=== PATIENT | female | born 1995 | race Caucasian/White ===

== ENCOUNTER 2020-10-26 10:22 | Emergency (ER) | payer BC, SELFPAY ==
[2020-10-26 10:40] VITALS: BP 150/84; PULSE 119; RESP 16; TEMP 36.9; O2SAT 97; BMI 28.9
[2020-10-26 10:49] VITALS: BP 125/99; PULSE 109; O2SAT 98
--- NOTE | 2020-10-26 10:58 | ED_ITS ---
Documented by User: LASHADNA Bella 10/26/20 13:21 HPI - Psych General: Chief Complaint: Psychiatric Symptoms Stated Complaint: mental eval Time Seen by Provider: 10/26/20 10:51 Source: patient Mode of arrival: ambulatory Limitations: no limitations History of Present Illness: HPI Narrative: Patient is a 25-year-old female who presents to ED today stating her mother requested she come here for mental health evaluation. Patient tells me she has diagnoses of PTSD, anxiety, and bipolar with psychotic features. She is taking clonazepam, abilify, and trazodone daily but does feel like she would benefit from these being adjusted. Patient during her exam does appear manic. Her speech is pressured. She often jumps from topic to topic. Her mood/emotions are labile. She talks about how she is best friends with the LACTATION NURSE of a large company and recently got into a lot of money . She speaks of various other grandiose delusions. MD complaint: other (psychosis) History of same: Yes Associated symptoms: Deny auditory hallucinations, visual hallucinations, depression, homicidal ideation or suicidal ideation Treatments prior to arrival: none Review of Systems Const: Denies: fever(s) or chills Card: Denies: chest pain, palpitations, lightheadedness or syncope Resp: Denies: dyspnea GI: Denies: abdominal pain, nausea, vomiting or diarrhea Skin/Breast: Denies: rash Neuro: Denies: headache(s) Psych: Reports: anxiety and panic attacks; Denies: depression, visual hallucinations, auditory hallucinations, suicidal ideation or homicidal ideation Physical Exam Const: COMMON NORMALS: no acute distress, average body habitus, patient oriented x3, no limitations, healthy appearing, alert and well nourished ORIENTATION/CONSCIOUSNESS: Yes awake, Yes oriented to person, Yes oriented to place and Yes oriented to time Neuro: JANNET COMA SCALE: document GCS findings Jannet coma scale eye opening: Spontaneous Jannet coma scale verbal response: Orientated Jannet coma scale motor response: Obey commands [place] coma scale total score: 15 COMMON NORMALS: patient oriented x3 SENSORIUM/ORIENTATION: Yes alert, Yes oriented to person, Yes oriented to place and Yes oriented to time Psych: ACTIVITY/MOTOR BEHAVIOR: Yes appropriate eye contact SPEECH: Yes excessive, Yes rapid and Yes Pressured speech present MOOD & AFFECT: Yes Labile affect present THOUGHT PROCESS: Tangential thought process present ATTENTION/CONCENTRATION: Yes attention grossly intact and Yes concentration grossly intact INSIGHT: Poor insight present (Psych) JUDGEMENT: Fair judgement present (Psych) OTHER: upon initial exam she immediately asks me my credentials and several questions regarding hospital and administration; he paces around room inspecting it stating she is a trauma EMS Course Consultations: Consultation #1: Dr. Pope-initially recommends patient be placed on a 96 hour hold and admitted to NPU however after speaking with Dr. Johns he agreed to come and assess patient in ED; following his assessment he is okay allowing the patient to leave. Vital Signs: Vital signs: Vital Signs Temperature 98.5 F 10/26/20 10:40 Pulse Rate 116 H 10/26/20 13:09 Respiratory Rate 16 10/26/20 10:40 Blood Pressure 136/92 10/26/20 13:09 Pulse Oximetry 99 10/26/20 13:09 MDM - Psych MDM Narrative: Medical decision making narrative: Patient is a 25-year-old female with acute psychosis/aneta. I had initially spoken to Dr. Pope who requested he see patient in ED but he recommended 96-hour hold and admitted to NPU. I spoke to Dr. Johns who signed initial hold paperwork and assessed patient. He felt like based on his assessment she did not meet 96-hour hold criteria so spoke to Dr. Pope who then agreed to come see patient in ED. Based on his assessment he does feel patient is stable for discharge with medication changes. 96 hour hold will be rescinded. Please refer to Dr. Pope's specific note in regards to his examination. Lab Data: Labs: Lab Results 10/26/20 Range/Units 11:45 Urine Opiates Scre en Negative (Negative) ng/mL Ur Barbiturates Sc reen Negative (Negative) ng/mL Ur Phencyclidine S crn Negative (Negative) ng/mL Ur Amphetamines Sc reen Negative (Negative) ng/mL U Benzodiazepines Scrn Negative (Negative) ng/mL Urine Cocaine Scre en Negative (Negative) ng/mL U Marijuana (THC) Screen Positive H (Negative) ng/mL Discharge Plan Discharge Patient Disposition: Home Clinical Impression: Bipolar I disorder with aneta Condition: Stable Prescriptions: New Abilify 5 mg tablet 5 mg PO .QHS Qty: 30 RF: 0 clonazepam 1 mg tablet 1 mg PO QAM Qty: 30 RF: 0 trazodone 50 mg tablet 75 mg PO .QHS Qty: 45 RF: 0 Discontinued trazodone 50 mg Tablet 50 mg PO BEDTIME RF: 0 No Action One A Day Vitamin Tablet 1 tab PO DAILY RF: 0 clonazepam 0.5 mg Tablet 0.5 mg PO BID RF: 0 Abilify 5 mg Tablet 5 mg PO DAILY RF: 0 Discharge Orders: Discharge ED (Routine); Ordered 10/26/20 Ordered By: Christal Connor Activity Restrictions/Additional Instructions: As we discussed based on your assessment with Dr. Pope we are adding 5 mg of Abilify to take in the evening in addition to the abilify you take mid-day. We are adding 1 mg clonazepam to take in the morning. We are increasing your trazodone to 75 mg in the evening. You need to return to the emergency department for any thoughts of self harming behavior or harming others, hallucinations, delusions, or any other concerns you may have. Coding Level of Care Code ED Patient Care Manager for Chg Fwd Exam Expanded Problem Focused Documented by User: Devonte Johns MD 10/26/20 18:45 HPI - Psych General: Chief Complaint: Psychiatric Symptoms Stated Complaint: mental eval Time Seen by Provider: 10/26/20 10:51 Course Vital Signs: Vital signs: Vital Signs Temperature 98.5 F 10/26/20 10:40 Pulse Rate 116 H 10/26/20 13:09 Respiratory Rate 16 10/26/20 10:40 Blood Pressure 136/92 10/26/20 13:09 Pulse Oximetry 99 10/26/20 13:09 MDM - Psych MDM Narrative: Medical decision making narrative: Dr Johns: I have spoken with MLP and patient. Patient notes that she's had trouble sleeping and it is affecting her mental health. She has good insight during my interview. She knows her meds and even has suggestions for change. She is connected to therapy and psychiatry. Patient is not imminent threat to self or others. She seems to be hypomanic. I did not find any evidence of psychosis during my interview. I consulted with Dr Pope, psychiatrist, who has seen and evaluated the patient. He reports patient can be given a trial with med changes (as noted in chart) and if doing better can avoid hospitalization; if not improving then will need to return and be evaluated for admission. Lab Data: Labs: Lab Results 10/26/20 Range/Units 11:45 Urine Opiates Scre en Negative (Negative) ng/mL Ur Barbiturates Sc reen Negative (Negative) ng/mL Ur Phencyclidine S crn Negative (Negative) ng/mL Ur Amphetamines Sc reen Negative (Negative) ng/mL U Benzodiazepines Scrn Negative (Negative) ng/mL Urine Cocaine Scre en Negative (Negative) ng/mL U Marijuana (THC) Screen Positive H (Negative) ng/mL Discharge Plan Discharge Patient Disposition: Home Clinical Impression: Bipolar I disorder with aneta Condition: Stable Prescriptions: New Abilify 5 mg tablet 5 mg PO .QHS Qty: 30 RF: 0 clonazepam 1 mg tablet 1 mg PO QAM Qty: 30 RF: 0 trazodone 50 mg tablet 75 mg PO .QHS Qty: 45 RF: 0 Discontinued trazodone 50 mg Tablet 50 mg PO BEDTIME RF: 0 No Action One A Day Vitamin Tablet 1 tab PO DAILY RF: 0 clonazepam 0.5 mg Tablet 0.5 mg PO BID RF: 0 Abilify 5 mg Tablet 5 mg PO DAILY RF: 0 Discharge Orders: Discharge ED (Routine); Ordered 10/26/20 Ordered By: Christal Connor Activity Restrictions/Additional Instructions: As we discussed based on your assessment with Dr. Pope we are adding 5 mg of Abilify to take in the evening in addition to the abilify you take mid-day. We are adding 1 mg clonazepam to take in the morning. We are increasing your tr azodone to 75 mg in the evening. You need to return to the emergency department for any thoughts of self harming behavior or harming others, hallucinations, delusions, or any other concerns you may have. Coding Level of Care Code ED Patient Care Manager for Dana Fwd Exam Expanded Problem Focused
[2020-10-26 11:39] VITALS: BP 125/99; PULSE 108; O2SAT 97
[2020-10-26 12:36] LABS: Amphetamines Screen Urine Negative (Negative); Barbiturates Screen Urine Negative (Negative); Benzodiazepines Screen Urine Negative (Negative); Cocaine Screen Urine Negative (Negative); Opiate Screen Urine Negative (Negative); PCP Screen Urine Negative (Negative); THC Screen Urine Positive (Negative)
[2020-10-26 13:07] VITALS: BP 136/92; PULSE 116; O2SAT 100
[2020-10-26 13:09] VITALS: BP 136/92; PULSE 116; O2SAT 99
--- NOTE | 2020-10-26 13:09 | P.CONIM_ITS ---
Providers/Reason for Consult Consulting Physican/Specialty*: Ebenezer Pope MD / psychiatry Reason for Consult*: Hypomania, needs med adjustments Psych Consult HPI History of Present Illness Sherri Cobian is a 25 year old female with a history of bipolar disorder and recent admission to the [facility] psych unit who presented here with hypomanic symptoms requesting a med adjustment. I discussed the case with both the PA Christal Connor, and the ED physician Devonte Johns. The ED note states: Patient is a 25-year-old female who presents to ED today stating her mother requested she come here for mental health evaluation. Patient tells me she has diagnoses of PTSD, anxiety, and bipolar with psychotic features. She is taking clonazepam, abilify, and trazodone daily but does feel like she would benefit from these being adjusted. Patient during her exam does appear manic. Her speech is pressured. She often jumps from topic to topic. Her mood/emotions are labile. 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 She speaks of various other grandiose delusions. Patient said her mood has been a little 50, and describes some labile affects. She says it is harder to sleep. She has some rapid thinking and speaking. Mild grandiosity. No risky behavior. She denies auditory visual hallucinations. She denies suicidal and homicidal ideation. She denies using alcohol. She says she smoked a little marijuana and has been smoking 1-1/2 to 2 packs of cigarettes per day. She came to stay in [place] with her mother and stepfather, after her hospital stay, as a way to recuperate. She says she sees a therapist named Gabe Gomez and has an appointment with him in 2 days. Her psychiatric appointment is not for 2 weeks, but she will call them and ask to be seen sooner. Patient says she takes Abilify 15 mg at midday for mood stabilization. She takes trazodone 50 mg at bedtime for insomnia. She takes Klonopin 0.5 mg twice daily for anxiety. I discussed increasing her dose of each of them a bit to address mood instability, insomnia, and anxiety. She agrees to this plan. Mental Status Exam MSE Comments: I met with the patient in her ED room, and she was dressed neatly in street close and appropriately groomed. She was cooperative but spirited and made good eye contact. She had mild psychomotor agitation. Speech was a little rapid but easily interruptible. She slowed herself down at times by deliberately taking a deep breath. She was alert and oriented to person, place, time, and situation. Attention, concentration, and memory were adequate for the exam. Mood is mildly euphoric and affect is somewhat labile?pleasant at times, euphoric at times, and tearful a couple of times. She never lost control of her emotions. Thought process was logical and goal-directed without flight of ideas. Thought content: She denies auditory and visual hallucinations. There are no delusions or paranoia noted. She denies suicidal and homicidal ideation. Insight and judgment are fair. She understands that she is having some moods that are outside her normal range and that she needs medication adjustment. Impulse control is fair as well. Vitals/I&O/Wt Last Vital Signs Temp 98.5 F 10/26/20 10:40 Pulse 116 H 10/26/20 13:07 Resp 16 10/26/20 10:40 BP 136/92 10/26/20 13:07 Pulse Ox 100 10/26/20 13:07 Weight last 48 hrs Weight 76.385 kg A&P Assessment and plan (1) Bipolar I disorder with aneta: * Recommend increasing Abilify by 5 mg daily. She takes 15 mg at midday, and this can make her somewhat sleepy. So it is better to give the additional 5 mg at bedtime. * Also recommend increasing trazodone to 75 mg at bedtime to address insomnia. If the antidepressant exacerbates aneta, the patient says she will return to the ED. * I recommended to the patient that she call her psychiatrist to see if her appointment can be moved to a sooner date. She is supposed to see him in 2 weeks, but it is better if she sees him sometime this week. She will tell him that we adjusted her medications here. Status: Acute (2) PTSD (post-traumatic stress disorder): * Recommend increasing Klonopin to 1 mg in the morning and 0.5 mg at bedtime to address anxiety in the daytime. Status: Acute Additional A&P Information The patient has a mild exacerbation of her manic state. She has no urges to harm her self or others. She is still able to care for herself. Her insight is preserved. She knows that she can return here if her symptoms worsen. She stays with her mother and stepfather, and they are keeping an eye out on her as well. Recommendations were reviewed with Dr. Johns and Ms. Connor and they are in agreement with this plan. Attestations NPU Medical Necessity Statement*: See ED provider note for medical necessity justification. Coding Level of Care Code Acute Compressor Station Operator for Dana Moralesd Diagnoses Bipolar I disorder with aneta F31.10 PTSD (post-traumatic stress disorder) F43.10
== END 2020-10-26 13:12 | disposition home or self-care (01) ==
PROVIDERS: Emergency Provider Physician Assistant
DX: F31.9 Bipolar disorder, unspecified (principal)
CPT/HCPCS: 80306; 99283

== ENCOUNTER 2020-11-01 11:10 | Emergency (ER) | payer BC, SELFPAY ==
[2020-11-01 11:52] VITALS: BP 117/76; PULSE 112; RESP 16; TEMP 36.8; O2SAT 97; BMI 27.4
--- NOTE | 2020-11-01 12:03 | ED_ITS ---
HPI - Anxiety General: Chief Complaint: Anxiety Stated Complaint: Anxiety, Mental Health Time Seen by Provider: 11/01/20 11:57 History of Present Illness: HPI narrative: Patient states she just wants to be clear that she can go back home to [place]. States she feels fine. She states that her mom is overbearing and and being involved in her care when she should not be. Patient states she is taking her medications and realized that it would take a while for increased dose to make a huge difference. Patient says she is not suicidal or homicidal. Says she feels fine realizes that she has bipolar and anxiety and she has a psychiatrist she still sees in [place] and she wants to go see them. MD complaint: other (As above) Onset (ago): year(s) Associated symptoms: Deny chest pain, chills, fever(s), headache(s), nausea or vomiting Review of Systems Const: Denies: fever(s), chills or body aches Eyes: Denies: change in vision or blurry vision ENMT: Denies: throat pain or nasal congestion Card: Denies: chest pain or dyspnea on exertion Resp: Denies: dyspnea, productive cough or non-productive cough GI: Denies: abdominal pain, nausea or vomiting Musc: Denies: extremity pain Skin/Breast: Denies: rash Neuro: Denies: headache(s) Psych: Reports: anxiety and mood swings; Denies: depression, panic attacks, hopelessness, irritability, difficulty concentrating, visual hallucinations, auditory hallucinations, tactile hallucinations, suicidal ideation or homicidal ideation Santo/Lymph: Denies: easy bruising [facility] ED Female Reproductive History: Date of last menstrual period: 11/05/19 Physical Exam Const: COMMON NORMALS: no acute distress GENERAL APPEARANCE: cooperative Resp: COMMON NORMALS: normal respiratory effort Psych: COMMON NORMALS: mental status grossly normal, Normal thought process present and cooperative ATTITUDE: Yes calm ACTIVITY/MOTOR BEHAVIOR: Yes appropriate eye contact SPEECH: Yes rapid THOUGHT PROCESS: Normal thought process present THOUGHT CONTENT: Yes Normal thought content present ATTENTION/CONCENTRATION: Yes attention grossly intact MEMORY/COGNITION: Yes memory grossly intact INSIGHT: Good insight present (Psych) JUDGEMENT: Good judgement present (Psych) Course Vital Signs: Vital signs: Vital Signs Temperature 98.3 F 11/01/20 11:52 Pulse Rate 112 H 11/01/20 11:52 Respiratory Rate 16 11/01/20 11:52 Blood Pressure 117/76 11/01/20 11:52 Pulse Oximetry 97 11/01/20 11:52 MDM - Anxiety MDM Narrative: Medical decision making narrative: Patient with anxiety and bipolar disorder. Patient did not want mother involved with care. Patient has not signed a release for mother to no information. Mother was informed. Patient that she can follow-up with primary care provider and [place]. Patient said she is aware that it takes a bit for the medication to work and she is doing fine and did not want to be here but she came here said her mom know that she was okay. Discharge Plan Discharge Patient Disposition: Home Clinical Impression: PTSD (post-traumatic stress disorder) Condition: Stable Prescriptions: No Action One A Day Vitamin Tablet 1 tab PO DAILY RF: 0 clonazepam 0.5 mg Tablet 0.5 mg PO BID RF: 0 Abilify 5 mg Tablet 5 mg PO DAILY RF: 0 Abilify 5 mg tablet 5 mg PO .QHS Qty: 30 RF: 0 clonazepam 1 mg tablet 1 mg PO QAM Qty: 30 RF: 0 trazodone 50 mg tablet 75 mg PO .QHS Qty: 45 RF: 0 Discharge Orders: Discharge ED (Routine); Ordered 11/01/20 Ordered By: Ajit Martin Discharge Diet: Usual diet Discharge Activity: Resume usual activity Activity Restrictions/Additional Instructions: Patient is follow-up psychiatry in [place]. Patient stay on present medications. Can return here if worsening symptoms. Coding Level of Care Code ED Crop Quantitative Geneticist for Dana Fwalba Exam Expanded Problem Focused
== END 2020-11-01 13:00 | disposition home or self-care (01) ==
PROVIDERS: Emergency Provider Nurse Practitioner Family
DX: F43.10 Post-traumatic stress disorder, unspecified (principal)
CPT/HCPCS: 99281

== ENCOUNTER 2020-11-19 12:14 | Inpatient (IN) | payer BC, SELFPAY ==
[2020-11-19 12:29] VITALS: BP 131/89; PULSE 110; RESP 22; TEMP 36.8; O2SAT 98; BMI 27.6
[2020-11-19 14:26] VITALS: BP 128/85; PULSE 106; RESP 18; O2SAT 98
--- NOTE | 2020-11-19 14:35 | ED_ITS ---
HPI - Psych General: Chief Complaint: Psychiatric Symptoms Stated Complaint: MHE: SENT BY [facility] EM[facility]GENCY [facility]PART[facility] Time Seen by Provider: 11/19/20 14:35 History of Present Illness: HPI Narrative: Ms. Cobian is a 25-year-old lady with significant past medical history of bipolar presents to the emergency department due to concern of her medications. She reports a longstanding history of difficulties with mental health and challenges regarding finding the appropriate balance of medications. Over the past few months she has had increased episodes of paranoia. She primarily feels like people are watching her though she denies visual hallucinations or auditory hallucinations associated with this. She was previously seen and had trazodone increased however symptoms have continued to worsen. She offer some insight into poor/dangerous decisions however often has explanations for her symptoms. Collateral information provided by family is that last night she left without telling anybody and was missing for about 4 hours. She was subsequently found in the lives with her dog across the highway. Overall the course of symptoms has been worsening. The intensity is moderate to severe. She otherwise denies medical complaints. Review of Systems General: Reports: 10 or more systems reviewed and unremarkable except in HPI and below PFSH ED PFSH: Medical History (Updated 11/20/20 @ 16:00 by Ebenezer Pope MD) Bipolar disorder, curr episode mixed, severe, w/o psychotic features Female Reproductive History: Date of last menstrual period: 11/05/19 Physical Exam Narrative: EXAM NARRATIVE: GENERAL/CONSTITUTIONAL - well-appearing. No acute distress. Eyes - PERRL, no conjunctival injection ENMT - Atraumatic external nose and ears. Moist mucous membranes NECK - supple. trachea midline CARDIOVASCULAR - regular rate and rhythm. Peripheral pulses 2+ and equal RESPIRATORY -clear to auscultation bilaterally. No retractions or accessory muscle use. ABDOMEN/GI - Nontender. Nondistended. MSK - Extremities without obvious deformity or tenderness to palpation SKIN - Warm, Dry NEURO - alert and appropriately oriented. Moves all extremities equally. PSYCH - anxious. Moderate insight. Course ED course: - Patient was seen and evaluated by me at bedside - Patient placed on cardiac monitors, IV access obtained - Initial evaluation notable for no acute distress, nontoxic appearance. - Labs notable for no significant abnormality - Based on ED evaluation to this point there is no obvious condition that would preclude the patient from inpatient management of psychiatric concerns. The patient denies suicidal or homicidal ideation or underlying psychiatric disorder is currently in such state that she is making dangerous decisions - Dr. Pope of the psychiatry service was contacted and agreed to admit the patient. Vital Signs: Vital signs: Vital Signs Temperature 98.4 F 11/21/20 10:12 Pulse Rate 97 11/21/20 10:12 Respiratory Rate 20 H 11/21/20 10:12 Blood Pressure 125/60 11/21/20 10:12 Pulse Oximetry 97 11/21/20 10:12 MDM - Psych Medical Records: Attestation: I reviewed the patient's medical records. Lab Data: Attestation: I reviewed the patient's lab results. Labs: Lab Results 11/19/20 11/19/20 11/19/20 15:10 15:10 15:43 WBC 11.9 10^3/uL H 10 ^3/uL (4.0-10.0) RBC 4.40 10^6/uL 10^6 /uL (4.1-5.3) Hgb 13.6 g/dL g/dL (11.5-15.3) Hct 40.5 % % (37.0-47.0) MCV 92.0 fl fl (81-99) MCH 30.9 pg pg (28.0-34.0) MCHC 33.6 g/dL g/dL (30.0-36.0) RDW 13.1 % % (12.1-15.1) Plt Count 316 10^3/cmm 10^3 /cmm (130-400) MPV 9.9 fL fL (7.4-10.4) Neut % (Auto) 69.3 % % Lymph % (Auto) 21.4 % % Davison % (Auto) 8.0 % % Eos % (Auto) 0.6 % % Baso % (Auto) 0.4 % % Neut # (Auto) 8.26 10^3/uL H 10 ^3/uL (1.8-7.7) Lymph # (Auto) 2.6 10^3/uL 10^3/ uL (0.8-4.8) Davison # (Auto) 1.0 10^3/uL H 10^ 3/uL (0.2-0.9) Eos # (Auto) 0.1 10^3/uL 10^3/ uL (0.0-0.8) Baso # (Auto) 0.1 10^3/uL 10^3/ uL (0.0-0.1) Nucleated RBC % (a uto) 0 % % Nucleated RBCs # 0.0 /100WBC /100W BC Sodium Potassium Chloride Carbon Dioxide Anion Gap BUN Creatinine GFR Calculation Glucose Calculated Osmolal ity Calcium Total Bilirubin AST ALT Alkaline Phosphata se Total Protein Albumin Globulin HCG, Qual Negative (Negative) Salicylates Urine Opiates Scre en Negative ng/mL ng /mL (Negative) Acetaminophen Ur Barbiturates Sc reen Negative ng/mL ng /mL (Negative) Ur Phencyclidine S crn Negative ng/mL ng /mL (Negative) Ur Amphetamines Sc reen Negative ng/mL ng /mL (Negative) U Benzodiazepines Scrn Negative ng/mL ng /mL (Negative) Urine Cocaine Scre en Negative ng/mL ng /mL (Negative) U Marijuana (THC) Screen Negative ng/mL ng /mL (Negative) 11/19/20 15:43 WBC RBC Hgb Hct MCV MCH MCHC RDW Plt Count MPV Neut % (Auto) Lymph % (Auto) Davison % (Auto) Eos % (Auto) Baso % (Auto) Neut # (Auto) Lymph # (Auto) Davison # (Auto) Eos # (Auto) Baso # (Auto) Nucleated RBC % (a uto) Nucleated RBCs # Sodium 139 mmol/L mmol/L (136-145) Potassium 4.8 mmol/L mmol/L (3.5-5.1) Chloride 105 mmol/L mmol/L (98-107) Carbon Dioxide 24 mmol/L mmol/L (22-29) Anion Gap 14.8 (5-19) BUN 7 mg/dL mg/dL (6-20) Creatinine 0.5 mg/dL mg/dL (0.5-0.9) GFR Calculation 148.0 mL/min H mL /min (90-130) Glucose 79 mg/dL mg/dL (65-115) Calculated Osmolal ity 285 mOsm/kg mOsm/ kg (285-295) Calcium 9.0 mg/dL mg/dL (8.5-10.5) Total Bilirubin 0.3 mg/dL mg/dL (0.15-1.2) AST 24 U/L U/L (0-32) ALT 13 U/L U/L (0-33) Alkaline Phosphata se 80 IU/L IU/L (35-105) Total Protein 6.8 g/dL g/dL (6.6-8.7) Albumin 4.4 g/dL g/dL (3.5-5.2) Globulin 2.4 g/dL g/dL (1.3-4.6) HCG, Qual Salicylates 0.8 mg/dL L mg/dL (3-10) Urine Opiates Scre en Acetaminophen < 5.0 ug/mL L ug/ mL (10-30) Ur Barbiturates Sc reen Ur Phencyclidine S crn Ur Amphetamines Sc reen U Benzodiazepines Scrn Urine Cocaine Scre en U Marijuana (THC) Screen EKG Data^: EKG 1: Attestation: I personally reviewed and interpreted this EKG as follows: EKG interpretation date: 11/19/20 EKG interpretation time: 15:30 Interpretation: Twelve-lead EKG shows a regular sinus rhythm at a rate of 85. OR interval 123, QRS duration 102, QTc 414. Normal axis. Interpretation: Sinus rhythm Discharge Plan Discharge Patient Disposition: Admitted As Inpatient Admit Provider: Ebenezer Pope Coding Level of Care Code ED Senior Financial Consultant for Dana Segura
--- NOTE | 2020-11-19 15:03 | ECG_ITS ---
[facility] Test Date: 2020-11-19 Pat Name: Sherri Cobian Department: Room: Gender: Female Floor Technician: : 1995 Requested By: Rogelio Musa Order Number: [id number] MD: Conor Arroyo M.D. Measurements Intervals Burns Rate: 85 P: 55 DE: 123 QRS: 24 QRSD: 102 T: 31 QT: 347 QTc: 414 Interpretive Statements SINUS RHYTHM POSSIBLE RIGHT VENTRICULAR CONDUCTION DELAY [RSR (QR) IN V1/V2] No previous ECG available for comparison Electronically Signed On 11-19-2020 21:04:58 CDT by Conor Arroyo M.D. [id number]
[2020-11-19 15:12] VITALS: BP 125/90; PULSE 106; RESP 18; O2SAT 98
[2020-11-19 15:24] LABS: HCG Qualitative Urine. Negative (Negative)
[2020-11-19 15:35] LABS: Amphetamines Screen Urine Negative (Negative); Barbiturates Screen Urine Negative (Negative); Benzodiazepines Screen Urine Negative (Negative); Cocaine Screen Urine Negative (Negative); Opiate Screen Urine Negative (Negative); PCP Screen Urine Negative (Negative); THC Screen Urine Negative (Negative)
[2020-11-19 15:50] LABS: Basophils # 0.1 10^3/uL (0.0-0.1); Basophils % 0.4 %; Eosinophils # 0.1 10^3/uL (0.0-0.8); Eosinophils % 0.6 %; Hematocrit 40.5 % (37.0-47.0); Hemoglobin 13.6 g/dL (11.5-15.3); Lymphocytes # 2.6 10^3/uL (0.8-4.8); Lymphocytes % 21.4 %; Mean Corpuscular HGB Conc 33.6 g/dL (30.0-36.0); Mean Corpuscular Hemoglobin 30.9 pg (28.0-34.0); Mean Platelet Volume 9.9 fL (7.4-10.4); Neutrophils # 8.26 10^3/uL (1.8-7.7); Neutrophils % 69.3 %; Nucleated Red Blood Cells % 0 %; Platelet Count 316 10^3/cmm (130-400); Red Cell Distribution Width 13.1 % (12.1-15.1); White Blood Count 11.9 10^3/uL (4.0-10.0)
[2020-11-19 16:17] LABS: Alanine Aminotransferase 13 U/L (0-33); Albumin Level 4.4 g/dL (3.5-5.2); Alkaline Phosphatase 80 IU/L (35-105); Blood Urea Nitrogen 7 mg/dL (6-20); Carbon Dioxide 24 mmol/L (22-29); Chloride 105 mmol/L (98-107); Globulin 2.4 g/dL (1.3-4.6); Glucose 79 mg/dL (65-115); Osmolality Calculated 285 mOsm/kg (285-295); Salicylate 0.8 mg/dL (3-10); Sodium 139 mmol/L (136-145); Total Bilirubin 0.3 mg/dL (0.15-1.2); Total Protein 6.8 g/dL (6.6-8.7)
[2020-11-19 16:22] LABS: Acetaminophen < 5.0 ug/mL (10-30)
[2020-11-19 16:23] LABS: Anion Gap 14.8 (5-19); Aspartate Amino Transferase 24 U/L (0-32); Potassium 4.8 mmol/L (3.5-5.1)
[2020-11-19 17:05] VITALS: BP 111/66; PULSE 100; RESP 17; TEMP 36.9; O2SAT 100
--- NOTE | 2020-11-19 18:25 | PC.NURSE ---
UNABLE TO PROPERLY ASSESS PT DUE TO STATE OF EMOTION
[2020-11-19 20:45] VITALS: BP 104/66; PULSE 89; RESP 18; TEMP 37.2; O2SAT 99
[2020-11-19] MEDS: trazodone 50 mg Tablet PO (22:41)
[2020-11-19] MEDS: hyDROXYzine 25 mg Capsule 50 MG PO (22:41)
--- NOTE | 2020-11-20 03:38 | PC.NURSE ---
PRN's Patient was given trazodone and vistaril for sleep and anxiety, patient responded well.
[2020-11-20 06:00] VITALS: BP 118/88; PULSE 85; RESP 17; TEMP 36.7; O2SAT 94
[2020-11-20] MEDS: CLONazepam 1 mg Tablet PO (06:26)
[2020-11-20] MEDS: CLONazepam 1 mg Tablet 0.5 MG PO ×3 (09:20→20:57)
[2020-11-20] MEDS: ARIPiprazole 10 mg Tablet 5 MG PO ×2 (09:20→16:38)
[2020-11-20] MEDS: multivitamin therapeutic Tablet 1 TAB PO (09:21)
[2020-11-20] MEDS: acetaminophen 325 mg Tablet 650 MG PO (09:33)
[2020-11-20] MEDS: hyDROXYzine 25 mg Capsule 50 MG PO (11:05)
--- NOTE | 2020-11-20 11:05 | PC.NURSE ---
Patient came to nurses station and stated she needed this nurse to take her brush and toothbrush before she did something to herself. PRN Vistaril given at this time.
--- NOTE | 2020-11-20 12:24 | PC.NURSE ---
Pt came up to nurses station and request that we take her toothbrush and hairbrush away from her. When i entered the pt room she was very agitated and said that we need to do a better job about checking on her Charged nurse was notified.
[2020-11-20 14:00] VITALS: PULSE 92; RESP 171; TEMP 36.9
--- NOTE | 2020-11-20 15:25 | P.HP_ITS ---
Providers/Chief Complaint Admitting Physician: Ebenezer Pope MD Chief Complaint: MHE: SENT BY [facility] HPI NPU History of Present Illness Sherri Cobian is a 25 year old female with a history of bipolar disorder and PTSD who was admitted to the ED here because of paranoia and disorganized thinking. The crisis team notes yesterday state in part: Intervention:: Client was brought into [facility] by her parents, client is not in services with [facility]. She was recently at the ER stating my meds were not working . Client did not want her parents to come into the crisis office with her. [facility] has an investigator internal revenue and she did not want the investigator internal revenue to come in either. Client stated that she was in-patient (wouldn't say when) she was given ketamine and stated that Everything has changed since, I have depression and I am manic . 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 Client was very tearful, she was hard to understand at times. Client asked CRW who we are affiliated with and she was informed that [facility] is part of the [facility]. she wanted to who the [facility]. was affiliated with. Client did seen a bit paranoid. Client reports that she has realized that she has done some bad things in life and has pushed others away. Client Response to Intervention:: CRW talked with client, client stated that she thinks she needed to go to the hosp. she stated that her parents wanted her to be in-patient. The patient, who is known to me from an ER visit last month, says that she has been feeling very frightened since her partner got Covid a number of weeks ago. She relates her fear to feeling her neck pop during her partner's illness. Something happened that she became aware of her partners potential to , and she became terrified that that would happen. She was very tearful during the interview and stopped talking completely for long periods at times. She initially asked to be able to leave the hospital, but then decided that she really does want to get help. Mood has been depressed, mostly, per patient. She has had trouble sleeping at times, though she did sleep well here last ni ght. She denies hearing voices or seeing things currently. She does not feel suicidal at the moment. And there is no homicidal ideation. The patient says she has been hospitalized 3 times previously. She is in the process of switching services to this area. She has seen a psychiatrist from the [facility] via telepsychiatry in recent weeks. The patient denies using much alcohol. Denies using drugs and her UDS is negative for all substances tested. Family history: She is unsure of her family history Psychosocial history: She begins to talk about finishing classes, then gets very tearful, then stopped talking altogether. She says she is in a committed relationship, but she also says that she and her partner have not spoken for quite some time. She has no children. She does not work. Her parents have encouraged her to apply for disability. Legal history: No legal difficulties. Meds NPU Home Medications Medication Instructions Recorded Confirmed Last Taken Type clonazepam 1 mg PO QAM #30 tab 10/26/20 11/19/20 11/19/20 Rx multivitamin [One A Day Vitamin] 1 tab PO DAILY 10/26/20 11/19/20 11/19/20 History aripiprazole [Abilify] 5 mg PO BID 11/19/20 11/20/20 Unknown History clonazepam 0.5 mg PO TID 11/19/20 11/19/20 Unknown History trazodone 75 mg PO BEDTIME 11/19/20 11/19/20 11/18/20 History Allergies Allergy/AdvReac Type Severity Reaction Status Date / Time No Known Allergies Allergy Verified 10/26/20 10:50 PFS NPU PFSH: Medical History (Updated 11/20/20 @ 16:00 by Ebenezer Pope MD) Bipolar disorder, curr episode mixed, severe, w/o psychotic features Mental Status Exam MSE Comments: I met with the patient on the bench by the nurses station. She was dressed in hospital scrubs and appropriately groomed. She was somewhat agitated, and would get startled if patients walked by or spoke. She attempted to cooperate with questions, but had thought blocking. Eye contact was fair. No psychomotor agitation or retardation. Speech is at a regular rate and rhythm, normal volume, good articulation, not pressured. Alert, oriented to person, place, time, and situation. Attention and concentration were impaired. She was able to spell the word WORLD correctly forwards, but spelled DLO in reverse then stopped and gave up. Memory is intact. Remembers 3/3 words immediately and 3/3 at 3 minutes. He knows the names of the past 4 presidents. Mood is depressed and anxious. Affect is tearful and dysregulated. Thought process shows thought blocking and confusion. Thought content: Denies auditory and visual hallucinations. No delusions or paranoia are noted. No current suicidal ideation, and no homicidal ideation. Fund of knowledge is intact to exam. Language is intact to exam. Insight and judgment appear to be fair. Impulse control is fair as well. Vitals/I&O/Wt Last Vital Signs Temp 98.4 F 11/20/20 14:00 Pulse 92 11/20/20 14:00 Resp 171 H 11/20/20 14:00 BP 118/88 11/20/20 06:00 Pulse Ox 94 11/20/20 06:00 Weight last 48 hrs Weight 73.198 kg Data NPU : 11/19/20 15:43 11/19/20 15:43 A&P Assessment and plan (1) PTSD (post-traumatic stress disorder): Status: Acute (2) Bipolar disorder, curr episode mixed, severe, w/o psychotic features: Status: Acute Additional A&P Information Sherri Cobian is a 25 year old female with a history of bipolar disorder and PTSD who was admitted to the ED here because of paranoia and disorganized thinking. RECOMMENDATION AND PLAN: 1. Continue current medication. 2. Continue every 15 minute checks for safety. 3. Encourage individual, group and milieu therapies. 4. Encourage sober living treatment after discharge at the highest level of care to which he is willing to commit. Attestations NPU Medical Necessity Statement*: Psychiatric hospitalization is medically necessary to prevent access to lethal means, to reevaluate medication, and to coordinate a safe discharge. Patient will be in the hospital for over 2 midnights. Likely length of stay is 3 to 5 days. Coding Level of Care Code Acute Risk Modeler for Dana Segura Diagnoses PTSD (post-traumatic stress disorder) F43.10 Bipolar disorder, curr episode mixed, severe, w/o psychotic features F31.63
[2020-11-20 19:00] LABS: Glucose Point of Care 102 mg/dL (70-110)
[2020-11-20] MEDS: benztropine 1 mg Tablet PO (19:06)
[2020-11-20 20:41] VITALS: BP 116/74; PULSE 80; RESP 17; TEMP 36.7; O2SAT 95
[2020-11-20] MEDS: trazodone 50 mg Tablet 75 MG PO (20:56)
[2020-11-21 06:00] VITALS: BP 125/60; PULSE 97; RESP 20; TEMP 36.9; O2SAT 97
[2020-11-21] MEDS: CLONazepam 1 mg Tablet PO (06:14)
[2020-11-21] MEDS: CLONazepam 1 mg Tablet 0.5 MG PO (09:34)
[2020-11-21] MEDS: multivitamin therapeutic Tablet 1 TAB PO (09:34)
[2020-11-21] MEDS: ARIPiprazole 10 mg Tablet 5 MG PO (09:34)
[2020-11-21 10:12] VITALS: BP 125/60; PULSE 97; RESP 20; TEMP 36.9; O2SAT 97
--- NOTE | 2020-11-21 10:18 | PC.NURSE ---
patient demanding to leave unit AMA. Dr. Pope contacted via telephone, order given to this nurse that patient may leave AMA as long as she is not currently suicidal. All AMA paperwork filled out and put with patient chart. scrap charger Maria Del Rosario Trevino spoke to patient extensively about staying on the unit long enough so she may speak to physician herself, but pt very adamant about getting the fuck out of the hospital right now. patient ambulated off the unit with all personal belongings, once she changed into her own personal clothes, patient cont to be irritable with staff, threw her scrub top onto the ground, was demanding that staff call her a cab even though previously pt had stated she had her own ride. pt asked for directions to [facility] which were provided, staff educated patient that [facility] was closed today & that they would be back open tomorrow morning. patient then asked for a cup of water which was provided. patient then left out the doors, wished well.
--- NOTE | 2020-11-21 11:00 | PC.NURSE ---
Patient very upset that she wants to leave AMA. Patient was at the window yelling that she wants to be discharged. This nurse talked with the patient extensively about staying for a few days. Patient is very firm that she wants to leave. patient is A & O, denies SI/HI or any other needs at this time. I offered to call her Mom and patient refused stating that she will call her Mom. Patient states she does not have a problem finding a ride. States she has numerous people she can call. Dr. Pope was notified of patient wanting to leave AMA. Dr. Pope was agreeable to patient leaving. Once patient was discharged she was outside sitting against the wall. She states she was just getting some fresh air. Again I offered to call her Mom or someone else to give her a ride and she denies the need for me to call anyone. This nurse notified over the horizon targeting supervisor Martha CHUA. Dr. Pope also notified and came outside to speak to patient.
--- NOTE | 2020-11-21 11:09 | P.DS_ITS ---
Diagnoses at Discharge Discharge Diagnosis (1) PTSD (post-traumatic stress disorder): Status: Chronic (2) Bipolar disorder, curr episode mixed, severe, w/o psychotic features: Status: Chronic Reason for Visit Reason for Visit: MHE: SENT BY [facility] Brief History: Sherri Cobian is a 25 year old female with a history of bipolar disorder and PTSD who was admitted to the ED here because of paranoia and disorganized thinking. The crisis team notes yesterday state in part: Intervention:: Client was brought into [facility] by her parents, client is not in services with [facility]. She was recently at the ER stating my meds were not working . Client did not want her parents to come into the crisis office with her. [facility] has an global marketing intern and she did not want the global marketing intern to come in either. Client stated that she was in-patient (wouldn't say when) she was given ketamine and stated that Everything has changed since, I have depression and I am manic . 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 Client was very tearful, she was hard to understand at times. Client asked CRW who we are affiliated with and she was informed that [facility] is part of the [facility]. she wanted to who the [facility]. was affiliated with. Client did seen a bit paranoid. Client reports that she has realized that she has done some bad things in life and has pushed others away. Client Response to Intervention:: CRW talked with client, client stated that she thinks she needed to go to the hosp. she stated that her parents wanted her to be in-patient. The patient, who is known to me from an ER visit last month, says that she has been feeling very frightened since her partner got Covid a number of weeks ago. She relates her fear to feeling her neck pop during her partner's illness. Something happened that she became aware of her partners potential to , and she became terrified that that would happen. She was very tearful during the interview and stopped talking completely for long periods at times. She initially asked to be able to leave the hospital, but then decided that she really does want to get help. Mood has been depressed, mostly, per patient. She has had trouble sleeping at times, though she did sleep well here last night. She denies hearing voices or seeing things currently. She does not feel suicidal at the moment. And there is no homicidal ideation. The patient says she has been hospitalized 3 times previously. She is in the process of switching services to this area. She has seen a psychiatrist from the [facility] via telepsychiatry in recent weeks. The patient denies using much alcohol. Denies using drugs and her UDS is negative for all substances tested. Family history: She is unsure of her family history Psychosocial history: She begins to talk about finishing classes, then gets very tearful, then stopped talking altogether. She says she is in a committed relationship, but she also says that she and her partner have not spoken for quite some time. She has no children. She does not work. Her parents have encouraged her to apply for disability. Legal history: No legal difficulties. Hospital Course Hospital Course The patient was admitted to the neuropsychiatric unit for definitive treatment of these issues. On the unit, she was cooperative and took her medications as prescribed. She often kept to herself and appeared disturbed when other patients were in distress. The patient requested to leave during the first day of admission, but was convinced to stay for additional treatment. However during the second day of treatment, she has to check herself out of the hospital. Because the patient had been admitted voluntarily, was denying suicidal and homicidal ideation as well as auditory and visual hallucinations and paranoia, she was allowed to leave AGAINST MEDICAL ADVICE. During the hospitalization, patient had routine laboratory studies which were within normal limits except for few outliers. Additionally there was a general medical evaluation which was also within normal limits and revealed no new acute processes. No medication changes were made. Discharge Summary: At the time of discharge, psychosis and lethality were denied. She was still reporting sadness and anxiety and was tearful at times. Patient endorsed a plan to avoid all drugs of abuse and follow-up with the [facility], where she has been in the process of obtaining services. Patient was evaluated and deemed to be absent credible lethality and psychosis, and was therefore allowed to leave the hospital AGAINST MEDICAL ADVICE, as per her wishes. After she left, she stayed in the Courtyard outside the unit for some time. We spoke with the patient again for a number of minutes, offering to allow her to rescind her wish to leave. She did consider this offer because she felt her mother would be upset with her for checking herself out of the hospital. In the end, she said, I am an adult and I am going to leave. Again her decision was respected, even though we were recommending she stay in the hospital. Mental Status Exam MSE Comments: The patient was cooperative with questions and was ambivalent about her decision to leave. Her main consideration was that her mother would be upset with her for leaving the hospital before treatment was completed. Eye contact was fair. She had some psychomotor agitation. Speech showed mild pressure at times, but she was interruptible. Alert, oriented to person, place, time, and situation. Attention and concentration showed some distractibility Memory is intact to autobiographical events necessary for this interview. Mood is somewhat depressed and anxious. Affect is tearful at times. Thought process was logical. Sometimes she would stop speaking for a bit, and she would say she was thinking. Thought content: Denies auditory and visual hallucinations. No delusions or paranoia are noted. No current suicidal ideation, and no homicidal ideation. Insight and judgment appear to be fair. Discharge Data Data Completed and Pending: Labs from last 24 hours 11/20/20 18:56 POC Glucose 102 Vitals: Last Vital Signs Temp 98.4 F 11/21/20 10:12 Pulse 97 11/21/20 10:12 Resp 20 H 11/21/20 10:12 BP 125/60 11/21/20 10:12 Pulse Ox 97 11/21/20 10:12 Discharge Plan Discharge Patient Disposition: Home Prescriptions: No Action multivitamin [One A Day Vitamin] Tablet 1 tab PO DAILY RF: 0 clonazepam 1 mg tablet 1 mg PO QAM Qty: 30 RF: 0 trazodone 50 mg tablet 75 mg PO BEDTIME RF: 0 aripiprazole [Abilify] 5 mg tablet 5 mg PO BID RF: 0 clonazepam 1 mg tablet 0.5 mg PO TID RF: 0 Discharge Orders: Discharge Order (Routine); Ordered 11/21/20 Ordered By: Ebenezer Pope Referrals: [facility] [place] [place] [facility] [Outside] - 1-3 days (Walk in to complete and initial assessment on Sunday and from 7:00am to 3:00pm. ) Discharge Diet: Usual diet Discharge Activity: Resume usual activity Patient Instructions: Opioid Safety Discharge Attestations NPU Time Spent in Discharge Care*: greater than 30 min Specific Discharge Activities: Specific discharge activities: educating patient, discussing with case folder/social workers/dc planners, documenting/other paperwork and evaluating patient/reviewing data Status at Discharge: Cognitive status at discharge: cognitively intact , Behavioral status at discharge: can be uncooperative and independent in ADL's , Functional status at discharge: independent ambulation Overall status at discharge: patient is not back to baseline Coding Level of Care Code Acute [facility] FW DC note Diagnoses PTSD (post-traumatic stress disorder) F43.10 Bipolar disorder, curr episode mixed, severe, w/o psychotic features F31.63
== END 2020-11-21 10:26 | disposition home or self-care (01) | DRG 882 ==
LOC: ER 14:35 → NP 17:15
PROVIDERS: Admitting Provider Psychiatry & Neurology Child & Adolescent Psychiatry; Emergency Provider Emergency Medicine; Visit Provider Psychiatry & Neurology Child & Adolescent Psychiatry
DX: F43.12 Post-traumatic stress disorder, chronic (principal); F31.63 Bipolar disorder, current episode mixed, severe, without psychotic features; X58.XXXA Exposure to other specified factors, initial encounter; Z53.29 Procedure and treatment not carried out because of patient's decision for other reasons
CPT/HCPCS: 36416; 80053; 80306; 80307; 81025; 82962; 85025; 93005; 99285

== ENCOUNTER 2020-11-22 18:26 | Inpatient (IN) | payer BC, SELFPAY ==
[2020-11-22 18:29] VITALS: BP 113/85; PULSE 106; RESP 18; TEMP 37; O2SAT 99; BMI 27.4
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
[2020-11-22 19:40] LABS: HCG Qualitative Urine. Negative (Negative)
[2020-11-22 20:05] VITALS: RESP 22
[2020-11-22] MEDS: morphine 4 mg/mL SDV 1 mL IVP ×3 (20:05→23:02)
[2020-11-22 20:06] LABS: Basophils # 0.1 10^3/uL (0.0-0.1); Basophils % 0.5 %; Eosinophils # 0.1 10^3/uL (0.0-0.8); Eosinophils % 0.5 %; Hematocrit 39.9 % (37.0-47.0); Hemoglobin 13.6 g/dL (11.5-15.3); Lymphocytes % 15.1 %; Mean Corpuscular HGB Conc 34.1 g/dL (30.0-36.0); Mean Corpuscular Hemoglobin 31.6 pg (28.0-34.0); Mean Corpuscular Volume 92.6 fl (81-99); Mean Platelet Volume 10.1 fL (7.4-10.4); Monocytes # 0.7 10^3/uL (0.2-0.9); Monocytes % 5.6 %; Neutrophils # 10.14 10^3/uL (1.8-7.7); Neutrophils % 77.8 %; Nucleated Red Blood Cells % 0 %; Platelet Count 325 10^3/cmm (130-400); Red Blood Count 4.31 10^6/uL (4.1-5.3); Red Cell Distribution Width 13.1 % (12.1-15.1); White Blood Count 13.1 10^3/uL (4.0-10.0)
[2020-11-22] MEDS: tetanus-dipt-pertussis 0.5 mL SDV IM (20:06)
[2020-11-22 20:37] LABS: Alanine Aminotransferase 13 U/L (0-33); Albumin Level 4.3 g/dL (3.5-5.2); Alkaline Phosphatase 83 IU/L (35-105); Anion Gap 15.3 (5-19); Aspartate Amino Transferase 17 U/L (0-32); Blood Urea Nitrogen 8 mg/dL (6-20); Calcium 9.4 mg/dL (8.5-10.5); Carbon Dioxide 24 mmol/L (22-29); Chloride 104 mmol/L (98-107); Globulin 2.2 g/dL (1.3-4.6); Glomerular Filtration Rate 119.9 mL/min (90-130); Glucose 84 mg/dL (65-115); Osmolality Calculated 286 mOsm/kg (285-295); Potassium 4.3 mmol/L (3.5-5.1); Sodium 139 mmol/L (136-145); Total Bilirubin 0.3 mg/dL (0.15-1.2); Total Protein 6.5 g/dL (6.6-8.7)
[2020-11-22 20:41] LABS: Acetaminophen < 5.0 ug/mL (10-30); Alcohol Level < 10 mg/dL (0-10); Salicylate < 0.3 mg/dL (3-10)
[2020-11-22 20:59] LABS: Amphetamines Screen Urine Negative (Negative); Barbiturates Screen Urine Negative (Negative); Benzodiazepines Screen Urine Negative (Negative); Cocaine Screen Urine Negative (Negative); Opiate Screen Urine Negative (Negative); PCP Screen Urine Negative (Negative); THC Screen Urine Negative (Negative)
[2020-11-22] MEDS: ketorolac 30 mg/mL INJ 15 MG IVP (21:59)
[2020-11-22] MEDS: acetaminophen 500 mg Tablet 1000 MG PO (21:59)
[2020-11-22] MEDS: diphenhydrAMINE 50 mg/mL SDV 1mL IM (23:44)
[2020-11-22] MEDS: LORazepam 2 mg/mL INJ 1 mL IM (23:45)
[2020-11-22] MEDS: haloperidol inj 5 mg/mL INJ 1 mL IM (23:45)
[2020-11-22 23:57] VITALS: BP 118/77; PULSE 77; RESP 20; O2SAT 98
[2020-11-23 00:01] VITALS: BP 118/79; PULSE 105; RESP 22; TEMP 37.1; O2SAT 98
[2020-11-23] MEDS: acetaminophen 325 mg Tablet 650 MG PO ×2 (05:01→10:22)
[2020-11-23 06:00] VITALS: RESP 18
[2020-11-23] MEDS: CLONazepam 1 mg Tablet PO (06:35)
[2020-11-23] MEDS: ibuprofen 800 mg tablet PO ×2 (08:51→20:35)
[2020-11-23] MEDS: ARIPiprazole 10 mg Tablet 5 MG PO (08:52)
[2020-11-23] MEDS: CLONazepam 0.5 mg Tablet PO (08:52)
[2020-11-23] MEDS: nicotine 21 mg Patch 1 PATCH TRANSDERMA (10:27)
[2020-11-23] MEDS: OLANZapine 5 mg ODT PO (12:10)
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
[2020-11-23 14:00] VITALS: BP 118/77; PULSE 91; RESP 20; TEMP 36.2; O2SAT 97
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
[2020-11-23] MEDS: haloperidol 5 mg Tablet PO (20:34)
[2020-11-23] MEDS: trazodone 50 mg Tablet 75 MG PO (20:34)
[2020-11-23 22:00] VITALS: RESP 16
--- NOTE | 2020-11-24 | SCC_ITS ---
Procedure Done: Open reduction internal fixation right medial and lateral malleolus, closed treatment right fifth metatarsal fracture 29.9 seconds of fluoroscopic guidance, for a cumulative dose of 0.90 mGy, was provided to Dr. Ibrahim by the radiology department. C-arm images of the RIGHT ankle were saved for the patient's permanent record. [facility]
--- NOTE | 2020-11-24 | XR_ITS ---
WS: [id number] XR ankle RT 2V [id number] REASON FOR EXAM: ESTEVAN PICS FINDINGS: Screw fixation of previously defined transverse right lateral malleolar and oblique medial malleolar fractures. Surgical appliances and fracture fragments are in proper position and alignment. Ankle mortise is pre served. XR/XR ankle RT 2V [id number] IMPRESSION: Screw fixation of bimalleolar fractures.
[2020-11-24] MEDS: CLONazepam 1 mg Tablet PO (05:43)
[2020-11-24 06:00] VITALS: BP 110/82; PULSE 102; RESP 18; TEMP 36.6; O2SAT 98
[2020-11-24] MEDS: CLONazepam 0.5 mg Tablet PO ×2 (08:34→17:23)
[2020-11-24] MEDS: ARIPiprazole 10 mg Tablet 20 MG PO (08:34)
--- NOTE | 2020-11-24 09:00 | PC.NURSE ---
PT TAKEN TO SURGERY VIA WHEELCHAIR BY SECURITY AND 1:1 SITTER.
--- NOTE | 2020-11-24 15:20 | PC.NURSE ---
PT BACK ON UNIT FROM SURGERY.
[2020-11-24 17:15] VITALS: BP 111/70; PULSE 72; RESP 17; TEMP 37.1; O2SAT 97
[2020-11-24] MEDS: ibuprofen 800 mg tablet PO (17:23)
[2020-11-24] MEDS: OLANZapine 5 mg ODT PO (17:24)
[2020-11-24] MEDS: ARIPiprazole 10 mg Tablet PO (17:25)
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
[2020-11-24 20:23] VITALS: BP 138/77; PULSE 91; RESP 17; TEMP 36.9; O2SAT 97
[2020-11-24] MEDS: trazodone 50 mg Tablet 75 MG PO (20:36)
[2020-11-24 20:37] VITALS: RESP 18; O2SAT 98
[2020-11-24] MEDS: hyDROXYzine 25 mg Capsule 50 MG PO (20:37)
[2020-11-24] MEDS: oxyCODONE-APAP 5-325 mg Tablet PO (20:37)
--- NOTE | 2020-11-25 03:55 | PC.NURSE ---
Patient given Trazpdone 50mg PO, Visteril 50 mg PO at patient request for sleep and anxiety. Oxycodone 5mg PO was given for post surgical pain of right ankle. meds were effective
[2020-11-25] MEDS: oxyCODONE-APAP 5-325 mg Tablet PO ×3 (04:36→21:23)
[2020-11-25 06:00] VITALS: BP 123/78; PULSE 98; RESP 17; TEMP 36.9; O2SAT 99
[2020-11-25] MEDS: ibuprofen 800 mg tablet PO ×3 (09:02→21:24)
[2020-11-25] MEDS: ARIPiprazole 10 mg Tablet 20 MG PO (09:03)
[2020-11-25] MEDS: aspirin 325 mg Tablet PO (09:03)
[2020-11-25] MEDS: CLONazepam 0.5 mg Tablet PO ×2 (09:03→17:35)
--- NOTE | 2020-11-25 09:44 | PC.OT ---
PATIENT SEEN FOR OT EVALUATION. IS ABLE TO GET HERSELF TO THE BATHROOM AND PERFORM TASKS THERE. NO FURTHER ADL CONCERNS. NO SKILLED OT REQUIRED AT THIS TIME.
[2020-11-25 10:11] VITALS: RESP 16; O2SAT 98
[2020-11-25] MEDS: nicotine 21 mg Patch 1 PATCH TRANSDERMA (11:09)
--- NOTE | 2020-11-25 15:22 | PC.NURSE ---
prn pain Pt only wanted motrin 800mg at this time. 0ffered pain med and she refused, pt wanted this documented. will continue to monitor.
[2020-11-25 17:15] VITALS: BP 114/80; PULSE 111; RESP 18; TEMP 36.8; O2SAT 97
[2020-11-25] MEDS: acetaminophen 325 mg Tablet 650 MG PO (17:35)
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
[2020-11-25] MEDS: hyDROXYzine 25 mg Capsule 50 MG PO (20:46)
[2020-11-25] MEDS: CLONazepam 1 mg Tablet PO (20:46)
[2020-11-25] MEDS: OLANZapine 5 mg ODT PO (20:46)
[2020-11-25] MEDS: trazodone 50 mg Tablet 75 MG PO (20:47)
[2020-11-25 21:23] VITALS: RESP 18
--- NOTE | 2020-11-26 00:30 | PC.NURSE ---
PRN MEDIATIONS: PATIENT WAS GIVEN VISTERIL 50MG PO,PERCOCET 5-325MG PO AND ZYPREXA 5MG PO. UPON REASSESSMENT MEDICATION WAS EFFECTIVE.
[2020-11-26 08:41] VITALS: RESP 18; O2SAT 97
[2020-11-26] MEDS: CLONazepam 0.5 mg Tablet PO ×2 (08:41→17:42)
[2020-11-26] MEDS: aspirin 325 mg Tablet PO (08:41)
[2020-11-26] MEDS: ibuprofen 800 mg tablet PO ×2 (08:41→14:00)
[2020-11-26] MEDS: ARIPiprazole 10 mg Tablet 20 MG PO (08:41)
[2020-11-26] MEDS: oxyCODONE-APAP 5-325 mg Tablet PO ×4 (08:41→21:24)
[2020-11-26] MEDS: nicotine 21 mg Patch 1 PATCH TRANSDERMA (11:26)
--- NOTE | 2020-11-26 13:12 | PC.NURSE ---
PT COMPLAINED OF SORE ARM AND KNOT FROM VACCINE INJECTION. NURSE OFFERED TO CONTACT DR FOR MEDICATION AND PATIENT REFUSED.
[2020-11-26 13:59] VITALS: RESP 14; O2SAT 98
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
[2020-11-26] MEDS: acetaminophen 325 mg Tablet 650 MG PO (16:15)
[2020-11-26 17:00] VITALS: RESP 16
[2020-11-26 17:41] VITALS: RESP 16; O2SAT 98
[2020-11-26] MEDS: nicotine 2 mg Gum BUCCAL ×2 (18:23→19:10)
[2020-11-26] MEDS: trazodone 50 mg Tablet 75 MG PO (21:19)
[2020-11-26] MEDS: CLONazepam 1 mg Tablet PO (21:19)
[2020-11-26 21:24] VITALS: RESP 16
[2020-11-27] VITALS (7 sets, daily range): BP systolic 107–118; BP diastolic 65–76; PULSE 69–89; RESP 17–18; TEMP 36.6–36.9; O2SAT 96–99
[2020-11-27] MEDS: ibuprofen 800 mg tablet PO ×3 (04:32→21:11)
[2020-11-27] MEDS: oxyCODONE-APAP 5-325 mg Tablet PO ×3 (06:04→18:06)
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
[2020-11-27] MEDS: aspirin 325 mg Tablet PO (10:23)
[2020-11-27] MEDS: ARIPiprazole 10 mg Tablet 20 MG PO (10:24)
[2020-11-27] MEDS: nicotine 2 mg Gum BUCCAL ×3 (12:34→18:37)
[2020-11-27] MEDS: acetaminophen 325 mg Tablet 650 MG PO (14:42)
[2020-11-27] MEDS: CLONazepam 1 mg Tablet PO (21:11)
[2020-11-27] MEDS: trazodone 50 mg Tablet 75 MG PO (21:11)
[2020-11-27] MEDS: hyDROXYzine 25 mg Capsule 50 MG PO (21:11)
[2020-11-28] VITALS (7 sets, daily range): BP systolic 118–121; BP diastolic 60–76; PULSE 87–103; RESP 16–20; TEMP 36.4–37; O2SAT 97–99
[2020-11-28] MEDS: ondansetron 4 MG Tablet PO (00:57)
[2020-11-28] MEDS: oxyCODONE-APAP 5-325 mg Tablet PO ×4 (00:57→17:53)
--- NOTE | 2020-11-28 03:08 | PC.NURSE ---
PRN tylenol, vistaril, zofran, and oxycodone given for nausea, pain and anxiety. Patient tolerated well. Will continue to monitor.
[2020-11-28] MEDS: ARIPiprazole 10 mg Tablet 20 MG PO (09:19)
[2020-11-28] MEDS: ibuprofen 800 mg tablet PO ×3 (09:19→21:40)
[2020-11-28] MEDS: aspirin 325 mg Tablet PO (09:19)
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
[2020-11-28] MEDS: nicotine 2 mg Gum BUCCAL ×6 (10:27→21:40)
[2020-11-28] MEDS: CLONazepam 1 mg Tablet PO (21:40)
[2020-11-28] MEDS: trazodone 50 mg Tablet 75 MG PO (21:40)
[2020-11-29] MEDS: acetaminophen 325 mg Tablet 650 MG PO (00:43)
[2020-11-29 01:30] VITALS: RESP 22
[2020-11-29] MEDS: oxyCODONE-APAP 5-325 mg Tablet PO ×3 (01:30→17:26)
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
[2020-11-29] MEDS: nicotine 2 mg Gum BUCCAL ×6 (03:04→21:53)
[2020-11-29 06:00] VITALS: BP 121/75; PULSE 85; RESP 15; TEMP 36.6; O2SAT 99
[2020-11-29 08:08] VITALS: RESP 18
[2020-11-29] MEDS: ibuprofen 800 mg tablet PO ×3 (08:08→21:53)
[2020-11-29] MEDS: aspirin 325 mg Tablet PO (08:08)
[2020-11-29] MEDS: ARIPiprazole 10 mg Tablet 20 MG PO (08:08)
[2020-11-29 14:00] VITALS: BP 111/58; PULSE 73; RESP 18; TEMP 36.9; O2SAT 97
--- NOTE | 2020-11-29 14:20 | PC.NURSE ---
Patient approached nurse's station stating, I need a pain pill and anything else you can shove down my throat. Offered patient a Vistaril and she stated, No, it doesn't do anything for me.
--- NOTE | 2020-11-29 14:22 | PC.NURSE ---
Patient was at [employer], I'm over it. I'm done. I'm not an experiment. I can't even dial my mother. I'm here all alone. Assisted patient in dialing phone numbers listed in her chart. Her mother's number responded as no longer in service. Her significant others number rang through and patient spoke with her. Patient was every emotional afterwards. Reported, Yes my never wants to speak to me again. Nobody listens to me. I need a Klonopin. Verified for Salvage Worker that she has it prescribed at , patient stated, I take it 3 times a day, only at night is not enough, you people don'e even know what you are doing.' Was able to get patient to confirm that she last got Klonopin filled at [facility] in [facility]. Plan to contact pharmacy to verify.
--- NOTE | 2020-11-29 14:40 | PC.NURSE ---
Contacted [facility] in [place], [place] and confirmed patient has not filled Klonazepam 1mg since January 2020.
--- NOTE | 2020-11-29 15:18 | NPU.GN ---
[facility] Group Topic:Depression BINGO General Mood of Group: General mood was talkative. Seemed like most everyone in the group was talkative. This group was exceptionable large. They seemed to all want to speak at the same time. This patient came to group on time and dressed appropriate with good hygiene. This patient did participate and did ask questions. She was in and out of group briefly but did participate .
[2020-11-29 17:26] VITALS: RESP 18
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
[2020-11-29 21:07] VITALS: BP 120/78; PULSE 76; RESP 16; TEMP 37; O2SAT 95
[2020-11-29] MEDS: trazodone 50 mg Tablet 75 MG PO (21:53)
[2020-11-29] MEDS: CLONazepam 1 mg Tablet PO (21:53)
--- NOTE | 2020-11-29 22:39 | PC.NURSE ---
Dressing to right foot changed d/t excessive dried blood and foul odor coming from dressing. Removed dressing and cleaned with sterile water solution. Placed 4x4 gauze to bilateral sides of right ankle, then wrapped with kerlix and kt bandage. Pt tolerated well.
[2020-11-30 06:00] VITALS: BP 126/74; PULSE 98; RESP 17; TEMP 36.6; O2SAT 98
[2020-11-30] MEDS: ibuprofen 800 mg tablet PO ×3 (08:09→21:26)
[2020-11-30] MEDS: ARIPiprazole 10 mg Tablet 20 MG PO (08:09)
[2020-11-30] MEDS: aspirin 325 mg Tablet PO (08:09)
--- NOTE | 2020-11-30 10:47 | NPU.GN ---
[facility] Unit Group Topic:Sail Boat/ Mechanisms General Mood of Group: Sherri did great and participated in group today. She was talkative with others. Sherri left group once and came back. Sherri seemed in good spirits.
[2020-11-30] MEDS: nicotine 2 mg Gum BUCCAL ×4 (11:50→22:56)
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
[2020-11-30 14:00] VITALS: BP 115/71; PULSE 77; RESP 17; TEMP 36.8; O2SAT 97
[2020-11-30 17:10] VITALS: RESP 17
[2020-11-30] MEDS: oxyCODONE-APAP 5-325 mg Tablet PO ×2 (17:10→22:57)
--- NOTE | 2020-11-30 18:23 | PC.NURSE ---
After supper patient went to her room and began gagging and coghing. Vomited large amount of emisis-undigested food and pills. Patient began yelling and became very emotional, again complaining about the food, her room, her splint, her care. Care given to patient to assist in cleaning up and attempting to calm/cool her down. manager title in room to speak with patient extensively. Patient focus on her splint, she removed it and threw across the room and refused to put it back on. Patient was standing on both feet. Multiple times encouraged patient to sit and emphazied the potential injury that could happen to her foot. Patient eventually calmed. Continued to refuse to put bot back on. Paint Laboratory Technician contacted by Hay Buckler about replacing the boot. Per potato chip processing supervisor unable to get patient a new boot. Orthopedic safety professional paged, orders obtained. Obtained orders from Dr. Esqueda, 3 View Xray Rt Ankle. PT to see tomorrow 12/01/2020, dressing change-clean with betadine, Op Site to would, wrap wound with sterile roll and Won Wrap and re-fit boot.
--- NOTE | 2020-11-30 18:38 | XR_ITS ---
WS: [id number] XR ankle RT min 3V* [id number] REASON FOR EXAM: patient removed boot post op site bleeding, has been walking FINDINGS: Screw fixations of previously demonstrated horizontal lateral malleolar and oblique medial malleolar fractures. Fracture fragments and surgical appliances are in proper position and alignment. XR/XR ankle RT min 3V* [id number] IMPRESSION: Fixation of malleolar fractures as above.
[2020-11-30] MEDS: CLONazepam 1 mg Tablet PO (21:26)
[2020-11-30 22:00] VITALS: BP 108/78; PULSE 72; RESP 17; TEMP 36.3; O2SAT 98
[2020-11-30 22:57] VITALS: RESP 17; O2SAT 96
[2020-12-01] MEDS: nicotine 2 mg Gum BUCCAL ×3 (04:35→17:31)
[2020-12-01 05:23] VITALS: RESP 20
[2020-12-01] MEDS: oxyCODONE-APAP 5-325 mg Tablet PO ×3 (05:23→21:30)
[2020-12-01 06:00] VITALS: BP 142/90; PULSE 90; RESP 15; TEMP 37; O2SAT 98
[2020-12-01] MEDS: docusate sodium 100 mg Capsule 200 MG PO (10:57)
[2020-12-01] MEDS: ARIPiprazole 10 mg Tablet 20 MG PO (10:57)
[2020-12-01] MEDS: ibuprofen 800 mg tablet PO ×3 (10:58→21:30)
[2020-12-01] MEDS: aspirin 325 mg Tablet PO (10:58)
[2020-12-01 10:59] VITALS: RESP 16
--- NOTE | 2020-12-01 13:22 | NPU.GN ---
[facility] Unit Group Topic:Anxiety Bingo General Mood of Group: Sherri participated and attended group today. She was social and seemed in good spirits today. She asked the film writer about her court and was a bit confused. This film writer reported it to sr. social media & mobile manager in team meeting so they can talk to her to clear up any confusion she may have.
[2020-12-01 14:00] VITALS: BP 123/74; PULSE 83; RESP 18; TEMP 36.2; O2SAT 98
--- NOTE | 2020-12-01 16:32 | PC.NURSE ---
Behavior pt has been demanding, intrusive, resistive to care.
--- NOTE | 2020-12-01 17:10 | ECG_ITS ---
[facility] Test Date: 2020-12-01 Pat Name: Sherri Cobian Department: Room: 150 Gender: Female Hvac Maintenance Technician: : 1995 Requested By: Luis E Hare Order Number: [id number] Penn MD: Caden Sol M.D. Measurements Intervals [place] Rate: 86 P: 60 VA: 127 QRS: 42 QRSD: 101 T: 52 QT: 356 QTc: 427 Interpretive Statements SINUS RHYTHM WITH SINUS ARRHYTHMIA INCOMPLETE RIGHT BUNDLE BRANCH BLOCK [90+ ms QRS DURATION, TERMINAL R IN V1/V2, 40+ ms S IN I/aVL/V4/V5/V6] NONSPECIFIC T-WAVE ABNORMALITY Compared to ECG 11/19/2020 15:27:13 Incomplete right bundle-branch block now present T-wave abnormality now present Electronically Signed On 12-01-2020 20:02:51 CDT by Caden Sol M.D. [id number]
--- NOTE | 2020-12-01 17:51 | PM.MISC ---
Miscellaneous Note Purpose of Documentation: Documentation of discussion with nurses on NPU Note: Yesterday evening, I received a call from the newspaper distributor supervisor of the COMMUNITY RELATIONS REPRESENTATIVE you and also had further discussion with the nurse. Today, I called the nurse to speak with her again. We discussed outcomes of interventions last evening. Per this team, the patient was noted to be noncompliant with her postoperative management. Last evening, the patient had removed her boot and refused to wear it noting that it smelled. The patient was noncompliant and weightbearing without the boot. The patient was advised that she needed to wear the boot for safety and postoperative rehab and to protect the repair of her fracture, but she refused. Drainage was noted postoperatively as being responsible for the odor to the boot. I ordered x-rays. I evaluated the x-rays and compared them with postoperative imaging studies. There has been no significant interval change. Today, the team advises me that they worked with the patient through the night and today. Physical therapy talked with the patient and stressed the importance of wearing the boot. She has now been compliant and they are continuing to work on cleaning the boot so that the patient is more comfortable wearing it. The nurse notes to me that the wound looks excellent, there is no drainage, and she notes it is healing quite nicely. The patient has not been compliant with her pain medications as well.
--- NOTE | 2020-12-01 18:13 | PC.PT ---
Received order for redressing of right ankle and refitting of walker boot; discussed with nursing staff, who had redressed ankle already, dressing dry and clean, patient boot liner needing washed, nursing staff to accomplish this, as no liners available here at this time, and to refit boot when this is accomplished; visited with patient regarding importance of touchdown weightbearing only, patient verbalized understanding of same, and had no further questions, nursing staff to provide bedside commode for patient use, and hopefully patient will be able to continue independently with this and prior physical therapy training; reemphasized importance of elevation; no further visits planned at this time, unless further problems arise. Nursing staff agreeable with same. Patient had no pain with gentle palpation of right ankle at this time. Nursing staff relate patient remains independent with transfers and wheelchair mobility at this time.
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
--- NOTE | 2020-12-01 19:03 | PC.NURSE ---
verbal garbage 15:00 Pt was talking on the phone and began asking about her boot. The boot which she no longer wanted to wear and refused to put it back on. I heard her request and responded with the boot it soiled remember and you didn't want to wear it. Pt responded with it's my right to have my boot !! Pt just kept shouting and yelling I have rights !! Will continue to monitor pt.
[2020-12-01 20:20] VITALS: BP 128/7; PULSE 81; RESP 18; TEMP 36.4
[2020-12-01 21:30] VITALS: RESP 18
[2020-12-01] MEDS: CLONazepam 1 mg Tablet PO (21:30)
[2020-12-02] VITALS (7 sets, daily range): BP systolic 128–130; BP diastolic 7–85; PULSE 81–103; RESP 16–20; TEMP 36.2–36.4; O2SAT 97–98
[2020-12-02] MEDS: oxyCODONE-APAP 5-325 mg Tablet PO ×3 (01:34→20:34)
--- NOTE | 2020-12-02 03:59 | PC.NURSE ---
Patient given Percocet 5-325 mg twice this shift for right foot pain. Patient tolerated well.
[2020-12-02] MEDS: nicotine 2 mg Gum BUCCAL ×5 (06:48→23:53)
--- NOTE | 2020-12-02 07:55 | ECG_ITS ---
[facility] Test Date: 2020-12-02 Pat Name: Sherri Cobian Department: Room: 150 Gender: Female Airline Flight Attendant: : 1995 Requested By: Scott Sewell Order Number: [id number] Penn MD: Jessie Russo M.D. Measurements Intervals [place] Rate: 81 P: 65 ME: 111 QRS: 61 QRSD: 100 T: 46 QT: 354 QTc: 413 Interpretive Statements SINUS RHYTHM WITH MARKED SINUS ARRHYTHMIA WITH SHORT ME INTERVAL Compared to ECG 12/01/2020 17:16:30 Short ME interval now present Incomplete right bundle-branch block no longer present T-wave abnormality no longer present Electronically Signed On 12-03-2020 5:49:49 CDT by Jessie uRsso M.D. [id number]
[2020-12-02] MEDS: aspirin 325 mg Tablet PO (09:23)
[2020-12-02] MEDS: ARIPiprazole 10 mg Tablet 20 MG PO (09:23)
[2020-12-02] MEDS: ibuprofen 800 mg tablet PO ×2 (09:24→14:17)
--- NOTE | 2020-12-02 09:55 | PC.NURSE ---
PATIENT AGREED TO WEAR HER BOOT AFTER DISCUSSING WITH HER THE BENEFITS OF WEARING IT AND TO CONS OF NOT. 1:1 DISCONTINUED. WILL CONT TO MONITOR SUPPORT AND REDIRECT NEEDED
--- NOTE | 2020-12-02 11:57 | NPU.GN ---
[facility] Unit Group Topic:Anger General Mood of Group: Sherri did attend group today. Sherri was talkative in group and engaged with this content writer. Sherri started to tell this content writer how great of a job she is doing and can tell this content writer has experience. Sherri began to cry and tell this content writer that this content writer is awesome and caring for others. Sherri was unstable and very emotional today.
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
[2020-12-02] MEDS: CLONazepam 1 mg Tablet PO (20:33)
[2020-12-02] MEDS: OLANZapine 5 mg ODT PO (23:55)
[2020-12-02] MEDS: trazodone 50 mg Tablet PO (23:55)
[2020-12-03] VITALS (8 sets, daily range): BP systolic 125–130; BP diastolic 53–86; PULSE 84–112; RESP 16–18; TEMP 36.9–37; O2SAT 95–98
[2020-12-03] MEDS: oxyCODONE-APAP 5-325 mg Tablet PO ×5 (05:35→20:32)
[2020-12-03] MEDS: docusate sodium 100 mg Capsule 200 MG PO (09:47)
[2020-12-03] MEDS: nicotine 2 mg Gum BUCCAL ×3 (09:47→19:34)
[2020-12-03] MEDS: ARIPiprazole 30 mg Tablet PO (09:48)
[2020-12-03] MEDS: aspirin 325 mg Tablet PO (09:48)
[2020-12-03] MEDS: ibuprofen 800 mg tablet PO ×3 (09:48→20:31)
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
--- NOTE | 2020-12-03 19:58 | PC.NURSE ---
PRN VERY SMITH!! LOTS OF MOOD SWINGS TODAY! TRYING TO PICK VERBAL FIGHTS WITH PT ON THE UNIT!
[2020-12-03] MEDS: trazodone 50 mg Tablet PO (20:34)
[2020-12-03] MEDS: CLONazepam 1 mg Tablet PO (21:36)
[2020-12-04] VITALS (7 sets, daily range): BP systolic 118–127; BP diastolic 74–80; PULSE 78–130; RESP 16–25; TEMP 36.5–36.9; O2SAT 93–98
[2020-12-04] MEDS: hyDROXYzine 25 mg Capsule 50 MG PO ×2 (00:13→16:04)
[2020-12-04] MEDS: quetiapine 100 mg Tablet PO ×2 (01:44→20:46)
--- NOTE | 2020-12-04 04:55 | ECG_ITS ---
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 Measurements Intervals [place] Rate: 113 P: 70 OR: 113 QRS: 56 QRSD: 85 T: 39 QT: 310 QTc: 427 Interpretive Statements SINUS TACHYCARDIA WITH SHORT OR INTERVAL LEFT ATRIAL ENLARGEMENT [-0.15mV P WAVE IN V1/V2] POSSIBLE RIGHT VENTRICULAR CONDUCTION DELAY [RSR (QR) IN V1/V2] NONSPECIFIC T-WAVE ABNORMALITY Compared to ECG 12/02/2020 11:42:45 Atrial abnormality now present T-wave abnormality now present Sinus rhythm no longer present Sinus arrhythmia no longer present Electronically Signed On 12-04-2020 12:22:32 CDT by Jessie Russo M.D. [email or web address] eStore [email or web address] [email or web address].[email or web address]/store/OM/[id number]
[2020-12-04] MEDS: oxyCODONE-APAP 5-325 mg Tablet PO ×4 (04:56→16:20)
--- NOTE | 2020-12-04 06:06 | PC.NURSE ---
Pt awaken c/O chest pain . Dr. Hare notified. T/O given to order 12 lead EKG STAT and Hospitalist consult Urgent. Both ordered. Respiratory Therapy ( called them ) also called Dr. Crespo to let them both know about orders. EKG done = SINUS TACHYCARDIA WITH SHORT [place] INTERVAL. DR. CALUDIO NOTIFIED OF RESULTS. pATIENT's heart rate down to 87 bpm and is no longer symptomatic.
[2020-12-04] MEDS: docusate sodium 100 mg Capsule 200 MG PO (08:45)
[2020-12-04] MEDS: ARIPiprazole 30 mg Tablet PO (08:45)
[2020-12-04] MEDS: ibuprofen 800 mg tablet PO ×2 (08:49→16:00)
[2020-12-04] MEDS: aspirin 325 mg Tablet PO (08:49)
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
--- NOTE | 2020-12-04 10:25 | PC.NURSE ---
behaviors Pt just blank starring at Nurse, Nurse asked if the pt needs anything, Pt did not reply but continued to stare, Nurse asked politely again if she could get anything for the pt, pt did not answer, so the nurse said moshe and the pt then replied Fuck NO!!!!!!! WIll continue to monitor.
[2020-12-04] MEDS: nicotine 2 mg Gum BUCCAL ×3 (13:03→20:47)
--- NOTE | 2020-12-04 13:32 | ECG_ITS ---
[facility] Test Date: 2020-12-04 Pat Name: Sherri Cobian Department: Room: 150 Gender: Female Equipment Monitor Phototypesetting: : 1995 Requested By: Luis E Hare Order Number: [id number] Penn MD: Jessie Russo M.D. Measurements Intervals [place] Rate: 55 P: 36 UT: 113 QRS: 42 QRSD: 81 T: 44 QT: 388 QTc: 373 Interpretive Statements SINUS BRADYCARDIA WITH MARKED SINUS ARRHYTHMIA WITH SHORT UT INTERVAL Compared to ECG 12/04/2020 05:21:19 Sinus tachycardia no longer present Atrial abnormality no longer present T-wave abnormality no longer present Electronically Signed On 12-05-2020 21:08:15 CDT by Jessie Russo M.D. [id number]
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
--- NOTE | 2020-12-04 14:34 | XRR_ITS ---
PROCEDURE INFORMATION: Exam: XR Chest Exam date and time: 12/04/2020 2:34 PM Age: 25 years old Clinical indication: Pain; Chest pressure; Additional info: Chest pain TECHNIQUE: Imaging protocol: XR of the chest. Views: 1 view. Total images: 1 COMPARISON: No relevant prior studies available. FINDINGS: Lungs: No visible active interstitial or alveolar airspace disease. Pleural spaces: Unremarkable. No pleural effusion. No pneumothorax. Heart/Mediastinum: Cardiac structures and configuration within normal limits. Bones/joints: Scoliosis. XR/XR chest 1V portable [id number] IMPRESSION: Nonacute. Radiation Dose CTDIVOL = (mGy): DLP = (mGy-cm)
[2020-12-04] MEDS: OLANZapine 5 mg ODT PO ×2 (15:09→20:47)
[2020-12-04 15:13] LABS: Basophils % 0.4 %; Eosinophils % 0.4 %; Hematocrit 39.9 % (37.0-47.0); Hemoglobin 13.1 g/dL (11.5-15.3); Lymphocytes # 1.9 10^3/uL (0.8-4.8); Lymphocytes % 21.1 %; Mean Corpuscular HGB Conc 32.8 g/dL (30.0-36.0); Mean Corpuscular Hemoglobin 30.4 pg (28.0-34.0); Mean Corpuscular Volume 92.6 fl (81-99); Mean Platelet Volume 9.4 fL (7.4-10.4); Monocytes # 0.6 10^3/uL (0.2-0.9); Monocytes % 7.1 %; Neutrophils # 6.42 10^3/uL (1.8-7.7); Neutrophils % 70.8 %; Nucleated Red Blood Cells % 0 %; Platelet Count 414 10^3/cmm (130-400); Red Blood Count 4.31 10^6/uL (4.1-5.3); White Blood Count 9.1 10^3/uL (4.0-10.0)
[2020-12-04 15:30] LABS: D Dimer 0.37 ug/mIFEU (0-0.59)
[2020-12-04 15:47] LABS: Troponin T (5th) Once 6 ng/L (0-10)
[2020-12-04 15:52] LABS: Alanine Aminotransferase 11 U/L (0-33); Albumin Level 4.5 g/dL (3.5-5.2); Alkaline Phosphatase 73 IU/L (35-105); Anion Gap 14.1 (5-19); Aspartate Amino Transferase 13 U/L (0-32); Blood Urea Nitrogen 6 mg/dL (6-20); Calcium 9.5 mg/dL (8.5-10.5); Carbon Dioxide 28 mmol/L (22-29); Chloride 103 mmol/L (98-107); Globulin 2.7 g/dL (1.3-4.6); Glucose 92 mg/dL (65-115); Osmolality Calculated 289 mOsm/kg (285-295); Potassium 4.1 mmol/L (3.5-5.1); Sodium 141 mmol/L (136-145); Thyroid Stimulating Hormone 0.73 uIU/mL (0.27-4.20); Total Bilirubin 0.3 mg/dL (0.15-1.2); Total Protein 7.2 g/dL (6.6-8.7)
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
[2020-12-04] MEDS: trazodone 50 mg Tablet PO (20:46)
[2020-12-04] MEDS: CLONazepam 1 mg Tablet PO (20:47)
[2020-12-05 05:59] VITALS: BMI 27.4
[2020-12-05 06:00] VITALS: BP 105/63; PULSE 90; RESP 16; TEMP 36.7; O2SAT 99
[2020-12-05] MEDS: ibuprofen 800 mg tablet PO ×3 (08:39→20:51)
[2020-12-05] MEDS: ARIPiprazole 30 mg Tablet PO (08:39)
[2020-12-05] MEDS: aspirin 325 mg Tablet PO (08:39)
[2020-12-05] MEDS: nicotine 2 mg Gum BUCCAL ×2 (08:39→20:57)
--- NOTE | 2020-12-05 10:00 | USR_ITS ---
PROCEDURE INFORMATION: Exam: US Duplex Lower Extremity Veins, Bilateral Exam date and time: 12/05/2020 10:00 AM Age: 25 years old Clinical indication: Pain; Leg, lower; Right; Prior surgery; Surgery date: <1 month; Surgery type: Ankle; Additional info: Ankle fracture, immobility, a TECHNIQUE: Imaging protocol: Real-time duplex ultrasound of the extremities with 2-D pderaza scale, color Doppler flow and spectral waveform analysis with image documentation. Complete exam focused on the bilateral lower extremity veins. COMPARISON: CR XR ankle RT min 3V* [id number] 11/30/2020 6:54 PM FINDINGS: Right deep veins: Unremarkable. The common femoral, femoral, proximal profunda femoral, popliteal, posterior tibial and peroneal veins are patent without thrombus. Normal Doppler waveforms. Normal compressibility and/or augmentation response. Right superficial veins: Saphenofemoral junction is patent without thrombus. Left deep veins: Unremarkable. The common femoral, femoral, proximal profunda femoral, popliteal, posterior tibial and peroneal veins are patent without thrombus. Normal Doppler waveforms. Normal compressibility and/or augmentation response. Left superficial veins: Saphenofemoral junction is patent without thrombus. Soft tissues: Unremarkable. US/[place] [id number] IMPRESSION: No sonographic evidence of deep vein thrombosis. Radiation Dose CTDIVOL = (mGy): DLP = (mGy-cm)
[2020-12-05 10:30] VITALS: RESP 16; O2SAT 98
[2020-12-05] MEDS: oxyCODONE-APAP 5-325 mg Tablet 1 TAB PO ×2 (10:30→17:42)
[2020-12-05 12:40] LABS: Basophils % 0.4 %; Eosinophils % 0.1 %; Hematocrit 40.8 % (37.0-47.0); Hemoglobin 13.3 g/dL (11.5-15.3); Lymphocytes # 1.5 10^3/uL (0.8-4.8); Lymphocytes % 13.9 %; Mean Corpuscular HGB Conc 32.6 g/dL (30.0-36.0); Mean Corpuscular Hemoglobin 30.9 pg (28.0-34.0); Mean Corpuscular Volume 94.7 fl (81-99); Monocytes # 0.6 10^3/uL (0.2-0.9); Monocytes % 5.9 %; Neutrophils # 8.35 10^3/uL (1.8-7.7); Neutrophils % 79.3 %; Nucleated Red Blood Cells % 0 %; Platelet Count 417 10^3/cmm (130-400); Red Blood Count 4.31 10^6/uL (4.1-5.3); Red Cell Distribution Width 13.2 % (12.1-15.1); White Blood Count 10.5 10^3/uL (4.0-10.0)
[2020-12-05 13:09] LABS: Alanine Aminotransferase 11 U/L (0-33); Albumin Level 4.5 g/dL (3.5-5.2); Alkaline Phosphatase 74 IU/L (35-105); Aspartate Amino Transferase 16 U/L (0-32); Blood Urea Nitrogen 8 mg/dL (6-20); Calcium 9.5 mg/dL (8.5-10.5); Carbon Dioxide 27 mmol/L (22-29); Chloride 101 mmol/L (98-107); Globulin 2.6 g/dL (1.3-4.6); Glomerular Filtration Rate 119.9 mL/min (90-130); Glucose 98 mg/dL (65-115); Osmolality Calculated 290 mOsm/kg (285-295); Sodium 141 mmol/L (136-145); Total Bilirubin 0.4 mg/dL (0.15-1.2); Total Protein 7.1 g/dL (6.6-8.7)
[2020-12-05 14:00] VITALS: BP 136/76; PULSE 129; RESP 18; TEMP 37.2; O2SAT 97
[2020-12-05 14:41] LABS: Anion Gap 17.1 (5-19); Potassium 4.1 mmol/L (3.5-5.1)
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
[2020-12-05] MEDS: ondansetron 4 MG Tablet PO (16:55)
[2020-12-05] MEDS: amoxicillin-clav 875-125 mg Tablet 1 TAB PO (17:37)
[2020-12-05] MEDS: doxycycline 100 mg Tablet PO (17:38)
[2020-12-05 17:42] VITALS: RESP 18; O2SAT 97
--- NOTE | 2020-12-05 18:56 | PM.NPN ---
Subjective NPU Subjective: Interval history: Patient presents today reporting that once again she slept better with the Seroquel. She reported an openness to consider starting a cross titration of Abilify and Invega after discussion of the risks, benefits and alternatives, she understood and agreed to proceed as is documented in his note. We discussed again her sometimes needing to choose more dramatic approaches to interactions and she endorsed understanding in one hand but also gave some odd response on the other. Mental Status Exam MSE Comments: This is an overweight white female with hospital scrubs on with limited grooming but adequate eye contact. No abnormal movements except for limited psychomotor agitation which has improved since yesterday. Cooperative with exam in no acute distress. Speech was decreased rate and volume . Mood described as fine, affect congruent but other times upset. Thought process organized. Thought content: Patient denied suicidal or homicidal ideation, there were no delusions reported but continued paranoia noted, she denied auditory or visual hallucinations currently. Attention and concentration were improving and memory appeared unreliable but none were formally tested. She is alert and oriented x3. Insight and judgment are limited, impulse control is limited. Vitals/I&O/Wt Last Vital Signs Temp 98.8 F 12/05/20 20:52 Pulse 114 H 12/05/20 20:52 Resp 17 12/05/20 20:52 BP 155/90 12/05/20 20:52 Pulse Ox 97 12/05/20 20:52 Weight last 48 hrs Weight 72.575 kg Data NPU : 12/05/20 11:00 12/05/20 11:00 A&P Additional A&P Information (1) Bimalleolar fracture of right ankle: (2) Psychiatric care: (3) Bipolar disorder, curr episode mixed, severe, with psychotic features: (4) PTSD (post-traumatic stress disorder): Additional A&P Information This is a 25 year old female well-known to me, who has a past history of bipolar disorder with psychosis who was admitted through our emergency department on a 96-hour hold after jumping from a moving vehicle yesterday and breaking her foot. She has been agitated, erratic and aggressive at home and is agitated, erratic and has disorganized thinking here. Her parents report that she has not been taking her medication as prescribed, and this has led to her worsening condition. They also say that she can pull it together for short periods of time. They say this causes her level of her dysfunction to be grossly underestimated. RECOMMENDATION AND PLAN: 1. Continue current medication. We'll decrease Abilify to 20 mg p.o. every morning and start Invega 6 mg p.o. daily with a plan to cross taper. 2. She is s/p surgical repair of a fractured right malleolus. 3. Continue every 15 minute checks for safety. 4. Encourage individual, group and milieu therapies. 5. Encourage sober living treatment after discharge at the highest level of care to which he is willing to commit. 6. 21-day hold granted. 7. Parents state they are seeking guardianship. Involuntary Hold Information 96 Hour Hold: 96 Hour Involuntary Admission: Yes 96 Hour Hold Ending Date: 11/26/20 96 Hour Hold Ending Time: 18:21 Attestations NPU Medical Necessity Statement*: Psychiatric hospitalization is medically necessary to prevent access to lethal means, to reevaluate medication, and to coordinate a safe discharge. The patient has had quite a stormy course recently. Hospitalization needs to provide definitive treatment of her bipolar disorder while we have the chance. The consequences of her actions and harm to self keep increasing. She should not be released until her mood is well-stabilized. Likely length of stay is 4-8 days. Coding Level of Care Code Acute Bituminous Paving Machine Operator for [facility]
--- NOTE | 2020-12-05 20:49 | PC.NURSE ---
Sherri is a 25 year old female whos been admitted since 11/22/2020. She is being compliant with wearing her boot on the right foot. She recently fractured her ankle and had surgery. Area is covered with dressing, covered in kt wrap and inside a boot. She's currently using a wheelchair for mobility purposes. Patient is currently sitting in front of the nurses station during assessment at this time. She stated pain is constant in right ankle. Patient stated toes on the right foot recently feeling numb and questioned her cap refill. Area of concern was assessed by RN. Nothing of concern observed at this time. Cap refill is good at <3 seconds. Minor signs of edema noted on right foot. Patient stated she could feel her toes being touched. Bruising observed on the fourth toe. Encouraged patient to notify staff if toes turn colors, cool to the touch, swollen or painful. Patient stated her last bm was earlier today and denies any issues with SI, HI, SOB or self harm.
[2020-12-05] MEDS: trazodone 50 mg Tablet PO (20:50)
[2020-12-05] MEDS: CLONazepam 1 mg Tablet PO (20:50)
[2020-12-05] MEDS: quetiapine 100 mg Tablet PO (20:51)
[2020-12-05] MEDS: hyDROXYzine 25 mg Capsule 50 MG PO (20:51)
[2020-12-05 20:52] VITALS: BP 155/90; PULSE 114; RESP 17; TEMP 37.1; O2SAT 97
[2020-12-06] VITALS (8 sets, daily range): BP systolic 117–138; BP diastolic 64–80; PULSE 88–98; RESP 15–20; TEMP 36.6–36.8; O2SAT 96–99
[2020-12-06] MEDS: oxyCODONE-APAP 5-325 mg Tablet 1 TAB PO ×3 (06:17→22:31)
--- NOTE | 2020-12-06 07:05 | PC.NURSE ---
staff heard scratching sound coming from hallway, when staff responded to sound pt was found scratching staff breakroom door with piece she removed from her wheelchair. when staff approached pt, pt threw piece on the ground. staff took piece back to nurses station and informed staff in report and staff in nurses station of pt actions.
[2020-12-06] MEDS: aspirin 325 mg Tablet PO (08:44)
[2020-12-06] MEDS: paliperidone ER 6 mg Tablet PO (08:44)
[2020-12-06] MEDS: ibuprofen 800 mg tablet PO ×3 (08:44→21:16)
[2020-12-06] MEDS: ARIPiprazole 10 mg Tablet 20 MG PO (08:44)
[2020-12-06] MEDS: amoxicillin-clav 875-125 mg Tablet 1 TAB PO ×2 (08:44→21:16)
[2020-12-06] MEDS: doxycycline 100 mg Tablet PO ×2 (08:44→21:16)
--- NOTE | 2020-12-06 08:56 | PC.NURSE ---
Patient in wheelchair in front of nursing desk, sudden verbal outburst, incoherent words, when approached by staff and asked to lower her voice she stated she needed her medications. She was informed she had already been given them approximately 15 minutes ago. She then wheeled away from desk.
--- NOTE | 2020-12-06 10:00 | PC.OT ---
OT EVALUATION ORDERS RECEIVED; PATIENT HAD ALREADY BEEN EVALUATED FOR OT; NO DEFICITS IN ADL NOTED. PATIENT IS ABLE TO TAKE CARE OF HER ADLS PER STAFF AND OBSERVATION. PATIENT ALSO ABLE TO PROPEL HERSELF IN W/C INDEPENDENTLY ON UNIT.
--- NOTE | 2020-12-06 11:05 | NPU.GN ---
[facility] Group Topic:Jg Carrillo General Mood of Group: Sherri did attend therapy group today. Sherri was very emotional and had a hard time regulating her thoughts and emotions. Sherri cried ad yelled out alot during group today. Sherri is not mentally or emotionally stable at this time.
--- NOTE | 2020-12-06 11:35 | PC.NURSE ---
Patient came to nursing desk, requesting to have her blood sugar checked, reported feeling weak and shaky. Visible hand tremors. Informed Dr. Hare and approved to check sugar. Accuchek was 105. Patient said, Fine, I'm not safe then. 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 Again asked her to explain why her public test administrator made her unsafe, did she want to hurt herself or someone else. She then stood up and pushed the business card in my face, she remained non-verbal during this encounter, she then sat back in her wheelchair. Instructed patient she needed to elevate her foot, moved the wheelchair leg and she put her leg on it. Wheeled her to the dayroom and another peer got her lunch tray and drink.
--- NOTE | 2020-12-06 15:54 | PC.NURSE ---
Patient found sitting in room 151, had to redirect patient that is not her room multiple times today, patient compliant with moving each time she was asked.
--- NOTE | 2020-12-06 16:34 | P.PN_ITS ---
Subjective NPU Subjective: Interval history: Patient presents today reporting that she is doing better. She continued to have outbursts and mood dysregulation throughout the day. We discussed her behaviors and the nidus thereof. She acknowledges that there are times that she chooses to do things that do not have rhyme or significant reason. She reports she is just out of control sometimes. She reports this is tolerating the changes fine at this point and is eating and sleeping better. Mental Status Exam MSE Comments: This is an overweight white female with hospital scrubs on with limited grooming but adequate eye contact. No abnormal movements except for limited psychomotor agitation which is intermittent. Cooperative with exam in no acute distress. Speech was decreased rate and volume . Mood described as okay, affect congruent but other times upset. Thought process organized. Th ought content: Patient denied suicidal or homicidal ideation, there were no delusions reported but continued paranoia noted, she denied auditory or visual hallucinations currently. Attention and concentration were improving and memory appeared unreliable but none were formally tested. She is alert and oriented x3. Insight and judgment are limited, impulse control is limited. Vitals/I&O/Wt Last Vital Signs Temp 97.9 F 12/06/20 14:00 Pulse 98 12/06/20 14:00 Resp 18 12/06/20 14:20 BP 126/73 12/06/20 14:00 Pulse Ox 96 12/06/20 14:00 Weight last 48 hrs Weight 72.575 kg Data NPU : 12/05/20 11:00 12/05/20 11:00 A&P Additional A&P Information (1) Bimalleolar fracture of right ankle: (2) Psychiatric care: (3) Bipolar disorder, curr episode mixed, severe, with psychotic features: (4) PTSD (post-traumatic stress disorder): Additional A&P Information This is a 25 year old female well-known to me, who has a past history of bipolar disorder with psychosis who was admitted through our emergency department on a 96-hour hold after jumping from a moving vehicle yesterday and breaking her foot. She has been agitated, erratic and aggressive at home and is agitated, erratic and has disorganized thinking here. Her parents report that she has not been taking her medication as prescribed, and this has led to her worsening condition. They also say that she can pull it together for short periods of time. They say this causes her level of her dysfunction to be grossly underestimated. RECOMMENDATION AND PLAN: 1. Continue current medication. We will likely decrease Abilify again tomorrow 2. She is s/p surgical repair of a fractured right malleolus. 3. Continue every 15 minute checks for safety. 4. Encourage individual, group and milieu therapies. 5. Encourage sober living treatment after discharge at the highest level of care to which he is willing to commit. 6. 21-day hold granted. 7. Parents state they are seeking guardianship. Involuntary Hold Information 96 Hour Hold: 96 Hour Involuntary Admission: Yes 96 Hour Hold Ending Date: 11/26/20 96 Hour Hold Ending Time: 18:21 Attestations NPU Medical Necessity Statement*: Psychiatric hospitalization is medically necessary to prevent access to lethal means, to reevaluate medication, and to coordinate a safe discharge. The patient has had quite a stormy course recently. Hospitalization needs to provide definitive treatment of her bipolar disorder while we have the chance. The consequences of her actions and harm to self keep increasing. She should not be released until her mood is well-stabilized. Likely length of stay is 4-8 days. Coding Level of Care Code Acute Senior Net Application Developer for [facility]
[2020-12-06] MEDS: nicotine 2 mg Gum BUCCAL (19:04)
[2020-12-06] MEDS: CLONazepam 1 mg Tablet PO (21:16)
[2020-12-06] MEDS: trazodone 50 mg Tablet PO (21:16)
[2020-12-06] MEDS: hyDROXYzine 25 mg Capsule 50 MG PO (21:16)
[2020-12-06] MEDS: OLANZapine 5 mg ODT PO (21:16)
[2020-12-06] MEDS: quetiapine 100 mg Tablet PO (21:17)
--- NOTE | 2020-12-06 22:17 | ECG_ITS ---
[facility] Test Date: 2020-12-06 Pat Name: Sherri Cobian Department: Room: 150 Gender: Female Science Consultant: : [id number] Requested By: Luis E Hare Order Number: [id number] Isamar MD: STELLA ARNDT Measurements Intervals [place] Rate: 88 P: 58 NJ: 113 QRS: 52 QRSD: 93 T: 42 QT: 350 QTc: 425 Interpretive Statements SINUS RHYTHM WITH SINUS ARRHYTHMIA WITH SHORT [place] INTERVAL POSSIBLE RIGHT VENTRICULAR CONDUCTION DELAY [RSR (QR) IN V1/V2] NONSPECIFIC T-WAVE ABNORMALITY Compared to ECG 12/04/2020 17:09:13 T-wave abnormality now present Sinus bradycardia no longer present Electronically Signed On 12-07-2020 22:58:32 CDT by STELLA ARNDT [email or web address]
--- NOTE | 2020-12-06 22:41 | PC.NURSE ---
pain/EKG Ordered, Symptomatic Irregular heart rate/rhythm Pt complaint of chest pain, yelling, diaphoretic. V/s obtained and WNL, pt has been agitated, yelling, anxious. Worked up. Pt delusional, erratic behavior, pressured speech, inappropriate language. EKG sinus rhythm with short MD interval, t-wave abnormality. Pt assessed for pain. Rated her foot a 8, medication administered for this, oxycodone 5/325 mg PO. placed wedge under foot of bed to raise leg, reduce swelling, ice pack applied.
[2020-12-07] MEDS: haloperidol 5 mg Tablet PO (04:27)
--- NOTE | 2020-12-07 04:27 | PC.NURSE ---
pt noted with increased anxiety/agitation. Haldol 5mg po given.
[2020-12-07 06:00] VITALS: BP 130/85; PULSE 108; RESP 17; TEMP 36.7; O2SAT 99
[2020-12-07 06:47] VITALS: RESP 17; O2SAT 96
[2020-12-07] MEDS: oxyCODONE-APAP 5-325 mg Tablet 1 TAB PO ×2 (06:47→21:08)
[2020-12-07] MEDS: doxycycline 100 mg Tablet PO (08:18)
[2020-12-07] MEDS: paliperidone ER 6 mg Tablet PO (08:18)
[2020-12-07] MEDS: aspirin 325 mg Tablet PO (08:18)
[2020-12-07] MEDS: ibuprofen 800 mg tablet PO ×3 (08:18→21:08)
[2020-12-07] MEDS: amoxicillin-clav 875-125 mg Tablet 1 TAB PO ×2 (08:18→21:08)
[2020-12-07] MEDS: ARIPiprazole 10 mg Tablet 20 MG PO (08:18)
--- NOTE | 2020-12-07 10:11 | PC.NURSE ---
REDIRECTED PATIENT TO STAY OUT OF ROOM 151, THAT HER ROOM WAS 150.
--- NOTE | 2020-12-07 11:51 | NPU.GN ---
[facility] Topic:Marcie General Mood of Group: Sherri did not attend group therapy today. Sherri was up and down the hallways and screaming out and cursing. Sherri is not stable at this time.
[2020-12-07 14:00] VITALS: BP 121/67; PULSE 95; RESP 20; TEMP 36.1; O2SAT 97
[2020-12-07] MEDS: nicotine 2 mg Gum BUCCAL (14:49)
--- NOTE | 2020-12-07 18:07 | PM.NPN ---
Subjective NPU Subjective: Interval history: Patient presents today continuing to have impulsive behaviors. Unfortunately part of her behavior pattern appears to be cluster B pathology. She acknowledges that she has some deliberate behaviors but can see why exactly she does what she does. We discussed continuing to decrease the Abilify as the Invega becomes her primary antipsychotic. We discussed the possibility of moving to additional mood stabilization. Mental Status Exam MSE Comments: This is an overweight white female with hospital scrubs on with limited grooming but adequate eye contact. No abnormal movements except for limited psychomotor agitation which is intermittent. Cooperative with exam in no acute distress. Speech was decreased rate and volume . Mood described as okay, affect congruent but other times upset. Thought process organized. Thought content: Patient denied suicidal or homicidal ideation, there were no delusions reported but continued paranoia noted, she denied auditory or visual hallucinations currently. Attention and concentration were improving and memory appeared unreliable but none were formally tested. She is alert and oriented x3. Insight and judgment are limited, impulse control is limited. Vitals/I&O/Wt Last Vital Signs Temp 97.8 F 12/07/20 20:37 Pulse 116 H 12/07/20 20:37 Resp 18 12/07/20 20:37 BP 135/82 12/07/20 20:37 Pulse Ox 98 12/07/20 20:37 Data NPU : 12/05/20 11:00 12/05/20 11:00 A&P Additional A&P Information (1) Bimalleolar fracture of right ankle: (2) Psychiatric care: (3) Bipolar disorder, curr episode mixed, severe, with psychotic features: (4) PTSD (post-traumatic stress disorder): Additional A&P Information This is a 25 year old female well-known to me, who has a past history of bipolar disorder with psychosis who was admitted through our emergency department on a 96-hour hold after jumping from a moving vehicle yesterday and breaking her foot. She has been agitated, erratic and aggressive at home and is agitated, erratic and has disorganized thinking here. Her parents report that she has not been taking her medication as prescribed, and this has led to her worsening condition. They also say that she can pull it together for short periods of time. They say this causes her level of her dysfunction to be grossly underestimated. RECOMMENDATION AND PLAN: 1. Continue current medication. Decrease Abilify to 15 mg p.o. every morning and consider Lamictal or some other mood stabilizer. 2. She is s/p surgical repair of a fractured right malleolus. 3. Continue every 15 minute checks for safety. 4. Encourage individual, group and milieu therapies. 5. Encourage sober living treatment after discharge at the highest level of care to which he is willing to commit. 6. 21-day hold granted. 7. Parents state they are seeking guardianship. Involuntary Hold Information 96 Hour Hold: 96 Hour Involuntary Admission: Yes 96 Hour Hold Ending Date: 11/26/20 96 Hour Hold Ending Time: 18:21 Attestations NPU Medical Necessity Statement*: Psychiatric hospitalization is medically necessary to prevent access to lethal means, to reevaluate medication, and to coordinate a safe discharge. The patient has had quite a stormy course recently. Hospitalization needs to provide definitive treatment of her bipolar disorder while we have the chance. The consequences of her actions and harm to self keep increasing. She should not be released until her mood is well-stabilized. Likely length of stay is 4-8 days. Coding Level of Care Code Acute Dispensary Attendant for [facility]
[2020-12-07 20:37] VITALS: BP 135/82; PULSE 116; RESP 18; TEMP 36.6; O2SAT 98
[2020-12-07 21:08] VITALS: RESP 20
[2020-12-07] MEDS: CLONazepam 1 mg Tablet PO (21:08)
[2020-12-07] MEDS: trazodone 50 mg Tablet PO (21:08)
[2020-12-07] MEDS: quetiapine XR (24HR) 50 mg Tablet 200 MG PO (21:08)
[2020-12-08 05:27] VITALS: RESP 20
[2020-12-08] MEDS: oxyCODONE-APAP 5-325 mg Tablet 1 TAB PO ×3 (05:27→22:13)
[2020-12-08 06:00] VITALS: BP 94/61; PULSE 91; RESP 16; TEMP 36.3; O2SAT 99
[2020-12-08] MEDS: ibuprofen 800 mg tablet PO ×3 (08:54→21:17)
[2020-12-08] MEDS: aspirin 325 mg Tablet PO (08:54)
[2020-12-08] MEDS: paliperidone ER 6 mg Tablet PO (08:56)
[2020-12-08] MEDS: ARIPiprazole 10 mg Tablet 15 MG PO (08:56)
[2020-12-08] MEDS: doxycycline 100 mg Tablet PO (08:57)
[2020-12-08] MEDS: amoxicillin-clav 875-125 mg Tablet 1 TAB PO ×2 (08:57→21:38)
[2020-12-08 09:53] LABS: Basophils # 0.1 10^3/uL (0.0-0.1); Basophils % 0.7 %; Eosinophils # 0.1 10^3/uL (0.0-0.8); Eosinophils % 1.5 %; Hematocrit 39.6 % (37.0-47.0); Lymphocytes # 1.8 10^3/uL (0.8-4.8); Mean Corpuscular HGB Conc 32.8 g/dL (30.0-36.0); Mean Corpuscular Hemoglobin 30.3 pg (28.0-34.0); Mean Corpuscular Volume 92.3 fl (81-99); Mean Platelet Volume 9.7 fL (7.4-10.4); Monocytes # 0.5 10^3/uL (0.2-0.9); Monocytes % 6.6 %; Neutrophils # 4.75 10^3/uL (1.8-7.7); Neutrophils % 65.8 %; Nucleated Red Blood Cells % 0 %; Platelet Count 365 10^3/cmm (130-400); Red Blood Count 4.29 10^6/uL (4.1-5.3); Red Cell Distribution Width 13.3 % (12.1-15.1); White Blood Count 7.2 10^3/uL (4.0-10.0)
[2020-12-08 10:08] LABS: Alanine Aminotransferase 10 U/L (0-33); Alkaline Phosphatase 73 IU/L (35-105); Anion Gap 13.1 (5-19); Aspartate Amino Transferase 14 U/L (0-32); Blood Urea Nitrogen 9 mg/dL (6-20); Calcium 8.9 mg/dL (8.5-10.5); Carbon Dioxide 26 mmol/L (22-29); Chloride 101 mmol/L (98-107); Globulin 2.5 g/dL (1.3-4.6); Glucose 99 mg/dL (65-115); Osmolality Calculated 281 mOsm/kg (285-295); Potassium 4.1 mmol/L (3.5-5.1); Sodium 136 mmol/L (136-145); Total Bilirubin 0.3 mg/dL (0.15-1.2); Total Protein 6.5 g/dL (6.6-8.7)
[2020-12-08 10:15] LABS: Procalcitonin 0.05 ng/mL (0-0.5)
[2020-12-08] MEDS: OLANZapine 5 mg ODT PO (10:51)
--- NOTE | 2020-12-08 11:47 | PM.NPN ---
Subjective NPU Subjective: Interval history: Patient continue tolerate the cross-taper of the Invega and Abilify. She continues to have these moments of extreme emotion that seem to be out of keeping with her actual experience and we discussed emotional dysregulation and the need for some DBT treatment. She does acknowledge some volitional aspect of her behavioral pattern. We discussed the transition back to Dr. Pope tomorrow. Mental Status Exam MSE Comments: This is an overweight white female with hospital scrubs on with limited grooming but adequate eye contact. No abnormal movements except for limited psychomotor agitation which is intermittent. Cooperative with exam in no acute distress. Speech was decreased rate and volume . Mood described as okay, affect congruent but other times upset with significant mood lability. Thought process organized. Thought content: Patient denied suicidal or homicidal ideation, there were no delusions reported but continued paranoia noted, she denied auditory or visual hallucinations currently. Attention and concentration were improving and memory appeared unreliable but none were formally tested. She is alert and oriented x3. Insight and judgment are limited, impulse control is limited. Vitals/I&O/Wt Last Vital Signs Temp 97.4 F L 12/08/20 06:00 Pulse 91 12/08/20 06:00 Resp 16 12/08/20 06:00 BP 94/61 12/08/20 06:00 Pulse Ox 99 12/08/20 06:00 Data NPU : 12/08/20 09:35 12/08/20 09:35 A&P Additional A&P Information (1) Bimalleolar fracture of right ankle: (2) Psychiatric care: (3) Bipolar disorder, curr episode mixed, severe, with psychotic features: (4) PTSD (post-traumatic stress disorder): Additional A&P Information This is a 25 year old female well-known to me, who has a past history of bipolar disorder with psychosis who was admitted through our emergency department on a 96-hour hold after jumping from a moving vehicle yesterday and breaking her foot. She has been agitated, erratic and aggressive at home and is agitated, erratic and has disorganized thinking here. Her parents report that she has not been taking her medication as prescribed, and this has led to her worsening condition. They also say that she can pull it together for short periods of time. They say this causes her level of her dysfunction to be grossly underestimated. RECOMMENDATION AND PLAN: 1. Continue current medication. Continue decreasing Abilify over the next few days and consider an alternate mood stabilizer as she has some history with mood stabilizers. 2. She is s/p surgical repair of a fractured right malleolus. 3. Continue every 15 minute checks for safety. 4. Encourage individual, group and milieu therapies. 5. Encourage sober living treatment after discharge at the highest level of care to which he is willing to commit. 6. 21-day hold granted. 7. Parents state they are seeking guardianship. Involuntary Hold Information 96 Hour Hold: 96 Hour Involuntary Admission: Yes 96 Hour Hold Ending Date: 11/26/20 96 Hour Hold Ending Time: 18:21 Attestations NPU Medical Necessity Statement*: Psychiatric hospitalization is medically necessary to prevent access to lethal means, to reevaluate medication, and to coordinate a safe discharge. The patient has had quite a stormy course recently. Hospitalization needs to provide definitive treatment of her bipolar disorder while we have the chance. The consequences of her actions and harm to self keep increasing. She should not be released until her mood is well-stabilized. Likely length of stay is 4-8 days. Coding Level of Care Code Acute Diesel Service Journeyman for Dana Segura
--- NOTE | 2020-12-08 12:12 | NPU.GN ---
[facility] Topic:Coping Skills Bingo/ Cross word puzzle General Mood of Group: Sherri did not attend and participate in group therapy this morning. Sherri was wandering the halls in the wheel chair this morning. Sherri does not seem mentally stable at this time.
[2020-12-08] MEDS: nicotine 2 mg Gum BUCCAL ×2 (12:57→21:39)
--- NOTE | 2020-12-08 13:27 | PM.PN ---
Subjective Subjective: Interval history: Sherri is seen 2 weeks after open reduction internal fixation of a bimalleolar ankle fracture. He reportedly has been noncompliant removing her boot and weightbearing as tolerated. She was seen in my absence by my partner, Aliza Esqueda and was begun on Bactrim. Vitals/I&O/Wt Last Vital Signs Temp 97.4 F L 12/08/20 06:00 Pulse 91 12/08/20 06:00 Resp 16 12/08/20 06:00 BP 94/61 12/08/20 06:00 Pulse Ox 99 12/08/20 06:00 Physical Exam Narrative: EXAM NARRATIVE: On examination of right ankle her boot is removed. There is some erythema about her tian and along her incision more so than medially than laterally. There does not seem to be any purulence I can express although her incision is a bit moist. Data : 12/08/20 09:35 12/08/20 09:35 A&P Assessment and plan (1) Bimalleolar fracture of right ankle: Status: Acute (2) Status post ORIF of fracture of ankle: The patient appears to have a superficial infection about her arm incisions medially and laterally. I think the best thing would be to discontinue her tian. We will continue with Bactrim and I will continue to follow along with her care team. Status: Acute Attestations Medical Necessity Statement*: As per psychology Coding Level of Care Code Acute Fertilizer Applicator for Dana Segura Diagnoses Bimalleolar fracture of right ankle S82.841A Status post ORIF of fracture of ankle Z98.890; Z87.81
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
[2020-12-08 14:00] VITALS: RESP 18
[2020-12-08 15:46] VITALS: RESP 14; O2SAT 98
[2020-12-08] MEDS: sulfamethoxazole-trimeth DS 160-800 mg Tablet 1 TAB PO (19:34)
[2020-12-08 20:07] VITALS: BP 138/84; PULSE 72; RESP 18; TEMP 36.9; O2SAT 97
[2020-12-08] MEDS: quetiapine XR (24HR) 50 mg Tablet 200 MG PO (21:16)
[2020-12-08] MEDS: hyDROXYzine 25 mg Capsule 50 MG PO (21:17)
[2020-12-08] MEDS: CLONazepam 1 mg Tablet PO (21:17)
[2020-12-08 22:13] VITALS: RESP 17; O2SAT 97
--- NOTE | 2020-12-08 22:14 | PC.NURSE ---
Behavior/Suture removal/Wound Dressing Yelling in the hallway, interacting with , Delusional thought process, redirected with continual redirection. Pt will not stay off her injured foot. Talbott and sutures have new order from Ortho for removal this evening. Pre-Medicated with her Oxycodone. Pt seems to be lost and somewhat confused this evening. She is exhibiting new behaviors, she stares off into space, almost like absence type seizure. This financial writer has noticed this behavior intermittently over the last 3 shifts. SABRINA OCAMPO and SABRINA HO, both attended to this patients wound care. Pt has tolerated the removal of her sraples well. Wound looks much less irritated than last night. Drainage was welding machine operator resistance yellow, small amount noted on pad, removed 11 tian from the medial ankle, and removed 13 tian from lateral site of right ankle, Cleaned both lateral and medial surgical incision sites with normal saline, Redressed wounds with non-stick absorbent pads, covered with casting soft roll covering, wrapped in elastic bandage wrap. Pt is in bed with foot elevated. Ice Pack applied, Pain meds are affective at this time. Tolerated staple removal well. Skin is dry, moisturized with lotion in areas that were intact.
--- NOTE | 2020-12-09 04:38 | PC.NURSE ---
Patient up and irritable early in shift. Was able to calm self. Utilizing wheelchair in celestin. Denied SI/HI and AVH. Compliant with medications. Received PRN medications per request- Vistaril at 2116 to good effect Nicorette gum at 2138 Percocet at 2212 to good effect New order to remove tian from surgical wound to right ankle. 13 tian removed from lateral side- Red wound bed and surrounding area, yellow drainage noted. Less drainage than previous night. 11 tian removed from medial side- [place], not draining. Patient calmer as shift progressed. Cooperative with care.
[2020-12-09 06:00] VITALS: BP 124/87; PULSE 76; RESP 18; TEMP 36.9; O2SAT 96
[2020-12-09] MEDS: nicotine 2 mg Gum BUCCAL ×2 (06:55→15:48)
[2020-12-09] MEDS: ibuprofen 800 mg tablet PO ×2 (08:11→16:18)
[2020-12-09] MEDS: sulfamethoxazole-trimeth DS 160-800 mg Tablet 1 TAB PO (08:11)
[2020-12-09] MEDS: ARIPiprazole 10 mg Tablet 15 MG PO (08:11)
[2020-12-09] MEDS: paliperidone ER 6 mg Tablet PO (08:11)
[2020-12-09] MEDS: amoxicillin-clav 875-125 mg Tablet 1 TAB PO ×2 (08:11→20:10)
[2020-12-09] MEDS: aspirin 325 mg Tablet PO (08:11)
--- NOTE | 2020-12-09 08:27 | PHA.FALL ---
A Pharmacy Consult Was Conducted For Sherri Schofield Mnago Due To: Mcclendon Fall Scale Risk Level: High Fall Risk On 12/09/20 08:00 And A Medication Fall Risk Score Greater Than 10. The Recommendations Are As Follows;the medications listed below have sedation/somnolence/dizziness adverse reactions. Concomitant administration of these medications may lead to an increased/compounded risk of falls and it is recommended to avoid administration together if possible. Many of the offending medications are listed as PRN therefore extra caution must be taken when the need arises for a particular agent. - Abilify JEROMY: dizziness, sedation - Klonopin JEROMY: coordination problems, dizziness, somnolence - Paliperidone JEROMY: somnolence - Seroquel JEROMY: somnolence - Trazodone JEROMY:somnolence - Benadryl PRN: dizziness, sedation - Haloperidol PRN: somnolence - Hydroxyzine PRN: somnolence - Loperamide PRN: somnolence, dizziness - Olanzapine PRN: dizziness, somnolence - Oxycodone-APAP PRN: somnolence, dizziness, light headedness
[2020-12-09] MEDS: OLANZapine 5 mg ODT PO (09:33)
--- NOTE | 2020-12-09 09:33 | PC.NURSE ---
PRN ZYPREXA ZYDIS 5 MG GIVEN PO PER PT C/O AGITATION. PT UP IN WHEELCHAIR BY THE NURSES STATION, CURSING AT STAFF AND OTHER PATIENTS THAT WALK BY, RAMMED HER W/C INTO THE WALL BACKWARDS INTENTIONALLY. STAFF ATTEMPTS TO REDIRECT
--- NOTE | 2020-12-09 12:59 | NPU.GN ---
[facility] Topic:Coping Kills Checklist General Mood of Group: Sherri did not attend group today, she was rasheed and unstable. Sherri was going up and down the halls in her wheel chair screaming out at times.
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
[2020-12-09 14:00] VITALS: BP 132/84; PULSE 99; RESP 20; TEMP 36.8; O2SAT 99
[2020-12-09 16:49] LABS: Erythrocyte Sedimentation Rate 2 mm/hr (0-15)
[2020-12-09 19:54] VITALS: BP 140/84; PULSE 105; RESP 16; TEMP 36.6; O2SAT 94
[2020-12-09] MEDS: CLONazepam 1 mg Tablet PO (20:09)
[2020-12-09] MEDS: quetiapine XR (24HR) 50 mg Tablet 200 MG PO (20:10)
[2020-12-09] MEDS: ondansetron 4 MG Tablet PO (20:48)
--- NOTE | 2020-12-09 22:37 | PC.NURSE ---
Upon assessment patient sitting in w/c in hallway. Patient alert/oriented x4. Patient has fair eye contact with staff.She would not rate her depression, anxiety, etc. Patient would answer with unrelated comments. During medication administration patient refused to take her Sulfa medication. Patient stated, That's not anything I have taken before and I might be allergic to it. Patient also refused Ibuprofen and Trazodone. Patient will at times roll her wheelchair over to the phone area and stare at a peer that is on the phone. Patient has been argumentative and blunt with staff this shift. Staff has redirected patient several times. This Nurse has observed patient standing on right foot once this shift up to this point. Will continue to monitor and redirect patient as needed.
--- NOTE | 2020-12-10 05:22 | PC.NURSE ---
Patient awoke and requested she have either crutches or a walker. Neither given to pt due to her hx of bearing weight on right foot. Patient then wheeled herself into the hallway in the w/c. Eventually she went down the celestin a few feet away from the Nurse's station and stood up and walked on her right foot. Patient took several steps toward pt bathroom in hallway. Staff then took pt's w/c to her and requested she not bear weight on her right foot. Will continue to monitor.
[2020-12-10 05:31] VITALS: RESP 18; O2SAT 96
[2020-12-10] MEDS: oxyCODONE-APAP 5-325 mg Tablet 1 TAB PO ×2 (05:31→14:18)
[2020-12-10] MEDS: OLANZapine 5 mg ODT PO (05:37)
[2020-12-10 06:00] VITALS: BP 112/73; PULSE 111; RESP 17; TEMP 36.8; O2SAT 95
[2020-12-10] MEDS: aspirin 325 mg Tablet PO (09:44)
[2020-12-10] MEDS: ARIPiprazole 10 mg Tablet 15 MG PO (09:44)
[2020-12-10] MEDS: docusate sodium 100 mg Capsule 200 MG PO (09:44)
[2020-12-10] MEDS: paliperidone ER 6 mg Tablet PO (09:44)
[2020-12-10] MEDS: sulfamethoxazole-trimeth DS 160-800 mg Tablet 1 TAB PO (09:44)
[2020-12-10] MEDS: amoxicillin-clav 875-125 mg Tablet 1 TAB PO ×2 (09:44→21:39)
[2020-12-10] MEDS: ibuprofen 800 mg tablet PO ×3 (09:45→21:40)
[2020-12-10] MEDS: nicotine 2 mg Gum BUCCAL ×4 (11:02→20:32)
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
[2020-12-10 14:00] VITALS: BP 129/71; PULSE 83; RESP 17; TEMP 37; O2SAT 98
[2020-12-10 14:18] VITALS: RESP 16; O2SAT 98
[2020-12-10] MEDS: paliperidone ER 3 mg Tablet PO (16:34)
[2020-12-10 21:02] VITALS: BP 109/72; PULSE 68; RESP 16; TEMP 36.9; O2SAT 96
[2020-12-10] MEDS: trazodone 50 mg Tablet PO (21:39)
[2020-12-10] MEDS: quetiapine XR (24HR) 50 mg Tablet 200 MG PO (21:39)
[2020-12-10] MEDS: CLONazepam 1 mg Tablet PO (21:39)
[2020-12-11 06:00] VITALS: RESP 18
[2020-12-11] MEDS: paliperidone ER 6 mg Tablet 9 MG PO (10:00)
[2020-12-11] MEDS: sulfamethoxazole-trimeth DS 160-800 mg Tablet 1 TAB PO ×2 (10:00→20:32)
[2020-12-11] MEDS: amoxicillin-clav 875-125 mg Tablet 1 TAB PO ×2 (10:02→20:32)
[2020-12-11] MEDS: ibuprofen 800 mg tablet PO ×2 (10:03→20:31)
[2020-12-11] MEDS: aspirin 325 mg Tablet PO (10:04)
[2020-12-11] MEDS: ARIPiprazole 10 mg Tablet PO (10:05)
[2020-12-11] MEDS: nicotine 2 mg Gum BUCCAL ×2 (10:05→14:15)
[2020-12-11] MEDS: hyDROXYzine 25 mg Capsule 50 MG PO ×2 (10:18→20:31)
--- NOTE | 2020-12-11 10:18 | PC.NURSE ---
Vistaril PRN Patient irritable, glaring at other patients, speaking loudly, clapping her hands and making random gestures. Vistaril given. Will continue to monitor.
[2020-12-11] MEDS: OLANZapine 5 mg ODT PO (11:19)
--- NOTE | 2020-12-11 11:19 | PC.NURSE ---
Zydis Given patient continues behavior. patient is hostile and irritated with both staff and other patients. patient glares and makes gestures at other patient. patient talks about a plan and doing things for the greater good. Zydis given. Will continue to monitor.
[2020-12-11] MEDS: haloperidol 5 mg Tablet PO ×2 (12:43→14:31)
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
--- NOTE | 2020-12-11 12:45 | PC.NURSE ---
Haldol Given Patient continues before mentioned behaviors, continues yelling occasionally, pacing the unit, glaring at staff and patients. patient rolled wheelchair into another patient's door. patient is not easily redirected. Haldol given. Will continue to monitor.
[2020-12-11 14:00] VITALS: BP 127/84; PULSE 129; RESP 18; TEMP 36.8; O2SAT 98
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
[2020-12-11] MEDS: trazodone 50 mg Tablet PO (20:31)
[2020-12-11] MEDS: quetiapine XR (24HR) 50 mg Tablet 200 MG PO (20:32)
[2020-12-11 22:00] VITALS: BP 127/81; PULSE 111; RESP 18; TEMP 36.6; O2SAT 97
--- NOTE | 2020-12-12 01:25 | PC.NURSE ---
Patient requested and received PRN medications- Trazodone- 2030 for sleep aid. Vistaril- 2030 for anxiety. Both medications to poor effect. Later offered food and drinks. Did go to bed after this at approximately 0115.
[2020-12-12 06:00] VITALS: BP 120/81; PULSE 109; RESP 18; TEMP 36.6; O2SAT 98
[2020-12-12 07:11] VITALS: RESP 18
[2020-12-12] MEDS: oxyCODONE-APAP 5-325 mg Tablet 1 TAB PO ×2 (07:11→21:22)
--- NOTE | 2020-12-12 07:14 | PC.NURSE ---
Patient reports pain in right ankle of 10/. Percocet given PRN at 0711. Oncoming shift will be notified and reassess effectiveness of medication.
[2020-12-12] MEDS: amoxicillin-clav 875-125 mg Tablet 1 TAB PO ×2 (08:20→20:12)
[2020-12-12] MEDS: ibuprofen 800 mg tablet PO ×2 (08:21→14:13)
[2020-12-12] MEDS: ARIPiprazole 10 mg Tablet PO (08:21)
[2020-12-12] MEDS: sulfamethoxazole-trimeth DS 160-800 mg Tablet 1 TAB PO (08:21)
[2020-12-12] MEDS: paliperidone ER 6 mg Tablet 9 MG PO (08:21)
[2020-12-12] MEDS: aspirin 325 mg Tablet PO (08:21)
[2020-12-12 14:00] VITALS: BP 115/78; PULSE 115; RESP 18; TEMP 36.2; O2SAT 97
[2020-12-12] MEDS: nicotine 2 mg Gum BUCCAL (14:47)
--- NOTE | 2020-12-12 15:31 | PC.NURSE ---
DR. DONNELLY NOTIFIED THAT MOTHER WOULD LIKE TO SPEAK TO HIM ABOUT PENDING DISCHARGE [phone].
--- NOTE | 2020-12-12 16:07 | PC.NURSE ---
AFTER SEVERAL ATTEMPTS PATIENT CONTINUES TO REFUSE TO LET ME UNWRAP HER FOOT TO LET ME EVALUATE THE SURGICAL SITE. THIS NURSE WILL CONTINUE TO ENCOURAGE PATIENT TO LET ME EVALUATE HER FOOT.
--- NOTE | 2020-12-12 16:42 | PC.NURSE ---
WOUND CARE COMPLETED AT 1640.
--- NOTE | 2020-12-12 18:31 | PC.NURSE ---
LATE ENTRY PATIENT BECAME UPSET AND RIPPED THE DRYWALL OFF THE WALL BY 170. WHEN I ASKED PATIENT WHY SHE DID THIS SHE STATED BECAUSE SHE WAS MAD. NOTIFIED AGRICULTURAL RESEARCHER BERNARDINO. SCREWS WERE PLACED UNTIL MAINTENANCE CAN FIX IT TOMORROW.
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
[2020-12-12 19:58] VITALS: BP 140/80; PULSE 135; RESP 21; TEMP 36.2; O2SAT 98
[2020-12-12] MEDS: hyDROXYzine 25 mg Capsule 50 MG PO (20:12)
[2020-12-12] MEDS: quetiapine XR (24HR) 50 mg Tablet 200 MG PO (20:12)
--- NOTE | 2020-12-12 20:28 | PC.NURSE ---
Patient at Nurse's desk hitting the wall with her w/c, punching the wall, yelling out. This Nurse brought her medications and patient refused most of them. She did agree to take her Seroquel, Hydroxyzine and Augmentin. Patient would not state why she was having these behaviors. There had ady a change of patient's on the unit and it seemed to increase as patient's were being moved. Will continue to monitor.
[2020-12-12 21:22] VITALS: RESP 18
--- NOTE | 2020-12-12 22:50 | PC.NURSE ---
Upon assessment patient in her room in w/c. Patient is alert/oriented x3. Good eye contact. Patient has had intermittent outbursts this shift..banging on hernández, standing on her right foot, etc. Patient still refusing to take her Sulfa for infection. Patient states she is afraid that she might be allergic to Sulfa. She also refused her Zydis and Ibuprofen this shift. She will look at the meds then pick and choose which ones she is going to take. This Nurse had a discussion with her tonight about her behaviors and explained to her that is she wants to be discharged she is going to have to improve her behavior. Patient expressed that she really doesn't want to stay with her parents but would be willing to try and see how it goes. Patient tends to calm down when staff will sit and talk with her. She denied any depression, anxiety, SI/HI, hallucinations. She has worn her right boot the whole shift up to this point. Will continue to monitor and follow plan of care. Q 15 min safety checks per protocol.
[2020-12-13 06:00] VITALS: BP 136/82; PULSE 127; RESP 18; TEMP 37.1; O2SAT 98
[2020-12-13] MEDS: sulfamethoxazole-trimeth DS 160-800 mg Tablet 1 TAB PO (07:54)
[2020-12-13] MEDS: paliperidone ER 6 mg Tablet 12 MG PO (07:54)
[2020-12-13] MEDS: ARIPiprazole 10 mg Tablet PO (07:54)
[2020-12-13] MEDS: aspirin 325 mg Tablet PO (07:54)
[2020-12-13] MEDS: ibuprofen 800 mg tablet PO ×3 (07:54→20:24)
[2020-12-13] MEDS: amoxicillin-clav 875-125 mg Tablet 1 TAB PO ×2 (07:55→20:24)
[2020-12-13] MEDS: hyDROXYzine 25 mg Capsule 50 MG PO (12:11)
[2020-12-13] MEDS: OLANZapine 5 mg ODT PO (12:11)
--- NOTE | 2020-12-13 12:16 | PC.NURSE ---
PATIENT CAME TO DESK AND STATED, I NEED MY MEDICINE AND RATED HER PAIN AT A 5/10, PRESENTS AGITATED AND ANXIOUS. PATIENT STANDING UP GROWLING. MEDICATED PER PRN ORDERS, HYDROXYZINE, ZYPREXA AND PULLED 5MG OXYCODONE. WHEN GAVE MEDICATIONS TO PATIENT SHE REFUSED THE OXYCODONE, NO I DON'T NEED IT. IT'S GONNA HURT NOT MATTER WHAT. SHE THEN PULLED SPLINT OFF AND THROUGH IT ACROSS THE CORREIA.
[2020-12-13 14:00] VITALS: BP 131/84; PULSE 122; RESP 18; TEMP 37; O2SAT 96
--- NOTE | 2020-12-13 15:08 | PC.NURSE ---
PATIENT DID NOT EAT MUCH OF HER LUNCH. SHE CONTINUED TO BE INTRUSIVE TO OTHER CLIENTS. SHE INITIALLY BEGAN TO PARTICIPATE IN AFTERNOON GROUP AND THE LEFT TO GO TO HER ROOM, HAS BEEN RESTING SINCE.
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
--- NOTE | 2020-12-13 19:27 | NPU.GN ---
[facility] Unit Group Topic: Stress General Mood of Group: Patient did not go to group today.
[2020-12-13 20:21] VITALS: BP 100/62; PULSE 91; RESP 17; TEMP 36.8; O2SAT 98
[2020-12-13] MEDS: quetiapine XR (24HR) 50 mg Tablet 200 MG PO (20:24)
[2020-12-13 20:28] VITALS: RESP 20
[2020-12-13] MEDS: oxyCODONE-APAP 5-325 mg Tablet 1 TAB PO (20:28)
--- NOTE | 2020-12-14 01:08 | PC.NURSE ---
Patient up in hallway in evening. Continued to appear tense but had no outbursts or poor behavior noted. Interacted well with a peer. Had a phone call that went well. Patient was able to rationally and calmly discuss that she felt she needed to get some things in order and change things in her life. Refused her Sulfa antibiotic but was compliant with all other medications. Did complain of pain to ankle and took PRN Percocet to good effect before going to bed. Denied any SI/HI or AVH. In bed resting with eyes closed at this time. No further complaints voiced. No signs of distress noted.
[2020-12-14 06:00] VITALS: BP 134/93; PULSE 128; RESP 17; TEMP 36.8; O2SAT 97
[2020-12-14 06:40] VITALS: RESP 18
[2020-12-14] MEDS: oxyCODONE-APAP 5-325 mg Tablet 1 TAB PO ×2 (06:40→12:28)
[2020-12-14] MEDS: ARIPiprazole 10 mg Tablet PO (08:18)
[2020-12-14] MEDS: paliperidone ER 6 mg Tablet 12 MG PO (08:18)
[2020-12-14] MEDS: aspirin 325 mg Tablet PO (08:18)
[2020-12-14] MEDS: sulfamethoxazole-trimeth DS 160-800 mg Tablet 1 TAB PO (08:18)
[2020-12-14] MEDS: amoxicillin-clav 875-125 mg Tablet 1 TAB PO ×2 (08:18→20:08)
[2020-12-14] MEDS: ibuprofen 800 mg tablet PO ×3 (08:18→20:08)
--- NOTE | 2020-12-14 08:32 | P.PN_ITS ---
Subjective Subjective: Interval history: No complaints regarding ankle Vitals/I&O/Wt Last Vital Signs Temp 98.2 F 12/14/20 06:00 Pulse 128 H 12/14/20 06:00 Resp 18 12/14/20 06:40 BP 134/93 12/14/20 06:00 Pulse Ox 97 12/14/20 06:00 Physical Exam Narrative: EXAM NARRATIVE: Medial ankle incision clean with minimal erythema. lateral incison slight erythema but no drainage and much less swelling. Data : 12/08/20 09:35 12/08/20 09:35 A&P Assessment and plan (1) Bimalleolar fracture of right ankle: Status: Acute (2) Status post ORIF of fracture of ankle: incisions look much better. May dc antibiotics at discharge. FU with me at 1 month postoperatively. Would be able to discontinue pain medications. Status: Acute Attestations Medical Necessity Statement*: Discharge per psychiatry Coding Level of Care Code Acute Hand Stemmer for [facility] Imel[facility] Diagnoses Bimalleolar fracture of right ankle S82.841A Status post ORIF of fracture of ankle Z98.890; Z87.81
[2020-12-14 12:28] VITALS: RESP 18
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
[2020-12-14 14:00] VITALS: BP 117/82; PULSE 124; RESP 18; TEMP 36.8; O2SAT 95
--- NOTE | 2020-12-14 16:21 | NPU.GN ---
[facility] Unit Group Topic:Jinga (Addiction) General Mood of Group: Patient did come to group and did participate. Patient was on time, dressed appropriately and had good hygiene. The group played addiction Jinga. They read a question off of each jinga block they pulled and shared with the group the answer to their question. Group did make a brief trip outside for some air. They were all in a great mood, they all communicated with each other well.
[2020-12-14 20:06] VITALS: BP 104/64; PULSE 64; RESP 16; TEMP 36.5; O2SAT 96
[2020-12-14] MEDS: quetiapine XR (24HR) 50 mg Tablet 200 MG PO (20:07)
[2020-12-14] MEDS: trazodone 50 mg Tablet PO (20:07)
--- NOTE | 2020-12-14 20:10 | PC.NURSE ---
PT REQUESTED PAIN MED FOR FOOT PAIN, PERCOCET GIVEN, THEN PT HANDED SAME TABLET RIGHT BACK STATING, YOU CAN HAVE THIS BACK, I DON'T WANT TO GET ADDICTED.
--- NOTE | 2020-12-15 02:06 | PC.NURSE ---
Patient up in hallway in evening. Continued to appear tense but had no outbursts or poor behavior noted. Refused her Sulfa antibiotic again tonight but was compliant with all other routine medications. Did complain of pain to ankle but refused to take Percocet. Denied any SI/HI or AVH. In bed resting quietly at this time. No further complaints voiced. No signs of distress noted.
[2020-12-15] MEDS: nicotine 2 mg Gum BUCCAL ×3 (05:55→12:39)
[2020-12-15 06:00] VITALS: BP 115/66; PULSE 81; RESP 18; TEMP 36.6; O2SAT 95
[2020-12-15] MEDS: ibuprofen 800 mg tablet PO ×3 (08:47→19:53)
[2020-12-15] MEDS: amoxicillin-clav 875-125 mg Tablet 1 TAB PO ×2 (08:47→19:54)
[2020-12-15] MEDS: aspirin 325 mg Tablet PO (08:47)
[2020-12-15] MEDS: paliperidone ER 6 mg Tablet 12 MG PO (08:47)
[2020-12-15] MEDS: ARIPiprazole 10 mg Tablet PO (08:47)
[2020-12-15] MEDS: sulfamethoxazole-trimeth DS 160-800 mg Tablet 1 TAB PO ×2 (08:49→19:53)
--- NOTE | 2020-12-15 11:03 | PC.NURSE ---
PATIENT TAPPING ON HER WINDOW AND TAPPING ON THE HALLS, KNOCKING ON THE DOOR IN THE BREAKROOM DOOR WHILE THIS RESIDENTIAL ADVISOR WAS MEETING WITH THE PHYSICIAN AND DISCHARGE TEAM. THIS RESIDENTIAL ADVISOR HAD TO GO OUT OF MEETING TO REDIRECT PATIENT TO NOT BE TAPPING ON THE WALL,DOORS OR WINDOWS. PATIENT WAS PLEASANT AND EASILY REDIRECTED. STATES IM JUST DOIN MY THING. WILL CONT TO MONITOR, SUPPORT AND REDIRECT NEEDED.
--- NOTE | 2020-12-15 11:23 | NPU.GN ---
[facility] Unit Group Topic:Stress Map General Mood of Group: Sherri did attend group but did not participate. Sherri was in and out of group listening to the group. Sherri was periodically wandering the halls. Sherri was also presenting some attention seeking behaviors by making noises to get others attention
[2020-12-15] MEDS: OLANZapine 5 mg ODT PO (12:06)
--- NOTE | 2020-12-15 12:06 | PC.NURSE ---
PRN Administered Zyprexa Zydis 5mg PO for pt pacing the halls and beating around on surfaces and very anxious.
[2020-12-15 13:48] VITALS: BP 110/68; PULSE 98; RESP 18; TEMP 36.8; O2SAT 98
[2020-12-15] MEDS: ondansetron 4 MG Tablet PO (13:56)
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
[2020-12-15] MEDS: quetiapine XR (24HR) 50 mg Tablet 200 MG PO (19:52)
[2020-12-15] MEDS: trazodone 50 mg Tablet PO (19:53)
[2020-12-15 20:07] VITALS: BP 114/80; PULSE 118; RESP 16; TEMP 36.9; O2SAT 96
[2020-12-16] MEDS: ondansetron 4 MG Tablet PO (02:23)
--- NOTE | 2020-12-16 04:29 | PC.NURSE ---
Patient calm and cooperative at start of shift. Interacting well with peers. Good affect, smiling. Denies any SI/HI, AVH, anxiety and depression at this time. Became more agitated as evening progressed. Began stating the she was F...ing over being here and was leaving. Patient agitated for approximately 30 minutes then suddenly calmed and returned to room, being polite again. Patient slept until 0130. Appeared tense and anxious but remained cooperative. Denied needing anything at that time. C/o nausea at 0220. Took PRN Zofran to good effect. Remains active in celestin.
[2020-12-16 05:47] VITALS: BP 115/80; PULSE 131; RESP 17; TEMP 37.2; O2SAT 97
--- NOTE | 2020-12-16 07:47 | PC.NURSE ---
BEHAVIORS PATIENT WALKING IN TO PATIENT ROOMS, MULTIPLE REDIRECTS TO STAY OUT OF ROOMS THAT ARE NOT HERS, SECURITY HAD PATIENT LEAVE ROOM 151. TINY CAME OUT OF ROOM 151 SINGING, SLAPPING YOUSIF, COME ON GIT IT THIS AIN'T FUCKING JAEL MORNING CONTINUES BEING HYPER-VERBAL, AND RANDOM NOISES, ESCALATING IN LOUDNESS. OFFERED PATIENT PRN MEDICATION, SHE DECLINED. ADVISED PATIENT SHE WAS STILL NOT CLEARED BY ORTHOPEDIC TO BE WALKING. PATIENT IS FULL WEIGHT BEARING AND PACING UP AND DOWN FULL LENGTH OF HALLWAY, HAVE EXPLAINED MULTIPLE TIMES POTENTIAL NEGATIVE OUTCOMES TO TINY FOR NOT FOLLOWING HER POST-SURGICAL INSTRUCTIONS. SHE IS CONTINUING TO TRY AND UPSET OTHER PATIENTS. FLAPPING HER ARMS TOWARD OTHER PATIENTS AND INTIMIDATING MENTALLY HANDICAPPED PATIENTS.
[2020-12-16] MEDS: sulfamethoxazole-trimeth DS 160-800 mg Tablet 1 TAB PO ×2 (08:54→21:17)
[2020-12-16] MEDS: amoxicillin-clav 875-125 mg Tablet 1 TAB PO ×2 (08:55→20:53)
[2020-12-16] MEDS: ARIPiprazole 10 mg Tablet 5 MG PO (08:55)
[2020-12-16] MEDS: aspirin 325 mg Tablet PO (08:55)
[2020-12-16] MEDS: paliperidone ER 6 mg Tablet 12 MG PO (08:55)
[2020-12-16] MEDS: ibuprofen 800 mg tablet PO ×3 (08:55→20:53)
[2020-12-16 09:13] VITALS: RESP 16; O2SAT 98
[2020-12-16] MEDS: oxyCODONE-APAP 5-325 mg Tablet 1 TAB PO (09:13)
--- NOTE | 2020-12-16 11:53 | NPU.GN ---
[facility] Unit Group Topic:My Favorite Things General Mood of Group:Sherri did not attend group. Sherri was wondering the halls making loud noises.
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
[2020-12-16 14:00] VITALS: BP 132/87; PULSE 100; RESP 17; TEMP 37.4; O2SAT 99
--- NOTE | 2020-12-16 15:51 | PC.NURSE ---
Sherri continues to walk up and down hallways with boot on foot, not using wheelchair, W/C taken to her and she stated get that away from me, I'm not using it Bhavna was sitting in room 153 on bed#2 talking with patient, redirected Sherri again that she is not allowed to enter another patient's room. Instructed that if they wanted to talk they need to sit in the dayroom or in the hallway.
[2020-12-16] MEDS: nicotine 2 mg Gum BUCCAL (17:34)
[2020-12-16] MEDS: quetiapine XR (24HR) 50 mg Tablet 200 MG PO (20:53)
[2020-12-16] MEDS: hyDROXYzine 25 mg Capsule 50 MG PO (20:53)
[2020-12-16 21:30] VITALS: BP 103/72; PULSE 74; RESP 18; TEMP 36.7; O2SAT 97
--- NOTE | 2020-12-17 01:28 | PC.NURSE ---
Patient was awakened by another patient who was speaking loudly at the Nurse station. Patient asked if she could shower. Patient then showered without incident. She did keep her boot on and kept that foot out of the shower.
[2020-12-17 06:00] VITALS: BP 109/73; PULSE 75; RESP 17; TEMP 36.7; O2SAT 97
[2020-12-17] MEDS: amoxicillin-clav 875-125 mg Tablet 1 TAB PO ×2 (09:27→20:50)
[2020-12-17] MEDS: aspirin 325 mg Tablet PO (09:27)
[2020-12-17] MEDS: paliperidone ER 6 mg Tablet 12 MG PO (09:27)
[2020-12-17] MEDS: ibuprofen 800 mg tablet PO ×2 (09:28→17:20)
[2020-12-17] MEDS: sulfamethoxazole-trimeth DS 160-800 mg Tablet 1 TAB PO ×2 (09:28→20:50)
[2020-12-17] MEDS: ARIPiprazole 10 mg Tablet 5 MG PO (09:28)
[2020-12-17 09:33] VITALS: RESP 16; O2SAT 98
[2020-12-17] MEDS: oxyCODONE-APAP 5-325 mg Tablet 1 TAB PO ×2 (09:33→19:36)
--- NOTE | 2020-12-17 12:09 | NPU.GN ---
[facility] Group Topic:Marcie General Mood of Group: Sherri attended and participated in group today. Sherri was talkative with other patients and with this rewriter. Sherri still had moments of major mood swings and some verbal outbursts at times due Marcie.
[2020-12-17] MEDS: nicotine 2 mg Gum BUCCAL ×3 (12:18→17:20)
[2020-12-17 13:22] VITALS: BP 130/82; PULSE 97; RESP 16; TEMP 36.9; O2SAT 98
[2020-12-17] MEDS: lamoTRIgine 25 mg Tablet PO (17:20)
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
[2020-12-17 19:36] VITALS: RESP 18
[2020-12-17 20:03] VITALS: BP 114/76; PULSE 105; RESP 16; O2SAT 97
[2020-12-17] MEDS: quetiapine XR (24HR) 50 mg Tablet 200 MG PO (20:50)
[2020-12-18 06:00] VITALS: BP 126/80; PULSE 109; RESP 16; O2SAT 99
[2020-12-18] MEDS: sulfamethoxazole-trimeth DS 160-800 mg Tablet 1 TAB PO ×2 (08:31→20:38)
[2020-12-18] MEDS: ARIPiprazole 10 mg Tablet 5 MG PO (08:31)
[2020-12-18] MEDS: aspirin 325 mg Tablet PO (08:31)
[2020-12-18] MEDS: lamoTRIgine 25 mg Tablet PO (08:31)
[2020-12-18] MEDS: paliperidone ER 6 mg Tablet 12 MG PO (08:31)
[2020-12-18] MEDS: amoxicillin-clav 875-125 mg Tablet 1 TAB PO ×2 (08:31→20:38)
[2020-12-18] MEDS: ibuprofen 800 mg tablet PO ×2 (08:32→16:45)
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
[2020-12-18] MEDS: nicotine 2 mg Gum BUCCAL (12:51)
[2020-12-18 14:00] VITALS: BP 113/71; PULSE 99; RESP 17; TEMP 36.1; O2SAT 99
[2020-12-18] MEDS: hyDROXYzine 25 mg Capsule 50 MG PO ×2 (16:45→22:35)
[2020-12-18] MEDS: ondansetron 4 MG Tablet PO (20:06)
[2020-12-18 20:20] VITALS: BP 121/81; PULSE 118; RESP 17; TEMP 36.8; O2SAT 97
[2020-12-18] MEDS: quetiapine XR (24HR) 50 mg Tablet 200 MG PO (20:39)
--- NOTE | 2020-12-18 20:48 | P.PN_ITS ---
Subjective Subjective: Interval history: Reports he has been doing better. Her ankle has been healing. Became quite proficient at taking off and putting on the camera boot. Swelling significantly improved. Vitals/I&O/Wt Last Vital Signs Temp 98.3 F 12/18/20 20:20 Pulse 118 H 12/18/20 20:20 Resp 17 12/18/20 20:20 BP 121/81 12/18/20 20:20 Pulse Ox 97 12/18/20 20:20 Physical Exam Const: COMMON NORMALS: no acute distress GENERAL APPEARANCE: cooperative ORIENTATION/CONSCIOUSNESS: Yes awake HENMT: COMMON NORMALS: oropharynx normal Neck/C-Spine: COMMON NORMALS: no JVD Resp: COMMON NORMALS: normal respiratory effort and clear to auscultation bilaterally AUSCULTATION: clear to auscultation bilaterally Cardio: COMMON NORMALS: no JVD, regular rhythm, S1 normal heart sound present, S2 normal heart sound present and No murmurs present (Cardio) RHYTHM: regular rhythm HEART SOUNDS: S1 normal heart sound present and S2 normal heart sound present GI: COMMON NORMALS: Normal to inspection, nondistended, normoactive bowel sounds present, Soft to palpation and non-tender PALPATION: Yes Soft to palpation Extremity: COMMON NORMALS: no joint enlargement and no pedal edema OTHER: Early clean dressing topped with Won wrap. Swelling significantly improved. Neuro: COMMON NORMALS: moves all extremities Skin: COMMON NORMALS: no rashes or lesions noted GENERAL SKIN EXAM: no rashes or lesions noted Data : 12/08/20 09:35 12/08/20 09:35 A&P Assessment and plan (1) Cellulitis: Dressing already changed today at the time of visit. Will request if possible to notify her with dressing being changed to reexamine the wound. Overall has been improving quite significantly. Doing well on recent exami nation by orthopedics. Swelling has decreased quite significantly. Status: Acute (2) Status post ORIF of fracture of ankle: Status: Acute (3) Sinus tachycardia: Intermittent episodes of tachycardia noted. Still unexplained. She is not bothered by any discomfort. Lower extremity has been healing. No signs of sepsis. Continues with antibiotic course, at least 2 weeks, discontinue at discharge as per orthopedics. Follow-up in office. After report of chest pain, noted sinus tachycardia on EKG. No ischemic features. She denies chest pain. Chest x-ray nonacute. D-dimer normal. Venous duplex without DVT. Saturation good on room air. No cough or shortness of breath. Perhaps medication related. Seroquel can cause tachycardia. So can paliperidone. I see at home she takes clonazepam 1 mg the morning, 0.5 mg p.o. twice daily. Here he is only on 1 mg in the morning, although withdrawal rather unlikely with the small dose difference. Sinus tachycardia, likely secondary to pain from right lower extremity open reduction internal fixation, pain control with oxycodone Status: Acute (4) Chest pain: No chest pain. Status: Resolved (5) PTSD (post-traumatic stress disorder): Status: Chronic (6) Psychiatric care: Status: Acute (7) Bipolar disorder, curr episode mixed, severe, with psychotic features: Status: Inactive Attestations Medical Necessity Statement*: Continue psychiatric admission. Coding Level of Care Code Acute Pi/Senior Research Associate for [facility] Imelda Diagnoses Cellulitis L03.90 Status post ORIF of fracture of ankle Z98.890; Z87.81 Sinus tachycardia R00.0 Chest pain R07.9 PTSD (post-traumatic stress disorder) F43.10 Psychiatric care Bipolar disorder, curr episode mixed, severe, with psychotic features F31.64
[2020-12-18] MEDS: trazodone 50 mg Tablet PO (22:31)
[2020-12-18] MEDS: OLANZapine 5 mg ODT PO (22:31)
--- NOTE | 2020-12-18 22:31 | PC.NURSE ---
Patient is agitated and verbally aggressive to staff. Patient is entering other patients' rooms. Patient is yelling in the hallway, banging on hernández, hitting and kicking objects in her room.
[2020-12-19 06:00] VITALS: BP 141/72; PULSE 102; RESP 16; TEMP 36.8; O2SAT 99; BMI 27.4
[2020-12-19] MEDS: amoxicillin-clav 875-125 mg Tablet 1 TAB PO ×2 (08:17→20:18)
[2020-12-19] MEDS: aspirin 325 mg Tablet PO (08:17)
[2020-12-19] MEDS: lamoTRIgine 25 mg Tablet PO (08:17)
[2020-12-19] MEDS: sulfamethoxazole-trimeth DS 160-800 mg Tablet 1 TAB PO ×2 (08:17→20:19)
[2020-12-19] MEDS: ARIPiprazole 10 mg Tablet 5 MG PO (08:17)
[2020-12-19] MEDS: ibuprofen 800 mg tablet PO ×3 (08:17→20:19)
[2020-12-19] MEDS: nicotine 2 mg Gum BUCCAL ×2 (08:17→14:46)
[2020-12-19] MEDS: paliperidone ER 6 mg Tablet 12 MG PO (08:17)
[2020-12-19 09:10] LABS: Basophils % 0.7 %; Eosinophils # 0.1 10^3/uL (0.0-0.8); Eosinophils % 1.2 %; Hematocrit 36.9 % (37.0-47.0); Hemoglobin 12.1 g/dL (11.5-15.3); Lymphocytes % 24.2 %; Mean Corpuscular HGB Conc 32.8 g/dL (30.0-36.0); Mean Corpuscular Hemoglobin 30.9 pg (28.0-34.0); Mean Corpuscular Volume 94.1 fl (81-99); Mean Platelet Volume 10.2 fL (7.4-10.4); Monocytes # 0.6 10^3/uL (0.2-0.9); Monocytes % 13.2 %; Neutrophils # 2.52 10^3/uL (1.8-7.7); Neutrophils % 60.5 %; Nucleated Red Blood Cells % 0 %; Platelet Count 272 10^3/cmm (130-400); Red Blood Count 3.92 10^6/uL (4.1-5.3); Red Cell Distribution Width 13.7 % (12.1-15.1); White Blood Count 4.2 10^3/uL (4.0-10.0)
[2020-12-19 09:31] LABS: Alanine Aminotransferase 11 U/L (0-33); Albumin Level 4.1 g/dL (3.5-5.2); Alkaline Phosphatase 69 IU/L (35-105); Anion Gap 12.8 (5-19); Aspartate Amino Transferase 13 U/L (0-32); Blood Urea Nitrogen 11 mg/dL (6-20); Carbon Dioxide 28 mmol/L (22-29); Chloride 105 mmol/L (98-107); Globulin 2.1 g/dL (1.3-4.6); Glomerular Filtration Rate 119.9 mL/min (90-130); Glucose 118 mg/dL (65-115); Osmolality Calculated 292 mOsm/kg (285-295); Potassium 4.8 mmol/L (3.5-5.1); Sodium 141 mmol/L (136-145); Total Bilirubin 0.2 mg/dL (0.15-1.2); Total Protein 6.2 g/dL (6.6-8.7)
[2020-12-19 14:00] VITALS: BP 108/74; PULSE 98; RESP 17; TEMP 36.3; O2SAT 96
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
[2020-12-19 20:09] VITALS: BP 102/62; PULSE 82; RESP 17; TEMP 36.8; O2SAT 97
--- NOTE | 2020-12-19 20:17 | P.PN_ITS ---
Subjective Subjective: Interval history: Again noted some episodes of sinus tachycardia today. Examined the wound, looks good. She denies shortness of breath, chest pain or pressure. No headache, dizziness, nausea or vomiting or abdominal discomfort. No rashes. Vitals/I&O/Wt Last Vital Signs Temp 98.2 F 12/19/20 20:09 Pulse 82 12/19/20 20:09 Resp 17 12/19/20 20:09 BP 102/62 12/19/20 20:09 Pulse Ox 97 12/19/20 20:09 Weight last 48 hrs Weight 72.575 kg Physical Exam Const: COMMON NORMALS: no acute distress GENERAL APPEARANCE: cooperative ORIENTATION/CONSCIOUSNESS: Yes awake HENMT: COMMON NORMALS: oropharynx normal Neck/C-Spine: COMMON NORMALS: no JVD Resp: COMMON NORMALS: normal respiratory effort and clear to auscultation bilaterally AUSCULTATION: clear to auscultation bilaterally Cardio: COMMON NORMALS: no JVD, regular rhythm, S1 normal heart sound present, S2 normal heart sound present and No murmurs present (Cardio) RHYTHM: regular rhythm HEART SOUNDS: S1 normal heart sound present and S2 normal heart sound present GI: COMMON NORMALS: Normal to inspection, nondistended, normoactive bowel sounds present, Soft to palpation and non-tender PALPATION: Yes Soft to palpation Extremity: COMMON NORMALS: no joint enlargement and no pedal edema OTHER: Early clean dressing topped with Won wrap. Swelling significantly improved. Neuro: COMMON NORMALS: moves all extremities Skin: COMMON NORMALS: no rashes or lesions noted GENERAL SKIN EXAM: no rashes or lesions noted Data : 12/19/20 08:43 12/19/20 08:43 A&P Assessment and plan (1) Cellulitis: Wounds look good. Healing well. No drainage. No surrounding erythema. Minimal if any swelling. As per Ortho antibiotic course, at least 2 weeks, discontinue at discharge. Please arrange follow-up in office. Status: Acute (2) Status post ORIF of fracture of ankle: Status: Acute (3) Sinus tachycardia: Check orthostatics. Pain well controlled. No other significant symptoms on review of systems. Perhaps medication related. Seroquel can cause tachycardia. So can paliperidone. Intermittent episodes of tachycardia noted. Still unexplained. She is not bothered by any discomfort. Lower extremity has been healing. No signs of sepsis. Continues with antibiotic course, at least 2 weeks, discontinue at discharge as per orthopedics. Follow-up in office. After report of chest pain, noted sinus tachycardia on EKG. No ischemic features. She denies chest pain. Chest x-ray nonacute. D-dimer normal. Venous duplex without DVT. Saturation good on room air. No cough or shortness of breath. I see at home she takes clonazepam 1 mg the morning, 0.5 mg p.o. twice daily. Here he is only on 1 mg in the morning, although withdrawal rather unlikely with the small dose difference. Pain control with oxycodone Status: Acute (4) Chest pain: No chest pain. Status: Resolved (5) PTSD (post-traumatic stress disorder): Status: Chronic (6) Psychiatric care: Status: Acute (7) Bipolar disorder, curr episode mixed, severe, with psychotic features: Status: Inactive Attestations Medical Necessity Statement*: Continue psychiatric admission. Coding Level of Care Code Acute Referral Agent for [facility] Imelda Diagnoses Cellulitis L03.90 Status post ORIF of fracture of ankle Z98.890; Z87.81 Sinus tachycardia R00.0 Chest pain R07.9 PTSD (post-traumatic stress disorder) F43.10 Psychiatric care Bipolar disorder, curr episode mixed, severe, with psychotic features F31.64
[2020-12-19] MEDS: quetiapine XR (24HR) 50 mg Tablet 200 MG PO (20:19)
[2020-12-19] MEDS: trazodone 50 mg Tablet PO (20:19)
--- NOTE | 2020-12-20 | PC.NURSE ---
Addendum entered by Leticia Hummel RN 12/20/20 04:03: Good effect initially but up during night. Original Note: Patient took PRN Trazodone at 2019 to good effect.
[2020-12-20] MEDS: ibuprofen 800 mg tablet PO ×3 (08:06→20:00)
[2020-12-20] MEDS: sulfamethoxazole-trimeth DS 160-800 mg Tablet 1 TAB PO ×2 (08:06→20:00)
[2020-12-20] MEDS: amoxicillin-clav 875-125 mg Tablet 1 TAB PO ×2 (08:07→19:59)
[2020-12-20] MEDS: aspirin 325 mg Tablet PO (08:07)
[2020-12-20] MEDS: ARIPiprazole 10 mg Tablet 5 MG PO (08:07)
[2020-12-20] MEDS: paliperidone ER 6 mg Tablet 12 MG PO (08:07)
[2020-12-20] MEDS: lamoTRIgine 25 mg Tablet PO (08:07)
[2020-12-20 09:00] VITALS: BP 133/86; PULSE 59
[2020-12-20 09:01] VITALS: BP 124/79; PULSE 59
[2020-12-20 09:02] VITALS: BP 133/86
[2020-12-20] MEDS: metoprolol tartrate 25 mg Tablet 12.5 MG PO (09:05)
--- NOTE | 2020-12-20 10:59 | NPU.GN ---
[facility] Unit Group Topic:Triggers and Coping Skills General Mood of Group: Sherri did attend and participate in group. Sherri participated with this keno writer/runner in group discussion and Sherri discussed examples on topic with others in group. Sherri seems more focused this morning and was in a good mood.
--- NOTE | 2020-12-20 13:53 | PC.NURSE ---
PATIENT CAME TO NURSES DESK AND HELD HER HANDS UP AND MOVED HER SCRUB TOP TO THE SIDE. SHE HAS USED A SAFETY PEN TO WRITE/STUART THREE CROSSES ON HER THROAT. WHEN ASKED DEBBY SHE DID THAT JUST SHRUGGED HER SHOULDERS, TURNED AND WALKED IN TO HER ROOM AND CLOSED THE DOOR. FOLLOWED HER AND INFORMED HER THAT SHE NEEDED TO HAVE HER DOOR REMAIN AJAR, CHECKED FOR OTHER OBJECTS IN HER ROOM, NONE FOUND.
[2020-12-20] MEDS: hyDROXYzine 25 mg Capsule 50 MG PO (14:47)
--- NOTE | 2020-12-20 14:47 | PC.NURSE ---
PRN VISTARIL 50 MG GIVEN PO PER PT C/O STATED ANXIETY
--- NOTE | 2020-12-20 16:56 | P.NPUPN_ITS ---
Subjective NPU Subjective: Interval history: Patient presents today reporting that she is feeling better and feeling like she is ready to leave. We had a family meeting with transition social worker and mom which had some positives and negatives. Positive was eventually she was agreeable to Invega injection. Unfortunately he also demonstrated some of volatility that has made concerns for guardianship a conversation. We did work with patient and mom to agree that we would not see guardianship and that we would work on a plan for likely discharge this week with the patient excepting the Invega Sustenna 234 mg IM injection and arranged follow-up for the second injection obtained. Mental Status Exam MSE Comments: This is an overweight white female with hospital scrubs on with improved grooming and eye contact. No abnormal movements. Cooperative with exam in occasional mild distress. Speech was more normal rate and volume . Mood described as good, affect mostly euthymic, but occasionally irritable. Thought process organized. Thought content: Patient denied suicidal or homicidal ideation, there were no delusions reported but occasional odd thinking and expressions noted, she denied auditory or visual hallucinations currently. Attention and concentration were improving and memory appeared mostly reliable but none were formally tested. She is alert and oriented x3. Insight and judgment are limited, impulse control is limited. Vitals/I&O/Wt Last Vital Signs Temp 98.2 F 12/19/20 20:09 Pulse 59 L 12/20/20 09:01 Resp 17 12/19/20 20:09 BP 133/86 12/20/20 09:02 Pulse Ox 97 12/19/20 20:09 Weight last 48 hrs Weight 72.575 kg Data NPU : 12/19/20 08:43 12/19/20 08:43 A&P Additional A&P Information (1) Schizoaffective disorder, bipolar type: (2) Status post ORIF of fracture of ankle: (3) PTSD (post-traumatic stress disorder): Additional A&P Information This is a 25 year old female well-known to me, who has a past history of bipolar disorder with psychosis who was admitted through our emergency department on a 96-hour hold after jumping from a moving vehicle and breaking her foot. She has been agitated, erratic and aggressive at home and continues to have periods of being agitated and erratic here, as well as having disorganized thinking. Her parents report that she can pull it together for short periods of time. They say this causes her level of her dysfunction to be grossly underestimated. She has been tried on Seroquel, Abilify, and now Invega, and is still not improving much. RECOMMENDATION AND PLAN: 1. Continue current medication: Increased Invega to 12 mg daily?no side effects; initiate Invega Sustenna 234 mg IM to the deltoid, Seroquel 200 mg at bedtime. Will discontinue Abilify. Continue Lamictal 25 mg daily for mood stabilization with increased to 50 mg on 12/24/2020. It is possible that we need to treat the bipolar part of her schizoaffective disorder more aggressively 2. She is s/p surgical repair of a fractured right malleolus. 3. Continue every 15 minute checks for safety. 4. Encourage individual, group and milieu therapies. 5. Encourage sober living treatment after discharge at the highest level of care to which he is willing to commit. 6. We have filed a petition for guardianship, since the parents are no longer pursuing that route. 7. We have change the diagnosis from bipolar disorder with psychotic features to schizoaffective disorder, bipolar type, as the patient continues to have psychotic symptoms even when her mood stabilizes. 8. Still have concerns for some element of this being personality disorder. Involuntary Hold Information 96 Hour Hold: 96 Hour Involuntary Admission: Yes 96 Hour Hold Ending Date: 11/26/20 96 Hour Hold Ending Time: 18:21 Attestations NPU Medical Necessity Statement*: Psychiatric hospitalization is medically necessary to prevent access to lethal means, to reevaluate medication, and to coordinate a safe discharge. The patient psychosis, paranoid delusions, and disorganized thinking may be improving. We are continuing to adjust medication to address her psychosis, but she is treatment resistant. Likely length of stay is 3-5 days. Coding Level of Care Code Acute Mathematics Faculty Member for Dana Segura
--- NOTE | 2020-12-20 17:06 | PM.PN ---
Subjective Subjective: Interval history: Hospital course appreciated. Today morning vitals not available so spoke with the nurse. Has been stable. No acute events. Vitals/I&O/Wt Last Vital Signs Temp 98.2 F 12/19/20 20:09 Pulse 59 L 12/20/20 09:01 Resp 17 12/19/20 20:09 BP 133/86 12/20/20 09:02 Pulse Ox 97 12/19/20 20:09 Weight last 48 hrs Weight 72.575 kg Physical Exam Const: COMMON NORMALS: no acute distress and patient oriented x3 GENERAL APPEARANCE: cooperative ORIENTATION/CONSCIOUSNESS: Yes awake HENMT: COMMON NORMALS: oropharynx normal Neck/C-Spine: COMMON NORMALS: no JVD Resp: COMMON NORMALS: normal respiratory effort, No retractions, No use of accessory muscles and clear to auscultation bilaterally AUSCULTATION: clear to auscultation bilaterally Cardio: COMMON NORMALS: no JVD, regular rate, regular rhythm, S1 normal heart sound present, S2 normal heart sound present and No murmurs present (Cardio) RATE: regular rate RHYTHM: regular rhythm HEART SOUNDS: S1 normal heart sound present and S2 normal heart sound present GI: COMMON NORMALS: Normal to inspection, nondistended, normoactive bowel sounds present, Soft to palpation and non-tender PALPATION: Yes Soft to palpation Extremity: COMMON NORMALS: no joint enlargement and no pedal edema NARRATIVE EXTREMITY EXAM: Right ankle, surgical sutures, minimal serosanguineous drainage, with surrounding erythema, swelling, warmth OTHER: Early clean dressing topped with Won wrap. Swelling significantly improved. Neuro: COMMON NORMALS: patient oriented x3 and moves all extremities Psych: COMMON NORMALS: mental status grossly normal Skin: COMMON NORMALS: no rashes or lesions noted NARRATIVE SKIN EXAM: Right foot, right ankle, some erythema, currently measuring 1 x 1 cm, GENERAL SKIN EXAM: no rashes or lesions noted Data : 12/19/20 08:43 12/19/20 08:43 A&P Assessment and plan (1) Cellulitis: Wounds look good. Healing well. No drainage. No surrounding erythema. Minimal if any swelling. As per Ortho antibiotic course, at least 2 weeks, discontinue at discharge. Please arrange follow-up in office. Status: Acute (2) Status post ORIF of fracture of ankle: Status: Acute (3) Sinus tachycardia: Check orthostatics. Pain well controlled. No other significant symptoms on review of systems. Perhaps medication related. Seroquel can cause tachycardia. So can paliperidone. Intermittent episodes of tachycardia noted. Still unexplained. She is not bothered by any discomfort. Lower extremity has been healing. No signs of sepsis. Continues with antibiotic course, at least 2 weeks, discontinue at discharge as per orthopedics. Follow-up in office. After report of chest pain, noted sinus tachycardia on EKG. No ischemic features. She denies chest pain. Chest x-ray nonacute. D-dimer normal. Venous duplex without DVT. Saturation good on room air. No cough or shortness of breath. I see at home she takes clonazepam 1 mg the morning, 0.5 mg p.o. twice daily. Here he is only on 1 mg in the morning, although withdrawal rather unlikely with the small dose difference. Pain control with oxycodone Status: Acute (4) Chest pain: No chest pain. Status: Resolved (5) PTSD (post-traumatic stress disorder): Status: Chronic (6) Psychiatric care: Status: Acute (7) Bipolar disorder, curr episode mixed, severe, with psychotic features: Status: Inactive Additional A&P Information Plan for the day: Continue to monitor vitals. For now cardiac work-up and infectious work-up negative. heart rate better controlled. Orthostatic negative. We will sign off. Please reconsult or call if any questions. Attestations Medical Necessity Statement*: As per primary team. Time Spent in Patient Care: Greater than 35 minutes (>than 50% of time spent in counselling and/or direct pt care on unit). Coding Level of Care Code Acute Meat Counter Clerk for [facility] Fwd Diagnoses Cellulitis L03.90 Status post ORIF of fracture of ankle Z98.890; Z87.81 Sinus tachycardia R00.0 Chest pain R07.9 PTSD (post-traumatic stress disorder) F43.10 Psychiatric care Bipolar disorder, curr episode mixed, severe, with psychotic features F31.64
[2020-12-20] MEDS: nicotine 2 mg Gum BUCCAL (19:44)
[2020-12-20] MEDS: quetiapine XR (24HR) 50 mg Tablet 200 MG PO (19:59)
[2020-12-20] MEDS: trazodone 50 mg Tablet PO (20:00)
[2020-12-20 21:17] VITALS: BP 126/80; PULSE 116; RESP 21; TEMP 36.7; O2SAT 96
[2020-12-20] MEDS: paliperidone palmitate 234 mg Syringe IM (21:21)
--- NOTE | 2020-12-21 05:14 | PC.NURSE ---
Patient up at start of shift. Cooperative and directable but tense and somewhat impulsive at that time. Received PRN Nicotine gum at 194. Received PRN Trazodone at 1999 to good effect. Patient did receive Invega inj to right deltoid without issue. Has been in bed resting with eyes closed throughout night to this point.
[2020-12-21 05:50] VITALS: RESP 16
[2020-12-21] MEDS: amoxicillin-clav 875-125 mg Tablet 1 TAB PO ×2 (08:13→20:20)
[2020-12-21] MEDS: aspirin 325 mg Tablet PO (08:13)
[2020-12-21] MEDS: ibuprofen 800 mg tablet PO ×3 (08:13→20:23)
[2020-12-21] MEDS: paliperidone ER 6 mg Tablet 12 MG PO (08:13)
[2020-12-21] MEDS: nicotine 2 mg Gum BUCCAL ×3 (08:13→20:27)
[2020-12-21] MEDS: sulfamethoxazole-trimeth DS 160-800 mg Tablet 1 TAB PO ×2 (08:14→20:21)
[2020-12-21] MEDS: lamoTRIgine 25 mg Tablet PO (08:14)
--- NOTE | 2020-12-21 11:36 | NPU.GN ---
[facility] Unit Group Topic:Mental Health Crossword Puzzle/ Psych Education General Mood of Group: Sherri did not attend group this morning she wanted to sleep. Sherri was wondering the halls during group.
[2020-12-21 14:00] VITALS: BP 124/75; PULSE 108; RESP 18; TEMP 36.2; O2SAT 95
[2020-12-21] MEDS: OLANZapine 5 mg ODT PO (17:24)
--- NOTE | 2020-12-21 17:25 | PC.NURSE ---
PATIENT BANGING ON DESK, I'M DONE WHEN ASKED WITH WHAT, SHE SAID THIS PAIN, I'M OVER IT, I NEED SOMETHING FOR THE PAIN. CHECKED PATIENT'S MAR ONLY HAS SCHEDULED MOTRIN, PATIENT REQUESTED SOMETHING FOR ANXIETY, GAVE PATIENT ZYPREXA 5MG PRN. PATIENT CONTINUED BANGING ON YOUSIF AND DIRTY LAUNDRY BASKET, ARE YOU HAPPY I'M JUST A PEANUT
[2020-12-21] MEDS: quetiapine XR (24HR) 50 mg Tablet 200 MG PO (20:21)
[2020-12-21] MEDS: trazodone 50 mg Tablet PO (20:23)
--- NOTE | 2020-12-21 21:15 | W.PM.NPUPNS ---
Subjective NPU Subjective: Interval history: Congestion most of the day patient in the hallways with another patient and feeding off of that patient's psychotic behavior. We discussed her choices in the concerns it raises for her making the best and most reasonable choices once she is discharged. She did receive the Invega Sustenna injection yesterday evening and is tolerating that well. We did discontinue the Abilify and continue to plan for increasing the Lamictal. However the meeting yesterday with her mother continues to reveal her emotional dysregulation and how quickly she can feel irritable and unfortunately tend towards decisions that are not in her best interest. Her statement in that meeting about polypharmacy is very concerning for medication adherence. Mental Status Exam MSE Comments: This is an overweight white female with hospital scrubs on with improved grooming and eye contact. No abnormal movements. Cooperative with exam in occasional mild distress. Speech was more normal rate and volume . Mood described as good, affect mostly euthymic, but occasionally irritable. Thought process organized. Thought content: Patient denied suicidal or homicidal ideation, there were no delusions reported but occasional odd thinking and expressions noted, she denied auditory or visual hallucinations currently. Attention and concentration were improving and memory appeared mostly reliable but none were formally tested. She is alert and oriented x3. Insight and judgment are limited, impulse control is limited. Vitals/I&O/Wt Last Vital Signs Temp 97.2 F L 12/21/20 14:00 Pulse 108 H 12/21/20 14:00 Resp 18 12/21/20 14:00 BP 124/75 12/21/20 14:00 Pulse Ox 95 12/21/20 14:00 Data NPU : 12/19/20 08:43 12/19/20 08:43 A&P Additional A&P Information (1) Schizoaffective disorder, bipolar type: (2) Status post ORIF of fracture of ankle: (3) PTSD (post-traumatic stress disorder): Additional A&P Information This is a 25 year old female well-known to me, who has a past history of bipolar disorder with psychosis who was admitted through our emergency department on a 96-hour hold after jumping from a moving vehicle and breaking her foot. She has been agitated, erratic and aggressive at home and continues to have periods of being agitated and erratic here, as well as having disorganized thinking. Her parents report that she can pull it together for short periods of time. They say this causes her level of her dysfunction to be grossly underestimated. She has been tried on Seroquel, Abilify, and now Invega, and is still not improving much. RECOMMENDATION AND PLAN: 1. Continue current medication: ;received Invega Sustenna 234 mg IM to the deltoid 12/20/2020, we will decreased Invega to 6 mg daily tomorrow, Seroquel 200 mg at bedtime. Will discontinue Abilify. Continue Lamictal 25 mg daily for mood stabilization with increased to 50 mg on 12/24/2020. It is possible that we need to treat the bipolar part of her schizoaffective disorder more aggressively 2. She is s/p surgical repair of a fractured right malleolus. 3. Continue every 15 minute checks for safety. 4. Encourage individual, group and milieu therapies. 5. Encourage sober living treatment after discharge at the highest level of care to which he is willing to commit. 6. We have filed a petition for guardianship, since the parents are no longer pursuing that route. 7. We have change the diagnosis from bipolar disorder with psychotic features to schizoaffective disorder, bipolar type, as the patient continues to have psychotic symptoms even when her mood stabilizes. 8. Still have concerns for some element of this being personality disorder. Involuntary Hold Information 96 Hour Hold: 96 Hour Involuntary Admission: Yes 96 Hour Hold Ending Date: 11/26/20 96 Hour Hold Ending Time: 18:21 Attestations NPU Medical Necessity Statement*: Psychiatric hospitalization is medically necessary to prevent access to lethal means, to reevaluate medication, and to coordinate a safe discharge. The patient psychosis, paranoid delusions, and disorganized thinking may be improving. We are continuing to adjust medication to address her psychosis, but she is treatment resistant. Likely length of stay is 3-5 days. Coding Level of Care Code Acute Maintenance Supervisor Electrical for Dana Segura
[2020-12-21 21:27] VITALS: BP 120/73; PULSE 119; RESP 15; TEMP 36.8; O2SAT 98
--- NOTE | 2020-12-22 01:01 | PC.NURSE ---
Patient up at start of shift. Had loud rambling speech. Directable but required frequent direction. Did take PRN Nicotine gum and Trazodone with night meds. Patient did calm and go go to bed. Has been resting in bed with eyes closed since that time.
[2020-12-22 06:00] VITALS: BP 128/78; PULSE 110; RESP 15; TEMP 37.1; O2SAT 99
[2020-12-22] MEDS: amoxicillin-clav 875-125 mg Tablet 1 TAB PO ×2 (08:53→20:36)
[2020-12-22] MEDS: sulfamethoxazole-trimeth DS 160-800 mg Tablet 1 TAB PO ×2 (08:53→20:37)
[2020-12-22] MEDS: ibuprofen 800 mg tablet PO ×3 (08:53→20:36)
[2020-12-22] MEDS: paliperidone ER 6 mg Tablet 12 MG PO (08:53)
[2020-12-22] MEDS: lamoTRIgine 25 mg Tablet PO (08:53)
[2020-12-22] MEDS: aspirin 325 mg Tablet PO (08:53)
--- NOTE | 2020-12-22 11:31 | NPU.GN ---
[facility] Unit Group Topic: Meditation Psych Education General Mood of Group: Sherri did attend and tried to participate in group. Although she was asked by this physician underwriter to please stop interrupting and distracting others in group when she was banding on tables and chairs. Sherri would start discussing things that were not of topic. Sherri got up and walked around alot as well.
[2020-12-22 14:00] VITALS: BP 120/78; PULSE 67; RESP 18; TEMP 37.3; O2SAT 95
--- NOTE | 2020-12-22 15:43 | P.NPUPN_ITS ---
Subjective NPU Subjective: Interval history: Sherri presents today reporting that she is doing little better. We discussed the continued plan for discharge but the continued concerns exist for that discharge. She continues to seem triggered by the psychotic patients on the unit. But certainly seems calmer and less erratic than when she was admitted. We discussed the likelihood of discharge on Sunday. Mental Status Exam MSE Comments: This is an overweight white female with hospital scrubs on with improved grooming and eye contact. No abnormal movements. Cooperative with exam in occasional mild distress. Speech was more normal rate and volume . Mood described as good, affect mostly euthymic, but occasionally irritable. Thought process organized. Thought content: Patient denied suicidal or homicidal ideation, there were no delusions reported but occasional odd thinking and expressions noted, she denied auditory or visual hallucinations currently. Attention and concentration were improving and memory appeared mostly reliable but none were formally tested. She is alert and oriented x3. Insight and judgment are limited, impulse control is limited. Vitals/I&O/Wt Last Vital Signs Temp 99.1 F 12/22/20 14:00 Pulse 97 12/22/20 20:45 Resp 18 12/22/20 20:45 BP 123/67 12/22/20 20:45 Pulse Ox 96 12/22/20 20:45 Data NPU : 12/19/20 08:43 12/19/20 08:43 A&P Additional A&P Information (1) Schizoaffective disorder, bipolar type: (2) Status post ORIF of fracture of ankle: (3) PTSD (post-traumatic stress disorder): Additional A&P Information This is a 25 year old female well-known to me, who has a past history of bipolar disorder with psychosis who was admitted through our emergency department on a 96-hour hold after jumping from a moving vehicle and breaking her foot. She has been agitated, erratic and aggressive at home and continues to have periods of being agitated and erratic here, as well as having disorganized thinking. Her parents report that she can pull it together for short periods of time. They say this causes her level of her dysfunction to be grossly underestimated. She has been tried on Seroquel, Abilify, and now Invega, and is still not improving much. RECOMMENDATION AND PLAN: 1. Continue current medication: ;received Invega Sustenna 234 mg IM to the deltoid 12/20/2020, decreased Invega to 6 mg daily, Seroquel 200 mg at bedtime. Discontinued Abilify. Continue Lamictal 25 mg daily for mood stabilization with increased to 50 mg on 12/24/2020. It is possible that we need to treat the bipolar part of her schizoaffective disorder more aggressively 2. She is s/p surgical repair of a fractured right malleolus. 3. Continue every 15 minute checks for safety. 4. Encourage individual, group and milieu therapies. 5. Encourage sober living treatment after discharge at the highest level of care to which he is willing to commit. 6. We have filed a petition for guardianship, since the parents are no longer pursuing that route. 7. We have change the diagnosis from bipolar disorder with psychotic features to schizoaffective disorder, bipolar type, as the patient continues to have psychotic symptoms even when her mood stabilizes. 8. Still have concerns for some element of this being personality disorder. Involuntary Hold Information 96 Hour Hold: 96 Hour Involuntary Admission: Yes 96 Hour Hold Ending Date: 11/26/20 96 Hour Hold Ending Time: 18:21 Attestations NPU Medical Necessity Statement*: Psychiatric hospitalization is medically necessary to prevent access to lethal means, to reevaluate medication, and to coordinate a safe discharge. The patient psychosis, paranoid delusions, and disorganized thinking may be improving. We are continuing to adjust medication to address her psychosis, but she is treatment resistant. Likely length of stay is 1-3 days. Coding Level of Care Code Acute Mold Maker Apprentice for [facility] Seg[facility]
[2020-12-22] MEDS: OLANZapine 5 mg ODT PO (17:07)
--- NOTE | 2020-12-22 17:07 | PC.NURSE ---
PRN ZYPREXA ZYDIS 5 MG GIVEN PO PER PT C/O AGITATION. PT YELLING LOUDLY, CURSING PROFANITIES AT STAFF, YELLING HOW THIS PLACE IS A USP WILLINGLY TOOK PRN MEDICATION OFFERED. WILL CONT TO MONITOR
[2020-12-22] MEDS: hyDROXYzine 25 mg Capsule 50 MG PO ×2 (18:50→20:36)
--- NOTE | 2020-12-22 18:50 | PC.NURSE ---
PRN VISTARIL 50 MG GIVEN PO PER PT C/O STATED ANXIETY. PT TEARFUL, UP PACING UNIT, INTRUSIVE WIT STAFF AND OTHER PATIENTS. MUCH REDIRECTION NEEDED.
[2020-12-22] MEDS: quetiapine XR (24HR) 50 mg Tablet 200 MG PO (20:36)
[2020-12-22] MEDS: nicotine 2 mg Gum BUCCAL ×2 (20:36→22:34)
[2020-12-22 20:45] VITALS: BP 123/67; PULSE 97; RESP 18; O2SAT 96
--- NOTE | 2020-12-22 23:49 | PC.NURSE ---
Administered hydroxyzine 50mg PO for anxiety per patient request. Medication not effective, patient pacing hallways back and forth, not sleeping. Patient refused trazodone and zyprexa at this time.
--- NOTE | 2020-12-23 04:21 | PC.NURSE ---
Patient has not slept this shift. She has been in the hallway for most of the shift. She has been tearful and shouting out at times, other times shie is laughing and talking with staff. She refused any Zydis. She did take Ibuprofen for her right foot pain. Dressing was changed this pm by this Nurse. Site had no drainage but incision to inner foot has opened. Minimal redness. Sites cleansed and new dressing applied. Patient did not want her kt wrap because it was stinky so kt wrap removed from her room and thrown in trash. Patient has been wearing her boot when walking in the hallway. Will continue to monitor and follow plan of care. q 15 min safety checks per protocol.
[2020-12-23] MEDS: nicotine 2 mg Gum BUCCAL ×3 (04:31→12:22)
[2020-12-23 06:00] VITALS: BP 123/67; PULSE 97; RESP 18; TEMP 37.3; O2SAT 96
[2020-12-23] MEDS: aspirin 325 mg Tablet PO (09:46)
[2020-12-23] MEDS: sulfamethoxazole-trimeth DS 160-800 mg Tablet 1 TAB PO ×2 (09:46→22:33)
[2020-12-23] MEDS: amoxicillin-clav 875-125 mg Tablet 1 TAB PO ×2 (09:46→22:33)
[2020-12-23] MEDS: paliperidone ER 6 mg Tablet 12 MG PO (09:46)
[2020-12-23] MEDS: ibuprofen 800 mg tablet PO ×2 (09:46→14:57)
[2020-12-23] MEDS: lamoTRIgine 25 mg Tablet PO (09:47)
[2020-12-23] MEDS: OLANZapine 5 mg ODT PO (11:33)
[2020-12-23] MEDS: haloperidol 5 mg Tablet PO (11:49)
[2020-12-23] MEDS: acetaminophen 325 mg Tablet 650 MG PO (11:58)
--- NOTE | 2020-12-23 12:03 | NPU.GN ---
[facility] Unit Group Topic:Meditation/ Depression Wes General Mood of Group: Sherri did not attend group today.
--- NOTE | 2020-12-23 12:27 | PC.NURSE ---
prn 1149 Administered Haldol 5mg for pt still exhibiting anxiety and highs and lows. Pt was saying TB Tb Tb- panda bear and then break out in tears. Nonsense rambling, random words strung together- not making sense. 1230 Pt has had less outbursts of random nonsense words, still up at the nurses station every 2 seconds.
[2020-12-23 14:00] VITALS: BP 119/76; PULSE 106; RESP 20; TEMP 36.9; O2SAT 99
[2020-12-23] MEDS: LORazepam 2 mg Tablet PO (15:14)
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
[2020-12-23 21:41] VITALS: RESP 17
[2020-12-23] MEDS: quetiapine XR (24HR) 50 mg Tablet 200 MG PO (22:34)
[2020-12-24 06:00] VITALS: BP 103/71; PULSE 138; RESP 17; TEMP 36.5; O2SAT 100
[2020-12-24] MEDS: nicotine 2 mg Gum BUCCAL ×3 (06:43→11:39)
[2020-12-24] MEDS: amoxicillin-clav 875-125 mg Tablet 1 TAB PO (07:55)
[2020-12-24] MEDS: aspirin 325 mg Tablet PO (07:55)
[2020-12-24] MEDS: paliperidone ER 6 mg Tablet 3 MG PO (07:55)
[2020-12-24] MEDS: lamoTRIgine 25 mg Tablet 50 MG PO (07:56)
[2020-12-24] MEDS: ibuprofen 800 mg tablet PO (07:56)
[2020-12-24] MEDS: sulfamethoxazole-trimeth DS 160-800 mg Tablet 1 TAB PO (07:57)
[2020-12-24] MEDS: blistex lip oint 7 gm Tube 1 APPLIC TOPICAL (13:45)
--- NOTE | 2020-12-24 13:45 | NPU.GN ---
[facility] Unit Group Topic:Dice Breaker Psych Education General Mood of Group: Sherri did attend and participate in group. Sherri could not stay on topic and kept disrupting group with stuff that was off topic and being loud at times. This report writer had to ask Sherri to stop interrupting the group.
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
[2020-12-24 14:10] VITALS: BP 103/71; PULSE 138; RESP 17; TEMP 36.5; O2SAT 100
== END 2020-12-24 14:51 | disposition home or self-care (01) | DRG 876 ==
LOC: ER 19:12 → NP 22:28
PROVIDERS: Family Medicine; Internal Medicine; Admitting Provider Psychiatry & Neurology Child & Adolescent Psychiatry; Emergency Provider Emergency Medicine; Visit Provider Psychiatry & Neurology Psychiatry
DX: F31.64 Bipolar disorder, current episode mixed, severe, with psychotic features (principal); L03.115 Cellulitis of right lower limb; F43.12 Post-traumatic stress disorder, chronic; S82.841A Displaced bimalleolar fracture of right lower leg, initial encounter for closed fracture; S92.351A Displaced fracture of fifth metatarsal bone, right foot, initial encounter for closed fracture; W19.XXXA Unspecified fall, initial encounter; Z91.19 Patient's noncompliance with other medical treatment and regimen; R07.9 Chest pain, unspecified; R00.0 Tachycardia, unspecified; F60.89 Other specific personality disorders
CPT/HCPCS: 36415; 36416; 71045; 73590; 73600; 73610; 73630; 76000; 80053; 80306; 80307; 81025; 82962; 83735; 84145; 84443; 84484; 85025; 85378; 85651; 86140; 90471; 90715; 93005; 93970; 96372; 96374; 96375; 97116; 97150; 97161; 97165; 97530; 97760; 99285; C1713; J0690; J1170; J1200; J1580; J1630; J1885; J2060; J2175; J2270; J2405; J2704; J3010; J7030; Q0162

== ENCOUNTER 2020-12-28 10:07 | Inpatient (IN) | payer BC, SELFPAY ==
[2020-12-28 10:22] VITALS: BP 129/93; PULSE 102; RESP 18; TEMP 37.2; O2SAT 98; BMI 23.0
--- NOTE | 2020-12-28 10:28 | ED.C_ITS ---
HPI - Psych General: Chief Complaint: Altered Mental Status Stated Complaint: PSYCHOTIC/ BEHAVIORAL ISSUES Time Seen by Provider: 12/28/20 10:09 History of Present Illness: HPI Narrative: 25-year-old history of schizophrenia. Presents emergency room with acute psychotic break. Has having behavioral issues at home EMS called she has a random tangential thoughts. Denies any suicidal homicidal ideation. She was recently hospitalized here for schizophrenia and discharged home. MD complaint: altered mental status Onset (ago): hour(s) Duration: constant History of same: Yes Relieving factors: medication Exacerbating factors: none Context: new medication(s) Associated symptoms: Reports auditory hallucinations, visual hallucinations, delusions and racing thoughts; Deny depression, homicidal ideation or suicidal ideation Treatments prior to arrival: none Review of Systems Const: Denies: fever(s), chills, body aches, change in appetite, fatigue or malaise ENMT: Denies: throat pain, ear or mastoid pain, nasal discharge or nasal congestion Card: Denies: chest pain, edema, dyspnea on exertion or orthopnea Resp: Denies: dyspnea, productive cough or non-productive cough GI: Denies: abdominal pain, nausea, vomiting, hematemesis, coffee ground emesis, diarrhea, constipation, bloating, hematochezia or melena : Denies: flank pain, difficulty voiding, dysuria, urinary frequency or urinary urgency Skin/Breast: Denies: rash or pruritus Psych: Reports: visual hallucinations and auditory hallucinations; Denies: depression, suicidal ideation or homicidal ideation [facility] ED PFSH: Medical History Bipolar disorder, curr episode mixed, severe, w/o psychotic features Bipolar disorder, curr episode mixed, severe, with psychotic features Surgical History Status post ORIF of fracture of ankle Social History Smoking and tobacco status: current every day smoker Alcohol intake: current Marital status: Single Marital status details: Significant other Current occupational status: unemployed Female Reproductive History: Date of last menstrual period: 11/05/19 Physical Exam Const: COMMON NORMALS: no acute distress GENERAL APPEARANCE: cooperative and comfortable ORIENTATION/CONSCIOUSNESS: Yes awake, Yes oriented to person, Yes oriented to place and Yes oriented to time HENMT: COMMON NORMALS: normocephalic, atraumatic and hearing grossly normal bilaterally HEAD & SCALP: normocephalic and atraumatic Neck/C-Spine: COMMON NORMALS: no JVD Resp: COMMON NORMALS: normal respiratory effort, No retractions, No use of accessory muscles and clear to auscultation bilaterally AUSCULTATION: clear to auscultation bilaterally Cardio: COMMON NORMALS: no JVD, regular rate, regular rhythm and No murmurs present (Cardio) RATE: regular rate RHYTHM: regular rhythm GI: COMMON NORMALS: Soft to palpation and No hepatosplenomegaly present AUSCULTATION: Yes normoactive bowel sounds PALPATION: Yes Soft to palpation, No Tenderness to palpation present (GI), No Guarding due to palpation present (GI) and Yes No hepatosplenomegaly present Extremity: COMMON NORMALS: normal to inspection, capillary refill normal, no clubbing, cyanosis or edema, no calf tenderness and no pedal edema OTHER: Patient has a cam walker on [employer]. CAM Walker removed incisions from previous bimalleolar fracture healing well no sign of infection or dehiscence. Joint is stable. Neuro: SENSORIUM/ORIENTATION: Yes oriented to person, Yes oriented to place and Yes oriented to time Psych: THOUGHT CONTENT: Yes delusions Skin: COMMON NORMALS: no rashes or lesions noted GENERAL SKIN EXAM: no rashes or lesions noted Course Vital Signs: Vital signs: Vital Signs Temperature 97.2 F L 12/30/20 14:00 Pulse Rate 105 H 12/30/20 14:00 Respiratory Rate 15 12/31/20 06:00 Blood Pressure 104/70 12/30/20 14:00 Pulse Oximetry 97 12/30/20 14:00 MDM - Psych MDM Narrative: Medical decision making narrative: Discussed with Dr. Hare admit for acute psychosis. Orders written Lab Data: Labs: Lab Results 12/28/20 12/28/20 12/28/20 10:41 10:41 10:41 WBC 6.9 10^3/uL 10^3/ uL (4.0-10.0) RBC 4.25 10^6/uL 10^6 /uL (4.1-5.3) Hgb 13.0 g/dL g/dL (11.5-15.3) Hct 39.5 % % (37.0-47.0) MCV 92.9 fl fl (81-99) MCH 30.6 pg pg (28.0-34.0) MCHC 32.9 g/dL g/dL (30.0-36.0) RDW 13.6 % % (12.1-15.1) Plt Count 311 10^3/cmm 10^3 /cmm (130-400) MPV 9.1 fL fL (7.4-10.4) Neut % (Auto) 67.6 % % Lymph % (Auto) 23.8 % % [place] % (Auto) 7.0 % % Eos % (Auto) 0.6 % % Baso % (Auto) 0.7 % % Neut # (Auto) 4.67 10^3/uL 10^3 /uL (1.8-7.7) Lymph # (Auto) 1.6 10^3/uL 10^3/ uL (0.8-4.8) [place] # (Auto) 0.5 10^3/uL 10^3/ uL (0.2-0.9) Eos # (Auto) 0.0 10^3/uL 10^3/ uL (0.0-0.8) Baso # (Auto) 0.1 10^3/uL 10^3/ uL (0.0-0.1) Nucleated RBC % (a uto) 0 % % Nucleated RBCs # 0.0 /100WBC /100W BC Sodium 139 mmol/L mmol/L (136-145) Potassium 3.9 mmol/L mmol/L (3.5-5.1) Chloride 101 mmol/L mmol/L (98-107) Carbon Dioxide 27 mmol/L mmol/L (22-29) Anion Gap 14.9 (5-19) BUN 6 mg/dL mg/dL (6-20) Creatinine 0.5 mg/dL mg/dL (0.5-0.9) GFR Calculation 148.0 mL/min H mL /min (90-130) Glucose 93 mg/dL mg/dL (65-115) Calculated Osmolal ity 285 mOsm/kg mOsm/ kg (285-295) Calcium 9.3 mg/dL mg/dL (8.5-10.5) Total Bilirubin 0.2 mg/dL mg/dL (0.15-1.2) AST 17 U/L U/L (0-32) ALT 17 U/L U/L (0-33) Alkaline Phosphata se 80 IU/L IU/L (35-105) Total Protein 6.9 g/dL g/dL (6.6-8.7) Albumin 4.5 g/dL g/dL (3.5-5.2) Globulin 2.4 g/dL g/dL (1.3-4.6) HCG, Qual Negative (Negative) Salicylates < 0.3 mg/dL L mg/ dL (3-10) Acetaminophen < 5.0 ug/mL L ug/ mL (10-30) Ethyl Alcohol < 10 mg/dL mg/dL (0-10) Discharge Plan Discharge Patient Disposition: Admitted As Inpatient Admit Provider: Luis E Hare Clinical Impression: Schizoaffective disorder, bipolar type Condition: Stable Coding Level of Care Code ED [employer] Worker for Dana Segura
[2020-12-28 10:42] VITALS: BP 130/91; PULSE 102; RESP 18; TEMP 36.9; O2SAT 97
[2020-12-28 10:49] LABS: Basophils # 0.1 10^3/uL (0.0-0.1); Basophils % 0.7 %; Eosinophils % 0.6 %; Hematocrit 39.5 % (37.0-47.0); Lymphocytes # 1.6 10^3/uL (0.8-4.8); Lymphocytes % 23.8 %; Mean Corpuscular HGB Conc 32.9 g/dL (30.0-36.0); Mean Corpuscular Hemoglobin 30.6 pg (28.0-34.0); Mean Corpuscular Volume 92.9 fl (81-99); Mean Platelet Volume 9.1 fL (7.4-10.4); Monocytes # 0.5 10^3/uL (0.2-0.9); Neutrophils # 4.67 10^3/uL (1.8-7.7); Neutrophils % 67.6 %; Nucleated Red Blood Cells % 0 %; Platelet Count 311 10^3/cmm (130-400); Red Blood Count 4.25 10^6/uL (4.1-5.3); Red Cell Distribution Width 13.6 % (12.1-15.1); White Blood Count 6.9 10^3/uL (4.0-10.0)
[2020-12-28 10:55] VITALS: BP 130/91; PULSE 102; RESP 18; TEMP 37.1; O2SAT 97
[2020-12-28 11:02] LABS: HCG, Serum Qual Negative (Negative)
[2020-12-28 11:07] LABS: Alanine Aminotransferase 17 U/L (0-33); Albumin Level 4.5 g/dL (3.5-5.2); Alkaline Phosphatase 80 IU/L (35-105); Anion Gap 14.9 (5-19); Aspartate Amino Transferase 17 U/L (0-32); Blood Urea Nitrogen 6 mg/dL (6-20); Calcium 9.3 mg/dL (8.5-10.5); Carbon Dioxide 27 mmol/L (22-29); Chloride 101 mmol/L (98-107); Creatinine Clr Calc Pharmacy 152.4324; Globulin 2.4 g/dL (1.3-4.6); Glucose 93 mg/dL (65-115); Osmolality Calculated 285 mOsm/kg (285-295); Potassium 3.9 mmol/L (3.5-5.1); Sodium 139 mmol/L (136-145); Total Bilirubin 0.2 mg/dL (0.15-1.2); Total Protein 6.9 g/dL (6.6-8.7)
[2020-12-28 11:08] LABS: Acetaminophen < 5.0 ug/mL (10-30); Alcohol Level < 10 mg/dL (0-10); Salicylate < 0.3 mg/dL (3-10)
--- NOTE | 2020-12-28 11:28 | PC.NURSE ---
refused scheduled Geodon injection ordered in ER
--- NOTE | 2020-12-28 11:28 | PC.NURSE ---
being very disruptive upon arrival to unit, yelling and cursing loudly at no one in particular, picked up the phone started cursing into it and then slammed it down. staff educated pt that phones were off at this time d/t group therapy going on. pt intrusive with staff and other patients on the unit. staff attempts to redirect pt with little success.
[2020-12-28] MEDS: acetaminophen 325 mg Tablet 650 MG PO (12:29)
[2020-12-28] MEDS: nicotine 2 mg Gum BUCCAL ×3 (13:47→19:58)
[2020-12-28 14:00] VITALS: BP 118/79; PULSE 112; RESP 17; TEMP 36.7; O2SAT 98
--- NOTE | 2020-12-28 14:34 | PC.NURSE ---
DISRUPTIVE BEHAVIOR CONTINUES, PT KICKED DOOR SEVERAL TIMES WITH HER FOOT, YELLING PROFANITIES AT STAFF. DIFFICULT TO BE REDIRECTED.
[2020-12-28] MEDS: ibuprofen 800 mg tablet PO (20:18)
[2020-12-28] MEDS: quetiapine XR (24HR) 50 mg Tablet 200 MG PO (20:18)
[2020-12-28 20:34] VITALS: BP 110/78; PULSE 108; RESP 18; O2SAT 98
[2020-12-28] MEDS: LORazepam 2 mg/mL INJ 1 mL IM (20:50)
[2020-12-28] MEDS: diphenhydrAMINE 50 mg/mL SDV 1mL IM (20:50)
[2020-12-28] MEDS: haloperidol inj 5 mg/mL INJ 1 mL IM (20:50)
--- NOTE | 2020-12-28 21:27 | PC.NURSE ---
From beginning of this shift at 1900 hrs to 2044 hrs patient yelling, cursing, throwing items down the hallway. Patient expressed she doesn't like the room we have her in and we moved her to her old room that she was in before. Patient continued to have outbursts and threw her boot at the window. Patient given B52 injection IM at 2049 hrs. Patient agreed to the injection and was compliant. During pt's outbursts this Nurse noticed that patient's pupils were dilated more than 8mm. Patient stated yeah, they do that when I get upset. Patient denied any drug use prior to her admission today. Patient also later began crying and stating that she missed her Dad. Patient states that he lives in [place] but she would not elaborate on her relationship with him. Will continue to monitor patient. Q 15 min safety checks per protocol.
[2020-12-29 06:00] VITALS: RESP 16
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
[2020-12-29] MEDS: nicotine 2 mg Gum BUCCAL ×3 (08:55→18:32)
[2020-12-29] MEDS: ibuprofen 800 mg tablet PO (09:08)
[2020-12-29] MEDS: lamoTRIgine 25 mg Tablet 50 MG PO (09:08)
[2020-12-29] MEDS: lamoTRIgine 100 mg Tablet PO (09:09)
--- NOTE | 2020-12-29 09:28 | PC.NURSE ---
Patient woke up and walked to the dayroom without her boot on her foot. Ate approximately 25% of her breakfast. Gait mildly unsteady, eyes droopy, states I', so sleepy. I haven't slept in days. Advised patient she need to go back to bed. Stood at patient's side for support and walked her back to her room. She put her ortho boot back on her foot and laid back down.
[2020-12-29] MEDS: blistex lip oint 7 gm Tube 1 APPLIC TOPICAL (12:27)
--- NOTE | 2020-12-29 13:04 | NPU.GN ---
[facility] Unit Group Topic: Self Care Bingo/ Crisis Plan Work Sheet General Mood of Group: Sherri did not attend group as she was sleeping.
[2020-12-29] MEDS: LORazepam 2 mg/mL INJ 1 mL IM (13:20)
[2020-12-29] MEDS: diphenhydrAMINE 50 mg/mL SDV 1mL IM (13:21)
[2020-12-29] MEDS: haloperidol inj 5 mg/mL INJ 1 mL IM (13:21)
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
[2020-12-29 14:00] VITALS: RESP 17
[2020-12-29 22:00] VITALS: RESP 16
[2020-12-30] MEDS: acetaminophen 325 mg Tablet 650 MG PO ×2 (05:47→12:54)
[2020-12-30] MEDS: nicotine 2 mg Gum BUCCAL ×5 (05:47→22:23)
[2020-12-30 06:00] VITALS: BP 122/78; PULSE 126; RESP 18; O2SAT 98
[2020-12-30] MEDS: lamoTRIgine 25 mg Tablet 50 MG PO (08:05)
[2020-12-30] MEDS: ibuprofen 800 mg tablet PO ×3 (08:05→22:22)
[2020-12-30] MEDS: lamoTRIgine 100 mg Tablet PO (08:05)
--- NOTE | 2020-12-30 09:14 | PC.NURSE ---
PATIENT IS PACING UP AND DOWN HALLWAYS, RANDOMLY SINGING, TRYING DOOR HANDLES, SLAPPING WINDOWS AROUND NURSES DESK, REPEATING PHRASES, USING PATIENT PHONE TO CALL NURSES STATION PHONE LINES, PULLING FIRE ALARM, ON 15 MINUTE ROUNDS TECH NOTED PATIENT HAD TAKEN A PEN AND WRITTEN HAPPINESS CAN BE FOUND IN THE DARKEST TIME IF ONE ONLY REMEMBERS TO TURN ON THE LIGHT DOT IS MY SHORTI THE OTHER YOUSIF ARE RANDOM WORDS. PATIENT VOLUNTARILY SURRENDERED THE INK PEN. CONTINUES TO HAVE LOUD VERBAL WORD SALAD AND SINGING LYRICS THAT SHE MAKES UP. THE DOCTOR HALF STONED AND A PILLOW UNDER MY HEAD. SHE'S NOT INTERESTED IN ME.' I WRITE ABOUT IT, DROP LINES ABOUT IT, THESE SCRUBS GO BOTH WAYS ABOUT IT, I'M GONNA PRAY TO GOD ABOUT IT.
[2020-12-30] MEDS: haloperidol inj 5 mg/mL INJ 1 mL IM (10:33)
[2020-12-30] MEDS: LORazepam 2 mg/mL INJ 1 mL IM (10:34)
[2020-12-30] MEDS: diphenhydrAMINE 50 mg/mL SDV 1mL IM (10:35)
--- NOTE | 2020-12-30 12:38 | NPU.GN ---
[facility] Unit Group Topic:Positive Thinking / Positive Affirmations General Mood of Group: She did not attend group today.
--- NOTE | 2020-12-30 13:11 | ECG_ITS ---
[facility] Test Date: 2020-12-30 Pat Name: Sherri Cobian Department: Room: 153 Gender: Female Lens Maker: : [id number] Requested By: Luis E Hare Order Number: [id number] Penn MD: Caden Sol M.D. Measurements Intervals [place] Rate: 82 P: 60 NV: 138 QRS: 44 QRSD: 92 T: 47 QT: 357 QTc: 419 Interpretive Statements SINUS RHYTHM LOW QRS VOLTAGE IN PRECORDIAL LEADS [QRS DEFLECTION < 1.0 mV IN CHEST LEADS] PATTERN CONSISTENT WITH PULMONARY DISEASE Compared to ECG 12/06/2020 22:21:04 Low QRS voltage now present Sinus arrhythmia no longer present Short NV interval no longer present T-wave abnormality no longer present Electronically Signed On 12-30-2020 22:59:14 BUS MECHANIC by Caden Sol M.D. [id number]
[2020-12-30 13:12] VITALS: PULSE 82
[2020-12-30 14:00] VITALS: BP 104/70; PULSE 105; RESP 20; TEMP 36.2; O2SAT 97
--- NOTE | 2020-12-30 16:27 | PC.NURSE ---
Patient reported feeling like she was 'having a heart attack' Right radial pulse 86 and regular, EKG completed, initial reading NSR. PERDOMO to review.
--- NOTE | 2020-12-30 17:20 | P.NPUPN_ITS ---
Subjective NPU Subjective: Interval history: Patient presents today seeming a little calmer after having received as needed injections the last 48 hours. She u=is less agitated and more calm. Still making bizarre statements and being fairly disorganized in her interactions. She continues to demonstrate 0 insight into her behavior pattern. Mental Status Exam MSE Comments: This is an overweight white female with hospital scrubs on with limited grooming and eye contact. No abnormal movements except for significant psychomotor agitation. Intermittently cooperative with exam in occasional moderate distress. Speech was more normal rate and volume intermixed with increased rate and volume and screaming. Mood described as fine, affect irritable and aggressive. Thought process organized. Thought content: Patient denied suicidal or homicidal ideation, there were no delusions reported but but continued odd thinking and expressions noted, she denied auditory or visual hallucinations currently. Attention and concentration were limited and memory appeared mostly unreliable but none were formally tested. She is alert and oriented x3. Insight and judgment are impaired, impulse control is impaired. Vitals/I&O/Wt Last Vital Signs Temp 97.2 F L 12/30/20 14:00 Pulse 105 H 12/30/20 14:00 Resp 17 12/30/20 20:01 BP 104/70 12/30/20 14:00 Pulse Ox 97 12/30/20 14:00 Data NPU : 12/28/20 10:41 12/28/20 10:41 A&P Additional A&P Information (1) Schizoaffective disorder, bipolar type: (2) Status post ORIF of fracture of ankle: (3) Bimalleolar fracture of right ankle: (4) PTSD (post-traumatic stress disorder): Additional A&P Information This is a 25 year old female well-known to me, who has a past history of bipolar disorder with psychosis who was admitted through our emergency department on a 96-hour hold after recently being discharged from the unit last week with significant concerns at that time that she would not be able to manage herself outside the hospital and may ultimately need a guardian and residency in a controlled environment who presents seeming to be with limited impulse control and almost speaking in stream of consciousness and behaving and responding to those thoughts. RECOMMENDATION AND PLAN: 1. Continue current medication: received Invega Sustenna 234 mg IM to the deltoid 12/20/2020, and was to receive Invega Sustenna 156 mg IM to the deltoid 12/27/2020,Seroquel 200 mg at bedtime. 2. She is s/p surgical repair of a fractured right malleolus. 3. Continue every 15 minute checks for safety. 4. Encourage individual, group and milieu therapies. 5. Encourage sober living treatment after discharge at the highest level of care to which he is willing to commit. 6. We have filed a petition for guardianship, we will likely resume that process. 7. We have change the diagnosis from bipolar disorder with psychotic features to schizoaffective disorder, bipolar type, as the patient continues to have psychotic symptoms even when her mood stabilizes. 8. Still have concerns for some element of this being personality disorder. Involuntary Hold Information 96 Hour Hold: 96 Hour Involuntary Admission: No Attestations NPU Medical Necessity Statement*: Psychiatric hospitalization is medically neces jacqui to prevent access to lethal means, to reevaluate medication, and to coordinate a safe discharge. The patient psychosis, paranoid delusions, and disorganized continue to be present. We will adjust medications or add medications as indicated. Likely length of stay is 7-11 days. Coding Level of Care Code Acute Client Technical Specialist for Dana Segura
[2020-12-30 20:01] VITALS: RESP 17
[2020-12-30] MEDS: quetiapine XR (24HR) 50 mg Tablet 200 MG PO (22:21)
--- NOTE | 2020-12-31 01:34 | PC.NURSE ---
Patient resting with eyes closed at start of shift. Up around 2214. Took meds at that time. Calm and cooperative with good affect. Socialized with staff appropriately. No SI/HI or AVH. Showered and returned to bed. Has been in bed resting with eyes closed most of night. No signs of distress noted. No complaints voiced.
[2020-12-31] MEDS: nicotine 2 mg Gum BUCCAL ×8 (04:12→21:37)
[2020-12-31] MEDS: acetaminophen 325 mg Tablet 650 MG PO ×2 (04:45→22:28)
[2020-12-31 06:00] VITALS: RESP 15
[2020-12-31] MEDS: lamoTRIgine 100 mg Tablet PO (08:51)
[2020-12-31] MEDS: lamoTRIgine 25 mg Tablet 50 MG PO (08:51)
[2020-12-31] MEDS: ibuprofen 800 mg tablet PO ×3 (08:51→21:10)
--- NOTE | 2020-12-31 10:15 | PC.NURSE ---
yelling and cursing during group had to be escorted back to [facility]. I need my fucking glasses. Who took them. Escorted patient back to her room. Continued to attempt to verbally de-escalted the patient, talking about music, her work history and her dad. He is Abner Bark and she said he lived in [place] or [place], [place]. And that she really needed to talk with him. She continued to be emotional, Administered PRN Zyprexa 5mg. Found her glasses in her shower.
--- NOTE | 2020-12-31 10:19 | NPU.GN ---
[facility] Unit Group Topic: Good Secrets Vs. Bad Secrets Psycho Therapy General Mood of Group: Sherri did attend group today, she was loud , off topic, and disrupted others in group. Her and another patient were feeding off one another with their loud behaviors which upset others in the group.
[2020-12-31] MEDS: OLANZapine 5 mg ODT PO ×2 (10:25→22:29)
[2020-12-31] MEDS: blistex lip oint 7 gm Tube 1 APPLIC TOPICAL (14:14)
--- NOTE | 2020-12-31 15:42 | P.NPUPN_ITS ---
Subjective NPU Subjective: Interval history: Sherri presents today as she has since her return fully disorganized without any rhyme or reason to her behavior using rhyming or connected talk to communicate at times sometimes just bouncing from idiom to idiom. Being verbally aggressive at times other times physically aggressive hitting hernández and tearing up things. Mental Status Exam MSE Comments: This is an overweight white female with hospital scrubs on with limited grooming and eye contact. No abnormal movements except for significant psychomotor agitation. Intermittently cooperative with exam in occasional moderate distress. Speech was more normal rate and volume intermixed with increased rate and volume and screaming. Mood described as fine, affect irritable and aggressive. Thought process organized. Thought content: Patient denied suicidal or homicidal ideation, there were no delusions reported but but continued odd thinking and expressions noted, she denied auditory or visual h allucinations currently. Attention and concentration were limited and memory appeared mostly unreliable but none were formally tested. She is alert and oriented x3. Insight and judgment are impaired, impulse control is impaired. Vitals/I&O/Wt Last Vital Signs Temp 98.0 F 12/31/20 21:24 Pulse 108 H 12/31/20 21:24 Resp 18 12/31/20 21:24 BP 135/83 12/31/20 21:24 Pulse Ox 98 12/31/20 21:24 Data NPU : 12/28/20 10:41 12/28/20 10:41 A&P Additional A&P Information (1) Schizoaffective disorder, bipolar type: (2) Status post ORIF of fracture of ankle: (3) Bimalleolar fracture of right ankle: (4) PTSD (post-traumatic stress disorder): Additional A&P Information This is a 25 year old female well-known to me, who has a past history of bipolar disorder with psychosis who was admitted through our emergency department on a 96-hour hold after recently being discharged from the unit last week with significant concerns at that time that she would not be able to manage herself outside the hospital and may ultimately need a guardian and residency in a controlled environment who presents seeming to be with limited impulse control and almost speaking in stream of consciousness and behaving and responding to those thoughts. RECOMMENDATION AND PLAN: 1. Continue current medication: received Invega Sustenna 234 mg IM to the del toid 12/20/2020, and was to receive Invega Sustenna 156 mg IM to the deltoid 12/27/2020,Seroquel 200 mg at bedtime. 2. She is s/p surgical repair of a fractured right malleolus. 3. Continue every 15 minute checks for safety. 4. Encourage individual, group and milieu therapies. 5. Encourage sober living treatment after discharge at the highest level of care to which he is willing to commit. 6. We have filed a petition for guardianship, we will likely resume that process. 7. We have change the diagnosis from bipolar disorder with psychotic features to schizoaffective disorder, bipolar type, as the patient continues to have psychotic symptoms even when her mood stabilizes. 8. She presents in what appears to be full-blown aneta. Submitting 21-day hold so that we can force medication if indicated as she is currently refusing medication Involuntary Hold Information 96 Hour Hold: 96 Hour Involuntary Admission: No Attestations NPU Medical Necessity Statement*: Psychiatric hospitalization is medically necessary to prevent access to lethal means, to reevaluate medication, and to coordinate a safe discharge. The patient psychosis, paranoid delusions, and disorganized continue to be present. We will adjust medications or add medications as indicated. Likely length of stay is 7-11 days. Coding Level of Care Code Acute Clinical Biostatistician for Dana Segura
--- NOTE | 2020-12-31 19:17 | PC.NURSE ---
loud shouting 1055 PT is shouting and yelling down the hallway spouting [employer] rhymes. Nurse redirected pt and tried to keep her calm.
[2020-12-31] MEDS: quetiapine XR (24HR) 50 mg Tablet 200 MG PO (20:45)
[2020-12-31 21:24] VITALS: BP 135/83; PULSE 108; RESP 18; TEMP 36.7; O2SAT 98
[2020-12-31] MEDS: ondansetron 4 MG Tablet PO (23:19)
[2020-12-31] MEDS: haloperidol inj 5 mg/mL INJ 1 mL IM (23:52)
[2020-12-31] MEDS: diphenhydrAMINE 50 mg/mL SDV 1mL IM (23:52)
[2020-12-31] MEDS: LORazepam 2 mg/mL INJ 1 mL IM (23:53)
--- NOTE | 2020-12-31 23:53 | PC.NURSE ---
Patient is agitated and yelling in hallways. Unable to be verbally redirected. Patient continues to pound hernández and yell at staff. She is belligerent and threatening. Patient refuses PO medications. MD notified, IM medication administered. Patient tolerated well. Continue to monitor.
[2021-01-01] MEDS: ondansetron 4 MG Tablet PO (04:24)
[2021-01-01 06:00] VITALS: RESP 16
[2021-01-01] MEDS: nicotine 2 mg Gum BUCCAL ×5 (07:41→19:25)
--- NOTE | 2021-01-01 07:54 | P.NPUPN_ITS ---
Subjective NPU Subjective: Interval history: Patient presents today with continued moments of calm in between her parents feel rants. She was less aggressive towards objects and property today and possibly slightly more pleasant but she continues to deny any thoughts about likely behavior related. We discussed the 21-day hold that we are filing as he continues to be uncooperative medication camara. Mental Status Exam MSE Comments: This is an overweight white female with hospital scrubs on with limited grooming and eye contact. No abnormal movements except for significant psychomotor agitation. Intermittently cooperative with exam in occasional moderate distress. Speech was more normal rate and volume intermixed with increased rate and volume with less screaming. Mood described as fine, affect irritable and aggressive. Thought process organized. Thought content: Patient denied suicidal or homicidal ideation, there were no delusions reported but but continued odd thinking and expressions noted, she denied auditory or visual hallucinations currently. Attention and concentration were limited and memory appeared mostly unreliable but none were formally tested. She is alert and orie nted x3. Insight and judgment are impaired, impulse control is impaired. Vitals/I&O/Wt Last Vital Signs Temp 98.0 F 12/31/20 21:24 Pulse 108 H 12/31/20 21:24 Resp 16 01/01/21 06:00 BP 135/83 12/31/20 21:24 Pulse Ox 98 12/31/20 21:24 Data NPU : 12/28/20 10:41 12/28/20 10:41 A&P Additional A&P Information (1) Schizoaffective disorder, bipolar type: (2) Status post ORIF of fracture of ankle: (3) Bimalleolar fracture of right ankle: (4) PTSD (post-traumatic stress disorder): Additional A&P Information This is a 25 year old female well-known to me, who has a past history of bipolar disorder with psychosis who was admitted through our emergency department on a 96-hour hold after recently being discharged from the unit last week with significant concerns at that time that she would not be able to manage herself outside the hospital and may ultimately need a guardian and residency in a controlled environment who presents seeming to be with limited impulse control and almost speaking in stream of consciousness and behaving and responding to those thoughts. RECOMMENDATION AND PLAN: 1. Continue current medication: received Invega Sustenna 234 mg IM to the deltoid 12/20/2020, and was to receive Invega Sustenna 156 mg IM to the deltoid 12/27/2020,Seroquel 200 mg at bedtime. We will need the addition of some medication for mood stabilization and to hopefully impact this aneta. 2. She is s/p surgical repair of a fractured right malleolus. 3. Continue every 15 minute checks for safety. 4. Encourage individual, group and milieu therapies. 5. Encourage sober living treatment after discharge at the highest level of care to which he is willing to commit. 6. We have filed a petition for guardianship, we will likely resume that process. 7. We have change the diagnosis from bipolar disorder with psychotic features to schizoaffective disorder, bipolar type, as the patient continues to have psychotic symptoms even when her mood stabilizes. 8. She presents in what appears to be full-blown aneta. Submitting 21-day hold so that we can force medication if indicated as she is currently refusing medication. Involuntary Hold Information 96 Hour Hold: 96 Hour Involuntary Admission: No Attestations NPU Medical Necessity Statement*: Psychiatric hospitalization is medically necessary to prevent access to lethal means, to reevaluate medication, and to coordinate a safe discharge. The patient psychosis, paranoid delusions, and disorganized continue to be present. We will adjust medications or add medications as indicated. Likely length of stay is 7-11 days. Coding Level of Care Code Acute Tester Food Products for Dana Segura
[2021-01-01] MEDS: ibuprofen 800 mg tablet PO ×3 (08:25→20:30)
[2021-01-01 14:00] VITALS: RESP 17; TEMP 36.8
[2021-01-01] MEDS: LORazepam 2 mg Tablet PO (17:54)
[2021-01-01] MEDS: OLANZapine 5 mg ODT PO (20:28)
[2021-01-01] MEDS: quetiapine XR (24HR) 50 mg Tablet 200 MG PO (20:29)
[2021-01-01] MEDS: trazodone 50 mg Tablet PO (20:30)
[2021-01-01 21:20] VITALS: BP 101/70; PULSE 92; RESP 17; TEMP 36.8; O2SAT 100
--- NOTE | 2021-01-02 01:12 | PC.NURSE ---
Patient up at start of shift. Denies AVH or SI/HI. Mood is labile with frequent small outbursts that increased in intensity and length. PRN Trazodone and Zydis given at 2030. Patient yelling out at times, hit wall, threw papers and glasses, becoming very tearful between. Verbal deescalation and redirection, although needed frequenlty, were somewhat successful. Staff sat with patient to talk one to one and patient did calm after this. Patient resting with eyes closed by [address] has remained that way to this time. No signs of distress noted.
[2021-01-02 06:00] VITALS: RESP 18
[2021-01-02] MEDS: nicotine 2 mg Gum BUCCAL ×5 (08:22→21:03)
[2021-01-02] MEDS: lamoTRIgine 25 mg Tablet 50 MG PO (08:31)
[2021-01-02] MEDS: lamoTRIgine 100 mg Tablet PO (08:32)
[2021-01-02] MEDS: ibuprofen 800 mg tablet PO ×3 (08:32→21:00)
[2021-01-02] MEDS: LORazepam 2 mg Tablet PO ×2 (09:16→15:03)
--- NOTE | 2021-01-02 11:52 | P.NPUPN_ITS ---
Subjective NPU Subjective: Interval history: Patient presents today of the palmar on the unit but still spewing random thoughts and still being quite odd at times. She spent more time in her room resting today and was a little more social. She requested to be discharged tomorrow but we discussed the fact that we were pursuing the 21-day hold and she did not argue that point. Mental Status Exam MSE Comments: This is an overweight white female with hospital scrubs on with limited grooming and eye contact. No abnormal movements except for continued psychomotor agitation. Intermittently cooperative with exam in occasional moderate distress. Speech was more normal rate and volume intermixed with increased rate and volume with less screaming. Mood described as fine, affect irritable at times thought process organized. Thought content: Patient denied suicidal or homicidal ideation, there were no delusions reported but but continued odd thinking and expressions noted, she denied auditory or visual hallucinations currently. Attention and concentration were limited and memory appeared mostly unreliable but none were formally tested. She is alert and oriented x3. Insight and judgment are impaired, impulse control is impaired. Vitals/I&O/Wt Last Vital Signs Temp 98.2 F 01/01/21 21:20 Pulse 92 01/01/21 21:20 Resp 18 01/02/21 06:00 BP 101/70 01/01/21 21:20 Pulse Ox 100 01/01/21 21:20 Data NPU : 12/28/20 10:41 12/28/20 10:41 A&P Additional A&P Information (1) Schizoaffective disorder, bipolar type: (2) Status post ORIF of fracture of ankle: (3) Bimalleolar fracture of right ankle: (4) PTSD (post-traumatic stress disorder): Additional A&P Information This is a 25 year old female well-known to me, who has a past history of bipolar disorder with psychosis who was admitted through our emergency department on a 96-hour hold after recently being discharged from the unit last week with significant concerns at that time that she would not be able to manage herself outside the hospital and may ultimately need a guardian and residency in a controlled environment who presents seeming to be with limited impulse control and almost speaking in stream of consciousness and behaving and responding to those thoughts. RECOMMENDATION AND PLAN: 1. Continue current medication: received Invega Sustenna 234 mg IM to the deltoid 12/20/2020, and was to receive Invega Sustenna 156 mg IM to the deltoid 12/27/2020,Seroquel 200 mg at bedtime. We will need the addition of some medication for mood stabilization and to hopefully impact this aneta. 2. She is s/p surgical repair of a fractured right malleolus. 3. Continue every 15 minute checks for safety. 4. Encourage individual, group and milieu therapies. 5. Encourage sober living treatment after discharge at the highest level of care to which he is willing to commit. 6. We have filed a petition for guardianship, we will likely resume that process. 7. We have change the diagnosis from bipolar disorder with psychotic features to schizoaffective disorder, bipolar type, as the patient continues to have psychotic symptoms even when her mood stabilizes. 8. She presents in what appears to be full-blown aneta. Submitting 21-day hold so that we can force medication if indicated as she is currently refusing medication. Involuntary Hold Information 96 Hour Hold: 96 Hour Involuntary Admission: No Attestations NPU Medical Necessity Statement*: Psychiatric hospitalization is medically necessary to prevent access to lethal means, to reevaluate medication, and to coordinate a safe discharge. The patient psychosis, paranoid delusions, and disorganized continue to be present. We will adjust medications or add medications as indicated. Likely length of stay is 7-11 days. Coding Level of Care Code Acute Meter Maintenance Person for Dana Segura
[2021-01-02 14:00] VITALS: BP 115/64; PULSE 120; RESP 16; TEMP 36.9; O2SAT 98
--- NOTE | 2021-01-02 17:27 | PC.NURSE ---
prn 1503 Administered 2mg Ativan for anxiety and agitation. Pt pacing the hallway and on and off the phone. Will continue to monitor pt. 1545 Pt is calm and more collected in her speech, will continue to monitor.
[2021-01-02 20:01] VITALS: RESP 15
[2021-01-02] MEDS: quetiapine XR (24HR) 50 mg Tablet 200 MG PO (21:00)
[2021-01-03 06:00] VITALS: BP 117/72; PULSE 110; RESP 15; TEMP 37.1; O2SAT 100
[2021-01-03] MEDS: nicotine 2 mg Gum BUCCAL ×5 (06:10→21:41)
[2021-01-03] MEDS: lamoTRIgine 100 mg Tablet PO (07:59)
[2021-01-03] MEDS: lamoTRIgine 25 mg Tablet 50 MG PO (07:59)
[2021-01-03] MEDS: ibuprofen 800 mg tablet PO ×3 (07:59→21:20)
[2021-01-03] MEDS: LORazepam 2 mg Tablet PO (08:00)
--- NOTE | 2021-01-03 08:00 | PC.NURSE ---
Addendum entered by Juliet Strong LPN 01/03/21 10:46: PRN MED SOMEWHAT EFFECTIVE, PT UP TALKING TO NURSING STAFF NOW, MOOD IS FLAT, CURSING THOUGH IN CONVERSATION. Original Note: PRN ATIVAN 2 MG GIVEN PO PER PT C/O STATED ANXIETY
[2021-01-03] MEDS: blistex lip oint 7 gm Tube 1 APPLIC TOPICAL (08:24)
--- NOTE | 2021-01-03 12:25 | NPU.GN ---
[facility] NeuroPsych Unit Group Topic:Emotions General Mood of Group: Patient come to group on time, dressed appropriately in hospital scrubs. The patient was well groomed with good hygiene. The group discussed emotions and where we feel these emotions in our body. They were able to color coordinate the color to the emotion and color the specific emotion to the body part that they feel these emotions. Everyone shared in the group their specific emotions and where the emotion is felt on their body. There were some new patients in NPU from over the weekend. It was discussed with the group what 96 hour hold and 21 day holds were. We spoke about self admitting. We also spoke about [facility]'s Behavioral Health Care and the importance of after care. Patients were able to ask questions about [facility] Behavioral health and about NPU.
--- NOTE | 2021-01-03 13:56 | W.PM.NPUPNS ---
Subjective NPU Subjective: Interval history: Patient presents today continuing to have her runs of challenging behavior. She finally was open to the suggestion of a standing dose of medication. However the only thing she would need to Haldol q. afternoon. We agreed to dose of 5 mg p.o. q. 2 PM she knowledges that she has wellness disease just out of control and that the Haldol seems to calm her down. We discussed the 21-day hold that was submitted today and the need to keep her abreast of when the hearing is. Mental Status Exam MSE Comments: This is an overweight white female with hospital scrubs on with limited grooming and eye contact. No abnormal movements except for continued psychomotor agitation, though lessening. Intermittently cooperative with exam in intermittent moderate distress. Speech was more normal rate and volume intermixed with increased rate and volume with angry outbursts. Mood described as fine, affect irritable at times. Thought process organized. Thought content: Patient denied suicidal or homicidal ideation, there were no delusions reported but but continued odd thinking and expressions noted, she denied auditory or visual hallucinations currently. Attention and concentration were limited and memory appeared mostly unreliable but none were formally tested. She is alert and oriented x3. Insight and judgment are impaired, impulse control is impaired. Vitals/I&O/Wt Last Vital Signs Temp 98.7 F 01/03/21 06:00 Pulse 110 H 01/03/21 06:00 Resp 15 01/03/21 06:00 BP 117/72 01/03/21 06:00 Pulse Ox 100 01/03/21 06:00 Data NPU : 12/28/20 10:41 12/28/20 10:41 A&P Additional A&P Information (1) Schizoaffective disorder, bipolar type: (2) Status post ORIF of fracture of ankle: (3) Bimalleolar fracture of right ankle: (4) PTSD (post-traumatic stress disorder): Additional A&P Information This is a 25 year old female well-known to me, who has a past history of bipolar disorder with psychosis who was admitted through our emergency department on a 96-hour hold after recently being discharged from the unit last week with significant concerns at that time that she would not be able to manage herself outside the hospital and may ultimately need a guardian and residency in a controlled environment who presents seeming to be with limited impulse control and almost speaking in stream of consciousness and behaving and responding to those thoughts. RECOMMENDATION AND PLAN: 1. Continue current medication: received Invega Sustenna 234 mg IM to the deltoid 12/20/2020, and was to receive Invega Sustenna 156 mg IM to the deltoid 12/27/2020,Seroquel 200 mg at bedtime. Start Haldol 5 mg p.o. q. 2 PM 2. She is s/p surgical repair of a fractured right malleolus. 3. Continue every 15 minute checks for safety. 4. Encourage individual, group and milieu therapies. 5. Encourage sober living treatment after discharge at the highest level of care to which he is willing to commit. 6. We have filed a petition for guardianship. 7. We have change the diagnosis from bipolar disorder with psychotic features to schizoaffective disorder, bipolar type, as the patient continues to have psychotic symptoms even when her mood stabilizes. 8. She presents in what appears to be full-blown aneta. Submitted 21-day hold today mostly so we can force medication given the guardianship file gives us authority to keep her in the hospital. Involuntary Hold Information 96 Hour Hold: 96 Hour Involuntary Admission: No Attestations NPU Medical Necessity Statement*: Psychiatric hospitalization is medically necessary to prevent access to lethal means, to reevaluate medication, and to coordinate a safe discharge. The patient psychosis, paranoid delusions, and disorganized continue to be present. We will adjust medications or add medications as indicated. Likely length of stay is 7-11 days. Coding Level of Care Code Acute Broadcast Maintenance Technician for Dana Segura
[2021-01-03 14:00] VITALS: BP 126/70; PULSE 99; RESP 15; TEMP 37.1; O2SAT 100
[2021-01-03] MEDS: haloperidol 5 mg Tablet PO (14:05)
--- NOTE | 2021-01-03 16:40 | PC.NURSE ---
[facility] [place] Officer's served Ms. Cobian with her court summons for her 21 day hearing at [id number]
[2021-01-03 20:17] VITALS: RESP 17
[2021-01-03] MEDS: quetiapine XR (24HR) 50 mg Tablet 200 MG PO (21:20)
[2021-01-04] MEDS: nicotine 2 mg Gum BUCCAL ×6 (02:05→20:36)
[2021-01-04] MEDS: LORazepam 2 mg Tablet PO ×3 (02:18→20:36)
[2021-01-04 06:00] VITALS: BP 89/57; PULSE 85; RESP 16; TEMP 36.7; O2SAT 98
--- NOTE | 2021-01-04 06:38 | PC.NURSE ---
nurse notified of b/p reading
[2021-01-04] MEDS: ibuprofen 800 mg tablet PO ×3 (07:53→20:36)
[2021-01-04] MEDS: lamoTRIgine 25 mg Tablet 50 MG PO (07:54)
[2021-01-04] MEDS: lamoTRIgine 100 mg Tablet PO (07:54)
--- NOTE | 2021-01-04 07:54 | PC.NURSE ---
PRN ATIVAN 2 MG GIVEN PO PER PT REQUEST. NO OUTWARD S/S OF ANXIETY NOTED, FLAT AFFECT. WILL CONT TO MONITOR
--- NOTE | 2021-01-04 08:36 | W.PM.NPUPNS ---
Subjective NPU Subjective: Interval history: Sherri presents today continuing to show signs of improvement. Today is likely the first day that there was not a lot of aggravated cursing and agitated commentary per staff and personal observation. She did not take the afternoon Haldol we had discussed and we agreed to decrease the dose to 2.5 mg q. afternoon because she reports that the 5 mg really knocked her out. Reviewed the importance of her taking the medication because it seems that it really assisted her in decreasing her agitated behavior which she agreed. We discussed the 21-day hold hearing tomorrow as well as guardianship and the reasoning. Mental Status Exam MSE Comments: This is an overweight white female with hospital scrubs on with limited grooming and eye contact. No abnormal movements except for continued psychomotor agitation, though lessening. Intermittently cooperative with exam in intermittent mild distress. Speech was more normal rate and volume. Mood described as better, affect less irritable. Thought process organized. Thought content: Patient denied suicidal or homicidal ideation, there were no delusions reported but but continued odd thinking and expressions noted, she denied auditory or visual hallucinations currently. Attention and concentration were limited, but improving and memory appeared mostly unreliable but none were formally tested. She is alert and oriented x3. Insight and judgment are impaired, impulse control is impaired. Vitals/I&O/Wt Last Vital Signs Temp 98.7 F 01/03/21 14:00 Pulse 99 01/03/21 14:00 Resp 17 01/03/21 20:17 BP 126/70 01/03/21 14:00 Pulse Ox 100 01/03/21 14:00 Data NPU : 12/28/20 10:41 12/28/20 10:41 A&P Additional A&P Information (1) Schizoaffective disorder, bipolar type: (2) Status post ORIF of fracture of ankle: (3) Bimalleolar fracture of right ankle: (4) PTSD (post-traumatic stress disorder): Additional A&P Information This is a 25 year old female well-known to me, who has a past history of bipolar disorder with psychosis who was admitted through our emergency department on a 96-hour hold after recently being discharged from the unit last week with significant concerns at that time that she would not be able to manage herself outside the hospital and may ultimately need a guardian and residency in a controlled environment who presents seeming to be with limited impulse control and almost speaking in stream of consciousness and behaving and responding to those thoughts. RECOMMENDATION AND PLAN: 1. Continue current medication: received Invega Sustenna 234 mg IM to the deltoid 12/20/2020, and was to receive Invega Sustenna 156 mg IM to the deltoid 12/27/2020,Seroquel 200 mg at bedtime. Decrease Haldol 2.5 mg p.o. q. 2 PM. We will likely force her to take this dose/the reduced version after the 21-day hold hearing as she has shown significant improvement since the Haldol has been introduced. 2. She is s/p surgical repair of a fractured right malleolus. 3. Continue every 15 minute checks for safety. 4. Encourage individual, group and milieu therapies. 5. Encourage sober living treatment after discharge at the highest level of care to which he is willing to commit. 6. We have filed a petition for guardianship. 7. We have change the diagnosis from bipolar disorder with psychotic features to schizoaffective disorder, bipolar type, as the patient continues to have psychotic symptoms even when her mood stabilizes. 8. She presented in what appears to be full-blown aneta. 21-day hold hearing is tomorrow and we are taking this path mostly so we can force medication given the guardianship filed gives us authority to keep her in the hospital. Involuntary Hold Information 96 Hour Hold: 96 Hour Involuntary Admission: No Attestations NPU Medical Necessity Statement*: Psychiatric hospitalization is medically necessary to prevent access to lethal means, to reevaluate medication, and to coordinate a safe discharge. The patient psychosis, paranoid delusions, and disorganized continue to be present. We will adjust medications or add medications as indicated. Likely length of stay is 7-11 days Coding Level of Care Code Acute Woven Label Designer for Dana Segura
--- NOTE | 2021-01-04 11:10 | PC.NURSE ---
contact info for mother Ban Mango
[2021-01-04 14:00] VITALS: BP 105/74; PULSE 108; RESP 20; TEMP 36.4; O2SAT 98
--- NOTE | 2021-01-04 14:46 | PC.NURSE ---
refused scheduled Haldol, pt stated it makes her too tired
--- NOTE | 2021-01-04 17:49 | PC.NURSE ---
Multiple telephone calls with her mother today. Sherri told her mother she did not need her to come to her court appearance tomorrow, I can do this alone, this is part of showing I can handle things on my own.
[2021-01-04] MEDS: quetiapine XR (24HR) 50 mg Tablet 200 MG PO (20:36)
[2021-01-04 20:57] VITALS: BP 108/72; PULSE 85; RESP 15; TEMP 36.8; O2SAT 98
[2021-01-05] MEDS: LORazepam 2 mg Tablet PO ×3 (03:43→20:17)
[2021-01-05] MEDS: nicotine 2 mg Gum BUCCAL ×7 (04:02→19:25)
--- NOTE | 2021-01-05 05:58 | PC.NURSE ---
Patient calm and cooperative at start of shift. Denies SI/HI, AVH. A&OX4. Good affect and appropriate interaction noted. In bed early. Up 3x during night briefly. Up at this time. Denies SI/HI. Is calm and cooperative.
[2021-01-05 06:00] VITALS: BP 108/72; PULSE 124; RESP 16; TEMP 36.8; O2SAT 98
[2021-01-05] MEDS: lamoTRIgine 25 mg Tablet 50 MG PO (08:57)
[2021-01-05] MEDS: ibuprofen 800 mg tablet PO ×3 (08:57→20:17)
[2021-01-05] MEDS: lamoTRIgine 100 mg Tablet PO (08:58)
[2021-01-05] MEDS: haloperidol 5 mg Tablet 2.5 MG PO (13:17)
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
[2021-01-05 14:00] VITALS: BP 112/75; PULSE 88; RESP 18; TEMP 36.8; O2SAT 97
--- NOTE | 2021-01-05 14:47 | PC.NURSE ---
off of unit 1445 off unit escorted to court-- [place]
--- NOTE | 2021-01-05 16:03 | PC.NURSE ---
Returned to unit at [address] will continue to monitor
[2021-01-05] MEDS: haloperidol inj 5 mg/mL INJ 1 mL IM (17:18)
[2021-01-05] MEDS: diphenhydrAMINE 50 mg/mL SDV 1mL IM (17:19)
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
--- NOTE | 2021-01-05 17:50 | W.PM.NPUPNS ---
Subjective NPU Subjective: Interval history: Sherri presents today continuing to show signs of improvement. She has not been aggressive on the unit. She was given some Haldol before her court hearing and she seemed to handle that fairly well. She asked when she would be released and expected it to be fairly soon. I told her I did not think that we could release her until her final guardianship determination. She was not happy with that. She asked that we end the conversation and talk again tomorrow when she could calm down. Mental Status Exam MSE Comments: This is an overweight white female with hospital scrubs on with limited grooming and eye contact. No abnormal movements except. She was initially cooperative but then became irritated and asked that the conversation end. Speech was more normal rate and volume. Mood described as better, affect irritable. Thought process organized. Thought content: Patient denied suicidal or homicidal ideation, there were no delusions reported but but continued odd thinking and expressions noted, she denied auditory or visual hallucinations currently. Attention and concentration were limited, but improving and memory appeared mostly unreliable but none were formally tested. She is alert and oriented x3. Insight and judgment are impaired, impulse control is impaired. Vitals/I&O/Wt Last Vital Signs Temp 98.2 F 01/05/21 14:00 Pulse 88 01/05/21 14:00 Resp 18 01/05/21 14:00 BP 112/75 01/05/21 14:00 Pulse Ox 97 01/05/21 14:00 Data NPU : 12/28/20 10:41 12/28/20 10:41 A&P Assessment and plan (1) Schizoaffective disorder, bipolar type: Status: Acute (2) Status post ORIF of fracture of ankle: Status: Acute (3) Bimalleolar fracture of right ankle: Status: Acute (4) PTSD (post-traumatic stress disorder): Status: Chronic Additional A&P Information (1) Schizoaffective disorder, bipolar type: (2) Status post ORIF of fracture of ankle: (3) Bimalleolar fracture of right ankle: (4) PTSD (post-traumatic stress disorder): Additional A&P Information This is a 25 year old female well-known to me, who has a past history of bipolar disorder with psychosis who was admitted through our emergency department on a 96-hour hold after recently being discharged from the unit last week with significant concerns at that time that she would not be able to manage herself outside the hospital and may ultimately need a guardian and residency in a controlled environment who presents seeming to be with limited impulse control and almost speaking in stream of consciousness and behaving and responding to those thoughts. RECOMMENDATION AND PLAN: 1. Continue current medication: received Invega Sustenna 234 mg IM to the deltoid 12/20/2020, and was to receive Invega Sustenna 156 mg IM to the deltoid 12/27/2020,Seroquel 200 mg at bedtime. Decrease Haldol 2.5 mg p.o. q. 2 PM. We will likely force her to take this dose/the reduced version after the 21-day hold hearing as she has shown significant improvement since the Haldol has been introduced. 2. She is s/p surgical repair of a fractured right malleolus. 3. Continue every 15 minute checks for safety. 4. Encourage individual, group and milieu therapies. 5. Encourage sober living treatment after discharge at the highest level of care to which he is willing to commit. 6. We have filed a petition for guardianship. 7. We have change the diagnosis from bipolar disorder with psychotic features to schizoaffective disorder, bipolar type, as the patient continues to have psychotic symptoms even when her mood stabilizes. 8. She presented in what appears to be full-blown aneta. Temporary guardianship was awarded today and the 21-day commitment was not needed. Involuntary Hold Information 96 Hour Hold: 96 Hour Involuntary Admission: No Attestations NPU Medical Necessity Statement*: Inpatient hospitalization is medically necessary and the clinically appropriate intervention at this time. We will initiate medications and make changes as indicated. Coding Level of Care Code Acute Sport Psychologist for Dana Segura Diagnoses Schizoaffective disorder, bipolar type F25.0 Status post ORIF of fracture of ankle Z98.890; Z87.81 Bimalleolar fracture of right ankle S82.841A PTSD (post-traumatic stress disorder) F43.10
[2021-01-05 20:05] VITALS: RESP 17
[2021-01-05] MEDS: quetiapine XR (24HR) 50 mg Tablet 200 MG PO (20:17)
[2021-01-05] MEDS: OLANZapine 5 mg ODT PO (20:17)
--- NOTE | 2021-01-05 22:07 | PC.NURSE ---
Patient anxious, labile, and agitated early in evening. Telling staff she was going to need a 2nd shot. Raising her voice being rude about certain staff. Demanding more medications. Dr. Doss notified. New order to resume PRN Ativan given. Ativan noted to MAR. PRN Ativan for anxiety and PRN Zydis for agitation given with evening meds. After speaking one on one with staff and taking PO medications patient did calm. Has been tearful at times this evening. Patient showered and then went to bed. Now resting in bed with eyes closed.
[2021-01-06 06:00] VITALS: RESP 16
[2021-01-06] MEDS: lamoTRIgine 25 mg Tablet 50 MG PO (09:05)
[2021-01-06] MEDS: ibuprofen 800 mg tablet PO ×3 (09:05→20:54)
[2021-01-06] MEDS: nicotine 2 mg Gum BUCCAL ×7 (09:05→19:08)
[2021-01-06] MEDS: lamoTRIgine 100 mg Tablet PO (09:05)
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
[2021-01-06 14:00] VITALS: BP 100/63; PULSE 90; RESP 16; TEMP 36.6; O2SAT 94
[2021-01-06] MEDS: OLANZapine 5 mg ODT PO (19:08)
[2021-01-06] MEDS: LORazepam 2 mg Tablet PO (19:08)
[2021-01-06 19:54] VITALS: BP 118/73; PULSE 127; RESP 18; O2SAT 99
[2021-01-07] MEDS: ondansetron 4 MG Tablet PO (03:26)
[2021-01-07] MEDS: hyDROXYzine 25 mg Capsule 50 MG PO (03:33)
[2021-01-07] MEDS: nicotine 2 mg Gum BUCCAL ×5 (03:38→20:32)
[2021-01-07 06:00] VITALS: BP 114/71; PULSE 103; RESP 17; O2SAT 98
--- NOTE | 2021-01-07 06:45 | USR_ITS ---
PROCEDURE INFORMATION: Exam: US Duplex Lower Extremity Veins, Bilateral Exam date and time: 01/07/2021 6:45 AM Age: 25 years old Clinical indication: Pain; Leg, lower; Patient HX: Swelling right ankle; Additional info: R/O dvt TECHNIQUE: Imaging protocol: Real-time duplex ultrasound of the extremities with 2-D pedraza scale, color Doppler flow and spectral waveform analysis with image documentation. Complete exam focused on the bilateral lower extremity veins. COMPARISON: [id number] 12/05/2020 10:47 AM FINDINGS: Real-time grayscale, Doppler, color Doppler and duplex imaging of the lower extremities was performed. Spectral analysis was performed. There is normal flow and compressibility of the common femoral, superficial femoral and popliteal veins. There is normal augmentation. There is no intraluminal thrombus. The visualized calf veins were unremarkable. US/[id number] IMPRESSION: No evidence for deep venous thrombosis. Radiation Dose CTDIVOL = (mGy): DLP = (mGy-cm)
--- NOTE | 2021-01-07 07:26 | P.NPUPN_ITS ---
Subjective NPU Subjective: Interval history: She had a fairly good day yesterday. She refused to take the Seroquel and Haldol at bedtime last night. It took her a while to fall asleep and she only slept about 4 hours. He says that she realizes that she made a mistake and needs to take at least the Seroquel every night. She likes the fact that it has been changed to immediate release and fee ls that will work well for her. She also does not like taking the Lamictal in the morning and agreed to change that to bedtime. She will take 100 mg at morning and 100 mg at bedtime tonight and then change to 150 mg at bedtime. She is complaining of pain in her lower legs and is concerned that she might have a blood clot because of the prolonged limited mobility. She requested an ultrasound to check for blood clots. Mental Status Exam MSE Comments: This is an overweight white female with hospital scrubs on with limited grooming and eye contact. No abnormal movements except. She was cooperative with the interview today. Speech was more normal rate and volume. Mood not happy. affect less irritable. Thought process organized. Thought content: Patient denied suicidal or homicidal ideation, she appears to be paranoid and delusional., she denied auditory or visual hallucinations currently. Attention and concentration were limited, but improving and memory appeared mostly unreliable but none were formally tested. She is alert and oriented x3. Insight and judgment are impaired, impulse control is impaired. Vitals/I&O/Wt Last Vital Signs Temp 97.8 F 01/06/21 14:00 Pulse 103 H 01/07/21 06:00 Resp 17 01/07/21 06:00 BP 114/71 01/07/21 06:00 Pulse Ox 98 01/07/21 06:00 Data NPU : 12/28/20 10:41 12/28/20 10:41 A&P Assessment and plan (1) Schizoaffective disorder, bipolar type: Status: Acute (2) Status post ORIF of fracture of ankle: Status: Acute (3) Bimalleolar fracture of right ankle: Status: Acute (4) PTSD (post-traumatic stress disorder): Status: Chronic Additional A&P Information (1) Schizoaffective disorder, bipolar type: (2) Status post ORIF of fracture of ankle: (3) Bimalleolar fracture of right ankle: (4) PTSD (post-traumatic stress disorder): Additional A&P Information This is a 25 year old female who has a past history of bipolar disorder with psychosis who was admitted through our emergency department on a 96-hour hold after recently being discharged from the unit last week with significant c oncerns at that time that she would not be able to manage herself outside the hospital and may ultimately need a guardian and residency in a controlled environment who presents seeming to be with limited impulse control and almost speaking in stream of consciousness and behaving and responding to those thoughts. She does have a guardian and has had 2 injections of Invega sustain a with the next one due in January. RECOMMENDATION AND PLAN: 1. Continue current medication: received Invega Sustenna 234 mg IM to the deltoid 12/20/2020, and was to receive Invega Sustenna 156 mg IM to the deltoid 12/27/2020,Seroquel 200 mg at bedtime. Haldol 2.5 mg QHS. Has been on Lamictal 150 mg QAM. Will change that to QHS. 2. She is s/p surgical repair of a fractured right malleolus. 3. Continue every 15 minute checks for safety. 4. Encourage individual, group and milieu therapies. 5. Encourage sober living treatment after discharge at the highest level of care to which he is willing to commit. Her guardian [place] but patient is adamant that she will not accept that. 6. We have filed a petition for guardianship. 7. We have change the diagnosis from bipolar disorder with psychotic features to schizoaffective disorder, bipolar type, as the patient continues to have psy chotic symptoms even when her mood stabilizes. 8. She presented in what appears to be full-blown aneta. Temporary guardianship was awarded on 01/05 and the 21-day commitment was not needed. Involuntary Hold Information 96 Hour Hold: 96 Hour Involuntary Admission: No Attestations NPU Medical Necessity Statement*: Inpatient hospitalization is medically necessary and the clinically appropriate intervention at this time. We will initiate medications and make changes as indicated Coding Level of Care Code Acute Plate Put In Worker for Dana Segura Diagnoses Schizoaffective disorder, bipolar type F25.0 Status post ORIF of fracture of ankle Z98.890; Z87.81 Bimalleolar fracture of right ankle S82.841A PTSD (post-traumatic stress disorder) F43.10
[2021-01-07] MEDS: ibuprofen 800 mg tablet PO ×3 (08:27→20:32)
[2021-01-07] MEDS: lamoTRIgine 100 mg Tablet PO ×2 (08:28→20:32)
[2021-01-07] MEDS: LORazepam 2 mg Tablet PO (12:02)
[2021-01-07] MEDS: acetaminophen 325 mg Tablet 650 MG PO (12:24)
--- NOTE | 2021-01-07 12:49 | NPU.GN ---
[facility] Unit Group Topic: Coping Skills Wes General Mood of Group: Patient did come to group was being very disruptive, she was excused from group and did not return.
[2021-01-07 13:55] VITALS: BP 94/60; PULSE 85; RESP 16; TEMP 36.8; O2SAT 99
--- NOTE | 2021-01-07 16:38 | PC.NURSE ---
1610 off unit with Security for ultrasound
[2021-01-07] MEDS: quetiapine 100 mg Tablet 200 MG PO (20:32)
[2021-01-07] MEDS: haloperidol 5 mg Tablet 2.5 MG PO (21:12)
[2021-01-07 21:26] VITALS: BP 129/65; PULSE 91; RESP 18; TEMP 36.7; O2SAT 99
[2021-01-08] MEDS: nicotine 2 mg Gum BUCCAL ×4 (02:13→16:12)
[2021-01-08] MEDS: acetaminophen 325 mg Tablet 650 MG PO (03:15)
[2021-01-08 06:00] VITALS: RESP 16
[2021-01-08] MEDS: ibuprofen 800 mg tablet PO ×3 (08:40→20:57)
[2021-01-08] MEDS: hyDROXYzine 25 mg Capsule 50 MG PO (11:32)
--- NOTE | 2021-01-08 11:32 | PC.NURSE ---
PRN Vistaril Patient intrusive with other patient's and staff. Patient pacing singing loudly and yelling random phrases. Patient states she feels anxious and wants to slow her mind down. Vistaril 50mg given PO. Will COntinue to monitor.
[2021-01-08] MEDS: LORazepam 2 mg Tablet PO ×2 (12:32→16:26)
--- NOTE | 2021-01-08 12:32 | PC.NURSE ---
PRN FOLLOWUP AND ADDITIONAL PRN Ativan 2mg given PO. patient continues all prior behaviors. patient states her mind is still racing, and just wants to slow down. Will continue to monitor.
--- NOTE | 2021-01-08 13:25 | PC.NURSE ---
PRN Follow Up Patient continues to pace, but voice is lower and speech is somewhat slower. will continue to monitor.
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
[2021-01-08 14:00] VITALS: BP 100/69; PULSE 103; RESP 16; TEMP 37; O2SAT 98
[2021-01-08 20:33] VITALS: RESP 15
[2021-01-08] MEDS: lamoTRIgine 25 mg Tablet 50 MG PO (20:56)
[2021-01-08] MEDS: haloperidol 5 mg Tablet 2.5 MG PO (20:56)
[2021-01-08] MEDS: lamoTRIgine 100 mg Tablet PO (20:57)
[2021-01-08] MEDS: quetiapine 100 mg Tablet 200 MG PO (20:57)
[2021-01-09 06:00] VITALS: BP 105/73; PULSE 93; RESP 17; TEMP 36.8; O2SAT 99
--- NOTE | 2021-01-09 06:48 | W.PM.NPUPNS ---
Subjective NPU Subjective: Interval history: she continues to be medication compliant. She is generally pleasant and cooperative. She is very active and wandering the unit frequently. She said that she is choosing not to worry. She has things figured out as far as where she will live. She will rent an apartment or she has a female friend who will let her move into her house with her. She already has a michelle. She was reminded that her guardian will be visiting on Sunday and has different ideas about whether she should live. She accepted that without difficulty. Mental Status Exam MSE Comments: This is an overweight white female with hospital scrubs on with limited grooming and eye contact. No abnormal movements. She was cooperative with the interview today. Speech was more normal rate and volume. Mood good. affect euthymic. Thought process organized. Thought content: Patient denied suicidal or homicidal ideation, she appears to be paranoid and delusional., she denied auditory or visual hallucinations currently. Attention and concentration were limited, but improving and memory appeared mostly unreliable but none were formally tested. She is alert and oriented x3. Insight and judgment are impaired, impulse control is impaired. Vitals/I&O/Wt Last Vital Signs Temp 98.2 F 01/09/21 06:00 Pulse 93 01/09/21 06:00 Resp 17 01/09/21 06:00 BP 105/73 01/09/21 06:00 Pulse Ox 99 01/09/21 06:00 Data NPU : 12/28/20 10:41 12/28/20 10:41 A&P Assessment and plan (1) Schizoaffective disorder, bipolar type: Status: Acute (2) Status post ORIF of fracture of ankle: Status: Acute (3) Bimalleolar fracture of right ankle: Status: Acute (4) PTSD (post-traumatic stress disorder): Status: Chronic Additional A&P Information (1) Schizoaffective disorder, bipolar type: (2) Status post ORIF of fracture of ankle: (3) Bimalleolar fracture of right ankle: (4) PTSD (post-traumatic stress disorder): Additional A&P Information This is a 25 year old female who has a past history of bipolar disorder with psychosis who was admitted through our emergency department on a 96-hour hold after recently being discharged from the unit last week with significant concerns at that time that she would not be able to manage herself outside the hospital and may ultimately need a guardian and residency in a controlled environment who presents seeming to be with limited impulse control and almost speaking in stream of consciousness and behaving and responding to those thoughts. She does have a guardian and has had 2 injections of Invega sustain a with the next one due in January. RECOMMENDATION AND PLAN: 1. Continue current medication: received Invega Sustenna 234 mg IM to the deltoid 12/20/2020, and Invega Sustenna 156 mg IM to the deltoid 12/27/2020,Seroquel 200 mg at bedtime. Haldol 2.5 mg QHS. Lamictal 150 mg QHS. 2. She is s/p surgical repair of a fractured right malleolus. 3. Continue every 15 minute checks for safety. 4. Encourage individual, group and milieu therapies. 5. Encourage sober living treatment after discharge at the highest level of care to which he is willing to commit. Her guardian wants her in a jail but patient is adamant that she will not accept that. 6. We have filed a petition for guardianship. 7. We have change the diagnosis from bipolar disorder with psychotic features to schizoaffective disorder, bipolar type, as the patient continues to have psychotic symptoms even when her mood stabilizes. 8. She presented in what appears to be full-blown aneta. Temporary guardianship was awarded on 01/05 and the 21-day commitment was not needed. Involuntary Hold Information 96 Hour Hold: 96 Hour Involuntary Admission: No Attestations NPU Medical Necessity Statement*: Inpatient hospitalization is medically necessary and the clinically appropriate intervention at this time. We will initiate medications and make changes as indicated Coding Level of Care Code Acute Saturator Tender for [facility] Diagnoses Schizoaffective disorder, bipolar type F25.0 Status post ORIF of fracture of ankle Z98.890; Z87.81 Bimalleolar fracture of right ankle S82.841A PTSD (post-traumatic stress disorder) F43.10
[2021-01-09] MEDS: nicotine 2 mg Gum BUCCAL ×6 (07:12→23:37)
[2021-01-09] MEDS: ibuprofen 800 mg tablet PO ×3 (08:23→23:37)
[2021-01-09] MEDS: LORazepam 2 mg Tablet PO ×2 (10:19→14:20)
[2021-01-09] MEDS: acetaminophen 325 mg Tablet 650 MG PO (12:49)
--- NOTE | 2021-01-09 12:51 | PC.NURSE ---
Patient complaining of right shoulder pain. I have a torn rotator cuff. My shoulder hurts, my back hurts. Nobody gives a shit around this place. I need my fucking Ativan. I can't deal with this shit (a points to a patient that is responding to unseen others). Do something for me. Medicated with PRN Tylenol. Explained that her Ativan is q 4 hr and not due until 2:15 pm offered PRN Haldol and she refused, Haldol dosen't do shit for me. Went to return to her room and pull the double door shut. In her room loudly ranting.
--- NOTE | 2021-01-09 13:15 | PC.NURSE ---
Extended time spent with Sherri, vocalizing pent up rage and no outlet for it. Needing to go outside for fresh air. Crying over unknown status of those that have my six , I don't know who is alive and how is .
[2021-01-09 14:00] VITALS: BP 115/70; PULSE 105; RESP 18; TEMP 36.7; O2SAT 98
--- NOTE | 2021-01-09 16:31 | P.NPUPN_ITS ---
Subjective NPU Subjective: Interval history: She said hello to me upon my approach today. Then she said that she was not going to talk and walk away. She has had fairly reasonable conversations with the nurses. She has not showed any aggression or evidence of psychosis in their opinion. She has been compliant with all of her medications the last few days. She has been interacting with other patients a little bit more often lately but is still mostly by herself. Mental Status Exam MSE Comments: This is an overweight white female with hospital scrubs on with limited grooming and eye contact. No abnormal movements. She was not cooperative and would not talk today. Speech was limited. She said hello and then said nothing else. Mood not assessable. affect irritable. Thought process unable to discern. Thought content: Patient would not answer questions about suicidal or homicidal ideation, she appears to be paranoid and delusional., she denied auditory or visual hallucinations currently. Attention and concentration were limited, but improving and memory appeared mostly unreliable but none were formally tested. She is alert but would not answer questions. Insight and judgment are impaired, impulse control is impaired. Cognition: Patient Appearance: Appropriate Level of Consciousness: Awake, Combative, Inappropriate and Restless Patient Cognition Impaired: Yes Ability to Follow Directions: Poor Patient Orientation (long list): Person, Place, Time, Name, Age, Birthday, Day of Month and Day of Week Comprehension Ability: No Impairment Hallucination Type: None Delusion Description: Not Present Thought Process: Appropriate Affect: Affect Description: Anxious Behavior: Patient Behavior: Irritable Speech Pattern: Clear Vitals/I&O/Wt Last Vital Signs Temp 98.0 F 01/09/21 14:00 Pulse 105 H 01/09/21 14:00 Resp 18 01/09/21 14:00 BP 115/70 01/09/21 14:00 Pulse Ox 98 01/09/21 14:00 Data NPU : 12/28/20 10:41 12/28/20 10:41 A&P Assessment and plan (1) Schizoaffective disorder, bipolar type: Status: Acute (2) Status post ORIF of fracture of ankle: Status: Acute (3) Bimalleolar fracture of right ankle: Status: Acute (4) PTSD (post-traumatic stress disorder): Status: Chronic Additional A&P Information (1) Schizoaffective disorder, bipolar type: (2) Status post ORIF of fracture of ankle: (3) Bimalleolar fracture of right ankle: (4) PTSD (post-traumatic stress disorder): Additional A&P Information This is a 25 year old female who has a past history of bipolar disorder with psychosis who was admitted through our emergency department on a 96-hour hold after recently being discharged from the unit last week with significant concerns at that time that she would not be able to manage herself outside the hospital and may ultimately need a guardian and residency in a controlled environment who presents seeming to be with limited impulse control and almost speaking in stream of consciousness and behaving and responding to those thoughts. She does have a guardian and has had 2 injections of Invega sustain a with the next one due in January. RECOMMENDATION AND PLAN: 1. Continue current medication: received Invega Sustenna 234 mg IM to the deltoid 12/20/2020, and Invega Sustenna 156 mg IM to the deltoid 12/27/2020,Seroquel 200 mg at bedtime. Haldol 2.5 mg QHS. Lamictal 150 mg QHS. 2. She is s/p surgical repair of a fractured right malleolus. 3. Continue every 15 minute checks for safety. 4. Encourage individual, group and milieu therapies. 5. Encourage sober living treatment after discharge at the highest level of care to which he is willing to commit. Her guardian wants her in a [facility] but patient is adamant that she will not accept that. 6. We have filed a petition for guardianship. 7. We have change the diagnosis from bipolar disorder with psychotic features to schizoaffective disorder, bipolar type, as the patient continues to have psychotic symptoms even when her mood stabilizes. 8. She presented in what appears to be full-blown aneta. Temporary guard ianship was awarded on 01/05 and the 21-day commitment was not needed. Involuntary Hold Information 96 Hour Hold: 96 Hour Involuntary Admission: No Attestations NPU Medical Necessity Statement*: Inpatient hospitalization is medically necessary and the clinically appropriate intervention at this time. We will initiate medications and make changes as indicated Coding Level of Care Code Acute Lab Animal Technician for [facility] Diagnoses Schizoaffective disorder, bipolar type F25.0 Status post ORIF of fracture of ankle Z98.890; Z87.81 Bimalleolar fracture of right ankle S82.841A PTSD (post-traumatic stress disorder) F43.10
[2021-01-09 20:58] VITALS: RESP 17
[2021-01-09] MEDS: haloperidol 5 mg Tablet 2.5 MG PO (23:36)
[2021-01-09] MEDS: lamoTRIgine 25 mg Tablet 50 MG PO (23:37)
[2021-01-09] MEDS: quetiapine 100 mg Tablet 200 MG PO (23:37)
[2021-01-09] MEDS: lamoTRIgine 100 mg Tablet PO (23:37)
[2021-01-10 06:00] VITALS: RESP 16
[2021-01-10] MEDS: nicotine 2 mg Gum BUCCAL ×5 (07:03→17:13)
[2021-01-10] MEDS: LORazepam 2 mg Tablet PO ×2 (08:17→12:37)
[2021-01-10] MEDS: ibuprofen 800 mg tablet PO ×2 (08:17→14:34)
--- NOTE | 2021-01-10 13:13 | NPU.GN ---
[facility] Group Topic:Psychiatric Education General Mood of Group: Sherri did attend and participated in group. Sherri was well groomed and her mood was good. She is more mentally stable and coherent than she previously was. I see a huge improvement with her mental state. Sherri is able to hold normal conversations.
--- NOTE | 2021-01-10 13:32 | P.NPUPN_ITS ---
Subjective NPU Subjective: Interval history: She told the nurse earlier that she was done and she cannot take it anymore. She is mainly talking about one patient who is quite psychotic and making a fair amount of noise. She still thinks that she should be able to go back to her parents house or a friend's house. She does not except that she has a guardian now who will be making decisions for her about where she lives. She says that she is going to bri this place because of all of this. Evidently her mother who supported us filing for guardianship is now opposed to her having guardianship. Her mother now wants to have a say in where she goes and the things that the guardianship should be taken care of. Mental Status Exam MSE Comments: This is an overweight white female with hospital scrubs on with limited grooming and eye contact. She is in hospital scrubs with good grooming. No abnormal movements. She was generally pleasant and did not raise her voice or become angry. psychomotor activity normal. Speech is at a regular rate and rhythm, normal volume, good articulation, not pressured. Alert, oriented X3 Attention and concentration within normal limits. Memory is intact Mood is frustrated. Affect is irritable. Thought process is logical and goal-directed. Thought content: Denies auditory and visual hallucinations. No delusions or paranoia are noted. No current suicidal ideation, and no homicidal ideation. Fund of knowledge is within normal limits. Insight and judgment appear to be fair here in the hospital. Impulse control is fair as well. Cognition: Patient Appearance: Appropriate Level of Consciousness: Awake, Combative, Inappropriate and Restless Patient Cognition Impaired: Yes Ability to Follow Directions: Poor Patient Orientation (long list): Person, Place, Time, Name, Age, Birthday, Day of Month and Day of Week Comprehension Ability: No Impairment Hallucination Type: None Delusion Description: Not Present Thought Process: Circumstantial Affect: Affect Description: Calm Behavior: Patient Behavior: Cooperative Speech Pattern: Clear Vitals/I&O/Wt Last Vital Signs Temp 98.0 F 01/09/21 14:00 Pulse 105 H 01/09/21 14:00 Resp 16 01/10/21 06:00 BP 115/70 01/09/21 14:00 Pulse Ox 98 01/09/21 14:00 Data NPU : 12/28/20 10:41 12/28/20 10:41 A&P Assessment and plan (1) Schizoaffective disorder, bipolar type: Status: Acute (2) Status post ORIF of fracture of ankle: Status: Acute (3) Bimalleolar fracture of right ankle: Status: Acute (4) PTSD (post-traumatic stress disorder): Status: Chronic Additional A&P Information (1) Schizoaffective disorder, bipolar type: (2) Status post ORIF of fracture of ankle: (3) Bimalleolar fracture of right ankle: (4) PTSD (post-traumatic stress disorder): Additional A&P Information This is a 25 year old female who has a past history of bipolar disorder with psychosis who was admitted through our emergency department on a 96-hour hold after recently being discharged from the unit last week with significant concerns at that time that she would not be able to manage herself outside the hospital and may ultimately need a guardian and residency in a controlled environment who presents seeming to be with limited impulse control and almost speaking in stream of consciousness and behaving and responding to those thoughts. She does have a guardian and has had 2 injections of Invega sustain a with the next one due in January. RECOMMENDATION AND PLAN: 1. Continue current medication: received Invega Sustenna 234 mg IM to the deltoid 12/20/2020, and Invega Sustenna 156 mg IM to the deltoid 12/27/2020,Seroquel 200 mg at bedtime. Haldol 2.5 mg QHS. Lamictal 150 mg QHS. 2. She is s/p surgical repair of a fractured right malleolus. 3. Continue every 15 minute checks for safety. 4. Encourage individual, group and milieu therapies. 5. Encourage sober living treatment after discharge at the highest level of care to which he is willing to commit. Her guardian wants her in a [facility] but patient is adamant that she will not accept that. 6. We have filed a petition for guardianship. 7. We have change the diagnosis from bipolar disorder with psychotic features to schizoaffective disorder, bipolar type, as the patient continues to have psychotic symptoms even when her mood stabilizes. 8. She presented in what appears to be full-blown aneta. Temporary guardianship was awarded on 01/05 and the 21-day commitment was not needed. Involuntary Hold Information 96 Hour Hold: 96 Hour Involuntary Admission: No Attestations NPU Medical Necessity Statement*: Inpatient hospitalization is medically necessary and the clinically appropriate intervention at this time. We will initiate medications and make changes as indicated. Coding Level of Care Code Acute Center Medical Specialist for [facility] Diagnoses Schizoaffective disorder, bipolar type F25.0 Status post ORIF of fracture of ankle Z98.890; Z87.81 Bimalleolar fracture of right ankle S82.841A PTSD (post-traumatic stress disorder) F43.10
[2021-01-10 13:52] VITALS: BP 90/51; PULSE 105; RESP 16; TEMP 36.8; O2SAT 100
[2021-01-10 22:00] VITALS: RESP 16
[2021-01-11] MEDS: lamoTRIgine 25 mg Tablet 50 MG PO ×2 (02:01→20:21)
[2021-01-11] MEDS: quetiapine 100 mg Tablet 200 MG PO ×2 (02:02→20:21)
[2021-01-11] MEDS: lamoTRIgine 100 mg Tablet PO ×2 (02:02→20:20)
[2021-01-11] MEDS: ibuprofen 800 mg tablet PO ×4 (02:02→20:21)
[2021-01-11] MEDS: haloperidol 5 mg Tablet 2.5 MG PO ×2 (02:02→20:20)
--- NOTE | 2021-01-11 02:05 | PC.NURSE ---
Pt given HS meds at this time due to being asleep at scheduled time to be given.
[2021-01-11 06:00] VITALS: RESP 18
[2021-01-11] MEDS: nicotine 2 mg Gum BUCCAL ×6 (06:33→22:35)
[2021-01-11] MEDS: LORazepam 2 mg Tablet PO ×2 (10:00→16:13)
--- NOTE | 2021-01-11 10:24 | W.PM.NPUPNS ---
Subjective NPU Subjective: Interval history: She has been compliant with medications recently. She is sleeping relatively well at times. She continues to be very intrusive. She is walking the halls constantly intruding into other people's conversations and the nurses stations business. She wrote on the hernández in the day room down the celestin and all over her room. She said that she was decorating. She continues to be very resistant to going to an RCF which is why her guardian has arranged in [facility]. Evidently her mother is not happy that she will be that far away. Mother said that she could not handle her at home previously but now says that she wants her home. Mental Status Exam MSE Comments: This is an overweight white female with hospital scrubs on with limited eye contact. She is in hospital scrubs with fair grooming. No abnormal movements. She was generally pleasant and did not raise her voice or become angry. psychomotor activity normal. Speech is at a regular rate and rhythm, normal volume, good articulation, not pressured. Alert, oriented X3 Attention and concentration within normal limits. Memory is intact Mood is frustrated. Affect is irritable. Thought process is logical and goal-directed. Thought content: Denies auditory and visual hallucinations. She appears to be delusional but it is difficult to say what is going on hit her head.. No current suicidal ideation, and no homicidal ideation. Fund of knowledge is within normal limits. Insight and judgment appear to be poor. Impulse control is poor. Cognition: Patient Appearance: Appropriate Level of Consciousness: Awake, Combative, Inappropriate and Restless Patient Cognition Impaired: Yes Ability to Follow Directions: Poor Patient Orientation (long list): Person, Place, Time, Name, Age, Birthday, Day of Month and Day of Week Comprehension Ability: No Impairment Hallucination Type: None Delusion Description: Not Present Thought Process: Circumstantial Affect: Affect Description: Appropriate and Calm Behavior: Patient Behavior: Appropriate and Cooperative Speech Pattern: Appropriate and Clear Vitals/I&O/Wt Last Vital Signs Temp 98.2 F 01/10/21 13:52 Pulse 105 H 01/10/21 13:52 Resp 18 01/11/21 06:00 BP 90/51 01/10/21 13:52 Pulse Ox 100 01/10/21 13:52 Data NPU : 12/28/20 10:41 11/09/21 10:41 A&P Assessment and plan (1) Schizoaffective disorder, bipolar type: Status: Acute (2) Status post ORIF of fracture of ankle: Status: Acute (3) Bimalleolar fracture of right ankle: Status: Acute (4) PTSD (post-traumatic stress disorder): Status: Chronic Additional A&P Information (1) Schizoaffective disorder, bipolar type: (2) Status post ORIF of fracture of ankle: (3) Bimalleolar fracture of right ankle: (4) PTSD (post-traumatic stress disorder): Additional A&P Information This is a 25 year old female who has a past history of bipolar disorder with psychosis who was admitted through our emergency department on a 96-hour hold after recently being discharged from the unit last week with significant concerns at that time that she would not be able to manage herself outside the hospital and may ultimately need a guardian and residency in a controlled environment who presents seeming to be with limited impulse control and almost speaking in stream of consciousness and behaving and responding to those thoughts. She does have a guardian and has had 2 injections of Invega sustain a with the next one due in January. RECOMMENDATION AND PLAN: 1. Continue current medication: received Invega Sustenna 234 mg IM to the deltoid 12/20/2020, and Invega Sustenna 156 mg IM to the deltoid 12/27/2020. Next dose is due January 30. Seroquel 200 mg at bedtime. Haldol 2.5 mg QHS. Lamictal 150 mg QHS. 2. She is s/p surgical repair of a fractured right malleolus. 3. Continue every 15 minute checks for safety. 4. Encourage individual, group and milieu therapies. 5. Encourage sober living treatment after discharge at the highest level of care to which he is willing to commit. Her guardian wants her in a chcf but patient is adamant that she will not accept that. 6. We have filed a petition for guardianship. 7. We have change the diagnosis from bipolar disorder with psychotic features to schizoaffective disorder, bipolar type, as the patient continues to have psychotic symptoms even when her mood stabilizes. 8. She presented in what appears to be full-blown aneta. Temporary guardianship was awarded on 01/05 and the 21-day commitment was not needed. Involuntary Hold Information 96 Hour Hold: 96 Hour Involuntary Admission: No Attestations NPU Medical Necessity Statement*: Inpatient hospitalization is medically necessary and the clinically appropriate intervention at this time. We will initiate medications and make changes as indicated. Coding Level of Care Code Acute Water Resource Engineer for Dana Morales Diagnoses Schizoaffective disorder, bipolar type F25.0 Status post ORIF of fracture of ankle Z98.890; Z87.81 Bimalleolar fracture of right ankle S82.841A PTSD (post-traumatic stress disorder) F43.10
--- NOTE | 2021-01-11 12:20 | NPU.GN ---
[facility] Group Topic:roup Topic: What are we Thankful For General Mood of Group: Sherri did attend group and participated . She was social and in a good mindset. Her hygiene was good. She did get a little loud a few times nothing out of the ordinary. At some point she was removed from group by other staff. Sherri asked to speak with this marine underwriter before this marine underwriter left. This marine underwriter met with the patient and the patient began to discuss her guardian and how she wanted to stay in [facility]. Sherri mentioned that she would reside in a fixed income housing , she wants to stay in [facility] though. This marine underwriter mentioned to the patient that she should discuss this with her guardian and the social work team.
[2021-01-11 14:00] VITALS: BP 121/86; PULSE 99; RESP 16; TEMP 37; O2SAT 97
[2021-01-11 21:42] VITALS: RESP 16
[2021-01-11 22:36] VITALS: BP 107/92; PULSE 102; RESP 15; TEMP 37.1; O2SAT 98
[2021-01-12 06:00] VITALS: BP 120/61; PULSE 126; RESP 18; TEMP 36.8; O2SAT 99
[2021-01-12] MEDS: nicotine 2 mg Gum BUCCAL ×6 (06:03→17:23)
[2021-01-12] MEDS: ibuprofen 800 mg tablet PO ×3 (08:06→21:00)
[2021-01-12] MEDS: LORazepam 2 mg Tablet PO ×2 (10:05→14:53)
--- NOTE | 2021-01-12 12:32 | XRR_ITS ---
PROCEDURE INFORMATION: Exam: XR Right Ankle Exam date and time: 01/12/2021 12:32 PM Age: 25 years old Clinical indication: Device placement; Other: Fu open reduction and internal fixation; Prior surgery; Surgery date: 3-7 days post-operative TECHNIQUE: Imaging protocol: XR Right ankle. Views: 3 or more views. COMPARISON: CR XR ankle RT min 3V* [id number] 11/30/2020 6:54 PM FINDINGS: Bones/joints: Bimalleolar fracture status post ORIF with metallic screws in place. The bones show anatomic alignment. Soft tissues: Soft tissue edema is seen in the lateral aspect of the ankle. A metallic tian seen in the medial and lateral ankle on prior examination have now been removed XR/XR ankle RT min 3V* [id number] IMPRESSION: 1. No acute findings. 2. Bimalleolar fracture ORIF 3. Soft tissue edema lateral ankle Radiation Dose CTDIVOL = (mGy): DLP = (mGy-cm)
--- NOTE | 2021-01-12 12:57 | NPU.GN ---
[facility] Unit Group Topic:Group Topic: Pie of Emotions, Coping, and Supports General Mood of Group: Sherri did attend and participate in group today. She was mentally stable and was able to follow group and the activity. She was groomed, and her demeanor was pleasant and she did not have outbursts in this group.
--- NOTE | 2021-01-12 13:40 | W.PM.NPUPNS ---
Subjective NPU Subjective: Interval history: She continues to be very intrusive. She is frequently at the nurses station and intervenes and other people's conversations. I was considering changing her medication. I asked her if she had taken Latuda and she said that she did and it was not helpful. She said that it made her have what sounds like tardive dyskinesia movements of her mouth. She had this sleep with her hand on her mouth to keep it from moving. She has not been on Vraylar but said that she does not have insurance and could not would not be able to afford it. She also says that she will not take lithium. She wants to stay on her current medication. Mental Status Exam MSE Comments: This is an overweight white female with hospital scrubs on with limited eye contact. She is in hospital scrubs with fair grooming. No abnormal movements. She was generally pleasant and did not raise her voice or become angry. psychomotor activity normal. Speech is at a regular rate and rhythm, normal volume, good articulation, not pressured. Alert, oriented X3 Attention and concentration within normal limits. Memory is intact Mood is frustrated. Affect is irritable. Thought process is logical and goal-directed. Thought content: Denies auditory and visual hallucinations. She appears to be delusional but it is difficult to say what is going on hit her head.. No current suicidal ideation, and no homicidal ideation. Fund of knowledge is within normal limits. Insight and judgment appear to be poor. Impulse control is poor. Cognition: Patient Appearance: Appropriate Level of Consciousness: Awake, Combative, Inappropriate and Restless Patient Cognition Impaired: Yes Ability to Follow Directions: Poor Patient Orientation (long list): Person, Place, Time, Name, Age, Birthday, Day of Month and Day of Week Comprehension Ability: No Impairment Hallucination Type: None Delusion Description: Not Present Thought Process: Circumstantial Affect: Affect Description: Anxious and Labile Behavior: Patient Behavior: Angry and Irritable Speech Pattern: Clear, Includes Profanity, Pressured and Rambling Vitals/I&O/Wt Last Vital Signs Temp 98.3 F 01/13/21 14:00 Pulse 117 H 01/13/21 14:00 Resp 19 H 01/13/21 14:00 BP 129/86 01/13/21 14:00 Pulse Ox 98 01/13/21 14:00 Data NPU : 12/28/20 10:41 12/28/20 10:41 A&P Assessment and plan (1) Schizoaffective disorder, bipolar type: Status: Acute (2) Status post ORIF of fracture of ankle: Status: Acute (3) Bimalleolar fracture of right ankle: Status: Acute (4) PTSD (post-traumatic stress disorder): Status: Chronic Additional A&P Information (1) Schizoaffective disorder, bipolar type: (2) Status post ORIF of fracture of ankle: (3) Bimalleolar fracture of right ankle: (4) PTSD (post-traumatic stress disorder): Additional A&P Information This is a 25 year old female who has a past history of bipolar disorder with psychosis who was admitted through our emergency department on a 96-hour hold after recently being discharged from the unit last week with significant concerns at that time that she would not be able to manage herself outside the hospital and may ultimately need a guardian and residency in a controlled environment who presents seeming to be with limited impulse control and almost speaking in stream of consciousness and behaving and responding to those thoughts. She does have a guardian and has had 2 injections of Invega sustain a with the next one due in January. RECOMMENDATION AND PLAN: 1. Continue current medication: received Invega Sustenna 234 mg IM to the deltoid 12/20/2020, and Invega Sustenna 156 mg IM to the deltoid 12/27/2020. Next dose is due January 30. Seroquel 200 mg at bedtime. Haldol 2.5 mg QHS. Lamictal 150 mg QHS. 2. She is s/p surgical repair of a fractured right malleolus. 3. Continue every 15 minute checks for safety. 4. Encourage individual, group and milieu therapies. 5. Encourage sober living treatment after discharge at the highest level of care to which he is willing to commit. Her guardian wants her in a retirement but patient is adamant that she will not accept that. 6. We have filed a petition for guardianship. 7. We have change the diagnosis from bipolar disorder with psychotic features to schizoaffective disorder, bipolar type, as the patient continues to have psychotic symptoms even when her mood stabilizes. 8. She presented in what appears to be full-blown aneta. Temporary guardianship was awarded on 01/05 and the 21-day commitment was not needed. Involuntary Hold Information 96 Hour Hold: 96 Hour Involuntary Admission: No Attestations NPU Medical Necessity Statement*: Inpatient hospitalization is medically necessary and the clinically appropriate intervention at this time. We will initiate medications and make changes as indicated. Coding Level of Care Code Acute Bomb Loader for Dana Moralesd Diagnoses Schizoaffective disorder, bipolar type F25.0 Status post ORIF of fracture of ankle Z98.890; Z87.81 Bimalleolar fracture of right ankle S82.841A PTSD (post-traumatic stress disorder) F43.10
--- NOTE | 2021-01-12 13:58 | PM.MISC ---
Miscellaneous Note Purpose of Documentation: Radiographs were reviewed of the right ankle that have been obtained today. Her hardware is stable. I can see no persistent fracture lines. Her talus is aligned in the mortise. Sherri's fracture is radiographically healed. She can resume activities as tolerated. No further up with orthopedics is necessary.
[2021-01-12 14:00] VITALS: BP 120/61; PULSE 126; RESP 18; TEMP 36.8; O2SAT 99
[2021-01-12] MEDS: acetaminophen 325 mg Tablet 650 MG PO (14:11)
--- NOTE | 2021-01-12 16:58 | PC.NURSE ---
New patient admitted to 128, verbally aggressive toward Sherri. Sherri flipped the new patient off and requested to be medicated with Ativan prior to visitation with her mom.
[2021-01-12] MEDS: lamoTRIgine 25 mg Tablet 50 MG PO (20:57)
[2021-01-12] MEDS: haloperidol 5 mg Tablet 2.5 MG PO (20:58)
[2021-01-12] MEDS: quetiapine 100 mg Tablet 200 MG PO (20:59)
[2021-01-12] MEDS: lamoTRIgine 100 mg Tablet PO (20:59)
[2021-01-12 21:01] VITALS: RESP 16
[2021-01-13] MEDS: nicotine 2 mg Gum BUCCAL ×5 (05:04→20:24)
[2021-01-13] MEDS: acetaminophen 325 mg Tablet 650 MG PO (05:14)
[2021-01-13] MEDS: ondansetron 4 MG Tablet PO (05:14)
[2021-01-13 06:00] VITALS: BP 129/86; PULSE 117; RESP 19; O2SAT 98
[2021-01-13] MEDS: ibuprofen 800 mg tablet PO ×3 (08:19→20:25)
[2021-01-13] MEDS: LORazepam 2 mg Tablet PO (08:44)
[2021-01-13] MEDS: haloperidol inj 5 mg/mL INJ 1 mL IM (11:39)
[2021-01-13] MEDS: LORazepam 2 mg/mL INJ 1 mL IM (11:40)
[2021-01-13] MEDS: diphenhydrAMINE 50 mg/mL SDV 1mL IM (11:40)
--- NOTE | 2021-01-13 11:40 | PC.NURSE ---
prn Administered 50mg benadryl IM, 2mg AtivanIM, 5mg Haldol IM to pt for yelling and screaming, getting really worked up about wanting to leave. Very agitated and unable to calm down with redirection. Will continue to monitor.
--- NOTE | 2021-01-13 13:06 | PC.NURSE ---
Sherri continues to pace the hallways, rambling speech, focusing on Dr. Hare, fire code violations, song lyrics, her [place], and needing to call Yecenia. I have to much shit going around in my head, I need to concentrate and get it all written down. I'll tell you about it. I need more paper.
--- NOTE | 2021-01-13 13:54 | PC.NURSE ---
At nurses desk requesting copies made of papers she has written on. I've got a lawsuit in my hands right here. You might want to get rid of Dr. Hare before he brings this place down. Lot of paperwork isn't it. I stay on my fucking game don't I.
[2021-01-13 14:00] VITALS: BP 129/86; PULSE 117; RESP 19; TEMP 36.8; O2SAT 98
[2021-01-13] MEDS: OLANZapine 5 mg ODT PO (14:25)
--- NOTE | 2021-01-13 14:35 | P.NPUPN_ITS ---
Subjective NPU Subjective: Interval history: She continues to be very intrusive. She is frequently at the nurses station and intervenes and other people's conversations. She continues to say that she will be perfectly fine with her own apartment. She feels like she would be perfectly fine going back home and refuses to consider an RCF as her guardian and this institution have recommended. She has been unsuccessful with multiple discharges and been rehospitalized multiple times. She does not seem to realize that that indicates she needs to be in better condition. Mental Status Exam MSE Comments: This is an overweight white female with hospital scrubs on with limited eye contact. She is in hospital scrubs with fair grooming. No abnormal movements. She was generally pleasant and did not raise her voice or become angry. psychomotor activity normal. Speech is at a regular rate and rhythm, normal volume, good articulation, not pressured. Alert, oriented X3 Attention and concentration within normal limits. Memory is intact Mood is frustrated. Affect is irritable. Thought process is logical and goal-directed. Thought content: Denies auditory and visual hallucinations. She appears to be delusional but it is difficult to say what is going on hit her head.. No current suicidal ideation, and no homicidal ideation. Fund of knowledge is within normal limits. Insight and judgment appear to be poor. Impulse control is poor. Cognition: Patient Appearance: Appropriate Level of Consciousness: Awake, Combative, Inappropriate and Restless Patient Cognition Impaired: Yes Ability to Follow Directions: Poor Patient Orientation (long list): Person, Place, Time, Name, Age, Birthday, Day of Month and Day of Week Comprehension Ability: No Impairment Hallucination Type: None Delusion Description: Not Present Thought Process: Circumstantial Affect: Affect Description: Anxious and Labile Behavior: Patient Behavior: Angry and Irritable Speech Pattern: Clear, Includes Profanity, Pressured and Rambling Vitals/I&O/Wt Last Vital Signs Temp 98.3 F 01/13/21 14:00 Pulse 117 H 01/13/21 14:00 Resp 19 H 01/13/21 14:00 BP 129/86 01/13/21 14:00 Pulse Ox 98 01/13/21 14:00 Data NPU : 12/28/20 10:41 12/28/20 10:41 A&P Assessment and plan (1) Schizoaffective disorder, bipolar type: Status: Acute (2) Status post ORIF of fracture of ankle: Status: Acute (3) Bimalleolar fracture of right ankle: Status: Acute (4) PTSD (post-traumatic stress disorder): Status: Chronic Additional A&P Information (1) Schizoaffective disorder, bipolar type: (2) Status post ORIF of fracture of ankle: (3) Bimalleolar fracture of right ankle: (4) PTSD (post-traumatic stress disorder): Additional A&P Information This is a 25 year old female who has a past history of bipolar disorder with psychosis who was admitted through our emergency department on a 96-hour hold after recently being discharged from the unit last week with significant concerns at that time that she would not be able to manage herself outside the hospital and may ultimately need a guardian and residency in a controlled environment who presents seeming to be with limited impulse control and almost speaking in stream of consciousness and behaving and responding to those thoughts. She does have a guardian and has had 2 injections of Invega sustain a with the next one due in January. RECOMMENDATION AND PLAN: 1. Continue current medication: received Invega Sustenna 234 mg IM to the deltoid 12/20/2020, and Invega Sustenna 156 mg IM to the deltoid 12/27/2020. Next dose is due January 30. Seroquel 200 mg at bedtime. Haldol 2.5 mg QHS. Lamictal 150 mg QHS. 2. She is s/p surgical repair of a fractured right malleolus. 3. Continue every 15 minute checks for safety. 4. Encourage individual, group and milieu therapies. 5. Encourage sober living treatment after discharge at the highest level of care to which he is willing to commit. Her guardian wants her in a nursing home but patient is adamant that she will not accept that. 6. We have filed a petition for guardianship. 7. We have change the diagnosis from bipolar disorder with psychotic features to schizoaffective disorder, bipolar type, as the patient continues to have psychotic symptoms even when her mood stabilizes. 8. She presented in what appears to be full-blown aneta. Temporary g uardianship was awarded on 01/05 and the 21-day commitment was not needed. Involuntary Hold Information 96 Hour Hold: 96 Hour Involuntary Admission: No Attestations U Medical Necessity Statement*: Inpatient hospitalization is medically necessary and the clinically appropriate intervention at this time. We will initiate medications and make changes as indicated. Coding Level of Care Code Acute Aluminum Boats Assembler for Dana Moralesd Diagnoses Schizoaffective disorder, bipolar type F25.0 Status post ORIF of fracture of ankle Z98.890; Z87.81 Bimalleolar fracture of right ankle S82.841A PTSD (post-traumatic stress disorder) F43.10
[2021-01-13 14:52] VITALS: BP 118/76; PULSE 88; RESP 18; TEMP 36.5; O2SAT 96
[2021-01-13 16:36] LABS: SARS Covid-2 Antigen Negative (Negative)
[2021-01-13 20:17] VITALS: RESP 16
[2021-01-13] MEDS: lamoTRIgine 25 mg Tablet 50 MG PO (20:24)
[2021-01-13] MEDS: haloperidol 5 mg Tablet 2.5 MG PO (20:25)
[2021-01-13] MEDS: quetiapine 100 mg Tablet 200 MG PO (20:26)
[2021-01-13] MEDS: lamoTRIgine 100 mg Tablet PO (20:31)
[2021-01-14] MEDS: nicotine 2 mg Gum BUCCAL ×5 (00:23→22:58)
[2021-01-14 06:00] VITALS: RESP 15
[2021-01-14] MEDS: ibuprofen 800 mg tablet PO ×3 (08:45→20:47)
[2021-01-14] MEDS: LORazepam 2 mg Tablet PO ×3 (10:15→22:58)
--- NOTE | 2021-01-14 10:42 | P.NPUPN_ITS ---
Subjective NPU Subjective: Interval history: She continues about the same. She is generally pleasant and cooperative but very intrusive and talkative. We have been told her guardian would call her last night but did not. It very well could be that that was a misunderstanding since it was Thanksgiving evening. She is hoping to talk with her today. Evidently her mother has cataloger and is going to try to get guardianship. That certainly is going to take some time. We are looking for a different [facility] to take her. Mental Status Exam 2 MSE Comments: This is an overweight white female with hospital scrubs on with limited eye contact. She is in hospital scrubs with fair grooming. No abnormal movements. She was generally pleasant and did not raise her voice or become angry. psychomotor activity normal. Speech is at a regular rate and rhythm, normal volume, good articulation, not pressured. Alert, oriented X3 Attention and concentration within normal limits. Memory is intact Mood is frustrated. Affect is a little less irritable than yesterday. Thought process is logical and goal-directed. Thought content: Denies auditory and visual hallucinations. She appears to be delusional but it is difficult to say what is going on hit her head.. No current suicidal ideation, and no homicidal ideation. Fund of knowledge is within normal limits. Insight and judgment appear to be poor. Impulse control is poor. Cognition: Patient Appearance: Appropriate Level of Consciousness: Awake, Combative, Inappropriate and Restless Patient Cognition Impaired: Yes Ability to Follow Directions: Poor Patient Orientation (long list): Person, Place, Time, Name, Age, Birthday, Day of Month and Day of Week Comprehension Ability: No Impairment Hallucination Type: None Delusion Description: Not Present Thought Process: Circumstantial Affect: Affect Description: Appropriate Behavior: Patient Behavior: Appropriate, Cooperative and Impulsive Speech Pattern: Appropriate, Clear and Rambling Vitals/I&O/Wt Last Vital Signs Temp 97.7 F 01/13/21 14:52 Pulse 88 01/13/21 14:52 Resp 15 01/14/21 06:00 BP 118/76 01/13/21 14:52 Pulse Ox 96 01/13/21 14:52 Data NPU : 12/28/20 10:41 12/28/20 10:41 A&P Assessment and plan (1) Schizoaffective disorder, bipolar type: Status: Acute (2) Status post ORIF of fracture of ankle: Status: Acute (3) Bimalleolar fracture of right ankle: Status: Acute (4) PTSD (post-traumatic stress disorder): Status: Chronic Additional A&P Information (1) Schizoaffective disorder, bipolar type: (2) Status post ORIF of fracture of ankle: (3) Bimalleolar fracture of right ankle: (4) PTSD (post-traumatic stress disorder): Additional A&P Information This is a 25 year old female who has a past history of bipolar disorder with psychosis who was admitted through our emergency department on a 96-hour hold after recently being discharged from the unit last week with significant concerns at that time that she would not be able to manage herself outside the hospital and may ultimately need a guardian and residency in a controlled environment who presents seeming to be with limited impulse control and almost speaking in stream of consciousness and behaving and responding to those thoughts. She does have a guardian and has had 2 injections of Invega sustain a with the next one due in January. RECOMMENDATION AND PLAN: 1. Continue current medication: received Invega Sustenna 234 mg IM to the deltoid 12/20/2020, and Invega Sustenna 156 mg IM to the deltoid 12/27/2020. Next dose is due January 30. Seroquel 200 mg at bedtime. Haldol 2.5 mg QHS. Lamictal 150 mg QHS. 2. She is s/p surgical repair of a fractured right malleolus. 3. Continue every 15 minute checks for safety. 4. Encourage individual, group and milieu therapies. 5. Encourage sober living treatment after discharge at the highest level of care to which he is willing to commit. Her guardian wants her in a halfway but patient is adamant that she will not accept that. 6. We have filed a petition for guardianship. 7. We have change the diagnosis from bipolar disorder with psychotic features to schizoaffective disorder, bipolar type, as the patient continues to have psychotic symptoms even when her mood stabilizes. 8. She presented in what appears to be full-blown aneta. Temporary guardianship was awarded on 01/05 and the 21-day commitment was not needed. Involuntary Hold Information 96 Hour Hold: 96 Hour Involuntary Admission: No Attestations U Medical Necessity Statement*: Inpatient hospitalization is medically necessary and the clinically appropriate intervention at this time. We will initiate medications and make changes as indicated. Coding Level of Care Code Acute Commissions Analyst for [facility] Fwd Diagnoses Schizoaffective disorder, bipolar type F25.0 Status post ORIF of fracture of ankle Z98.890; Z87.81 Bimalleolar fracture of right ankle S82.841A PTSD (post-traumatic stress disorder) F43.10
[2021-01-14] MEDS: acetaminophen 325 mg Tablet 650 MG PO ×2 (11:25→22:57)
[2021-01-14 14:00] VITALS: BP 119/80; PULSE 113; RESP 16; TEMP 37.2; O2SAT 98
[2021-01-14 20:10] VITALS: BP 97/69; PULSE 108; RESP 17; TEMP 37.1; O2SAT 97
[2021-01-14] MEDS: lamoTRIgine 100 mg Tablet PO (20:47)
[2021-01-14] MEDS: quetiapine 100 mg Tablet 200 MG PO (20:48)
[2021-01-14] MEDS: lamoTRIgine 25 mg Tablet 50 MG PO (20:48)
[2021-01-14] MEDS: haloperidol 5 mg Tablet 2.5 MG PO (20:48)
[2021-01-15 06:00] VITALS: RESP 16
[2021-01-15] MEDS: nicotine 2 mg Gum BUCCAL ×5 (09:49→21:18)
[2021-01-15] MEDS: ibuprofen 800 mg tablet PO ×3 (09:49→21:16)
[2021-01-15] MEDS: LORazepam 2 mg Tablet PO (11:26)
[2021-01-15 14:00] VITALS: BP 101/81; PULSE 110; RESP 16; TEMP 36.9; O2SAT 98
--- NOTE | 2021-01-15 14:37 | P.NPUPN_ITS ---
Subjective NPU Subjective: Interval history: She is still focused on wanting to go home to live with her mother. She says that her mother has a nut dehydrator operator. I acknowledged that I had heard that her mother was going to try to get guardianship. I told her that probably was not going to happen anytime soon and she is still was under the supervision of her current guardian and still needed to go to a place that they agree on. She still says that she will not go to an ISL or [facility]. Mental Status Exam MSE Comments: This is an overweight white female with hospital scrubs on with limited eye contact. She is in hospital scrubs with fair grooming. No abnormal movements. She was generally pleasant and did not raise her voice or become angry. psychomotor activity normal. Speech is at a regular rate and rhythm, normal volume, good articulation, not pressured. Alert, oriented X3 Attention and concentration within normal limits. Memory is intact Mood is frustrated. Affect is a little less. Thought process is logical and goal-directed. Thought content: Denies auditory and visual hallucinations. She appears to be delusional but it is difficult to say what is going on hit her head.. No current suicidal ideation, and no homicidal ideation. Fund of knowledge is within normal limits. Insight and judgment appear to be poor. Impulse control is poor. Cognition: Patient Appearance: Appropriate Level of Consciousness: Awake, Combative, Inappropriate and Restless Patient Cognition Impaired: Yes Ability to Follow Directions: Poor Patient Orientation (long list): Person, Place, Time, Name, Age, Birthday, Day of Month and Day of Week Comprehension Ability: No Impairment Hallucination Type: None Delusion Description: Not Present Thought Process: Circumstantial Affect: Affect Description: Appropriate Behavior: Patient Behavior: Appropriate Speech Pattern: Appropriate Vitals/I&O/Wt Last Vital Signs Temp 98.8 F 01/14/21 20:10 Pulse 108 H 01/14/21 20:10 Resp 16 01/15/21 06:00 BP 97/69 01/14/21 20:10 Pulse Ox 97 01/14/21 20:10 Data NPU : 12/28/20 10:41 12/28/20 10:41 A&P Assessment and plan (1) Schizoaffective disorder, bipolar type: Status: Acute (2) Status post ORIF of fracture of ankle: Status: Acute (3) Bimalleolar fracture of right ankle: Status: Acute (4) PTSD (post-traumatic stress disorder): Status: Chronic Additional A&P Information (1) Schizoaffective disorder, bipolar type: (2) Status post ORIF of fracture of ankle: (3) Bimalleolar fracture of right ankle: (4) PTSD (post-traumatic stress disorder): Additional A&P Information This is a 25 year old female who has a past history of bipolar disorder with psychosis who was admitted through our emergency department on a 96-hour hold after recently being discharged from the unit last week with significant concerns at that time that she would not be able to manage herself outside the hospital and may ultimately need a guardian and residency in a controlled environment who presents seeming to be with limited impulse control and almost speaking in stream of consciousness and behaving and responding to those thoughts. She does have a guardian and has had 2 injections of Invega sustain a with the next one due in January. RECOMMENDATION AND PLAN: 1. Continue current medication: received Invega Sustenna 234 mg IM to the deltoid 12/20/2020, and Invega Sustenna 156 mg IM to the deltoid 12/27/2020. Next dose is due January 30. Seroquel 200 mg at bedtime. Haldol 2.5 mg QHS. Lamictal 150 mg QHS. 2. She is s/p surgical repair of a fractured right malleolus. 3. Continue every 15 minute checks for safety. 4. Encourage individual, group and milieu therapies. 5. Encourage sober living treatment after discharge at the highest level of c are to which he is willing to commit. Her guardian wants her in a senior care but patient is adamant that she will not accept that. 6. We have filed a petition for guardianship. 7. We have change the diagnosis from bipolar disorder with psychotic features to schizoaffective disorder, bipolar type, as the patient continues to have psychotic symptoms even when her mood stabilizes. 8. She presented in what appears to be full-blown aneta. Temporary guardianship was awarded on 01/05 and the 21-day commitment was not needed. Involuntary Hold Information 96 Hour Hold: 96 Hour Involuntary Admission: No Attestations NPU Medical Necessity Statement*: Inpatient hospitalization is medically necessary and the clinically appropriate intervention at this time. We will initiate medications and make changes as indicated. Coding Level of Care Code Acute Assistant Professor Of Drama for [employer] Diagnoses Schizoaffective disorder, bipolar type F25.0 Status post ORIF of fracture of ankle Z98.890; Z87.81 Bimalleolar fracture of right ankle S82.841A PTSD (post-traumatic stress disorder) F43.10
[2021-01-15] MEDS: acetaminophen 325 mg Tablet 650 MG PO (17:14)
[2021-01-15 20:34] VITALS: BP 110/66; PULSE 77; RESP 17; TEMP 36.8; O2SAT 97
[2021-01-15] MEDS: lamoTRIgine 25 mg Tablet 50 MG PO (21:15)
[2021-01-15] MEDS: quetiapine 100 mg Tablet 200 MG PO (21:15)
[2021-01-15] MEDS: lamoTRIgine 100 mg Tablet PO (21:18)
[2021-01-15] MEDS: haloperidol 5 mg Tablet 2.5 MG PO (21:18)
[2021-01-16 06:00] VITALS: BP 128/79; PULSE 100; RESP 18; TEMP 36.9; O2SAT 97
[2021-01-16] MEDS: LORazepam 2 mg Tablet PO ×3 (06:01→17:28)
[2021-01-16] MEDS: ondansetron 4 MG Tablet PO (06:01)
[2021-01-16] MEDS: nicotine 2 mg Gum BUCCAL ×4 (06:15→15:11)
[2021-01-16] MEDS: ibuprofen 800 mg tablet PO ×3 (09:43→22:53)
--- NOTE | 2021-01-16 11:04 | P.NPUPN_ITS ---
Subjective NPU Subjective: Interval history: She is still focused on wanting to go home to live with her mother. She continues to be at the nursing station and intrusive frequently. She has not been very argumentative. She still says that she will not go to an ISL or [facility]. Mental Status Exam MSE Comments: This is an overweight white female with hospital scrubs on with limited eye contact. She is in hospital scrubs with fair grooming. No abnormal movements. She was generally pleasant and did not raise her voice or become angry. psychomotor activity normal. Speech is at a regular rate and rhythm, normal volume, good articulation, not pressured. Alert, oriented X3 Attention and concentration within normal limits. Memory is intact Mood is frustrated. Affect is a little less irritable. Thought process is logical and goal-directed. Thought content: Denies auditory and visual hallucinations. She appears to be delusional but it is difficult to say what is going on hit her head.. No cur rent suicidal ideation, and no homicidal ideation. Fund of knowledge is within normal limits. Insight and judgment appear to be poor. Impulse control is poor. Cognition: Patient Appearance: Appropriate Level of Consciousness: Awake, Combative, Inappropriate and Restless Patient Cognition Impaired: Yes Ability to Follow Directions: Poor Patient Orientation (long list): Person, Place, Time, Name, Age, Birthday, Day of Month and Day of Week Comprehension Ability: No Impairment Hallucination Type: None Delusion Description: Not Present Thought Process: Circumstantial Affect: Affect Description: Calm Behavior: Patient Behavior: Cooperative Speech Pattern: Clear Vitals/I&O/Wt Last Vital Signs Temp 98.4 F 01/16/21 06:00 Pulse 100 01/16/21 06:00 Resp 18 01/16/21 06:00 BP 128/79 01/16/21 06:00 Pulse Ox 97 01/16/21 06:00 Data NPU : 12/28/20 10:41 12/28/20 10:41 A&P Assessment and plan (1) Schizoaffective disorder, bipolar type: Status: Acute (2) Status post ORIF of fracture of ankle: Status: Acute (3) Bimalleolar fracture of right ankle: Status: Acute (4) PTSD (post-traumatic stress disorder): Status: Chronic Additional A&P Information (1) Schizoaffective disorder, bipolar type: (2) Status post ORIF of fracture of ankle: (3) Bimalleolar fracture of right ankle: (4) PTSD (post-traumatic stress disorder): Additional A&P Information This is a 25 year old female who has a past history of bipolar disorder with psy chosis who was admitted through our emergency department on a 96-hour hold after recently being discharged from the unit last week with significant concerns at that time that she would not be able to manage herself outside the hospital and may ultimately need a guardian and residency in a controlled environment who presents seeming to be with limited impulse control and almost speaking in stream of consciousness and behaving and responding to those thoughts. She does have a guardian and has had 2 injections of Invega sustain a with the next one due in January. RECOMMENDATION AND PLAN: 1. Continue current medication: received Invega Sustenna 234 mg IM to the deltoid 12/20/2020, and Invega Sustenna 156 mg IM to the deltoid 12/27/2020. Next dose is due January 30. Seroquel 200 mg at bedtime. Haldol 2.5 mg QHS. Lamictal 150 mg QHS. 2. She is s/p surgical repair of a fractured right malleolus. 3. Continue every 15 minute checks for safety. 4. Encourage individual, group and milieu therapies. 5. Encourage sober living treatment after discharge at the highest level of care to which he is willing to commit. Her guardian wants her in a [place] [facility] but patient is adamant that she will not accept that. 6. We have filed a petition for guardianship. 7. We have change the diagnosis from bipolar disorder with psychotic features to schizoaffective disorder, bipolar type, as the patient continues to have psychotic symptoms even when her mood stabilizes. 8. She presented in what appears to be full-blown aneta. Temporary guardianship was awarded on 01/05 and the 21-day commitment was not needed. Involuntary Hold Information 96 Hour Hold: 96 Hour Involuntary Admission: No Attestations NPU Medical Necessity Statement*: Inpatient hospitalization is medically necessary and the clinically appropriate intervention at this time. We will initiate medications and make changes as indicated. Coding Level of Care Code Acute Multiple Resaw Operator for Dana Segura Diagnoses Schizoaffective disorder, bipolar type F25.0 Status post ORIF of fracture of ankle Z98.890; Z87.81 Bimalleolar fracture of right ankle S82.841A PTSD (post-traumatic stress disorder) F43.10
[2021-01-16 14:00] VITALS: BP 128/75; PULSE 86; RESP 17; TEMP 37.2; O2SAT 97
--- NOTE | 2021-01-16 15:45 | PC.NURSE ---
Addendum entered by Leticia Hummel RN 01/16/21 15:50: Correction- Ativan given at 1245. Original Note: Patient has had good day today. Has been up and interactive well. Did become tense, irritable, and anxious at 1215. Took PRN Ativan per request at that time to good effect. Utilizing Nicotine gum throughout day for tobacco cravings.
[2021-01-16 21:29] VITALS: RESP 16
[2021-01-16] MEDS: quetiapine 100 mg Tablet 200 MG PO (22:54)
[2021-01-16] MEDS: lamoTRIgine 25 mg Tablet 50 MG PO (22:54)
[2021-01-16] MEDS: haloperidol 5 mg Tablet 2.5 MG PO (22:55)
[2021-01-16] MEDS: lamoTRIgine 100 mg Tablet PO (22:55)
[2021-01-17] MEDS: LORazepam 2 mg Tablet PO ×2 (05:01→10:41)
[2021-01-17] MEDS: nicotine 2 mg Gum BUCCAL ×3 (05:01→10:41)
[2021-01-17 06:00] VITALS: BP 111/74; PULSE 78; RESP 18; TEMP 36.7; O2SAT 98
[2021-01-17] MEDS: ondansetron 4 MG Tablet PO (06:08)
[2021-01-17] MEDS: acetaminophen 325 mg Tablet 650 MG PO (06:08)
[2021-01-17] MEDS: ibuprofen 800 mg tablet PO (08:15)
[2021-01-17 10:21] VITALS: BP 111/74; PULSE 78; RESP 18; TEMP 36.7; O2SAT 98
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
== END 2021-01-17 11:07 | disposition home or self-care (01) | DRG 885 ==
LOC: ER 10:11 → NP 14:04
PROVIDERS: Psychiatry & Neurology Psychiatry; Admitting Provider Psychiatry & Neurology Psychiatry; Emergency Provider Family Medicine; Visit Provider Psychiatry & Neurology Psychiatry
DX: F25.0 Schizoaffective disorder, bipolar type (principal); F17.210 Nicotine dependence, cigarettes, uncomplicated; F43.12 Post-traumatic stress disorder, chronic; S82.841S Displaced bimalleolar fracture of right lower leg, sequela; X58.XXXS Exposure to other specified factors, sequela
CPT/HCPCS: 73610; 80053; 80307; 84703; 85025; 87426; 90471; 90686; 93005; 93970; 96372; 97150; 97165; 99285; J1200; J1630; J2060; Q0162

== ENCOUNTER 2021-01-23 22:00 | Inpatient (IN) | payer BC, MEDICAID, SELFPAY ==
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
[2021-01-23 22:34] LABS: HCG Qualitative Urine. Negative (Negative)
[2021-01-23 22:51] VITALS: BP 120/74; PULSE 105; RESP 18; TEMP 37.2; O2SAT 98; BMI 24.0
[2021-01-24 00:44] LABS: Basophils # 0.1 10^3/uL (0.0-0.1); Basophils % 0.6 %; Eosinophils # 0.1 10^3/uL (0.0-0.8); Eosinophils % 0.5 %; Hematocrit 35.6 % (37.0-47.0); Hemoglobin 11.4 g/dL (11.5-15.3); Lymphocytes # 3.2 10^3/uL (0.8-4.8); Lymphocytes % 26.3 %; Mean Corpuscular Volume 93.7 fl (81-99); Mean Platelet Volume 9.4 fL (7.4-10.4); Monocytes % 7.9 %; Neutrophils # 7.72 10^3/uL (1.8-7.7); Neutrophils % 64.4 %; Nucleated Red Blood Cells % 0 %; Platelet Count 338 10^3/cmm (130-400); Red Cell Distribution Width 14.4 % (12.1-15.1)
[2021-01-24 00:52] LABS: Amphetamines Screen Urine Negative (Negative); Barbiturates Screen Urine Negative (Negative); Benzodiazepines Screen Urine Negative (Negative); Cocaine Screen Urine Negative (Negative); Opiate Screen Urine Negative (Negative); PCP Screen Urine Negative (Negative); THC Screen Urine Negative (Negative)
[2021-01-24 00:54] LABS: Alanine Aminotransferase 9 U/L (0-33); Albumin Level 4.1 g/dL (3.5-5.2); Alkaline Phosphatase 74 IU/L (35-105); Anion Gap 16.1 (5-19); Aspartate Amino Transferase 12 U/L (0-32); Blood Urea Nitrogen 11 mg/dL (6-20); Calcium 8.4 mg/dL (8.5-10.5); Carbon Dioxide 23 mmol/L (22-29); Chloride 106 mmol/L (98-107); Glucose 88 mg/dL (65-115); Osmolality Calculated 291 mOsm/kg (285-295); Potassium 4.1 mmol/L (3.5-5.1); Sodium 141 mmol/L (136-145); Total Bilirubin 0.3 mg/dL (0.15-1.2); Total Protein 6.1 g/dL (6.6-8.7)
[2021-01-24 00:58] LABS: Acetaminophen < 5.0 ug/mL (10-30); Alcohol Level < 10 mg/dL (0-10); Salicylate < 0.3 mg/dL (3-10)
[2021-01-24 02:27] VITALS: BP 132/78; PULSE 88; RESP 18; TEMP 36.9; O2SAT 99
[2021-01-24 03:07] VITALS: BP 102/55; PULSE 102; RESP 19; O2SAT 98
[2021-01-24] MEDS: diphenhydrAMINE 50 mg/mL SDV 1mL IM (03:25)
[2021-01-24] MEDS: LORazepam 2 mg/mL INJ 1 mL IM (03:25)
[2021-01-24] MEDS: haloperidol inj 5 mg/mL INJ 1 mL IM (03:25)
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
--- NOTE | 2021-01-24 05:00 | PC.NURSE ---
pt in room resting quietly with both eyes closed
[2021-01-24 06:00] VITALS: RESP 16
[2021-01-24] MEDS: ibuprofen 800 mg tablet PO ×3 (09:06→19:55)
[2021-01-24] MEDS: lamoTRIgine 100 mg Tablet PO (09:06)
[2021-01-24] MEDS: nicotine 2 mg Gum BUCCAL ×5 (09:06→23:46)
--- NOTE | 2021-01-24 10:17 | PC.NURSE ---
PRN Patient utilizing PRN nicotine gum for cravings. A&OX4. Cooperative at this time but does appear tense intermittently.
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
[2021-01-24 14:00] VITALS: BP 131/73; PULSE 105; RESP 17; TEMP 36.8; O2SAT 98
[2021-01-24] MEDS: LORazepam 1 mg Tablet PO (17:56)
[2021-01-24] MEDS: OLANZapine 10 mg ODT PO (17:57)
[2021-01-24] MEDS: quetiapine 100 mg Tablet 200 MG PO (19:55)
[2021-01-24] MEDS: haloperidol 5 mg Tablet 2.5 MG PO (19:55)
[2021-01-24 21:39] VITALS: RESP 16
--- NOTE | 2021-01-25 02:41 | PC.NURSE ---
Sherri has had several episodes of extreme outrage between sleeping. Cursing at staff, threatening to breakout windows, calling the operations boardman, demanding Ativan injections. Demanding a Q-tip and coffee at 0200, and when informed we were not able to met her requests and asked her not to yell because other patients were sleeping, she You fely don't know how to do your job do you? Fely didn't think so. Patient de-escalated herself and returned to her room.
[2021-01-25] MEDS: nicotine 2 mg Gum BUCCAL ×5 (04:24→23:58)
[2021-01-25] MEDS: hyDROXYzine 25 mg Capsule 50 MG PO (04:52)
[2021-01-25] MEDS: OLANZapine 5 mg ODT PO (04:53)
[2021-01-25] MEDS: haloperidol 5 mg Tablet PO (04:53)
[2021-01-25 06:00] VITALS: RESP 15
[2021-01-25] MEDS: lamoTRIgine 100 mg Tablet PO (08:16)
[2021-01-25] MEDS: ibuprofen 800 mg tablet PO ×3 (08:16→22:06)
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
[2021-01-25 14:00] VITALS: BP 136/61; PULSE 78; RESP 20; TEMP 36.6; O2SAT 98
[2021-01-25] MEDS: LORazepam 1 mg Tablet PO (14:36)
[2021-01-25] MEDS: ziprasidone 20 mg/mL SDV IM (14:37)
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
--- NOTE | 2021-01-25 17:56 | W.PM.NPUPNS ---
Subjective NPU Subjective: Interval history: Sherri presents today continuing to be volatile and impulsive. We discussed that we would work with her guardian to restart Haldol to see if we can assist in her aggressiveness and agitation it seems to be from the moment he gets up the moment he lays down. Continued stream of consciousness and clang-like associations. Behavior significant enough to get as needed/IM medication. Mental Status Exam MSE Comments: This is an overweight white female with hospital scrubs on with limited grooming and eye contact. No abnormal movements except for psychomotor agitation. Mostly uncooperative with exam in moderate to extreme distress. Speech was pressured with increased rate and more normal volume but at times increased volume with often clang associations. Mood described as pissed, affect euphoric. Thought process disorganized. Thought content: Patient denied suicidal or homicidal ideation, there were no delusions reported but but continued odd thinking and expressions noted with elevated affect, she denied auditory or visual hallucinations currently. Attention and concentration were limited and memory appeared mostly unreliable but none were formally tested. She is alert and oriented x3. Insight and judgment are impaired, impulse control is impaired. Vitals/I&O/Wt Last Vital Signs Temp 98 F 01/25/21 14:00 Pulse 78 01/25/21 14:00 Resp 18 01/25/21 21:21 BP 136/61 01/25/21 14:00 Pulse Ox 98 01/25/21 14:00 Data NPU : 01/23/21 00:31 01/23/21 00:31 A&P Additional A&P Information (1) Acute psychosis: (2) Schizoaffective disorder, bipolar type: (3) PTSD (post-traumatic stress disorder): (4) Status post ORIF of fracture of ankle: (5) Bimalleolar fracture of right ankle: Additional A&P Information This is a 25-year-old white female with a long history of mental health and addiction challenges who presents about a week after her last discharge with continued inability to be managed on outpatient basis with continued aneta and erratic behavior. 1. Continue current medication. 2. Continue every 15 minute checks for safety. 3. Encourage individual, group and milieu therapies. 4. Multiple attempts to reintroduce Sherri to the community have failed and she continues to have borderline stability and may need some more adjustments possibly consider clozapine. For now we will start Haldol 2.5 mg p.o. twice daily with 5 mg of Haldol IM with either Cogentin or Benadryl IM for p.o. refusal. 5. We will explore placement possibilities with guardian. Involuntary Hold Information 96 Hour Hold: 96 Hour Involuntary Admission: Yes 96 Hour Hold Ending Date: 01/28/21 96 Hour Hold Ending Time: 00:01 Attestations NPU Medical Necessity Statement*: Inpatient hospitalization is medically necessary and the clinically appropriate intervention at this time. We will monitor medication to make changes as indicated. Likely length of stay 10-14 days. Coding Level of Care Code Acute Forest Fire Equipment Operator for Dana Seguar
[2021-01-25] MEDS: haloperidol 5 mg Tablet 2.5 MG PO (18:07)
[2021-01-25 21:21] VITALS: RESP 18
[2021-01-25] MEDS: quetiapine 100 mg Tablet 200 MG PO (22:06)
--- NOTE | 2021-01-26 00:22 | PC.NURSE ---
Patient sitting in dayroom, cussing and yelling at television. She's a fucking cunt, I'm gonna kill that bitch, she doesn't win. I'll tear it up so she'll see she can't keep me. Patient coughing on her drink while trying to yell. Unable to verbally redirect and de-escalate, asked patient if she would agree to medication and she said yes. Medicated with PRN orders, IM Ativan 2mg, IM Benadryl 50mg and Haldol 5mg. Patient tearful and laughing.
[2021-01-26] MEDS: haloperidol inj 5 mg/mL INJ 1 mL IM ×2 (00:26→16:18)
[2021-01-26] MEDS: LORazepam 2 mg/mL INJ 1 mL IM ×2 (00:26→16:17)
[2021-01-26] MEDS: diphenhydrAMINE 50 mg/mL SDV 1mL IM ×2 (00:26→16:18)
[2021-01-26 06:00] VITALS: BP 127/79; PULSE 124; RESP 17; O2SAT 100
[2021-01-26] MEDS: nicotine 2 mg Gum BUCCAL ×5 (06:14→17:17)
[2021-01-26] MEDS: ibuprofen 800 mg tablet PO ×2 (08:35→16:18)
[2021-01-26] MEDS: lamoTRIgine 100 mg Tablet PO (08:36)
[2021-01-26] MEDS: haloperidol 5 mg Tablet 2.5 MG PO ×2 (08:36→17:14)
--- NOTE | 2021-01-26 10:34 | PC.NURSE ---
1000 Pt pulled a piece of drywall the size of an opened hand from beside the pt phone. Pt began using the piece of drywall to write on the wall. Nurse removed the drywall and talked with the pt about not destroying property.
--- NOTE | 2021-01-26 12:01 | P.NPUPN_ITS ---
Subjective NPU Subjective: Interval history: Patient presents today continuing to struggle with impulse control. Several fits of screaming, throwing things, pounding hernándze, spitting on windows and and next conversation with jovial affect. At times screaming at the top of her lungs. At times whispering jokes. Multiple as needed medications required including IM. Mental Status Exam MSE Comments: This is an overweight white female with hospital scrubs on with limited grooming and eye contact. No abnormal movements except for psychomotor agitation. Mostly uncooperative with exam in moderate to extreme distress. Speech was pressured with increased rate and more normal volume but at times in creased volume with often clang associations. Mood not described, affect euphoric and irritable. Thought process disorganized. Thought content: Patient denied suicidal or homicidal ideation, there were no delusions reported but but continued odd thinking and expressions noted with elevated affect, she denied auditory or visual hallucinations currently. Attention and concentration were limited and memory appeared mostly unreliable but none were formally tested. She is alert and oriented x3. Insight and judgment are impaired, impulse control is impaired. Vitals/I&O/Wt Last Vital Signs Temp 98 F 01/25/21 14:00 Pulse 124 H 01/26/21 06:00 Resp 17 01/26/21 06:00 BP 127/79 01/26/21 06:00 Pulse Ox 100 01/26/21 06:00 Data NPU : 01/23/21 00:31 01/23/21 00:31 A&P Additional A&P Information (1) Acute psychosis: (2) Schizoaffective disorder, bipolar type: (3) PTSD (post-traumatic stress disorder): (4) Status post ORIF of fracture of ankle: (5) Bimalleolar fracture of right ankle: Additional A&P Information This is a 25-year-old white female with a long history of mental health and addiction challenges who presents about a week after her last discharge with continued inability to be managed on outpatient basis with continued aneta and erratic behavior. 1. Continue current medication. 2. Continue every 15 minute checks for safety. 3. Encourage individual, group and milieu therapies. 4. Multiple attempts to reintroduce Sherri to the community have failed and she continues to have borderline stability and may need some more adjustments possibly consider clozapine. Increase Haldol to Haldol 5 mg p.o. twice daily with 5 mg of Haldol IM with either Cogentin or Benadryl IM for p.o. refusal. 5. We will explore placement possibilities with guardian. Involuntary Hold Information 96 Hour Hold: 96 Hour Involuntary Admission: Yes 96 Hour Hold Ending Date: 01/28/21 96 Hour Hold Ending Time: 00:01 Attestations NPU Medical Necessity Statement*: Inpatient hospitalization is medically necessary and the clinically appropriate intervention at this time. We will monitor medication to make changes as indicated. Likely length of stay 10-14 days. Coding Level of Care Code Acute Director Of Testing for Dana Segura
[2021-01-26] MEDS: paliperidone palmitate 156 mg Syringe IM (12:13)
[2021-01-26] MEDS: LORazepam 1 mg Tablet PO (13:07)
[2021-01-26] MEDS: haloperidol 5 mg Tablet PO (13:08)
[2021-01-26] MEDS: benztropine 1 mg Tablet PO (13:08)
[2021-01-26 14:00] VITALS: RESP 16
--- NOTE | 2021-01-26 14:35 | PC.NURSE ---
Outburst- Patient has been easily agitated throughout day. At 1300 had outburst, hitting wall, yelling, being rude to staff. Got into a verbal altercation with another patient at that time as well. Began yelling at patient and threatening to fight her. gave order to give medications at that time. Staff patients. While going to room patient broke ceiling tile and exit sign down from ceiling. Patient did take medications PO willingly. Staff remained with patient talking and encouraging healthy coping skills. Patient did calm, medications effective. No further outbursts at this time.
--- NOTE | 2021-01-26 19:12 | PC.NURSE ---
1618 Administered a B52 to pt acting wreckless and distructive to unit property, tearing down an exit sign, ripping drywall out of the wall, yelling and screaming, upsetting the other pt's on the unit. Screaming profanities. 2ml Ativan IM 5ml Benadryl IM 5ml Haldol IM Will continue to monitor pt. Pt is a little sleepy but continues to rant and rage at the nurses desk. 30min after the injections
[2021-01-26] MEDS: quetiapine 100 mg Tablet 200 MG PO (21:00)
--- NOTE | 2021-01-26 21:06 | PC.NURSE ---
Patient spit half of a seroquel on the floor. Patient is having flights of ideas and mumbling speech. Denies pain or needs at present.
[2021-01-26 21:30] VITALS: BP 118/80; PULSE 96; RESP 16; TEMP 37.2; O2SAT 98
[2021-01-27] MEDS: diphenhydrAMINE 50 mg/mL SDV 1mL IM ×3 (04:14→17:37)
[2021-01-27] MEDS: haloperidol inj 5 mg/mL INJ 1 mL IM ×3 (04:14→17:37)
[2021-01-27] MEDS: LORazepam 2 mg/mL INJ 1 mL IM ×3 (04:14→17:37)
--- NOTE | 2021-01-27 04:18 | PC.NURSE ---
Patient given Ativan 2 mg IM, Haldol 5 mg IM, and Diphenhydramine 50mg IM right hip for severe agitation as evidenced by yelling at staff with foul language regarding not being able to wear her boots. Security present.
[2021-01-27] MEDS: nicotine 2 mg Gum BUCCAL ×5 (04:35→15:28)
[2021-01-27] MEDS: blistex lip oint 7 gm Tube 1 APPLIC TOPICAL (04:44)
[2021-01-27 05:07] VITALS: BP 125/81; PULSE 92; RESP 18; TEMP 36.6; O2SAT 97
[2021-01-27 07:37] VITALS: BP 143/105; PULSE 100
--- NOTE | 2021-01-27 07:38 | PC.NURSE ---
Patient became agitated and started screaming and cursing in celestin. Patient was not directable. Dr. Hare ordered patient to have 5 mg Haldol IM, Lorazepam 2 mg IM and Diphenhydramine 50 mg IM. Patient was tearful. Encouraged patient to verbalize feelings.
[2021-01-27] MEDS: lamoTRIgine 100 mg Tablet PO (08:51)
[2021-01-27] MEDS: haloperidol 5 mg Tablet PO ×2 (08:51→18:07)
[2021-01-27] MEDS: ibuprofen 800 mg tablet PO ×3 (08:51→20:26)
--- NOTE | 2021-01-27 13:30 | W.PM.NPUPNS ---
Subjective NPU Subjective: Interval history: Patient continued to have moments of explosiveness and aggression. Certainly seeming less energetic and agitated but still vocal and disorganized. Continue random rants with often clang associations. Needed multiple as needed medications but having some periods where she is able to rest. Mental Status Exam MSE Comments: This is an overweight white female with hospital scrubs on with limited grooming and eye contact. No abnormal movements except for psychomotor agitation. Mostly uncooperative with exam in moderate to extreme distress. Speech was pressured with increased rate and more normal volume but at times increased volume with often clang associations. Mood described as fine, affect euphoric and irritable. Thought process disorganized. Thought content: Patient denied suicidal or homicidal ideation, there were no delusions reported but but continued odd thinking and expressions noted with elevated affect, she denied auditory or visual hallucinations currently. Attention and concentration were limited and memory appeared mostly unreliable but none were formally tested. She is alert and oriented x3. Insight and judgment are impaired, impulse control is impaired. Vitals/I&O/Wt Last Vital Signs Temp 97.9 F 01/27/21 05:07 Pulse 92 01/27/21 05:07 Resp 18 01/27/21 05:07 BP 125/81 01/27/21 05:07 Pulse Ox 97 01/27/21 05:07 Data NPU : 01/23/21 00:31 01/23/21 00:31 A&P Additional A&P Information (1) Acute psychosis: (2) Schizoaffective disorder, bipolar type: (3) PTSD (post-traumatic stress disorder): (4) Status post ORIF of fracture of ankle: (5) Bimalleolar fracture of right ankle: Additional A&P Information This is a 25-year-old white female with a long history of mental health and addiction challenges who presents about a week after her last discharge with continued inability to be managed on outpatient basis with continued aneta and erratic behavior. 1. Continue current medication. 2. Continue every 15 minute checks for safety. 3. Encourage individual, group and milieu therapies. 4. Multiple attempts to reintroduce Sherri to the community have failed and she continues to have borderline stability and may need some more adjustments possibly consider clozapine. Increased Haldol to Haldol 5 mg p.o. twice daily with 5 mg of Haldol IM with either Cogentin or Benadryl IM for p.o. refusal. 5. We will explore placement possibilities with guardian. Involuntary Hold Information 96 Hour Hold: 96 Hour Involuntary Admission: Yes 96 Hour Hold Ending Date: 01/28/21 96 Hour Hold Ending Time: 00:01 Attestations NPU Medical Necessity Statement*: Inpatient hospitalization is medically necessary and the clinically appropriate intervention at this time. We will monitor medication to make changes as indicated. Likely length of stay 10-14 days. Coding Level of Care Code Acute [place] Machine Operator for Dana Segura
[2021-01-27 14:00] VITALS: BP 131/86; PULSE 127; RESP 18; TEMP 36.7; O2SAT 96
[2021-01-27 15:20] LABS: Glucose Point of Care 114 mg/dL (70-110)
--- NOTE | 2021-01-27 18:53 | PC.NURSE ---
behaviors 0900 Pt yelling and screaming at the top of her lungs up and down the hallways. Not redirectable at this time with verbal prompts. Spinning out of control.
--- NOTE | 2021-01-27 18:54 | PC.NURSE ---
0500 Pt made a crayon mess, melted crayons and made a ball of mess. Pt mad at staff who would not copy a menu that had another pt's information on it. Staff didn't make tea for Pt, because of previous messes. Just same behaviors, poured milk all over the floor in front of the nurses station. Childlike behaviors.
--- NOTE | 2021-01-27 19:02 | PC.NURSE ---
1737 Pt throwing game blocks, writing on hernández in crayon, Hitting and banging doors, yelling down the hallways, banging on fire alarms.
--- NOTE | 2021-01-27 19:04 | PC.NURSE ---
1738 Administered 5ml haldol IM, 5ml benadryl IM, 2ml Ativan IM to pt in the ventrogluteal. Pt willingly wanted the medication. Will continue to monitor.
[2021-01-27] MEDS: quetiapine 100 mg Tablet 200 MG PO (20:26)
[2021-01-27] MEDS: cetylpyridinium Lozenge 1 EACH MUCOUS MEM (20:28)
[2021-01-27 22:00] VITALS: RESP 16
[2021-01-28] MEDS: nicotine 2 mg Gum BUCCAL ×9 (00:24→20:26)
[2021-01-28] MEDS: OLANZapine 5 mg ODT PO ×2 (01:19→13:14)
[2021-01-28 06:00] VITALS: BP 112/80; PULSE 94; RESP 18; TEMP 37.1; O2SAT 98
[2021-01-28] MEDS: lamoTRIgine 100 mg Tablet PO (08:20)
[2021-01-28] MEDS: ibuprofen 800 mg tablet PO ×2 (08:20→14:28)
[2021-01-28] MEDS: haloperidol 5 mg Tablet PO ×2 (08:20→18:06)
[2021-01-28] MEDS: cetylpyridinium Lozenge 1 EACH MUCOUS MEM ×2 (10:27→12:04)
[2021-01-28] MEDS: benztropine 1 mg Tablet PO (11:36)
[2021-01-28 13:54] VITALS: BP 118/83; PULSE 111; RESP 20; TEMP 36.6; O2SAT 96
--- NOTE | 2021-01-28 18:17 | W.PM.NPUPNS ---
Subjective NPU Subjective: Interval history: Patient presents today a little less activated. She continues with quite associations, jokes and inappropriateness but a little less so. She continues to suggest that she might move in with a female friend and is somewhat in denial of the process that is underway. Mental Status Exam MSE Comments: This is an overweight white female with hospital scrubs on with limited grooming and eye contact. No abnormal movements except for occasional psychomotor agitation. More cooperative with exam in occasional distress. Speech was slightly less pressured with increased rate and more normal volume but at times increased volume with often clang associations. Mood described as okay, affect more calm and less irritable. Thought process a little more organized. Thought content: Patient denied suicidal or homicidal ideation, there were no delusions reported but but continued odd thinking and expressions noted with elevated affect, she denied auditory or visual hallucinations currently. Attention and concentration were limited and memory appeared mostly unreliable but none were formally tested. She is alert and oriented x3. Insight and judgment are impaired, impulse control is impaired. Vitals/I&O/Wt Last Vital Signs Temp 97.9 F 01/28/21 20:31 Pulse 124 H 01/28/21 20:31 Resp 18 01/28/21 20:31 BP 136/54 01/28/21 20:31 Pulse Ox 97 01/28/21 20:31 Data NPU : 01/23/21 00:31 01/23/21 00:31 A&P Additional A&P Information (1) Acute psychosis: (2) Schizoaffective disorder, bipolar type: (3) PTSD (post-traumatic stress disorder): (4) Status post ORIF of fracture of ankle: (5) Bimalleolar fracture of right ankle: Additional A&P Information This is a 25-year-old white female with a long history of mental health and addiction challenges who presents about a week after her last discharge with continued inability to be managed on outpatient basis with continued aneta and erratic behavior. 1. Continue current medication. 2. Continue every 15 minute checks for safety. 3. Encourage individual, group and milieu therapies. 4. Multiple attempts to reintroduce Sherri to the community have failed and she continues to have borderline stability and may need some more adjustments possibly consider clozapine. Increased Haldol to Haldol 5 mg p.o. twice daily with 5 mg of Haldol IM with either Cogentin or Benadryl IM for p.o. refusal. 5. We will explore placement possibilities with guardian. Involuntary Hold Information 96 Hour Hold: 96 Hour Involuntary Admission: Yes 96 Hour Hold Ending Date: 01/28/21 96 Hour Hold Ending Time: 00:01 Attestations NPU Medical Necessity Statement*: Inpatient hospitalization is medically necessary and the clinically appropriate intervention at this time. We will monitor medication to make changes as indicated. Likely length of stay 10-14 days. Coding Level of Care Code Acute Stitching Machine Feeder Or Offbearer for Dana Segura
[2021-01-28] MEDS: LORazepam 2 mg/mL INJ 1 mL IM (20:15)
[2021-01-28] MEDS: diphenhydrAMINE 50 mg/mL SDV 1mL IM (20:16)
[2021-01-28] MEDS: haloperidol inj 5 mg/mL INJ 1 mL IM (20:16)
[2021-01-28 20:31] VITALS: BP 136/54; PULSE 124; RESP 18; TEMP 36.6; O2SAT 97
[2021-01-29] MEDS: cetylpyridinium Lozenge 1 EACH MUCOUS MEM ×2 (03:52→15:22)
[2021-01-29] MEDS: ibuprofen 800 mg tablet PO ×3 (03:52→17:39)
[2021-01-29 06:00] VITALS: RESP 18
[2021-01-29] MEDS: nicotine 2 mg Gum BUCCAL ×5 (09:00→21:01)
[2021-01-29] MEDS: haloperidol 5 mg Tablet PO ×4 (09:00→20:58)
[2021-01-29] MEDS: lamoTRIgine 100 mg Tablet PO (09:01)
--- NOTE | 2021-01-29 09:17 | W.PM.NPUPNS ---
Subjective NPU Subjective: Interval history: Patient presents today with similar difficulties with controlled impulse control. She was arguing with another patient and escalated and they had to be . She continues to use other random comments as if she hopes each statement is a brilliant punch line in of itself. She continued to take the medication seems to be slowly having improvement. Mental Status Exam MSE Comments: This is an overweight white female with hospital scrubs on with limited grooming and eye contact. No abnormal movements except for occasional psychomotor agitation. More cooperative with exam in occasional distress. Speech was slightly less pressured with increased rate and more normal volume but at times increased volume with often clang associations. Mood described as good to go bro, affect more calm and less irritable. Thought process a little more organized. Thought content: Patient denied suicidal or homicidal ideation, there were no delusions reported but but continued odd thinking and expressions noted with elevated affect, she denied auditory or visual hallucinations currently. Attention and concentration were limited and memory appeared mostly unreliable but none were formally tested. She is alert and oriented x3. Insight and judgment are impaired, impulse control is impaired. Vitals/I&O/Wt Last Vital Signs Temp 97.9 F 01/28/21 20:31 Pulse 124 H 01/28/21 20:31 Resp 18 01/29/21 06:00 BP 136/54 01/28/21 20:31 Pulse Ox 97 01/28/21 20:31 Data NPU : 01/23/21 00:31 01/23/21 00:31 A&P Additional A&P Information (1) Acute psychosis: (2) Schizoaffective disorder, bipolar type: (3) PTSD (post-traumatic stress disorder): (4) Status post ORIF of fracture of ankle: (5) Bimalleolar fracture of right ankle: Additional A&P Information This is a 25-year-old white female with a long history of mental health and addiction challenges who presents about a week after her last discharge with continued inability to be managed on outpatient basis with continued aneta and erratic behavior. 1. Continue current medication. 2. Continue every 15 minute checks for safety. 3. Encourage individual, group and milieu therapies. 4. Multiple attempts to reintroduce Sherri to the community have failed and she continues to have borderline stability and may need some more adjustments possibly consider clozapine. Increased Haldol to Haldol 5 mg p.o. twice daily with 5 mg of Haldol IM with either Cogentin or Benadryl IM for p.o. refusal. 5. We will explore placement possibilities with guardian. Involuntary Hold Information 96 Hour Hold: 96 Hour Involuntary Admission: Yes 96 Hour Hold Ending Date: 01/28/21 96 Hour Hold Ending Time: 00:01 Attestations NPU Medical Necessity Statement*: Inpatient hospitalization is medically necessary and the clinically appropriate intervention at this time. We will monitor medication to make changes as indicated. Likely length of stay 10-14 days. Coding Level of Care Code Acute Certified Low Vision Therapist for Dana Segura
[2021-01-29] MEDS: benztropine 1 mg Tablet PO ×2 (10:51→20:58)
[2021-01-29] MEDS: LORazepam 2 mg Tablet PO (10:51)
[2021-01-29 14:00] VITALS: BP 110/68; PULSE 70; RESP 16; TEMP 36.9; O2SAT 98
--- NOTE | 2021-01-29 18:34 | PC.NURSE ---
Event- At approx 1015 patient got into verbal altercation with a male patient on unit. Both began verbally threatening each other. Other patient then postured with fists up. Staff was in celest[place] and able to intervene. Security was also present at that time and was able to talk to this patient to calm her. Patient moved to other unit to separate and prevent further altercations. Patient then became tearful and hit wall, making hole that was present bigger, slamming doors. gave orders to give one time meds. Patient showered, then took PO meds. Patient did calm after and went to rest in room.
[2021-01-29] MEDS: quetiapine 100 mg Tablet 200 MG PO (20:59)
[2021-01-29 21:26] VITALS: BP 112/77; PULSE 78; RESP 18; TEMP 37; O2SAT 99
[2021-01-30] MEDS: hyDROXYzine 25 mg Capsule 50 MG PO (00:06)
[2021-01-30] MEDS: acetaminophen 325 mg Tablet 650 MG PO ×2 (00:06→21:47)
--- NOTE | 2021-01-30 00:09 | PC.NURSE ---
Patient woke up and came to desk and for something for pain, my whole body hurts PRN Tylenol per orders. She stated, That fely Calix, I kill that lida abbasi. Medicated with Vistaril PRN.
[2021-01-30 06:00] VITALS: BP 120/74; PULSE 106; RESP 18; TEMP 36.6; O2SAT 96; BMI 24.0
[2021-01-30] MEDS: nicotine 2 mg Gum BUCCAL ×6 (06:44→21:49)
[2021-01-30] MEDS: ibuprofen 800 mg tablet PO ×3 (08:04→20:46)
[2021-01-30] MEDS: benztropine 1 mg Tablet PO (08:04)
[2021-01-30] MEDS: lamoTRIgine 100 mg Tablet PO (08:05)
[2021-01-30] MEDS: haloperidol 5 mg Tablet PO ×2 (08:05→17:09)
[2021-01-30] MEDS: OLANZapine 5 mg ODT PO ×2 (12:29→20:46)
--- NOTE | 2021-01-30 13:48 | W.PM.NPUPNS ---
Subjective NPU Subjective: Interval history: Patient presents today reporting that she is feeling fine but continues to be actively manic. Actively pressured speech from the moment she gets up to the time she goes to bed. We discussed the possibility of changing medications and told her we would reach out to her friend to let her know that plan. Mental Status Exam MSE Comments: This is an overweight white female with hospital scrubs on with limited grooming and eye contact. No abnormal movements except for occasional psychomotor agitation. More cooperative with exam in occasional distress. Speech was slightly less pressured with increased rate and more normal volume but at times increased volume with often clang associations. Mood described as OK, affect more calm and less irritable. Thought process a little more organized. Thought content: Patient denied suicidal or homicidal ideation, there were no delusions reported but but continued odd thinking and expressions noted with elevated affect, she denied auditory or visual hallucinations currently. Attention and concentration were limited and memory appeared mostly unreliable but none were formally tested. She is alert and oriented x3. Insight and judgment are impaired, impulse control is impaired. Vitals/I&O/Wt Last Vital Signs Temp 97.9 F 01/30/21 06:00 Pulse 106 H 01/30/21 06:00 Resp 18 01/30/21 06:00 BP 120/74 01/30/21 06:00 Pulse Ox 96 01/30/21 06:00 Weight last 48 hrs Weight 63.503 kg Data NPU : 01/23/21 00:31 01/23/21 00:31 A&P Additional A&P Information (1) Acute psychosis: (2) Schizoaffective disorder, bipolar type: (3) PTSD (post-traumatic stress disorder): (4) Status post ORIF of fracture of ankle: (5) Bimalleolar fracture of right ankle: Additional A&P Information This is a 25-year-old white female with a long history of mental health and addiction challenges who presents about a week after her last discharge with continued inability to be managed on outpatient basis with continued aneta and erratic behavior. 1. Continue current medication. 2. Continue every 15 minute checks for safety. 3. Encourage individual, group and milieu therapies. 4. Multiple attempts to reintroduce Sherri to the community have failed and she continues to have borderline stability and may need some more adjustments possibly consider clozapine. Increase Haldol to Haldol 5 mg p.o. 3 times daily with 5 mg of Haldol IM with either Cogentin or Benadryl IM for p.o. refusal. 5. We will explore placement possibilities with guardian. Involuntary Hold Information 96 Hour Hold: 96 Hour Involuntary Admission: Yes 96 Hour Hold Ending Date: 01/28/21 96 Hour Hold Ending Time: 00:01 Attestations NPU Medical Necessity Statement*: Inpatient hospitalization is medically necessary and the clinically appropriate intervention at this time. We will monitor medication to make changes as indicated. Likely length of stay 10-14 days. Coding Level of Care Code Acute Supervisor Cleaning And Annealing for Dana Segura
[2021-01-30 14:00] VITALS: BP 133/92; PULSE 142; RESP 20; TEMP 37.4; O2SAT 96
[2021-01-30] MEDS: cetylpyridinium Lozenge 1 EACH MUCOUS MEM (19:52)
[2021-01-30 20:27] VITALS: BP 148/79; PULSE 114; RESP 15; TEMP 36.6; O2SAT 99
--- NOTE | 2021-01-30 20:45 | PC.NURSE ---
pt noted with very disruptive behavior this evening. pt has been pacing the hallway trying to intimidate other pts, running and kicking at the doors, throwing trash all over the halls and dayroom, yelling, spitting and cursing at staff. zyprexa 5mg SL and trazodone mg po given.
[2021-01-30] MEDS: trazodone 50 mg Tablet PO (20:46)
[2021-01-30] MEDS: quetiapine 100 mg Tablet 200 MG PO (20:46)
[2021-01-31] MEDS: nicotine 2 mg Gum BUCCAL ×6 (01:50→23:48)
[2021-01-31] MEDS: cetylpyridinium Lozenge 1 EACH MUCOUS MEM ×4 (01:56→17:58)
[2021-01-31] MEDS: benztropine 1 mg Tablet PO ×2 (02:36→17:54)
[2021-01-31] MEDS: hyDROXYzine 25 mg Capsule 50 MG PO (02:36)
[2021-01-31] MEDS: haloperidol 5 mg Tablet PO ×5 (02:37→23:01)
--- NOTE | 2021-01-31 02:39 | PC.NURSE ---
pt given Haldol 5mg po, Cogentin 1mg po and Vistaril 50mg po given by RN for increased agitation
[2021-01-31 06:00] VITALS: BP 122/82; PULSE 111; RESP 18; TEMP 36.9; O2SAT 98
[2021-01-31] MEDS: ibuprofen 800 mg tablet PO ×3 (08:27→23:01)
--- NOTE | 2021-01-31 08:38 | W.PM.NPUPNS ---
Subjective NPU Subjective: Interval history: Sherri continues to struggle with impulse regulation and apparent aneta with extreme consciousness and clang associations. We increase Lamictal to 150 mg p.o. daily and Haldol to 5 mg p.o. 3 times daily yesterday and discussed with guardian and patient increasing Seroquel 300 mg tonight and a continued effort to decrease the energy and intensity of her symptoms. Mental Status Exam MSE Comments: This is an overweight white female with hospital scrubs on with limited grooming and eye contact. No abnormal movements except for regular psychomotor agitation. More cooperative with exam in occasional distress. Speech was slightly less pressured with increased rate and more normal volume but at times increased volume with often clang associations. Mood described as good, affect less irritable, but still hyperactive. Thought process a little more organized. Thought content: Patient denied suicidal or homicidal ideation, there were no delusions reported but but continued odd thinking and expressions noted with elevated affect, she denied auditory or visual hallucinations currently. Attention and concentration were limited and memory appeared mostly unreliable but none were formally tested. She is alert and oriented x3. Insight and judgment are impaired, impulse control is impaired. Vitals/I&O/Wt Last Vital Signs Temp 98.4 F 01/31/21 06:00 Pulse 111 H 01/31/21 06:00 Resp 18 01/31/21 06:00 BP 122/82 01/31/21 06:00 Pulse Ox 98 01/31/21 06:00 Weight last 48 hrs Weight 63.503 kg Data NPU : 01/23/21 00:31 01/23/21 00:31 A&P Additional A&P Information (1) Acute psychosis: (2) Schizoaffective disorder, bipolar type: (3) PTSD (post-traumatic stress disorder): (4) Status post ORIF of fracture of ankle: (5) Bimalleolar fracture of right ankle: Additional A&P Information This is a 25-year-old white female with a long history of mental health and addiction challenges who presents about a week after her last discharge with continued inability to be managed on outpatient basis with continued aneta and erratic behavior. 1. Continue current medication. 2. Continue every 15 minute checks for safety. 3. Encourage individual, group and milieu therapies. 4. Multiple attempts to reintroduce Sherri to the community have failed and she continues to have borderline stability and may need some more adjustments possibly consider clozapine. Increased Haldol to Haldol 5 mg p.o. 3 times daily with 5 mg of Haldol IM with either Cogentin or Benadryl IM for p.o. refusal. Increased Lamictal 230 mg daily. Increase Seroquel to 3 mg p.o. nightly 5. We will explore placement possibilities with guardian. Involuntary Hold Information 96 Hour Hold: 96 Hour Involuntary Admission: Yes 96 Hour Hold Ending Date: 01/28/21 96 Hour Hold Ending Time: 00:01 Attestations NPU Medical Necessity Statement*: Inpatient hospitalization is medically necessary and the clinically appropriate intervention at this time. We will monitor medication to make changes as indicated. Likely length of stay 10-14 days. Coding Level of Care Code Acute Foil Wrapper for Dana Segura
[2021-01-31] MEDS: LORazepam 2 mg Tablet PO ×2 (08:39→17:54)
[2021-01-31] MEDS: lamoTRIgine 100 mg Tablet 150 MG PO (08:39)
--- NOTE | 2021-01-31 12:51 | NPU.GN ---
[facility] Group Topic:Cordell Lim / Discussion General Mood of Group: Sherri did not attend group this morning. She was yelling and destructive this morning when this internal communications writer entered the unit.
[2021-01-31 21:34] VITALS: RESP 17
[2021-01-31] MEDS: quetiapine 100 mg Tablet 200 MG PO (23:01)
[2021-01-31] MEDS: trazodone 50 mg Tablet PO (23:02)
--- NOTE | 2021-01-31 23:05 | PC.NURSE ---
pt requested sleep med, trazododne 50mg po given.
--- NOTE | 2021-02-01 00:30 | PC.NURSE ---
pt resting quietly with both eyes closed.
[2021-02-01] MEDS: nicotine 2 mg Gum BUCCAL ×4 (03:19→21:13)
[2021-02-01 06:00] VITALS: BP 141/87; PULSE 86; RESP 14; TEMP 36.7; O2SAT 97
[2021-02-01] MEDS: benztropine 1 mg Tablet PO (07:58)
[2021-02-01] MEDS: hyDROXYzine 25 mg Capsule 50 MG PO (07:58)
[2021-02-01] MEDS: ibuprofen 800 mg tablet PO ×3 (07:59→20:08)
[2021-02-01] MEDS: lamoTRIgine 100 mg Tablet 150 MG PO (07:59)
[2021-02-01] MEDS: haloperidol 5 mg Tablet PO ×3 (08:00→20:07)
--- NOTE | 2021-02-01 11:03 | P.NPUPN_ITS ---
Subjective NPU Subjective: Interval history: Patient presents today continuing to be quite energetic and pressured. She denies any significant issues with the medication changes. She reports her eating and sleeping fine the staff report sleep has been challenging. We discussed the plan to increase her Seroquel at night and she understood agreed proceed as documented in this note. Mental Status Exam MSE Comments: This is an overweight white female with hospital scrubs on with limited grooming and eye contact. No abnormal movements except for regular psychomotor agitation. More cooperative with exam in occasional distress. Speech was slightly less pressured with increased rate and more normal volume but at times increased volume with often clang associations. Mood described as good, affect less irritable, but still hyperactive. Thought process a little more organized. Thought content: Patient denied suicidal or homicidal ideation, there were no delusions reported but but continued odd thinking and expressions noted with elevated affect, she denied auditory or visual hallucinations currently. Attention and concentration were limited and memory appeared mostly unreliable but none were formally tested. She is alert and oriented x3. Insight and judgment are impaired, impulse control is impaired. Vitals/I&O/Wt Last Vital Signs Temp 98.1 F 02/01/21 06:00 Pulse 86 02/01/21 06:00 Resp 14 02/01/21 06:00 BP 141/87 02/01/21 06:00 Pulse Ox 97 02/01/21 06:00 Data NPU : 01/23/21 00:31 01/23/21 00:31 A&P Additional A&P Information (1) Acute psychosis: (2) Schizoaffective disorder, bipolar type: (3) PTSD (post-traumatic stress disorder): (4) Status post ORIF of fracture of ankle: (5) Bimalleolar fracture of right ankle: Additional A&P Information This is a 25-year-old white female with a long history of mental health and addiction challenges who presents about a week after her last discharge with continued inability to be managed on outpatient basis with continued aneta and erratic behavior. 1. Continue current medication. 2. Continue every 15 minute checks for safety. 3. Encourage individual, group and milieu therapies. 4. Multiple attempts to reintroduce Sherri to the community have failed and she continues to have borderline stability and may need some more adjustments possibly consider clozapine. Increased Haldol to Haldol 5 mg p.o. 3 times daily with 5 mg of Haldol IM with either Cogentin or Benadryl IM for p.o. refusal. Increased Lamictal 150 mg daily. Increased Seroquel to 300 mg p.o. nightly 5. We will explore placement possibilities with guardian and to keep abreast of medication titrations. Involuntary Hold Information 96 Hour Hold: 96 Hour Involuntary Admission: Yes 96 Hour Hold Ending Date: 01/28/21 96 Hour Hold Ending Time: 00:01 Attestations NPU Medical Necessity Statement*: Inpatient hospitalization is medically necessary and the clinically appropriate intervention at this time. We will monitor medication to make changes as indicated. Likely length of stay 10-14 days. Coding Level of Care Code Acute Spa Director/Finance for Dana Segura
--- NOTE | 2021-02-01 13:12 | NPU.GN ---
[facility] Topic: Cordell Lim General Mood of Group: Sherri did eventually attend group today she was being verbally distracting in group and off topic just talking about random things. Sherri was verbally mean to staff , yelling, cursing at others.
[2021-02-01 14:00] VITALS: BP 124/87; PULSE 103; RESP 17; TEMP 37.1; O2SAT 96
[2021-02-01] MEDS: OLANZapine 5 mg ODT PO (17:05)
[2021-02-01 19:36] VITALS: BP 135/88; PULSE 95; RESP 18; TEMP 37.1; O2SAT 98
[2021-02-01] MEDS: quetiapine 300 mg Tablet PO (20:08)
[2021-02-02] MEDS: nicotine 2 mg Gum BUCCAL ×5 (00:36→15:14)
[2021-02-02] MEDS: haloperidol 5 mg Tablet PO ×4 (00:54→20:17)
[2021-02-02] MEDS: OLANZapine 5 mg ODT PO ×2 (00:54→05:36)
--- NOTE | 2021-02-02 00:56 | PC.NURSE ---
pt up to desk rambling for almost 30 minutes now & getting louder and louder, haldol 5mg po and zyprexa zydis 5mg SL also given for increased agitation.
[2021-02-02] MEDS: cetylpyridinium Lozenge 1 EACH MUCOUS MEM ×3 (01:21→08:29)
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
--- NOTE | 2021-02-02 02:15 | PC.NURSE ---
pt continues to cycle in and out of moods, talking and rambling constantly about nothing yet everything. at this gladis pt is writing on the hernández of the dayroom and stuffing stuff in the hole she put in the southeast corner of the room.
--- NOTE | 2021-02-02 05:48 | PC.NURSE ---
pt noted with increased inappropriate activity, such as pulling on the hole she made in the corner of the dayroom, flippinf her towel like a whip, sliding across the tables like sawman. pt continues to pace around dayroom and in hallway. zyprexa zydis 5mg SL given.
[2021-02-02 06:00] VITALS: BP 114/90; PULSE 125; RESP 22; TEMP 37.1; O2SAT 99
[2021-02-02] MEDS: blistex lip oint 7 gm Tube 1 APPLIC TOPICAL (06:10)
[2021-02-02] MEDS: lamoTRIgine 100 mg Tablet 150 MG PO (08:28)
[2021-02-02] MEDS: ibuprofen 800 mg tablet PO ×3 (08:29→20:17)
--- NOTE | 2021-02-02 10:25 | W.PM.NPUPNS ---
Subjective NPU Subjective: Interval history: Presents today continuing to have significant energy and infrequent pauses in the noise she is adding to the unit. Discussed back to Dr. Steinberg with the ear tomorrow. She denies any issues with the recent changes in her Lamictal, Seroquel and Haldol. But still struggling with impulse control. We discussed the fact that her getting to the placement is predicated on getting to a more stable place. Mental Status Exam MSE Comments: This is an overweight white female with hospital scrubs on with limited grooming and eye contact. No abnormal movements except for regular psychomotor agitation. More cooperative with exam in occasional distress. Speech was slightly less pressured with increased rate and more normal volume but at times increased volume with often clang associations. Mood described as awesome, affect less irritable, but still hyper and euphoric. Thought process a little more organized. Thought content: Patient denied suicidal or homicidal ideation, there were no delusions reported but but continued odd thinking and expressions noted with elevated affect, she denied auditory or visual hallucinations currently. Attention and concentration were limited and memory appeared mostly unreliable but none were formally tested. She is alert and oriented x3. Insight and judgment are impaired, impulse control is impaired. Vitals/I&O/Wt Last Vital Signs Temp 98.7 F 02/01/21 19:36 Pulse 95 02/01/21 19:36 Resp 18 02/01/21 19:36 BP 135/88 02/01/21 19:36 Pulse Ox 98 02/01/21 19:36 Data NPU : 01/23/21 00:31 01/23/21 00:31 A&P Additional A&P Information (1) Acute psychosis: (2) Schizoaffective disorder, bipolar type: (3) PTSD (post-traumatic stress disorder): (4) Status post ORIF of fracture of ankle: (5) Bimalleolar fracture of right ankle: Additional A&P Information This is a 25-year-old white female with a long history of mental health and addiction challenges who presented about a week after her last discharge with continued inability to be managed on outpatient basis with continued aneta and erratic behavior. 1. Continue current medication. 2. Continue every 15 minute checks for safety. 3. Encourage individual, group and milieu therapies. 4. Multiple attempts to reintroduce Sherri to the community have failed and she continues to have borderline stability and may need some more adjustments possibly consider clozapine. Increased Haldol to Haldol 5 mg p.o. 3 times daily with 5 mg of Haldol IM with either Cogentin or Benadryl IM for p.o. refusal. Increased Lamictal 150 mg daily. Increased Seroquel to 300 mg p.o. nightly 5. Have placement, awaiting stability after med changes. Involuntary Hold Information 96 Hour Hold: 96 Hour Involuntary Admission: Yes 96 Hour Hold Ending Date: 01/28/21 96 Hour Hold Ending Time: 00:01 Attestations NPU Medical Necessity Statement*: Inpatient hospitalization is medically necessary and the clinically appropriate intervention at this time. We will monitor medication to make changes as indicated. Likely length of stay 10-14 days. Coding Level of Care Code Acute Finance Business Manager for Dana Segura
--- NOTE | 2021-02-02 10:59 | NPU.GN ---
[facility] Topic: Checkers General Mood of Group: Sherri did attend group but did not participate. She was off topic in discussion and randomly screamed stuff. Sherri can not hold a conversation at this time. Her hygiene was good.
[2021-02-02] MEDS: haloperidol inj 5 mg/mL INJ 1 mL IM (19:18)
[2021-02-02] MEDS: diphenhydrAMINE 50 mg/mL SDV 1mL IM (19:19)
[2021-02-02] MEDS: LORazepam 2 mg/mL INJ 1 mL IM (19:19)
--- NOTE | 2021-02-02 19:33 | PC.NURSE ---
prn Administered 2mgAtivan IM,5mg Benadryl IM, 5mg Haladol IM, pt has had behaviors all throughout the day, pulling the fire alarm case off , but then putting it back, screaming and yelling up and down the hallways!! Screaming and cussing at staff, spouting random lyrics and songs, rambling not making sense. Punched holes in the wall. Pt crying and screaming and talking about her past. Will continue to monitor.
[2021-02-02 19:40] VITALS: BP 148/84; PULSE 107; RESP 26; O2SAT 95
[2021-02-02] MEDS: quetiapine 300 mg Tablet PO (20:17)
[2021-02-03 06:00] VITALS: BP 107/74; PULSE 99; RESP 18; TEMP 36.9; O2SAT 98
[2021-02-03] MEDS: nicotine 2 mg Gum BUCCAL ×4 (06:44→13:41)
[2021-02-03] MEDS: lamoTRIgine 100 mg Tablet 150 MG PO (08:29)
[2021-02-03] MEDS: haloperidol 5 mg Tablet PO (08:29)
[2021-02-03] MEDS: ibuprofen 800 mg tablet PO ×3 (08:30→19:40)
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
[2021-02-03] MEDS: cetylpyridinium Lozenge 1 EACH MUCOUS MEM ×2 (10:59→13:41)
[2021-02-03 11:40] LABS: Basophils # 0.1 10^3/uL (0.0-0.1); Basophils % 0.7 %; Eosinophils # 0.1 10^3/uL (0.0-0.8); Hematocrit 39.3 % (37.0-47.0); Lymphocytes % 24.3 %; Mean Corpuscular HGB Conc 33.1 g/dL (30.0-36.0); Mean Corpuscular Hemoglobin 30.6 pg (28.0-34.0); Mean Corpuscular Volume 92.5 fl (81-99); Mean Platelet Volume 9.3 fL (7.4-10.4); Monocytes # 0.6 10^3/uL (0.2-0.9); Monocytes % 7.2 %; Neutrophils # 5.44 10^3/uL (1.8-7.7); Neutrophils % 66.4 %; Nucleated Red Blood Cells % 0 %; Platelet Count 336 10^3/cmm (130-400); Red Blood Count 4.25 10^6/uL (4.1-5.3); Red Cell Distribution Width 13.6 % (12.1-15.1); White Blood Count 8.2 10^3/uL (4.0-10.0)
[2021-02-03 13:28] VITALS: BP 139/85; PULSE 105; RESP 16; TEMP 37.1; O2SAT 94
[2021-02-03] MEDS: quetiapine 300 mg Tablet PO (19:40)
[2021-02-03] MEDS: LORazepam 2 mg/mL INJ 1 mL IM (19:41)
[2021-02-03] MEDS: haloperidol inj 5 mg/mL INJ 1 mL IM (19:42)
[2021-02-03] MEDS: diphenhydrAMINE 50 mg/mL SDV 1mL IM (19:42)
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
[2021-02-03 20:24] VITALS: BP 128/75; PULSE 118; RESP 18; O2SAT 97
--- NOTE | 2021-02-03 22:00 | PC.NURSE ---
PT RESTING QUIETLY WITH BOTH EYES CLOSED AT THIS TIME.
[2021-02-04] MEDS: nicotine 2 mg Gum BUCCAL ×7 (03:43→19:59)
[2021-02-04] MEDS: OLANZapine 5 mg ODT PO (03:43)
[2021-02-04] MEDS: cetylpyridinium Lozenge 1 EACH MUCOUS MEM ×3 (03:43→14:25)
[2021-02-04] MEDS: LORazepam 2 mg Tablet PO ×2 (03:43→20:00)
--- NOTE | 2021-02-04 03:53 | PC.NURSE ---
PT UP TO DESK, STATED I WANT SOME F%#*^&G GUM, AND A COUGH DROP, MY THROAT IS SORE . CEPACOL LOZENGE, NICORETTE GUM GIVEN, WELL ATIVAN 2MG PO FOR AGITATION AND ZYPREXA ZYDIS 5MG SL FOR ANXIETY.
[2021-02-04] MEDS: lamoTRIgine 100 mg Tablet 150 MG PO (09:46)
[2021-02-04] MEDS: ibuprofen 800 mg tablet PO ×2 (09:46→15:09)
--- NOTE | 2021-02-04 12:23 | P.NPUPN_ITS ---
Subjective NPU Subjective: Interval history: She had a meltdown last night and needed to be given a B-52 injection. She is still angry this morning. She says that she is done. She is frustrated that nobody will listen to what she wants. She says she has a whole team of attorneys and they do what she tells them to do. Clozaril was not started yesterday because the Clozaril rems could not be done until today. It has been sent and she will start on the Clozaril when it is available today. Mental Status Exam MSE Comments: This is an overweight white female with hospital scrubs on with limited grooming and eye contact. No abnormal movements except for regular psychomotor agitation. More cooperative with exam in occasional distress. Speech was slightly less pressured with increased rate and more normal volume with frequent derailment and often clang associations. Mood described as angry, affect less irritable, but still hyper. Thought process a little more organized. Thought content: Patient denied suicidal or homicidal ideation, there were no delusions reported but but continued odd thinking and expressions noted with elevated affect, she denied auditory or visual hallucinations currently. Attention and concentration were limited and memory appeared mostly unreliable but none were formally tested. She is alert and oriented x3. Insight and judgment are impaired, impulse control is impaired. Cognition: Patient Appearance: Appropriate Level of Consciousness: Awake, Alert, Appropriate and Follows Commands Patient Cognition Impaired: No Ability to Follow Directions: Good Patient Orientation (long list): Person, Place, Time, Name, Age and Birthday Comprehension Ability: No Impairment Hallucination Type: None Delusion Description: Not Present Thought Process: Disorganized, Flight of Ideas and Loose Associations Affect: Affect Description: Appropriate Behavior: Patient Behavior: Appropriate Speech Pattern: Appropriate Vitals/I&O/Wt Last Vital Signs Temp 98.7 F 02/03/21 13:28 Pulse 118 H 02/03/21 20:24 Resp 18 02/03/21 20:24 BP 128/75 02/03/21 20:24 Pulse Ox 97 02/03/21 20:24 Data NPU : 02/03/21 11:33 01/23/21 00:31 A&P Assessment and plan (1) Acute psychosis: Status: Acute (2) Schizoaffective disorder, bipolar type: Status: Acute (3) PTSD (post-traumatic stress disorder): Status: Chronic (4) Status post ORIF of fracture of ankle: Status: Acute (5) Bimalleolar fracture of right ankle: Status: Acute Additional A&P Information (1) Acute psychosis: (2) Schizoaffective disorder, bipolar type: (3) PTSD (post-traumatic stress disorder): (4) Status post ORIF of fracture of ankle: (5) Bimalleolar fracture of right ankle: Additional A&P Information This is a 25-year-old white female with a long history of mental health and addiction challenges who presented about a week after her last discharge with continued inability to be managed on outpatient basis with continued aneta and erratic behavior. 1. Continue monthly Invega sustained 156 mg injections. Her last injection was January 26. Lamictal 150 mg every morning and Seroquel 300 mg at bedtime. Will change Haldol 5 mg 3 times a day to Clozaril 50 mg 3 times a day with the intention of increasing as tolerated. 2. Continue every 15 minute checks for safety. 3. Encourage individual, group and milieu therapies. 4. Multiple attempts to reintroduce Sherri to the community have failed and she continues to have borderline stability and may need some more adjustments possibly consider [place]. Recent Increased Lamictal 150 mg daily. Increased Seroquel to 300 mg p.o. nightly 5. Have placement, awaiting stability after med changes. Involuntary Hold Information 96 Hour Hold: 96 Hour Involuntary Admission: Yes 96 Hour Hold Ending Date: 01/28/21 96 Hour Hold Ending Time: 00:01 Attestations NPU Medical Necessity Statement*: Inpatient hospitalization is medically necessary and the clinically appropriate intervention at this time. We will initiate medications and make changes as indicated. Coding Level of Care Code Acute Community Relations Assistant for Dana Segura Diagnoses Acute psychosis F23 Schizoaffective disorder, bipolar type F25.0 PTSD (post-traumatic stress disorder) F43.10 Status post ORIF of fracture of ankle Z98.890; Z87.81 Bimalleolar fracture of right ankle S82.842H
[2021-02-04] MEDS: cloZAPine 25 mg Tablet 50 MG PO ×2 (13:46→20:00)
[2021-02-04 14:00] VITALS: BP 138/80; PULSE 105; RESP 16; TEMP 36.8; O2SAT 98
[2021-02-04] MEDS: fluticasone nasal spray 16gm Btl 2 SPRAY NASAL (15:08)
[2021-02-04] MEDS: quetiapine 300 mg Tablet PO (20:00)
[2021-02-04 20:41] VITALS: BP 126/91; PULSE 114; RESP 16; TEMP 36.7; O2SAT 95
[2021-02-05 06:00] VITALS: BP 137/84; PULSE 123; RESP 18; O2SAT 99
[2021-02-05] MEDS: nicotine 2 mg Gum BUCCAL ×5 (06:40→23:32)
[2021-02-05] MEDS: cloZAPine 25 mg Tablet 50 MG PO ×3 (09:40→20:00)
[2021-02-05] MEDS: lamoTRIgine 100 mg Tablet 150 MG PO (09:40)
[2021-02-05] MEDS: ibuprofen 800 mg tablet PO ×3 (09:40→19:59)
[2021-02-05] MEDS: fluticasone nasal spray 16gm Btl 2 SPRAY NASAL (09:42)
--- NOTE | 2021-02-05 10:10 | XRR_ITS ---
PROCEDURE INFORMATION: Exam: XR Right Foot Exam date and time: 02/05/2021 10:10 AM Age: 25 years old Clinical indication: Prior surgery; Patient HX: Right lateral foot pain and swellling; Additional info: Foot pain and swelling TECHNIQUE: Imaging protocol: XR Right foot. Views: 3 or more views. COMPARISON: CR (LOW EXM, ) 11/22/2020 6:57 PM FINDINGS: Bones/joints: Status post ORIF of the medial and lateral malleoli. Ununited oblique fracture of the shaft of the 5th metatarsal. Mild callus formation noted. No new fractures are identified. Soft tissues: Mild soft tissue edema. XR/XR foot RT min 3V* [id number] IMPRESSION: Ununited oblique fracture of the shaft of the 5th metatarsal. Mild callus formation noted. Fractures otherwise unchanged in appearance from 11/22/2020.
--- NOTE | 2021-02-05 11:18 | P.NPUPN_ITS ---
Subjective NPU Subjective: Interval history: She was quite wound up and angry this morning insisting on signing out AGAINST MEDICAL ADVICE. She says he has sports team marketing intern and that she will make sure things happen. She asked why her guardian was not here. She got her third dose of Clozaril this morning. She is in bed at 11 AM this morning. Mental Status Exam MSE Comments: This is an overweight white female with hospital scrubs on with limited grooming and eye contact. No abnormal movements except for regular psychomotor agitation. More cooperative with exam in occasional distress. Speech was mildly pressured with increased rate and more normal volume with frequent derailment and often clang associations. Mood described as angry, affect irritable, but still hyper. Thought process a little more organized. Thought content: Patient denied suicidal or homicidal ideation, there were no delusions reported but but continued odd thinking and expressions noted with elevated affect, she denied auditory or visual hallucinations currently. Attention and concentration were limited and memory appeared mostly unreliable but none were formally tested. She is alert and oriented x3. Insight and tim gment are impaired, impulse control is impaired. Cognition: Patient Appearance: Appropriate Level of Consciousness: Awake, Alert, Appropriate and Follows Commands Patient Cognition Impaired: No Ability to Follow Directions: Good Patient Orientation (long list): Person, Place, Time, Name, Age and Birthday Comprehension Ability: No Impairment Hallucination Type: None Delusion Description: Not Present Thought Process: Disorganized, Flight of Ideas and Loose Associations Affect: Affect Description: Calm Behavior: Patient Behavior: Cooperative Speech Pattern: Clear Vitals/I&O/Wt Last Vital Signs Temp 98.1 F 02/04/21 20:41 Pulse 123 H 02/05/21 06:00 Resp 18 02/05/21 06:00 BP 137/84 02/05/21 06:00 Pulse Ox 99 02/05/21 06:00 Data NPU : 02/03/21 11:33 01/23/21 00:31 A&P Assessment and plan (1) Acute psychosis: Status: Acute (2) Schizoaffective disorder, bipolar type: Status: Acute (3) PTSD (post-traumatic stress disorder): Status: Chronic (4) Status post ORIF of fracture of ankle: Status: Acute (5) Bimalleolar fracture of right ankle: Status: Acute Additional A&P Information (1) Acute psychosis: (2) Schizoaffective disorder, bipolar type: (3) PTSD (post-traumatic stress disorder): (4) Status post ORIF of fracture of ankle: (5) Bimalleolar fracture of right ankle: Additional A&P Information This is a 25-year-old white female with a long history of mental health and lion ction challenges who presented about a week after her last discharge with continued inability to be managed on outpatient basis with continued aneta and erratic behavior. 1. Continue monthly Invega sustained 156 mg injections. Her last injection was January 26. Lamictal 150 mg every morning and Seroquel 300 mg at bedtime. Continue Clozaril 50 mg 3 times a day with the intention of increasing as tolerated. 2. Continue every 15 minute checks for safety. 3. Encourage individual, group and milieu therapies. 4. Multiple attempts to reintroduce Sherri to the community have failed and she continues to have borderline stability and may need some more adjustments possibly consider [place]. Recent Increased Lamictal 150 mg daily. Increased Seroquel to 300 mg p.o. nightly 5. Have placement, awaiting stability after med changes. Involuntary Hold Information 96 Hour Hold: 96 Hour Involuntary Admission: Yes 96 Hour Hold Ending Date: 01/28/21 96 Hour Hold Ending Time: 00:01 Attestations NPU Medical Necessity Statement*: Inpatient hospitalization is medically necessary and the clinically appropriate intervention at this time. We will initiate medications and make changes as indicated. Coding Level of Care Code Acute Jalousie Installer for Dana Segura Diagnoses Acute psychosis F23 Schizoaffective disorder, bipolar type F25.0 PTSD (post-traumatic stress disorder) F43.10 Status post ORIF of fracture of ankle Z98.890; Z87.81 Bimalleolar fracture of right ankle S82.845G
[2021-02-05 14:00] VITALS: BP 123/80; PULSE 120; RESP 16; TEMP 36.6; O2SAT 98
[2021-02-05] MEDS: quetiapine 300 mg Tablet PO (20:01)
[2021-02-05 20:34] VITALS: BP 117/81; PULSE 116; RESP 15; O2SAT 96
[2021-02-05] MEDS: cetylpyridinium Lozenge 1 EACH MUCOUS MEM ×2 (20:41→23:49)
[2021-02-06] MEDS: nicotine 2 mg Gum BUCCAL ×6 (03:43→17:04)
[2021-02-06] MEDS: cetylpyridinium Lozenge 1 EACH MUCOUS MEM ×3 (03:43→14:11)
[2021-02-06] MEDS: fluticasone nasal spray 16gm Btl 2 SPRAY NASAL (03:56)
[2021-02-06] MEDS: acetaminophen 325 mg Tablet 650 MG PO (05:17)
--- NOTE | 2021-02-06 05:18 | PC.NURSE ---
patient request tylenol for left foot pain. asking when ortho was going to come and see her about putting a boot on her foot? Asked if she was going to be compliant with recommend therapy this time. Stated she would agree with treatment.
[2021-02-06 05:47] VITALS: BP 147/68; PULSE 134; RESP 16; O2SAT 99
[2021-02-06 06:00] VITALS: BMI 24.0
--- NOTE | 2021-02-06 07:12 | P.NPUPN_ITS ---
Subjective NPU Subjective: Interval history: She said that she is doing better with the Clozaril. She said that she is happy with that and would like to have it increased and the Seroquel decreased. The Seroquel has always caused her to gain weight. She would be happy to be rid of it. We will try to gradually change the Seroquel to only Clozaril. We discussed again the need for laboratory because of the chance of decreased white blood cell count. She says that her brain is less active and she can process things better. She did not require any as needed medications yesterday. Mental Status Exam MSE Comments: This is an overweight white female with hospital scrubs on with limited grooming and eye contact. No abnormal movements except for regular psychomotor agitation. More cooperative with exam in occasional distress. Speech was mildly pressured with late increased rate and more normal volume. Mood described as good, affect not as irritable, but still hyper. Thought process a little more organized. Thought content: Patient denied suicidal or homicidal ideation, there were no delusions reported but but continued odd thinking and expressions noted with elevated affect, she denied auditory or visual hallucinations currently. Attention and concentration were limited and memory appeared mostly unreliable but none were formally tested. She is alert and oriented x3. Insight and judgment are impaired, impulse control is impaired. Cognition: Patient Appearance: Appropriate Level of Consciousness: Awake, Alert, Appropriate and Follows Commands Patient Cognition Impaired: No Ability to Follow Directions: Good Patient Orientation (long list): Person, Place, Time, Name, Age and Birthday Comprehension Ability: No Impairment Hallucination Type: None Delusion Description: Not Present Thought Process: Disorganized, Flight of Ideas and Loose Associations Affect: Affect Description: Appropriate and Elated Behavior: Patient Behavior: Appropriate, Cooperative and Somatic Speech Pattern: Appropriate, Clear, Excessive and Rambling Vitals/I&O/Wt Last Vital Signs Temp 97.9 F 02/05/21 14:00 Pulse 134 H 02/06/21 05:47 Resp 16 02/06/21 05:47 BP 147/68 02/06/21 05:47 Pulse Ox 99 02/06/21 05:47 Weight last 48 hrs Weight 63.503 kg Data NPU : 02/03/21 11:33 01/23/21 00:31 A&P Assessment and plan (1) Acute psychosis: Status: Acute (2) Schizoaffective disorder, bipolar type: Status: Acute (3) PTSD (post-traumatic stress disorder): Status: Chronic (4) Status post ORIF of fracture of ankle: Status: Acute (5) Bimalleolar fracture of right ankle: Status: Acute Additional A&P Information (1) Acute psychosis: (2) Schizoaffective disorder, bipolar type: (3) PTSD (post-traumatic stress disorder): (4) Status post ORIF of fracture of ankle: (5) Bimalleolar fracture of right ankle: Additional A&P Information This is a 25-year-old white female with a long history of mental health and ad diction challenges who presented about a week after her last discharge with continued inability to be managed on outpatient basis with continued aneta and erratic behavior. 1. Continue monthly Invega sustained 156 mg injections. Her last injection was January 26. Lamictal 150 mg every morning. Decrease Seroquel 150 mg at bedtime. Increase Clozaril 50 mg BID and 200 mg QHS. 2. Continue every 15 minute checks for safety. 3. Encourage individual, group and milieu therapies. 4. Multiple attempts to reintroduce Sherri to the community have failed and she continues to have borderline stability. 5. Have placement, awaiting stability after med changes. Involuntary Hold Information 96 Hour Hold: 96 Hour Involuntary Admission: Yes 96 Hour Hold Ending Date: 01/28/21 96 Hour Hold Ending Time: 00:01 Attestations NPU Medical Necessity Statement*: Inpatient hospitalization is medically necessary and the clinically appropriate intervention at this time. We will initiate medications and make changes as indicated. Coding Level of Care Code Acute Director Of Casework for Dana Segura Diagnoses Acute psychosis F23 Schizoaffective disorder, bipolar type F25.0 PTSD (post-traumatic stress disorder) F43.10 Status post ORIF of fracture of ankle Z98.890; Z87.81 Bimalleolar fracture of right ankle S82.847G
[2021-02-06] MEDS: ibuprofen 800 mg tablet PO ×3 (09:17→22:35)
[2021-02-06] MEDS: lamoTRIgine 100 mg Tablet 150 MG PO (09:18)
[2021-02-06] MEDS: cloZAPine 25 mg Tablet 50 MG PO ×2 (09:23→17:04)
--- NOTE | 2021-02-06 09:50 | P.PN_ITS ---
Subjective Subjective: Interval history: Patient evaluated in Neuropsych unit with patient mobilizing in a fixed boot. pateint reports hx of ankle ORIF and Fx to 5th MT managed by Dr Leal. No new injury reported by Patient. Minimal Pain to right foot. Vitals/I&O/Wt Last Vital Signs Temp 97.9 F 02/05/21 14:00 Pulse 134 H 02/06/21 05:47 Resp 16 02/06/21 05:47 BP 147/68 02/06/21 05:47 Pulse Ox 99 02/06/21 05:47 Weight last 48 hrs Weight 140 lb Physical Exam Narrative: EXAM NARRATIVE: Boot removed with mild swelling right foot, 1+ edema over right 5th MT with mild discomfort to palpation. Well-healed incision from previous ORIF of right ankle. FROM of RLE, no pain in right knee or hip. pulses papable with NVI, calves supple and NT. Const: COMMON NORMALS: patient oriented x3 HENMT: COMMON NORMALS: normocephalic HEAD & SCALP: normocephalic Resp: COMMON NORMALS: normal respiratory effort Cardio: COMMON NORMALS: regular rate and regular rhythm RATE: regular rate RHYTHM: regular rhythm Extremity: COMMON NORMALS: normal to inspection and full ROM Neuro: COMMON NORMALS: patient oriented x3 Psych: COMMON NORMALS: cooperative Skin: NARRATIVE SKIN EXAM: well-healed incisions to right ankle Data : 02/03/21 11:33 01/23/21 00:31 A&P Assessment and plan (1) Status post ORIF of fracture of ankle: Continue fixed boot with WBAT. F/u with Dr leal 2 wks for further direction. Ice/Elevate RLE prn. 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
[2021-02-06 13:53] VITALS: BP 146/80; PULSE 131; RESP 18; TEMP 36.7; O2SAT 97
[2021-02-06] MEDS: LORazepam 2 mg Tablet PO (15:09)
[2021-02-06 22:00] VITALS: PULSE 115; RESP 16; O2SAT 98
[2021-02-06] MEDS: quetiapine 300 mg Tablet 150 MG PO (22:34)
[2021-02-06] MEDS: cloZAPine 100 mg Tablet 200 MG PO (22:34)
[2021-02-07] MEDS: nicotine 2 mg Gum BUCCAL ×3 (04:19→16:39)
[2021-02-07] MEDS: cetylpyridinium Lozenge 1 EACH MUCOUS MEM ×3 (04:19→18:09)
[2021-02-07 06:00] VITALS: RESP 15
[2021-02-07] MEDS: ibuprofen 800 mg tablet PO ×3 (10:12→20:59)
[2021-02-07] MEDS: lamoTRIgine 100 mg Tablet 150 MG PO (10:12)
[2021-02-07] MEDS: cloZAPine 100 mg Tablet 200 MG PO ×3 (10:12→10:14)
[2021-02-07] MEDS: fluticasone nasal spray 16gm Btl 2 SPRAY NASAL (10:13)
[2021-02-07] MEDS: cloZAPine 25 mg Tablet 50 MG PO ×2 (10:24→17:02)
--- NOTE | 2021-02-07 10:39 | NPU.GN ---
[facility]Psych Unit Group Topic: Depression/ Anxiety Wes General Mood of Group: Sherri slept and did not attend group this morning.
--- NOTE | 2021-02-07 11:00 | W.PM.NPUPNS ---
Subjective NPU Subjective: Interval history: He says that the private branch exchange service adviser from Seroquel to Clozaril has gone well. She feels like she can focus better and her mind is more clear. She said that she had been concerned that she had been on Seroquel for too long. She then changed the topic to needing to go home and get some things at her mother's place. She said it could be supervised by the police department. I told her that she needed to get approval from [facility] lee and she started looking for her number. She then became quite agitated at the nurses station after I left. We will private branch exchange service adviser to just Clozaril and no Seroquel with anticipation of possible discharge tomorrow. Mental Status Exam MSE Comments: This is an overweight white female with hospital scrubs on with limited grooming and eye contact. No abnormal movements except for regular psychomotor agitation. More cooperative with exam in occasional distress. Speech was mildly pressured with late increased rate and more normal volume. Mood described as good, became irritable when she started asking about going to get her things at her mother's place, but still hyper. Thought process a little more organized. 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 With elevated affect, she denied auditory or visual hallucinations currently. Attention and concentration were limited and memory appeared mostly unreliable but none were formally tested. She is alert and oriented x3. Insight and judgment are impaired, impulse control is impaired. Cognition: Patient Appearance: Appropriate Level of Consciousness: Awake, Alert, Appropriate and Follows Commands Patient Cognition Impaired: No Ability to Follow Directions: Good Patient Orientation (long list): Person, Place, Time, Name, Age and Birthday Comprehension Ability: No Impairment Hallucination Type: None Delusion Description: Not Present Thought Process: Disorganized, Flight of Ideas and Loose Associations Affect: Affect Description: Appropriate Behavior: Patient Behavior: Appropriate Speech Pattern: Appropriate Vitals/I&O/Wt Last Vital Signs Temp 98.0 F 02/06/21 13:53 Pulse 115 H 02/06/21 22:00 Resp 15 02/07/21 06:00 BP 146/80 02/06/21 13:53 Pulse Ox 98 02/06/21 22:00 Weight last 48 hrs Weight 63.503 kg Data NPU : 02/03/21 11:33 01/23/21 00:31 A&P Assessment and plan (1) Acute psychosis: Status: Acute (2) Schizoaffective disorder, bipolar type: Status: Acute (3) PTSD (post-traumatic stress disorder): Status: Chronic (4) Status post ORIF of fracture of ankle: Status: Acute (5) Bimalleolar fracture of right ankle: Status: Acute Additional A&P Information (1) Acute psychosis: (2) Schizoaffective disorder, bipolar type: (3) PTSD (post-traumatic stress disorder): (4) Status post ORIF of fracture of ankle: (5) Bimalleolar fracture of right ankle: Additional A&P Information This is a 25-year-old white female with a long history of mental health and addiction challenges who presented about a week after her last discharge with continued inability to be managed on outpatient basis with continued aenta and erratic behavior. 1. Continue monthly Invega sustained 156 mg injections. Her last injection was January 26. Lamictal 150 mg every morning. Discontinue Seroquel. Increase Clozaril 50 mg BID and 300 mg QHS. 2. Continue every 15 minute checks for safety. 3. Encourage individual, group and milieu therapies. 4. Multiple attempts to reintroduce Sherri to the community have failed and she continues to have borderline stability. 5. Have placement, awaiting stability after med changes. Involuntary Hold Information 96 Hour Hold: 96 Hour Involuntary Admission: Yes 96 Hour Hold Ending Date: 01/28/21 96 Hour Hold Ending Time: 00:01 Attestations NPU Medical Necessity Statement*: Inpatient hospitalization is medically necessary and the clinically appropriate intervention at this time. We will initiate medications and make changes as indicated. 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
[2021-02-07 14:00] VITALS: BP 132/82; PULSE 125; RESP 17; TEMP 36.8; O2SAT 98
[2021-02-07] MEDS: propranolol 20 mg Tablet 10 MG PO ×2 (14:28→20:58)
[2021-02-07] MEDS: LORazepam 2 mg Tablet PO (18:27)
[2021-02-07] MEDS: haloperidol 5 mg Tablet PO (18:27)
--- NOTE | 2021-02-07 18:45 | PC.NURSE ---
PRN MED PT GIVEN 5MG HALDOL & 2MG ATIVAN FOR ANXIETY, PT YELLING, SCREAMING AND THREATENING ANOTHER PATIENT, WILL CONTINUE MONITORING.
[2021-02-07] MEDS: cloZAPine 100 mg Tablet 300 MG PO (20:59)
[2021-02-07 22:00] VITALS: PULSE 110; RESP 15; O2SAT 99
[2021-02-08] MEDS: hyDROXYzine 25 mg Capsule 50 MG PO (00:55)
--- NOTE | 2021-02-08 00:57 | PC.NURSE ---
PT CAME TO DESK STATING SHE NEEDED HER WHATEVER MED. THAT SHE WAS ABOUT TO GO OFF. VISTARIL 50MG PO GIVEN.
--- NOTE | 2021-02-08 01:04 | PC.NURSE ---
Patient woke up and walked to desk with unstable gait and appeared barely awake. She requested juice then stated I'm gonna have a panic attack, I need that..whatever. Patient then given hydroxyzine. Patient asked for snack then walked back to her room, laid down on the bed and was immediately back to sleep. Patient appears as if she is sleep walking. Will continue to monitor.
[2021-02-08 05:53] VITALS: PULSE 105; RESP 15; O2SAT 99
--- NOTE | 2021-02-08 07:48 | P.CONIM_ITS ---
Providers/Reason For Consult Consulting Physician/Specialty*: Orthopedics Reason for Consult*: Right Foot pain Attending Physician: Luis E Hare MD History of Present Illness History of Present Illness Sherri Cobian is a 25 year old female was evaluated on 02/06/2021 on the [facility] of [facility]. Patient was on the phone and ambulating with a fixed boot on her right lower extremity. She had been through her previous ORIF of her right ankle by Dr. Leal on 11/24/2020. She reports minimal right ankle pain has some moderate foot pain at times. Denies any new injury to her right foot. She has moderate swelling that comes and goes with activities. She describes it more as a dull ache. Denies any fever chills or drainage from her incisional site. Denies any knee pain or hip pain. An extensive review of the patient's past medical history, surgical history, allergies, medications, family history, social history, and review of systems was completed Review of Systems General: Reports: 10 or more systems reviewed and unremarkable except in HPI and below Meds/Allergies Home Medications and Allergies Home Medications Medication Instructions Recorded Confirmed Last Taken Type Invega Sustenna 156 mg IM Q30D 30 Days #1 ml 12/24/20 01/24/21 12/27/20 10:00 Rx ibuprofen 800 mg PO TID 12/28/20 01/24/21 Unknown History haloperidol 2.5 mg PO BEDTIME 30 Days #15 tab 01/17/21 01/24/21 Unknown Rx lamotrigine [Lamictal] 100 mg PO DAILY 30 Days #30 tab 01/17/21 01/24/21 Unknown Rx quetiapine 200 mg PO BEDTIME 30 Days #60 tab 01/17/21 01/24/21 Unknown Rx Allergies Allergy/AdvReac Type Severity Reaction Status Date / Time No Known Allergies Allergy Verified 01/23/21 22:58 Current Medications Current Medications Generic Name Dose Route Start Last Admin Trade Name Freq PRN Reason Stop Dose Admin Acetaminophen 650 mg 01/24/21 03:07 02/06/21 05:17 Acetaminophen 325 Mg Tablet PO 650 mg Q4H PRN Administration MILD PAIN Benzocaine 1 each 01/27/21 18:09 02/07/21 18:09 Cetylpyridinium Lozenge MUCOUS MEM 1 each Q2H PRN Administration SORE THROAT Benztropine Mesylate 1 mg 01/24/21 03:07 02/01/21 07:58 Benztropine 1 Mg Tablet PO 1 mg BID PRN Administration Mild Extrapyramidal symptoms Camphor/Menthol/Phenol 1 applic 01/24/21 03:07 02/02/21 06:10 Blistex Lip Oint 7 Gm Tube TOPICAL 1 applic Q1H PRN Administration DRYNESS Clozapine 50 mg 02/06/21 09:00 02/07/21 17:02 Clozapine 25 Mg Tablet PO 50 mg BID JEROMY Administration Clozapine 300 mg 02/07/21 21:00 02/07/21 20:59 Clozapine 100 Mg Tablet PO 300 mg BEDTIME JEROMY Administration Diphenhydramine HCl 50 mg 01/24/21 03:07 01/27/21 17:37 Diphenhydramine 50 Mg/Ml Sdv 1ml IM 50 mg ONCE PRN Administration Severe Extrapyramidal Symptoms Diphenhydramine HCl 50 mg 01/24/21 03:07 02/03/21 19:42 Diphenhydramine 50 Mg/Ml Sdv 1ml IM 50 mg Q4H PRN Administration Severe Aggression Fluticasone Propionate 2 spray 02/04/21 14:58 02/07/21 10:13 Fluticasone Nasal Patterson 16gm Btl NASAL 1 unit DAILY JEROMY Administration Haloperidol 5 mg 01/24/21 03:07 02/07/21 18:27 Haloperidol 5 Mg Tablet PO 5 mg Q4H PRN Administration AGITATION Haloperidol Lactate 5 mg 01/24/21 03:07 02/03/21 19:42 Haloperidol Inj 5 Mg/Ml Inj 1 Ml IM 5 mg Q4H PRN Administration Severe Aggression Haloperidol Lactate 5 mg 01/25/21 16:43 01/27/21 07:27 Haloperidol Inj 5 Mg/Ml Inj 1 Ml IM 5 mg BID PRN Administration IF RESUSES PO HALDOL Hydroxyzine Pamoate 50 mg 01/24/21 03:07 02/08/21 00:55 Hydroxyzine 25 Mg Capsule PO 50 mg Q6H PRN Administration ANXIETY Ibuprofen 800 mg 01/24/21 09:00 02/07/21 20:59 Ibuprofen 800 Mg Tablet PO 800 mg TID JEROMY Administration Lamotrigine 150 mg 01/31/21 09:00 02/07/21 10:12 Lamotrigine 100 Mg Tablet PO 150 mg DAILY JEROMY Administration Lorazepam 2 mg 01/31/21 08:32 02/07/21 18:27 Lorazepam 2 Mg Tablet PO 2 mg Q4H PRN Administration ANXIETY Nicotine Polacrilex 2 mg 01/24/21 03:07 02/07/21 16:39 Nicotine 2 Mg Gum BUCCAL 2 mg Q2H PRN Administration NICOTINE WITHDRAWAL Olanzapine 5 mg 01/24/21 03:07 02/04/21 03:43 Olanzapine 5 Mg Odt PO 5 mg Q4H PRN Administration Agitation/Psychosis Paliperidone Palmitate 156 mg 01/26/21 10:00 01/26/21 12:13 Paliperidone Palmitate 156 Mg Syringe IM 156 mg Q30D JEROMY Administration Propranolol HCl 10 mg 02/07/21 15:00 02/07/21 20:58 Propranolol 20 Mg Tablet PO 10 mg TID JEROMY Administration PFSH Acute PFSH: Medical History Bipolar disorder, curr episode mixed, severe, w/o psychotic features Bipolar disorder, curr episode mixed, severe, with psychotic features Surgical History Status post ORIF of fracture of ankle Social History Smoking and tobacco status: current every day smoker Alcohol intake: current Marital status: Single Marital status details: Significant other Current occupational status: unemployed Female Reproductive History: Date of last menstrual period: 01/17/21 Vitals/I&O/Wt Last Vital Signs Temp 98.2 F 02/07/21 14:00 Pulse 105 H 02/08/21 05:53 Resp 15 02/08/21 05:53 BP 132/82 02/07/21 14:00 Pulse Ox 99 02/08/21 05:53 Physical Exam Narrative: EXAM NARRATIVE: Boot removed with mild swelling right foot, 1+ edema over right 5th MT with mild discomfort to palpation. Well-healed incision from previous ORIF of right ankle. FROM of RLE, no pain in right knee or hip. pulses papable with NVI, calves supple and NT. Const: COMMON NORMALS: patient oriented x3 HENMT: COMMON NORMALS: normocephalic HEAD & SCALP: normocephalic Resp: COMMON NORMALS: normal respiratory effort Cardio: COMMON NORMALS: regular rate and regular rhythm RATE: regular rate RHYTHM: regular rhythm Extremity: COMMON NORMALS: normal to inspection and full ROM Neuro: COMMON NORMALS: patient oriented x3 Psych: COMMON NORMALS: cooperative Skin: NARRATIVE SKIN EXAM: well-healed incisions to right ankle A&P Assessment and plan (1) Status post ORIF of fracture of ankle: Continue fixed boot with WBAT. F/u with Dr leal 2 wks for further direction. Ice/Elevate RLE prn. Discussed this with Dr. Foster he agrees with above-stated plan. 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
[2021-02-08] MEDS: nicotine 2 mg Gum BUCCAL ×5 (08:05→19:15)
[2021-02-08] MEDS: propranolol 20 mg Tablet 10 MG PO ×3 (09:23→20:09)
[2021-02-08] MEDS: lamoTRIgine 100 mg Tablet 150 MG PO (09:23)
[2021-02-08] MEDS: cetylpyridinium Lozenge 1 EACH MUCOUS MEM ×3 (09:24→20:09)
[2021-02-08] MEDS: cloZAPine 25 mg Tablet 50 MG PO ×2 (09:24→17:05)
[2021-02-08] MEDS: ibuprofen 800 mg tablet PO ×2 (09:24→20:09)
[2021-02-08] MEDS: fluticasone nasal spray 16gm Btl 2 SPRAY NASAL (10:00)
--- NOTE | 2021-02-08 11:01 | NPU.GN ---
[facility] NeuroPsych Unit Group Topic:Jamey Word Search General Mood of Group: Sherri did not attend group today she slept today.
[2021-02-08 14:00] VITALS: BP 128/70; PULSE 110; RESP 17; TEMP 36.9; O2SAT 98
--- NOTE | 2021-02-08 14:12 | P.NPUPN_ITS ---
Subjective NPU Subjective: Interval history: The transition from Seroquel to the Clozaril. She had 300 mg of Clozaril last night and said she slept well. She had a interview with the [facility] in [facility] on the phone and handled it amazingly well. The nurses said that she was pleasant and cooperative and thanked them for being willing to help her. She even told the nurses that it was a good place and they help you find employment. They evidently have other programs that can be helpful for her. She said the Inderal 10 mg 3 times a day is working well for her tremor. Mental Status Exam MSE Comments: This is an overweight white female with hospital scrubs on with limited grooming but good eye contact. No abnormal movements except for occasional psychomotor agitation. More cooperative with exam in occasional distress. Speech was mildly pressured with normal rate and more normal volume. Mood described as good, became irritable when she started asking about going to an [facility]. Thought process a little more organized. 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 With elevated affect, she denied auditory or visual hallucinations currently. Attention and concentration were limited and memory appeared mostly unreliable but none were formally tested. She is alert and oriented x3. Insight and judgment are impaired, impulse control is impaired. Cognition: Patient Appearance: Appropriate Level of Consciousness: Awake, Alert, Appropriate and Follows Commands Patient Cognition Impaired: No Ability to Follow Directions: Good Patient Orientation (long list): Person, Place, Time, Name, Age and Birthday Comprehension Ability: No Impairment Hallucination Type: None Delusion Description: Not Present Thought Process: Disorganized, Flight of Ideas and Loose Associations Affect: Affect Description: Appropriate and Calm Behavior: Patient Behavior: Appropriate and Irritable Speech Pattern: Appropriate and Clear Vitals/I&O/Wt Last Vital Signs Temp 98.5 F 02/08/21 14:00 Pulse 110 H 02/08/21 14:00 Resp 17 02/08/21 14:00 BP 128/70 02/08/21 14:00 Pulse Ox 98 02/08/21 14:00 Data NPU : 02/03/21 11:33 01/23/21 00:31 A&P Assessment and plan (1) Acute psychosis: Status: Acute (2) Schizoaffective disorder, bipolar type: Status: Acute (3) PTSD (post-traumatic stress disorder): Status: Chronic (4) Status post ORIF of fracture of ankle: Status: Acute (5) Bimalleolar fracture of right ankle: Status: Acute Additional A&P Information (1) Acute psychosis: (2) Schizoaffective disorder, bipolar type: (3) PTSD (post-traumatic stress disorder): (4) Status post ORIF of fracture of ankle: (5) Bimalleolar fracture of right ankle: Additional A&P Information This is a 25-year-old white female with a long history of mental health and addiction challenges who presented about a week after her last discharge with continued inability to be managed on outpatient basis with continued aneta and erratic behavior. 1. Continue monthly Invega sustained 156 mg injections. Her last injection was January 26. Lamictal 150 mg every morning. Clozaril 50 mg BID and 300 mg QHS. 2. Continue every 15 minute checks for safety. 3. Encourage individual, group and milieu therapies. 4. Multiple attempts to reintroduce Sherri to the community have failed and she continues to have borderline stability. 5. Have placement, awaiting stability after med changes. Involuntary Hold Information 96 Hour Hold: 96 Hour Involuntary Admission: Yes 96 Hour Hold Ending Date: 01/28/21 96 Hour Hold Ending Time: 00:01 Attestations NPU Medical Necessity Statement*: Inpatient hospitalization is medically necessary and the clinically appropriate intervention at this time. We will initiate medications and make changes as indicated. Coding Level of Care Code Acute Paper Control Clerk for Dana Segura Diagnoses Acute psychosis F23 Schizoaffective disorder, bipolar type F25.0 PTSD (post-traumatic stress disorder) F43.10 Status post ORIF of fracture of ankle Z98.890; Z87.81 Bimalleolar fracture of right ankle S82.460W
[2021-02-08] MEDS: OLANZapine 5 mg ODT PO (16:02)
[2021-02-08] MEDS: benztropine 1 mg Tablet PO (17:05)
[2021-02-08] MEDS: cloZAPine 100 mg Tablet 300 MG PO (20:09)
[2021-02-08 20:42] VITALS: BP 125/55; PULSE 107; RESP 18; TEMP 36.7; O2SAT 100
[2021-02-09] MEDS: nicotine 2 mg Gum BUCCAL ×9 (02:33→18:51)
[2021-02-09 06:00] VITALS: RESP 15
--- NOTE | 2021-02-09 10:28 | NPU.GN ---
[facility] Unit Group Topic:Crisis Plan, Triggers, Coping Mechanisms. General Mood of Group: Sherri did participate and attend group today. Sherri was social and seemed mentally stable today. Sherri had good hygiene as well.
[2021-02-09] MEDS: fluticasone nasal spray 16gm Btl 2 SPRAY NASAL (10:43)
[2021-02-09] MEDS: cloZAPine 25 mg Tablet 50 MG PO ×2 (10:44→18:51)
[2021-02-09] MEDS: lamoTRIgine 100 mg Tablet 150 MG PO (10:44)
[2021-02-09] MEDS: propranolol 20 mg Tablet 10 MG PO ×3 (10:45→20:43)
[2021-02-09 12:27] LABS: Basophils # 0.1 10^3/uL (0.0-0.1); Basophils % 0.4 %; Eosinophils # 0.2 10^3/uL (0.0-0.8); Eosinophils % 1.6 %; Hematocrit 40.7 % (37.0-47.0); Hemoglobin 13.3 g/dL (11.5-15.3); Lymphocytes # 1.7 10^3/uL (0.8-4.8); Lymphocytes % 13.6 %; Mean Corpuscular HGB Conc 32.7 g/dL (30.0-36.0); Mean Corpuscular Hemoglobin 30.2 pg (28.0-34.0); Mean Corpuscular Volume 92.3 fl (81-99); Mean Platelet Volume 9.1 fL (7.4-10.4); Monocytes # 0.7 10^3/uL (0.2-0.9); Monocytes % 5.6 %; Neutrophils % 78.5 %; Nucleated Red Blood Cells % 0 %; Platelet Count 351 10^3/cmm (130-400); Red Blood Count 4.41 10^6/uL (4.1-5.3); Red Cell Distribution Width 13.5 % (12.1-15.1); White Blood Count 12.2 10^3/uL (4.0-10.0)
[2021-02-09 14:00] VITALS: BP 137/91; PULSE 120; RESP 20; TEMP 36.6; O2SAT 97
--- NOTE | 2021-02-09 14:00 | W.PM.NPUPNS ---
Subjective NPU Subjective: Interval history: She had a good interview with the [facility] that her guardian has found for her. She is excited to go there. She is tired of being here. She feels like they have several things to offer her including help getting employment. She was very cordial and thankful with them on the phone. She feels like the change to the Clozaril has been positive and she is more in control and her thoughts are more clear. She is not have any side effects from the Clozaril. Mental Status Exam MSE Comments: This is an overweight white female with hospital scrubs on with limited grooming but good eye contact. No abnormal movements except for occasional psychomotor agitation. More cooperative with exam in occasional distress. Speech was mildly pressured with normal rate and more normal volume. Mood described as good. Thought process is well organized. He continues to be loud and sometimes irritated on the unit. 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 With elevated affect, she denied auditory or visual hallucinations currently. Attention and concentration were limited and memory appeared mostly unreliable but none were formally tested. She is alert and oriented x3. Insight and judgment are impaired, impulse control is impaired. Cognition: Patient Appearance: Appropriate Level of Consciousness: Awake, Alert, Appropriate and Follows Commands Patient Cognition Impaired: No Ability to Follow Directions: Good Patient Orientation (long list): Person, Place, Time, Name, Age and Birthday Comprehension Ability: No Impairment Hallucination Type: None Delusion Description: Not Present Thought Process: Appropriate and Disorganized Affect: Affect Description: Appropriate Behavior: Patient Behavior: Cooperative Speech Pattern: Clear Vitals/I&O/Wt Last Vital Signs Temp 98.0 F 02/09/21 22:00 Pulse 116 H 02/09/21 22:00 Resp 16 02/10/21 06:00 BP 143/95 02/09/21 22:00 Pulse Ox 99 02/09/21 22:00 Data NPU : 02/09/21 12:14 01/23/21 00:31 A&P Assessment and plan (1) Acute psychosis: Status: Acute (2) Schizoaffective disorder, bipolar type: Status: Acute (3) PTSD (post-traumatic stress disorder): Status: Chronic (4) Status post ORIF of fracture of ankle: Status: Acute (5) Bimalleolar fracture of right ankle: Status: Acute Additional A&P Information (1) Acute psychosis: (2) Schizoaffective disorder, bipolar type: (3) PTSD (post-traumatic stress disorder): (4) Status post ORIF of fracture of ankle: (5) Bimalleolar fracture of right ankle: Additional A&P Information This is a 25-year-old white female with a long history of mental health and addiction challenges who presented about a week after her last discharge with continued inability to be managed on outpatient basis with continued aneta and erratic behavior. 1. Continue monthly Invega sustained 156 mg injections. Her last injection was January 26. Lamictal 150 mg every morning. Clozaril 50 mg BID and 300 mg QHS. 2. Continue every 15 minute checks for safety. 3. Encourage individual, group and milieu therapies. 4. Multiple attempts to reintroduce Sherri to the community have failed and she continues to have borderline stability. 5. Have placement, awaiting stability after med changes. Involuntary Hold Information 96 Hour Hold: 96 Hour Involuntary Admission: Yes 96 Hour Hold Ending Date: 01/28/21 96 Hour Hold Ending Time: 00:01 Attestations NPU Medical Necessity Statement*: Inpatient hospitalization is medically necessary and the clinically appropriate intervention at this time. We are waiting on her to be transferred to an [facility] which should be today. Coding Level of Care Code Acute Circular Tank Cooper for Dana Segura Diagnoses Acute psychosis F23 Schizoaffective disorder, bipolar type F25.0 PTSD (post-traumatic stress disorder) F43.10 Status post ORIF of fracture of ankle Z98.890; Z87.81 Bimalleolar fracture of right ankle S82.847S
[2021-02-09] MEDS: ibuprofen 800 mg tablet PO ×2 (14:40→20:43)
[2021-02-09] MEDS: cetylpyridinium Lozenge 1 EACH MUCOUS MEM (20:43)
[2021-02-09] MEDS: cloZAPine 100 mg Tablet 300 MG PO (20:43)
[2021-02-09] MEDS: OLANZapine 5 mg ODT PO (20:48)
[2021-02-09] MEDS: LORazepam 2 mg Tablet PO (20:48)
--- NOTE | 2021-02-09 20:48 | PC.NURSE ---
Pt requested medication for agitation and anxiety. Lorazepam 2 mg and Zydis 5 mg PO given without complication.
[2021-02-09 22:00] VITALS: BP 143/95; PULSE 116; RESP 18; TEMP 36.7; O2SAT 99
[2021-02-10] MEDS: nicotine 2 mg Gum BUCCAL ×8 (05:08→18:19)
[2021-02-10] MEDS: cetylpyridinium Lozenge 1 EACH MUCOUS MEM ×2 (05:08→09:25)
[2021-02-10 06:00] VITALS: RESP 16
[2021-02-10] MEDS: cloZAPine 25 mg Tablet 50 MG PO ×2 (08:58→18:19)
[2021-02-10] MEDS: ibuprofen 800 mg tablet PO ×3 (08:58→20:56)
[2021-02-10] MEDS: lamoTRIgine 100 mg Tablet 150 MG PO (08:59)
[2021-02-10] MEDS: propranolol 20 mg Tablet 10 MG PO ×3 (08:59→20:56)
[2021-02-10] MEDS: fluticasone nasal spray 16gm Btl 2 SPRAY NASAL (09:03)
[2021-02-10] MEDS: LORazepam 2 mg Tablet PO ×2 (12:33→20:59)
--- NOTE | 2021-02-10 12:49 | NPU.GN ---
[facility] Topic:Jamey Activity's General Mood of Group Sherri did attend and participate in group today. Her demeanor was good she was social with others and her hygiene was good.
[2021-02-10 14:00] VITALS: BP 131/84; PULSE 112; RESP 18; TEMP 36.5; O2SAT 98
--- NOTE | 2021-02-10 14:10 | P.NPUPN_ITS ---
Subjective NPU Subjective: Interval history: Unfortunately, the [facility] that have accepted her changed her mind. We strongly suspect that it was her mother who called them and was the reason that they changed their minds. She is upset by that but seems to be handling it fairly well. She continues to behave better and have fewer outbursts. Mental Status Exam MSE Comments: This is an overweight white female with hospital scrubs on with limited grooming but good eye contact. No abnormal movements except for occasional psychomotor agitation. More cooperative with exam in occasional distress. Speech was mildly pressured with normal rate and more normal volume. Mood described as good. Thought process is well organized. He continues to be loud and sometimes irritated on the unit. 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 With elevated affect, she denied auditory or visual hallucinations currently. Attention and concentration were limited and memory appeared mostly unreliable but none were formally tested. She is alert and oriented x3. Insight and judgment are impaired, impulse control is impaired. Cognition: Patient Appearance: Appropriate Level of Consciousness: Awake, Alert, Appropriate and Follows Commands Patient Cognition Impaired: No Ability to Follow Directions: Good Patient Orientation (long list): Person, Place, Time, Name, Age and Birthday Comprehension Ability: No Impairment Hallucination Type: None Delusion Description: Not Present Thought Process: Appropriate and Disorganized Affect: Affect Description: Appropriate Behavior: Patient Behavior: Cooperative Speech Pattern: Clear Vitals/I&O/Wt Last Vital Signs Temp 98.0 F 02/09/21 22:00 Pulse 116 H 02/09/21 22:00 Resp 16 02/10/21 06:00 BP 143/95 02/09/21 22:00 Pulse Ox 99 02/09/21 22:00 Data NPU : 02/09/21 12:14 01/23/21 00:31 A&P Assessment and plan (1) Acute psychosis: Status: Acute (2) Schizoaffective disorder, bipolar type: Status: Acute (3) PTSD (post-traumatic stress disorder): Status: Chronic (4) Status post ORIF of fracture of ankle: Status: Acute (5) Bimalleolar fracture of right ankle: Status: Acute Additional A&P Information (1) Acute psychosis: (2) Schizoaffective disorder, bipolar type: (3) PTSD (post-traumatic stress disorder): (4) Status post ORIF of fracture of ankle: (5) Bimalleolar fracture of right ankle: Additional A&P Information This is a 25-year-old white female with a long history of mental health and addiction challenges who presented about a week after her last discharge with continued inability to be managed on outpatient basis with continued aneta and erratic behavior. 1. Continue monthly Invega sustained 156 mg injections. Her last injection was January 26. Lamictal 150 mg every morning. Clozaril 50 mg BID and 300 mg QHS. 2. Continue every 15 minute checks for safety. 3. Encourage individual, group and milieu therapies. 4. Multiple attempts to reintroduce Sherri to the community have failed and she continues to have borderline stability. 5. To be at baseline now we are awaiting placement. Involuntary Hold Information 96 Hour Hold: 96 Hour Involuntary Admission: Yes 96 Hour Hold Ending Date: 01/28/21 96 Hour Hold Ending Time: 00:01 Attestations NPU Medical Necessity Statement*: Inpatient hospitalization is medically necessary and the clinically appropriate intervention at this time. She seems back at her baseline but we are awaiting placement. Coding Level of Care Code Acute Emt I/99 for Dana Segura Diagnoses Acute psychosis F23 Schizoaffective disorder, bipolar type F25.0 PTSD (post-traumatic stress disorder) F43.10 Status post ORIF of fracture of ankle Z98.890; Z87.81 Bimalleolar fracture of right ankle S82.840E
[2021-02-10] MEDS: cloZAPine 100 mg Tablet 300 MG PO (20:56)
[2021-02-10] MEDS: OLANZapine 5 mg ODT PO (21:00)
[2021-02-10 22:00] VITALS: RESP 15
--- NOTE | 2021-02-10 22:01 | PC.NURSE ---
Ativan 1mg and Zydis 5 mg PO administered for anxiety.
[2021-02-11] MEDS: benztropine 1 mg Tablet PO (01:24)
--- NOTE | 2021-02-11 01:30 | PC.NURSE ---
Pt presented to nurse's station stating she feels like she is having a reaction to her medication. Pt was excessively drooling and stated her mouth felt weird. Pt's tongue did not appear to be swollen. Pt breathing normally. Cogentin 1mg PO administered without complication. Will closely monitor for any S/S of EPS.
[2021-02-11] MEDS: cetylpyridinium Lozenge 1 EACH MUCOUS MEM ×3 (05:12→16:59)
[2021-02-11] MEDS: nicotine 2 mg Gum BUCCAL ×7 (05:12→20:21)
[2021-02-11 06:00] VITALS: RESP 16
[2021-02-11] MEDS: lamoTRIgine 100 mg Tablet 150 MG PO (08:55)
[2021-02-11] MEDS: ibuprofen 800 mg tablet PO ×3 (08:55→20:20)
[2021-02-11] MEDS: propranolol 20 mg Tablet 10 MG PO ×3 (08:55→20:19)
[2021-02-11] MEDS: cloZAPine 25 mg Tablet 50 MG PO ×2 (08:56→17:48)
[2021-02-11] MEDS: fluticasone nasal spray 16gm Btl 2 SPRAY NASAL (10:17)
--- NOTE | 2021-02-11 11:30 | P.NPUPN_ITS ---
Subjective NPU Subjective: Interval history: He continues to be very well and intrusive. He has generally been in contol. The last time she needed a B-52 injection was February 07. She had some Zyprexa Zydis last night. She has where she is going to go. She was assured that we were looking for a good place that had people her age. Mental Status Exam MSE Comments: This is an overweight white female with hospital scrubs on with limited grooming but good eye contact. No abnormal movements except for occasional psychomotor agitation. More cooperative with exam in occasional distress. Speech was mildly pressured with normal rate and more normal volume. Mood described as good. Thought process is well organized. He continues to be loud and sometimes irritated on the unit. 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 With elevated affect, she denied auditory or visual hallucinations currently. Attention and concentration were limited and memory appeared mostly unreliable but none were formally tested. She is alert and oriented x3. Insight and judgment are impaired, impulse control is impaired. Cognition: Patient Appearance: Appropriate Level of Consciousness: Awake, Alert, Appropriate and Follows Commands Patient Cognition Impaired: No Ability to Follow Directions: Good Patient Orientation (long list): Person, Place, Time, Name, Age and Birthday Comprehension Ability: No Impairment Hallucination Type: None Delusion Description: Not Present Thought Process: Circumstantial, Disorganized, Flight of Ideas and Tangential Affect: Affect Description: Labile Behavior: Patient Behavior: Impulsive and Intrusive Speech Pattern: Includes Profanity, Excessive and Rambling Vitals/I&O/Wt Last Vital Signs Temp 97.7 F 02/10/21 14:00 Pulse 112 H 02/10/21 14:00 Resp 16 02/11/21 06:00 BP 131/84 02/10/21 14:00 Pulse Ox 98 02/10/21 14:00 Data NPU : 02/09/21 12:14 01/23/21 00:31 A&P Assessment and plan (1) Acute psychosis: Status: Acute (2) Schizoaffective disorder, bipolar type: Status: Acute (3) PTSD (post-traumatic stress disorder): Status: Chronic (4) Status post ORIF of fracture of ankle: Status: Acute (5) Bimalleolar fracture of right ankle: Status: Acute Additional A&P Information (1) Acute psychosis: (2) Schizoaffective disorder, bipolar type: (3) PTSD (post-traumatic stress disorder): (4) Status post ORIF of fracture of ankle: (5) Bimalleolar fracture of right ankle: Additional A&P Information This is a 25-year-old white female with a long history of mental health and addiction challenges who presented about a week after her last discharge with continued inability to be managed on outpatient basis with continued aneta and erratic behavior. 1. Continue monthly Invega sustained 156 mg injections. Her last injection was January 26. Lamictal 150 mg every morning. Clozaril 50 mg BID and 300 mg QHS. 2. Continue every 15 minute checks for safety. 3. Encourage individual, group and milieu therapies. 4. Multiple attempts to reintroduce Sherri to the community have failed and she continues to have borderline stability. 5. To be at baseline now we are awaiting placement. Involuntary Hold Information 96 Hour Hold: 96 Hour Involuntary Admission: Yes 96 Hour Hold Ending Date: 01/28/21 96 Hour Hold Ending Time: 00:01 Attestations NPU Medical Necessity Statement*: Inpatient hospitalization is medically necessary and the clinically appropriate intervention at this time. We will initiate medications and make changes as indicated. Coding Level of Care Code Acute Packing House Laborer for Dana Segura Diagnoses Acute psychosis F23 Schizoaffective disorder, bipolar type F25.0 PTSD (post-traumatic stress disorder) F43.10 Status post ORIF of fracture of ankle Z98.890; Z87.81 Bimalleolar fracture of right ankle S82.845W
[2021-02-11] MEDS: OLANZapine 5 mg ODT PO ×2 (11:56→20:20)
--- NOTE | 2021-02-11 11:58 | PC.NURSE ---
prn Administered 5mg zyprexa Zydis for anxiety. Will continue to monitor.
[2021-02-11] MEDS: LORazepam 2 mg Tablet PO ×2 (13:09→20:20)
[2021-02-11 14:00] VITALS: BP 124/87; PULSE 112; RESP 17; TEMP 36.7; O2SAT 100
[2021-02-11 19:41] VITALS: BP 115/77; PULSE 108; RESP 18; O2SAT 99
[2021-02-11] MEDS: cloZAPine 100 mg Tablet 300 MG PO (20:20)
--- NOTE | 2021-02-11 20:20 | PC.NURSE ---
Ativan 2 mg and Zydis 5 mg PO administered for anxiety and agitation.
[2021-02-12] MEDS: nicotine 2 mg Gum BUCCAL ×6 (04:20→20:31)
[2021-02-12 06:00] VITALS: PULSE 110; RESP 16; O2SAT 98
[2021-02-12] MEDS: cloZAPine 25 mg Tablet 50 MG PO (08:57)
[2021-02-12] MEDS: ibuprofen 800 mg tablet PO ×3 (08:57→20:20)
[2021-02-12] MEDS: propranolol 20 mg Tablet 10 MG PO ×3 (08:57→20:20)
[2021-02-12] MEDS: lamoTRIgine 100 mg Tablet 150 MG PO (08:57)
[2021-02-12] MEDS: cetylpyridinium Lozenge 1 EACH MUCOUS MEM (11:06)
--- NOTE | 2021-02-12 11:51 | W.PM.NPUPNS ---
Subjective NPU Subjective: Interval history: She was found in bed at 1145. She said that she had accidentally ordered something that she did not like and is just snacking on Cheerios for lunch. She says that she has been eating too much anyway. She is feeling somewhat sedated. She thinks it might be because she had some rough days and is catching up on sleep. She thought I had changed her medication but there has not been a change for the last week. She took Zyprexa Zydis and Ativan 2 mg last night at bedtime. We discussed that we need to get her sleeping without that before she leaves. She agreed to increase the Clozaril to 400 mg. We also talked a little bit about her mother. She had not heard that her mother is the one who sabotaged her last [facility] placement. She agreed that she should not be informed of the next 1 until she is already there. We discussed the likelihood of her getting guardianship which is very small. Mental Status Exam MSE Comments: This is an overweight white female with hospital scrubs on with limited grooming but good eye contact. No abnormal movements except for occasional psychomotor agitation. More cooperative with exam in no distress. Speech was not pressured with normal rate and more normal volume. Mood described as good. Thought process is well organized. She continues to be loud and sometimes irritated on the unit. 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 With elevated affect, she denied auditory or visual hallucinations currently. Attention and concentration were limited and memory appeared mostly unreliable but none were formally tested. She is alert and oriented x3. Insight and judgment are impaired, impulse control is impaired. Cognition: Patient Appearance: Appropriate Level of Consciousness: Awake, Alert, Appropriate and Follows Commands Patient Cognition Impaired: No Ability to Follow Directions: Good Patient Orientation (long list): Person, Place, Time, Name, Age and Birthday Comprehension Ability: No Impairment Hallucination Type: None Delusion Description: Not Present Thought Process: Appropriate and Circumstantial Affect: Affect Description: Appropriate and Calm Behavior: Patient Behavior: Appropriate and Cooperative Speech Pattern: Appropriate Vitals/I&O/Wt Last Vital Signs Temp 98.0 F 02/11/21 14:00 Pulse 110 H 02/12/21 06:00 Resp 16 02/12/21 06:00 BP 115/77 02/11/21 19:41 Pulse Ox 98 02/12/21 06:00 Data NPU : 02/09/21 12:14 01/23/21 00:31 A&P Assessment and plan (1) Acute psychosis: Status: Acute (2) Schizoaffective disorder, bipolar type: Status: Acute (3) PTSD (post-traumatic stress disorder): Status: Chronic (4) Status post ORIF of fracture of ankle: Status: Acute (5) Bimalleolar fracture of right ankle: Status: Acute Additional A&P Information (1) Acute psychosis: (2) Schizoaffective disorder, bipolar type: (3) PTSD (post-traumatic stress disorder): (4) Status post ORIF of fracture of ankle: (5) Bimalleolar fracture of right ankle: Additional A&P Information This is a 25-year-old white female with a long history of mental health and addiction challenges who presented about a week after her last discharge with continued inability to be managed on outpatient basis with continued aneta and erratic behavior. 1. Continue monthly Invega sustained 156 mg injections. Her last injection was January 26. Lamictal 150 mg every morning. Clozaril 50 mg BID and 300 mg QHS. 2. Continue every 15 minute checks for safety. 3. Encourage individual, group and milieu therapies. 4. Multiple attempts to reintroduce Sherri to the community have failed and she continues to have borderline stability. 5. To be at baseline now we are awaiting placement. Involuntary Hold Information 96 Hour Hold: 96 Hour Involuntary Admission: Yes 96 Hour Hold Ending Date: 01/28/21 96 Hour Hold Ending Time: 00:01 Attestations NPU Medical Necessity Statement*: Inpatient hospitalization is medically necessary and the clinically appropriate intervention at this time. We will initiate medications and make changes as indicated. Coding Level of Care Code Acute Mix Mill Tender for Dana Segura Diagnoses Acute psychosis F23 Schizoaffective disorder, bipolar type F25.0 PTSD (post-traumatic stress disorder) F43.10 Status post ORIF of fracture of ankle Z98.890; Z87.81 Bimalleolar fracture of right ankle S82.844B
[2021-02-12 14:00] VITALS: RESP 17
[2021-02-12] MEDS: cloZAPine 100 mg Tablet 50 MG PO (17:22)
[2021-02-12] MEDS: cloZAPine 100 mg Tablet 400 MG PO (20:19)
[2021-02-12 20:32] VITALS: BP 119/82; PULSE 120; RESP 18; O2SAT 98
[2021-02-13] MEDS: acetaminophen 325 mg Tablet 650 MG PO (01:05)
[2021-02-13] MEDS: nicotine 2 mg Gum BUCCAL ×7 (02:37→21:40)
[2021-02-13 06:00] VITALS: RESP 15; BMI 24.0
--- NOTE | 2021-02-13 07:00 | W.PM.NPUPNS ---
Subjective NPU Subjective: Interval history: She did not require any as needed medications yesterday evening. This was the first time in some time. She was given Clozaril 400 mg last night. She slept fairly well. Up and down a couple of times. She said he had some dreams but they were good dreams. She said that the Clozaril during the day makes her a little sleepy and she would like to change it all to bedtime. I reminded her that that was during the day to help her maintain control. We decided to try it at bedtime. She feels like the Invega injection helps keep her level. She does not think that we should discontinue that for now since she is doing well. She was hoping to go today but there is not placement. She also agreed to increase the Clozaril to 600 mg daily. Mental Status Exam MSE Comments: This is an overweight white female with hospital scrubs on with limited grooming but good eye contact. No abnormal movements and no psychomotor agitation. cooperative with exam in no distress. Speech was not pressured with normal rate and more normal volume. Mood described as good. Thought process is well organized. She continues to be loud and sometimes irritated on the unit but significantly less so. Thought content: Patient denied suicidal or homicidal ideation, no delusions. she denied auditory or visual hallucinations currently. Attention and concentration good. She is alert and oriented x3. Insight and judgment are improved. impulse control is impaired. Cognition: Patient Appearance: Appropriate Level of Consciousness: Awake, Alert, Appropriate and Follows Commands Patient Cognition Impaired: No Ability to Follow Directions: Good Patient Orientation (long list): Person, Place, Time, Name, Age and Birthday Comprehension Ability: No Impairment Hallucination Type: None Delusion Description: Not Present Thought Process: Appropriate and Circumstantial Affect: Affect Description: Appropriate Behavior: Patient Behavior: Appropriate Speech Pattern: Appropriate Vitals/I&O/Wt Last Vital Signs Temp 98.0 F 02/11/21 14:00 Pulse 120 H 02/12/21 20:32 Resp 15 02/13/21 06:00 BP 119/82 02/12/21 20:32 Pulse Ox 98 02/12/21 20:32 Weight last 48 hrs Weight 63.503 kg Data NPU : 02/09/21 12:14 01/23/21 00:31 A&P Assessment and plan (1) Acute psychosis: Status: Acute (2) Schizoaffective disorder, bipolar type: Status: Acute (3) PTSD (post-traumatic stress disorder): Status: Chronic (4) Status post ORIF of fracture of ankle: Status: Acute (5) Bimalleolar fracture of right ankle: Status: Acute Additional A&P Information (1) Acute psychosis: (2) Schizoaffective disorder, bipolar type: (3) PTSD (post-traumatic stress disorder): (4) Status post ORIF of fracture of ankle: (5) Bimalleolar fracture of right ankle: Additional A&P Information This is a 25-year-old white female with a long history of mental health and addiction challenges who presented about a week after her last discharge with continued inability to be managed on outpatient basis with continued aneta and erratic behavior. 1. Continue monthly Invega sustained 156 mg injections. Her last injection was January 26. Lamictal 150 mg every morning. Clozaril 600 mg QHS. 2. Continue every 15 minute checks for safety. 3. Encourage individual, group and milieu therapies. 4. Multiple attempts to reintroduce Sherri to the community have failed and she continues to have borderline stability. 5. To be at baseline now we are awaiting placement. Involuntary Hold Information 96 Hour Hold: 96 Hour Involuntary Admission: Yes 96 Hour Hold Ending Date: 01/28/21 96 Hour Hold Ending Time: 00:01 Attestations NPU Medical Necessity Statement*: Inpatient hospitalization is medically necessary and the clinically appropriate intervention at this time. We will initiate medications and make changes as indicated. Coding Level of Care Code Acute Behavioral Health Case Manager for Dana Segura Diagnoses Acute psychosis F23 Schizoaffective disorder, bipolar type F25.0 PTSD (post-traumatic stress disorder) F43.10 Status post ORIF of fracture of ankle Z98.890; Z87.81 Bimalleolar fracture of right ankle S82.849N
[2021-02-13] MEDS: ibuprofen 800 mg tablet PO ×3 (08:36→18:49)
[2021-02-13] MEDS: propranolol 20 mg Tablet 10 MG PO ×3 (08:36→18:49)
[2021-02-13] MEDS: fluticasone nasal spray 16gm Btl 2 SPRAY NASAL (08:37)
[2021-02-13] MEDS: lamoTRIgine 100 mg Tablet 150 MG PO (08:37)
[2021-02-13] MEDS: cetylpyridinium Lozenge 1 EACH MUCOUS MEM ×3 (09:59→18:10)
[2021-02-13 14:00] VITALS: BP 128/85; PULSE 113; RESP 20; TEMP 36.8; O2SAT 98
[2021-02-13] MEDS: cloZAPine 100 mg Tablet 600 MG PO (18:50)
[2021-02-13 19:43] VITALS: RESP 16
[2021-02-14] MEDS: nicotine 2 mg Gum BUCCAL ×6 (04:43→18:09)
[2021-02-14 06:00] VITALS: RESP 20
[2021-02-14] MEDS: ibuprofen 800 mg tablet PO ×3 (08:22→19:36)
[2021-02-14] MEDS: propranolol 20 mg Tablet 10 MG PO ×3 (08:23→19:35)
[2021-02-14] MEDS: lamoTRIgine 100 mg Tablet 150 MG PO (08:23)
[2021-02-14] MEDS: fluticasone nasal spray 16gm Btl 2 SPRAY NASAL (08:24)
[2021-02-14] MEDS: cetylpyridinium Lozenge 1 EACH MUCOUS MEM ×2 (09:12→14:26)
--- NOTE | 2021-02-14 10:54 | NPU.GN ---
[facility] Topic: Ice Breakers General Mood of Group: Sherri did attend and participate in group today. She was social, hygiene was good , and seems mentally stable.
--- NOTE | 2021-02-14 11:38 | P.NPUPN_ITS ---
Subjective NPU Subjective: Interval history: She said that she did not sleep as well last night. She did not get any as needed medications. She only had the clozapine 600 mg. He says that she likes not taking it during the day. She says that her thoughts are more clear with the clozapine. I have not heard her at the nursing station as much as usual. She feels like she is ready to go and frustrated that they have not found placement. Mental Status Exam MSE Comments: This is an overweight white female with hospital scrubs on with limited grooming but good eye contact. No abnormal movements and no psychomotor agitation. cooperative with exam in no distress. Speech was not pressured with normal rate and more normal volume. Mood described as good. Thought process is well organized. She continues to be loud and sometimes irritated on the unit but significantly less so. Thought content: Patient denied suicidal or homicidal ideation, no delusions. she denied auditory or visual hallucinations currently. Attention and concentration good. She is alert and oriented x3. Insight and judgment are improved. impulse control is impaired. Cognition: Patient Appearance: Appropriate Level of Consciousness: Awake, Alert, Appropriate and Follows Commands Patient Cognition Impaired: No Ability to Follow Directions: Good Patient Orientation (long list): Person, Place, Time, Name, Age and Birthday Comprehension Ability: No Impairment Hallucination Type: None Delusion Description: Not Present Thought Process: Appropriate and Circumstantial Affect: Affect Description: Appropriate and Calm Behavior: Patient Behavior: Appropriate and Cooperative Speech Pattern: Appropriate and Clear Vitals/I&O/Wt Last Vital Signs Temp 98.3 F 02/13/21 14:00 Pulse 113 H 02/13/21 14:00 Resp 20 H 02/14/21 06:00 BP 128/85 02/13/21 14:00 Pulse Ox 98 02/13/21 14:00 Weight last 48 hrs Weight 63.503 kg Data NPU : 02/09/21 12:14 01/23/21 00:31 A&P Assessment and plan (1) Acute psychosis: Status: Acute (2) Schizoaffective disorder, bipolar type: Status: Acute (3) PTSD (post-traumatic stress disorder): Status: Chronic (4) Status post ORIF of fracture of ankle: Status: Acute (5) Bimalleolar fracture of right ankle: Status: Acute Additional A&P Information (1) Acute psychosis: (2) Schizoaffective disorder, bipolar type: (3) PTSD (post-traumatic stress disorder): (4) Status post ORIF of fracture of ankle: (5) Bimalleolar fracture of right ankle: Additional A&P Information This is a 25-year-old white female with a long history of mental health and addiction challenges who presented about a week after her last discharge with continued inability to be managed on outpatient basis with continued aneta and erratic behavior. 1. Continue monthly Invega sustained 156 mg injections. Her last injection was January 26. Lamictal 150 mg every morning. Clozaril 600 mg QHS. 2. Continue every 15 minute checks for safety. 3. Encourage individual, group and milieu therapies. 4. Multiple attempts to reintroduce Sherri to the community have failed and she continues to have borderline stability. 5. To be at baseline now we are awaiting placement. Involuntary Hold Information 96 Hour Hold: 96 Hour Involuntary Admission: Yes 96 Hour Hold Ending Date: 01/28/21 96 Hour Hold Ending Time: 00:01 Attestations NPU Medical Necessity Statement*: Inpatient hospitalization is medically necessary and the clinically appropriate intervention at this time. We will initiate medications and make changes as indicated. Coding Level of Care Code Acute Clinical Molecular Geneticist for Dana Segura Diagnoses Acute psychosis F23 Schizoaffective disorder, bipolar type F25.0 PTSD (post-traumatic stress disorder) F43.10 Status post ORIF of fracture of ankle Z98.890; Z87.81 Bimalleolar fracture of right ankle S82.841Q
--- NOTE | 2021-02-14 13:20 | PC.NURSE ---
PRN Utilizing PRN Nicotine gum
[2021-02-14 13:38] VITALS: BP 128/85; PULSE 113; RESP 20; TEMP 36.8; O2SAT 98
[2021-02-14 13:39] VITALS: BP 118/80; PULSE 113; RESP 17; O2SAT 98
--- NOTE | 2021-02-14 14:33 | PC.NURSE ---
pt c/o throat bothering her, requested prn cepacol as well as prn nicorette gum for craving .
--- NOTE | 2021-02-14 18:11 | PC.NURSE ---
pt requested prn nicorette gum
[2021-02-14] MEDS: cloZAPine 100 mg Tablet 600 MG PO (19:36)
[2021-02-15] MEDS: nicotine 2 mg Gum BUCCAL ×7 (04:06→19:35)
[2021-02-15] MEDS: cetylpyridinium Lozenge 1 EACH MUCOUS MEM ×4 (04:39→19:35)
[2021-02-15 06:00] VITALS: BP 119/82; PULSE 128; RESP 17; TEMP 36.7; O2SAT 99
[2021-02-15] MEDS: ibuprofen 800 mg tablet PO ×3 (08:34→19:36)
[2021-02-15] MEDS: fluticasone nasal spray 16gm Btl 2 SPRAY NASAL (08:34)
[2021-02-15] MEDS: lamoTRIgine 100 mg Tablet 150 MG PO (08:35)
--- NOTE | 2021-02-15 09:02 | W.PM.NPUPNS ---
Subjective NPU Subjective: Interval history: She says that she slept well last night which is the Clozaril 600 mg. She continues to be happy about medication. She continues to say that her thoughts are more clear without medication. He has not had any as needed medications for anxiety or aggression since February 11 when she had the Zyprexa Zydis 5 mg. Mental Status Exam MSE Comments: This is an overweight white female with hospital scrubs on with limited grooming but good eye contact. No abnormal movements and no psychomotor agitation. cooperative with exam in no distress. Speech was not pressured with normal rate and more normal volume. Attention and concentration good. She is alert and oriented x3. Mood described as good. Thought process is well organized. She continues to be loud and sometimes irritated on the unit but significantly less so. Thought content: Patient denied suicidal or homicidal ideation, no delusions. she denied auditory or visual hallucinations currently. Insight and judgment are improved. impulse control is impaired. Cognition: Patient Appearance: Appropriate Level of Consciousness: Awake, Alert, Appropriate and Follows Commands Patient Cognition Impaired: No Ability to Follow Directions: Good Patient Orientation (long list): Person, Place, Time, Name, Age and Birthday Comprehension Ability: No Impairment Hallucination Type: None Delusion Description: Not Present Thought Process: Appropriate and Circumstantial Affect: Affect Description: Appropriate and Calm Behavior: Patient Behavior: Appropriate and Cooperative Speech Pattern: Appropriate and Clear Vitals/I&O/Wt Last Vital Signs Temp 98.1 F 02/15/21 06:00 Pulse 128 H 02/15/21 06:00 Resp 17 02/15/21 06:00 BP 119/82 02/15/21 06:00 Pulse Ox 99 02/15/21 06:00 Data NPU : 02/09/21 12:14 01/23/21 00:31 A&P Assessment and plan (1) Acute psychosis: Status: Acute (2) Schizoaffective disorder, bipolar type: Status: Acute (3) PTSD (post-traumatic stress disorder): Status: Chronic (4) Status post ORIF of fracture of ankle: Status: Acute (5) Bimalleolar fracture of right ankle: Status: Acute Additional A&P Information (1) Acute psychosis: (2) Schizoaffective disorder, bipolar type: (3) PTSD (post-traumatic stress disorder): (4) Status post ORIF of fracture of ankle: (5) Bimalleolar fracture of right ankle: Additional A&P Information This is a 25-year-old white female with a long history of mental health and addiction challenges who presented about a week after her last discharge with continued inability to be managed on outpatient basis with continued aneta and erratic behavior. 1. Continue monthly Invega sustained 156 mg injections. Her last injection was January 26. Lamictal 150 mg every morning. Clozaril 600 mg QHS. 2. Continue every 15 minute checks for safety. 3. Encourage individual, group and milieu therapies. 4. Multiple attempts to reintroduce Sherri to the community have failed and she continues to have borderline stability. 5. To be at baseline now we are awaiting placement. Involuntary Hold Information 96 Hour Hold: 96 Hour Involuntary Admission: Yes 96 Hour Hold Ending Date: 01/28/21 96 Hour Hold Ending Time: 00:01 Attestations NPU Medical Necessity Statement*: Inpatient hospitalization is medically necessary and the clinically appropriate intervention at this time. We will initiate medications and make changes as indicated. Coding Level of Care Code Acute Supervisor Of Officials for Dana Fwd Diagnoses Acute psychosis F23 Schizoaffective disorder, bipolar type F25.0 PTSD (post-traumatic stress disorder) F43.10 Status post ORIF of fracture of ankle Z98.890; Z87.81 Bimalleolar fracture of right ankle S82.845Z
[2021-02-15] MEDS: propranolol 20 mg Tablet 10 MG PO ×3 (09:58→19:36)
[2021-02-15 13:42] VITALS: BP 119/82; PULSE 128; RESP 17; TEMP 36.7; O2SAT 99
[2021-02-15 16:27] VITALS: BP 121/83; PULSE 110; RESP 20; TEMP 37.3; O2SAT 98
[2021-02-15] MEDS: cloZAPine 100 mg Tablet 600 MG PO (19:36)
[2021-02-15 21:18] VITALS: BP 125/85; PULSE 122; RESP 18; TEMP 36.8; O2SAT 96
[2021-02-16] MEDS: nicotine 2 mg Gum BUCCAL ×6 (02:24→23:21)
[2021-02-16] MEDS: cetylpyridinium Lozenge 1 EACH MUCOUS MEM (02:24)
[2021-02-16 05:34] VITALS: BP 121/81; PULSE 106; RESP 18; TEMP 36.5; O2SAT 98
[2021-02-16] MEDS: fluticasone nasal spray 16gm Btl 2 SPRAY NASAL (05:58)
--- NOTE | 2021-02-16 06:07 | PC.NURSE ---
pt requested nasal spray at this time, request granted.
[2021-02-16] MEDS: ibuprofen 800 mg tablet PO ×3 (07:50→20:23)
[2021-02-16] MEDS: lamoTRIgine 100 mg Tablet 150 MG PO (07:50)
[2021-02-16] MEDS: propranolol 20 mg Tablet 10 MG PO ×3 (07:51→20:20)
--- NOTE | 2021-02-16 08:16 | W.PM.NPUPNS ---
Subjective NPU Subjective: Interval history: She says that she slept well last night which is the Clozaril 600 mg. The nurses said that she was up and down through the night but went back to sleep easily. She continues to be happy about medication. She continues to say that her thoughts are more clear without medication. He has not had any as needed medications for anxiety or aggression since February 11 when she had the Zyprexa Zydis 5 mg. Mental Status Exam MSE Comments: This is an overweight white female with hospital scrubs on with limited grooming but good eye contact. No abnormal movements and no psychomotor agitation. cooperative with exam in no distress. Speech was not pressured with normal rate and more normal volume. Attention and concentration good. She is alert and oriented x3. Mood described as good. Thought process is well organized. She continues to be loud and sometimes irritated on the unit but significantly less so. Thought content: Patient denied suicidal or homicidal ideation, no delusions. she denied auditory or visual hallucinations currently. Insight and judgment are improved. impulse control is impaired. Cognition: Patient Appearance: Appropriate Level of Consciousness: Awake, Alert, Appropriate and Follows Commands Patient Cognition Impaired: No Ability to Follow Directions: Good Patient Orientation (long list): Person, Place, Time, Name, Age and Birthday Comprehension Ability: No Impairment Hallucination Type: None Delusion Description: Not Present Thought Process: Appropriate and Circumstantial Affect: Affect Description: Appropriate and Calm Behavior: Patient Behavior: Appropriate and Cooperative Speech Pattern: Appropriate and Clear Vitals/I&O/Wt Last Vital Signs Temp 97.7 F 02/16/21 05:34 Pulse 106 H 02/16/21 05:34 Resp 18 02/16/21 05:34 BP 121/81 02/16/21 05:34 Pulse Ox 98 02/16/21 05:34 Data NPU : 02/09/21 12:14 01/23/21 00:31 A&P Assessment and plan (1) Acute psychosis: Status: Acute (2) Schizoaffective disorder, bipolar type: Status: Acute (3) PTSD (post-traumatic stress disorder): Status: Chronic (4) Status post ORIF of fracture of ankle: Status: Acute (5) Bimalleolar fracture of right ankle: Status: Acute Additional A&P Information (1) Acute psychosis: (2) Schizoaffective disorder, bipolar type: (3) PTSD (post-traumatic stress disorder): (4) Status post ORIF of fracture of ankle: (5) Bimalleolar fracture of right ankle: Additional A&P Information This is a 25-year-old white female with a long history of mental health and addiction challenges who presented about a week after her last discharge with continued inability to be managed on outpatient basis with continued aneta and erratic behavior. 1. Continue monthly Invega sustained 156 mg injections. Her last injection was January 26. Lamictal 150 mg every morning. Clozaril 600 mg QHS. 2. Continue every 15 minute checks for safety. 3. Encourage individual, group and milieu therapies. 4. Multiple attempts to reintroduce Sherri to the community have failed and she continues to have borderline stability. 5. To be at baseline now we are awaiting placement. Involuntary Hold Information 96 Hour Hold: 96 Hour Involuntary Admission: Yes 96 Hour Hold Ending Date: 01/28/21 96 Hour Hold Ending Time: 00:01 Attestations NPU Medical Necessity Statement*: Inpatient hospitalization is medically necessary and the clinically appropriate intervention at this time. We will initiate medications and make changes as indicated. Coding Level of Care Code Acute Ict Customer Support Officer for Dana Fwd Diagnoses Acute psychosis F23 Schizoaffective disorder, bipolar type F25.0 PTSD (post-traumatic stress disorder) F43.10 Status post ORIF of fracture of ankle Z98.890; Z87.81 Bimalleolar fracture of right ankle S82.845C
[2021-02-16 14:00] VITALS: BP 121/82; PULSE 101; RESP 20; TEMP 36.4; O2SAT 98
[2021-02-16 19:41] VITALS: BP 142/91; PULSE 111; RESP 18; TEMP 36.6; O2SAT 98
--- NOTE | 2021-02-16 19:48 | PC.NURSE ---
Patient request for nicorette gum for nicotine cravings given.
[2021-02-16] MEDS: cloZAPine 100 mg Tablet 600 MG PO (20:19)
[2021-02-16 22:00] VITALS: BP 142/91; PULSE 111; RESP 18; TEMP 36.6; O2SAT 98
--- NOTE | 2021-02-17 01:37 | PC.NURSE ---
pt came up to the nurses station complaining that her chest was tight and that she could not catch her breath. I took patients vitals and everything was within normal range except her oxygen which was 91 percent.
--- NOTE | 2021-02-17 01:40 | PC.NURSE ---
Patient with diminished breath sounds bilateral posterior bases Occasional expiratory wheezes auscultated that resolved with cough. O2 sat 90-91% on RA. Patient states chest is tight. V/S taken and recorded by RN HEDIS.
--- NOTE | 2021-02-17 01:46 | XRR_ITS ---
PROCEDURE INFORMATION: Exam: XR Chest Exam date and time: 02/17/2021 1:46 AM Age: 25 years old Clinical indication: Shortness of breath; Additional info: Chest tightness, diminished breath sounds. O2 sat 90-91% TECHNIQUE: Imaging protocol: XR of the chest. Views: 1 view. COMPARISON: CR XR chest 1V portable [id number] 12/04/2020 4:33 PM FINDINGS: Lungs: Unremarkable. No consolidation. Pleural spaces: Unremarkable. No pleural effusion. No pneumothorax. Heart/Mediastinum: Unremarkable. No cardiomegaly. Bones/joints: Unremarkable. XR/XR chest 1V portable [id number] IMPRESSION: No acute findings.
[2021-02-17] MEDS: LORazepam 2 mg Tablet PO (02:14)
--- NOTE | 2021-02-17 02:23 | PC.NURSE ---
Patient given 2 mg po Lorazepam for noted agitation as evidenced by yelling and anxious affect after chest x ray.
[2021-02-17 06:00] VITALS: RESP 18
[2021-02-17 07:30] LABS: Basophils # 0.1 10^3/uL (0.0-0.1); Basophils % 0.5 %; Eosinophils # 0.4 10^3/uL (0.0-0.8); Eosinophils % 3.5 %; Hematocrit 37.5 % (37.0-47.0); Hemoglobin 12.6 g/dL (11.5-15.3); Lymphocytes # 1.8 10^3/uL (0.8-4.8); Lymphocytes % 14.5 %; Mean Corpuscular HGB Conc 33.6 g/dL (30.0-36.0); Mean Corpuscular Hemoglobin 30.7 pg (28.0-34.0); Mean Corpuscular Volume 91.2 fl (81-99); Mean Platelet Volume 9.3 fL (7.4-10.4); Monocytes # 0.8 10^3/uL (0.2-0.9); Monocytes % 6.6 %; Neutrophils % 74.5 %; Nucleated Red Blood Cells % 0 %; Platelet Count 362 10^3/cmm (130-400); Red Blood Count 4.11 10^6/uL (4.1-5.3); Red Cell Distribution Width 13.2 % (12.1-15.1); White Blood Count 12.4 10^3/uL (4.0-10.0)
[2021-02-17] MEDS: propranolol 20 mg Tablet 10 MG PO (07:55)
[2021-02-17] MEDS: lamoTRIgine 100 mg Tablet 150 MG PO (07:55)
[2021-02-17] MEDS: nicotine 2 mg Gum BUCCAL ×3 (07:55→11:30)
[2021-02-17] MEDS: ibuprofen 800 mg tablet PO (07:56)
[2021-02-17] MEDS: fluticasone nasal spray 16gm Btl 2 SPRAY NASAL (07:58)
--- NOTE | 2021-02-17 10:34 | PC.NURSE ---
Pt very clear today, making sense in statements. No problems or behaviors from this pt. Will continue to monitor.
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
[2021-02-17 11:43] VITALS: RESP 18
[2021-02-17 11:46] VITALS: BP 128/85; PULSE 122; RESP 16; TEMP 36.6; O2SAT 99
== END 2021-02-17 12:49 | disposition home or self-care (01) | DRG 885 ==
LOC: ER 01-24 01:22 → NP 01-24 01:57
PROVIDERS: Emergency Medicine; Psychiatry & Neurology Psychiatry; Admitting Provider Psychiatry & Neurology Psychiatry; Emergency Provider Emergency Medicine; Visit Provider Psychiatry & Neurology Psychiatry
DX: F25.0 Schizoaffective disorder, bipolar type (principal); G89.29 Other chronic pain; M54.9 Dorsalgia, unspecified; F17.210 Nicotine dependence, cigarettes, uncomplicated; Z63.9 Problem related to primary support group, unspecified; Z62.820 Parent-biological child conflict; F43.12 Post-traumatic stress disorder, chronic; S82.841D Displaced bimalleolar fracture of right lower leg, subsequent encounter for closed fracture with routine healing; S92.351D Displaced fracture of fifth metatarsal bone, right foot, subsequent encounter for fracture with routine healing; X58.XXXD Exposure to other specified factors, subsequent encounter
CPT/HCPCS: 36415; 36416; 71045; 73630; 80053; 80306; 80307; 81025; 82962; 85025; 96372; 97150; 97165; 97760; 99285; J1200; J1630; J2060; J3486; L4361